=== PATIENT | male | born 1955 | race Caucasian/White ===

== ENCOUNTER → 2019-08-18 13:27 | Outpatient (CLI) | payer OTHER, MEDICARE, SELFPAY ==
--- NOTE | 2019-08-18 13:33 | CT_ITS ---
STUDY: CT SCAN LOWER EXTREMITY RIGHT REASON FOR EXAM: Male, 64 years old. UNILATERAL PRIMARY OSTEOARTHRITIS RIGHT KNEE, PREV PARTIAL MENISCUS REMOVAL, HX-CORONARY STENTS, DB, HTN -- SMOOTH PROTOCOL RADIATION DOSAGE (If Supplied By Facility): CTDIvol = ( 30.70 ) mGy, DLP = ( 1783.25 ) mGycm. Individualized dose optimization techniques were used for this CT.? TECHNIQUE: Multiple axial tomographic images of the right lower extremity were obtained. Coronal and sagittal reconstructions were obtained as well. COMPARISON: None. FINDINGS: Mild degree of osteoarthritis involving the right hip joint with acetabular spurs both laterally and medially. Moderate degree of osteoarthritis involving the medial compartment of the knee joint. Mild degree of osteoarthritis with joint space narrowing in the feature of spurring along the lateral femoral condyle and lateral tibial plateau. Posterior spurring along the posterior aspect of the distal femur. Mild degree of degenerative changes involving the patellofemoral joint. Small joint effusion. CT/Extremity Lower without Contra IMPRESSION: Multiple findings as described. Electronically Signed: Scar Holden, at 16:23 EDT , Service support ,
== END ==
PROVIDERS: Referring Provider Physician Assistant; Visit Provider Physician Assistant
DX: M17.11 Unilateral primary osteoarthritis, right knee (principal)
CPT/HCPCS: 73700

== ENCOUNTER → 2019-11-25 12:07 | Outpatient (CLI) | payer OTHER, MEDICARE, SELFPAY ==
[2019-11-25 14:36] LABS: Hemoglobin A1c 6.5 % (3.8-5.6)
== END ==
PROVIDERS: Referring Provider Physician Assistant; Visit Provider Physician Assistant
DX: E11.69 Type 2 diabetes mellitus with other specified complication (principal)
CPT/HCPCS: 36415; 83036

== ENCOUNTER 2019-12-29 10:55 | Observation (INO) | payer OTHER, MEDICARE, SELFPAY ==
[2019-12-22 11:03] LABS: Hematocrit 43.7 % (40-54); Hemoglobin 14.6 g/dL (13.0-16.5); Mean Corp Hgb Conc 33.4 g/dL (32-36); Mean Corpuscular Hgb 29.7 pg (27.0-32.0); Platelet Count 206 K/mm3 (150-450); RBC Distribution Width CV 13.9 % (11.6-14.6); RBC Distribution Width SD 44.1 fl (35.1-43.9); Red Blood Count 4.91 M/mm3 (4.6-6.2); White Blood Count 9.5 K/mm3 (4.4-11.0)
[2019-12-22 11:32] LABS: Anion Gap 6 (5-15); BUN 17 mg/dL (7-18); BUN/Creat Ratio 20.7 RATIO (10-20); Calcium,Total 8.6 mg/dL (8.5-10.1); Chloride 107 mmol/L (98-107); Creatinine, Serum 0.82 mg/dL (0.70-1.30); EST Glomerular Filtration Rate 100 mL/min (>60); Est Glom Filt Rate - Afr Amer 121 mL/min (>60); Glucose 178 mg/dL (74-106); Magnesium 1.8 mg/dL (1.6-2.6); Potassium 4.1 mmol/L (3.5-5.1); Sodium Level 140 mmol/L (136-145)
[2019-12-23 12:14] LABS: Absolute Lymphocyte Count 2.12 X10^3/uL (0.83-4.51); Absolute Neutrophil Count 6.7 X10^3/uL (2.0-7.7); Basophil# 0.09 X10^3/uL; Basophil% 0.9 % (0-1); Eosinophil# 0.18 X10^3/uL; Eosinophils% 1.8 % (0-5); Lymphocyte # 2.12 X10^3/ul (4.0); Lymphocyte % 21.6 % (19-41); Monocyte% 7.1 % (0-10); NRBC Flagged by Analyzer 0 % (0-5); Neutrophil # 6.68 X10^3/uL (2.7-7.7); Neutrophil % 68.3 % (47-70)
[2019-12-29] VITALS (14 sets, daily range): BP systolic 93–124; BP diastolic 55–88; PULSE 62–78; RESP 16–18; TEMP 36.4–36.8; O2SAT 92–99; BMI 27.8
[2019-12-29] MEDS: Lactated Ringers 1,000 ML 125 ML IV ×4 (07:00→18:33)
[2019-12-29] MEDS: Acetaminophen 500 MG Tablet 1000 MG PO ×3 (07:00→21:24)
[2019-12-29] MEDS: Gabapentin 600 MG Tablet PO (07:00)
[2019-12-29 10:16] LABS: Bedside Glucose 218 mg/dL (70-110)
[2019-12-29] MEDS: Cefazolin 2 GM in 0.9% Normal Saline 100 ML IV (11:07)
--- NOTE | 2019-12-29 11:30 | KNEE_PTH ---
PATIENT: LAUREN THOMAS LOC: MS3 U#:[id number] AGE/SX: 64/M ROOM: CA313 RE12/29/[address]: Dr. Indio Strong DO : 1955 BED: 1 DIS: 12/30/2019 SPEC #: [id number] RECD: 12/29/19 14:01 STATUS: ALEN REFunmilayo #: [id number] ROXIE: 12/29/19 11:[address]: Indio Strong DEPT: SURGICAL PATHOLOGY RECD BY: Davian Mancuso ENTERED: 12/30/19 07:59 SP TYPE: TOTAL KNEE OTHR DR: MD Wilberto Quijano PA-C [facility] Tissues: Knee, NOS Procedures: Decalcification bone/plaque Surgery Specimen Level IV HEADER OPERATION: ERAS, total knee replacement robotic arm assist PRE-OP DIAGNOSIS: Right knee osteoarthritis TISSUE SUBMITTED: Right knee MICROSCOPIC DIAGNOSIS Bone and soft tissue, right knee, total knee replacement: Pieces of bone with degenerative osteoarthritic changes. Fibroadipose tissue, fibroconnective tissue and reactive synovial tissue. JAM:tai 01/02/20 MICROSCOPIC DESCRIPTION Slides are reviewed. GROSS DESCRIPTION Received is one container designated bone and soft tissue right knee. The specimen consists of multiple fragments of baird-yellow bone measuring in aggregate 11 x 10 x 4 cm. Also in the specimen container are multiple fragments of yellow-white soft tissue measuring in aggregate 8 x 7 x 3 cm. A number of bony fragments contain articular surfaces consistent with tibial plateau and femoral condyle and displaying prominent osteophyte formation, eburnation, and bone erosion. Chief Design Engineer sections are submitted in two cassettes as follows: 1 - soft tissue, 2 - bone after decalcification. / JAM:tai 12/30/19 TC:5 CPT: 99990, 52945
--- NOTE | 2019-12-29 12:52 | PCM.OPRPT ---
Report of Operation Date of Procedure: 12/29/19 Pre-Operative Diagnosis: OA Right knee Post-Operative Diagnosis: same Surgery/Procedure Performed:: Right TKR community engagement representative: Wilberto Vann Type of Anesthesia:: Spinal Anesthesiologist: Blayne Mcneal Specimen's removed: bony cuts - Admit VTE Documentation VTE Present on Admission: No VTE Mechan Device Prophylaxis: SCD's, Thigh High MACO Hose VTE Pharm Prophylaxis ordered?: Yes
--- NOTE | 2019-12-29 13:40 | RAD_ITS ---
STUDY: X-RAY - RIGHT KNEE REASON FOR EXAM: Male, 64 years old. POST OP TECHNIQUE: 2 view(s) of the knee. COMPARISON: None. FINDINGS: Normal visualized distal femur. Normal visualized proximal tibia and fibula. Normal proximal tibiofibular articulation. The patient is status post right knee replacement. There is good alignment. Postoperative soft tissue changes. RAD/Knee 1 or 2 Views IMPRESSION: Status post total knee replacement. There is good alignment. Postoperative soft tissue changes. Electronically Signed: Scar Holden, at 14:49 EDT , Service support ,
[2019-12-29 13:56] LABS: Bedside Glucose 185 mg/dL (70-110)
[2019-12-29 13:58] LABS: Hemoglobin 12.8 g/dL (13.0-16.5); Mean Corpuscular Hgb 28.7 pg (27.0-32.0); Mean Corpuscular Volume 89.7 fL (80-94); Mean Platelet Vol. 10.7 fl (6.2-12.0); Platelet Count 199 K/mm3 (150-450); RBC Distribution Width CV 13.5 % (11.6-14.6); RBC Distribution Width SD 43.9 fl (35.1-43.9); Red Blood Count 4.46 M/mm3 (4.6-6.2); White Blood Count 8.8 K/mm3 (4.4-11.0)
[2019-12-29 14:11] LABS: Anion Gap 6 (5-15); BUN 15 mg/dL (7-18); BUN/Creat Ratio 19.7 RATIO (10-20); Calcium,Total 7.9 mg/dL (8.5-10.1); Chloride 106 mmol/L (98-107); Creatinine, Serum 0.76 mg/dL (0.70-1.30); EST Glomerular Filtration Rate 109 mL/min (>60); Est Glom Filt Rate - Afr Amer 132 mL/min (>60); Estimated Creatinine Clearance 109.51 ml/min; Glucose 195 mg/dL (74-106); Potassium 4.1 mmol/L (3.5-5.1); Sodium Level 141 mmol/L (136-145)
[2019-12-29] MEDS: oxyCODONE 5 MG Tablet PO (17:52)
[2019-12-29] MEDS: Cefazolin 1 GM/50 ML BAG IV (18:33)
[2019-12-29] MEDS: Atorvastatin Calcium 80 MG Tablet PO (21:24)
[2019-12-29] MEDS: Senna/Docusate Sodium 1 Tablet 2 TABLET PO (21:24)
[2019-12-29] MEDS: Finasteride 5 MG Tablet PO (21:25)
[2019-12-29] MEDS: Metoprolol Tartrate 25 MG Tablet 12.5 MG PO (21:25)
[2019-12-30 00:02] VITALS: BP 129/77; PULSE 63; RESP 16; TEMP 36.4; O2SAT 97
[2019-12-30] MEDS: oxyCODONE 5 MG Tablet PO ×2 (00:11→08:30)
--- NOTE | 2019-12-30 00:30 | NURSING ---
Pt unable to void at this time and feeling pressure on bladder. Bladder scanned for >999. Pt straight cathed per order at this time for 1300cc of clear, yellow urine; pt tolerated well and reports relief of pressure.
[2019-12-30] MEDS: Cefazolin 1 GM/50 ML BAG IV (02:25)
[2019-12-30 03:59] VITALS: BP 102/55; PULSE 67; RESP 16; TEMP 36.7; O2SAT 95
[2019-12-30] MEDS: 0.9% Saline Lock 10 ML Syringe IV (05:22)
[2019-12-30] MEDS: Acetaminophen 500 MG Tablet 1000 MG PO ×2 (05:23→13:48)
[2019-12-30 06:10] LABS: Bedside Glucose 189 mg/dL (70-110)
[2019-12-30 06:13] LABS: Hematocrit 34.8 % (40-54); Hemoglobin 11.3 g/dL (13.0-16.5); Mean Corp Hgb Conc 32.5 g/dL (32-36); Mean Corpuscular Hgb 29.4 pg (27.0-32.0); Mean Corpuscular Volume 90.6 fL (80-94); Mean Platelet Vol. 11.2 fl (6.2-12.0); Platelet Count 185 K/mm3 (150-450); RBC Distribution Width CV 13.7 % (11.6-14.6); RBC Distribution Width SD 44.9 fl (35.1-43.9); Red Blood Count 3.84 M/mm3 (4.6-6.2); White Blood Count 11.2 K/mm3 (4.4-11.0)
[2019-12-30 06:42] LABS: Anion Gap 6 (5-15); BUN 15 mg/dL (7-18); BUN/Creat Ratio 18.3 RATIO (10-20); Calcium,Total 7.7 mg/dL (8.5-10.1); Chloride 103 mmol/L (98-107); Creatinine, Serum 0.82 mg/dL (0.70-1.30); EST Glomerular Filtration Rate 100 mL/min (>60); Est Glom Filt Rate - Afr Amer 121 mL/min (>60); Glucose 194 mg/dL (74-106); Potassium 4.2 mmol/L (3.5-5.1); Sodium Level 137 mmol/L (136-145)
--- NOTE | 2019-12-30 07:53 | PN.ORTHO_ITS ---
Subjective: Patient sitting at bedside, states pain is been very well managed. Patient denies chest pain, shortness breath, calf pain, nausea vomiting. Patient does state he had difficult time of voiding and nursing did straight cath him. Denies any previous history of urinary retention. Patient reports he has had a small amount of urine void since the catheter. Objective: Dressings clean dry intact. Negative signs or symptoms of DVT. Patient's labs and vitals were reviewed and noted in the medical record. Patient is afebrile. Patient in no respiratory distress, speaking full sentences. - Physical Exam Vitals/I&O's: Vital Signs Temp Pulse Resp BP Pulse Ox 98.0 F 67 16 102/55 L 95 12/30/19 03:59 12/30/19 03:59 12/30/19 03:59 12/30/19 03:59 12/30/19 03:59 Oxygen Flow Rate (L/min) 2 Oxygen Delivery Method Nasal Cannula Weight: 95.5 kg Body Mass Index (BMI) 27.8 Finger Stick Blood Glucose 185 Intake and Output for Last 24 Hours 12/28/19 12/29/19 12/30/19 23:59 23:59 23:59 Intake Total 3239.17 / 3539.17 1744.00 / 1744.00 Output Total 2375 / 2375 Balance 3239.17 / 3539.17 -631.00 / -631.00 General: Alert, Oriented x3, Cooperative HEENT: PERRLA Oral: Moist Mucosa Neurological: Cranial nerves II-XII grossly intact Psych/Mental Status: Normal Affect, Alert and oriented to time, place, person, mood and affect Laboratory Results 12/29/19 09:46: POC Glucose 218 H 12/29/19 13:48: POC Glucose 185 H 12/29/19 13:50: WBC 8.8, RBC 4.46 L, Hgb 12.8 L, Hct 40.0, MCV 89.7, MCH 28.7, MCHC 32.0, RDW Std Deviation 43.9, RDW Coeff of Jori 13.5, Plt Count 199, MPV 10.7 12/29/19 13:50: Sodium 141, Potassium 4.1, Chloride 106, Carbon Dioxide 29.0, Anion Gap 6, BUN 15, Creatinine 0.76, Estim Creat Clear Calc 109.51, Est GFR (MDRD) Af Amer 132, Est GFR (MDRD) Non-Af 109, BUN/Creatinine Ratio 19.7, Glucose 195 H, Calcium 7.9 L 12/30/19 05:54: WBC 11.2 H, RBC 3.84 L, Hgb 11.3 L, Hct 34.8 L, MCV 90.6, MCH 29.4, MCHC 32.5, RDW Std Deviation 44.9 H, RDW Coeff of Jori 13.7, Plt Count 185, MPV 11.2 12/30/19 05:54: Sodium 137, Potassium 4.2, Chloride 103, Carbon Dioxide 28.0, Anion Gap 6, BUN 15, Creatinine 0.82, Estim Creat Clear Calc 101.50, Est GFR (MDRD) Af Amer 121, Est GFR (MDRD) Non-Af 100, BUN/Creatinine Ratio 18.3, Glucose 194 H, Calcium 7.7 L 12/30/19 06:07: POC Glucose 189 H Current Medications Acetaminophen (Tylenol) 1,000 mg PO Q8 [facility] Last Admin: 12/30/19 05:23 Dose: 1,000 mg Documented by: [facility] Atorvastatin Calcium (Lipitor) 80 mg PO QHS [facility] Last Admin: 12/29/19 21:24 Dose: 80 mg Documented by: Clopidogrel Bisulfate (Plavix) 75 mg PO DAILY [facility] Finasteride (Proscar) 5 mg PO QHS [facility] Last Admin: 12/29/19 21:25 Dose: 5 mg Documented by: Glipizide (Glucotrol) 15 mg PO BIDAC [facility] Last Admin: 12/29/19 16:23 Dose: Not Given Documented by: Sodium Chloride () 250 mls @ 15 mls/hr IV .[id number] PRN PRN Reason: Saline Flush Sodium Chloride () 250 mls @ 15 mls/hr IV .[id number] PRN PRN Reason: Additional IVPB Infusion Insulin Human Lispro (Humalog Kwikpen (Bkc)) 1 - 6 unit SC Q4H PRN PRN; Protocol PRN Reason: BG>/= 180, SEE PROTOCOL Linagliptin (Tradjenta) 5 mg PO DAILY [facility] Lisinopril (Zestril) 5 mg PO DAILY [facility] Metformin HCl (Glucophage) [facility] Last Admin: 12/29/19 16:23 Dose: Not Given Documented by: Metoprolol Tartrate (Lopressor (Beta Yariel)) 12.5 mg PO BID [facility] Last Admin: 12/29/19 21:25 Dose: 12.5 mg Documented by: Multivitamins/Minerals (Multivitamin With Minerals (Bkc)) 1 tablet PO DAILY@08 00 [facility] Ondansetron HCl (Zofran) 4 mg IV Q8H PRN PRN PRN Reason: NAUSEA Oxycodone HCl (Oxyir) 5 - 10 mg PO Q4H PRN PRN PRN Reason: Pain Score 4-10/10 Last Admin: 12/30/19 00:11 Dose: 10 mg Documented by: Promethazine HCl (Phenergan) 12.5 mg IM Q6H PRN PRN; Protocol PRN Reason: NAUSEA/VOMITING Senna/Docusate Sodium (Senokot-S, Lucrecia-Colace) 2 tablet PO BID [facility] Last Admin: 12/29/19 21:24 Dose: 2 tablet Documented by: Sodium Chloride () 10 - 40 ml IV UD PRN PRN Reason: SALINE FLUSH Last Admin: 12/30/19 05:22 Dose: 10 ml Documented by: Medical Necessity - Tobacco Use Smoking Status: Never smoker Assessment/Plan Postop right total knee arthroplasty Plan 1. Continue all pain medications as prescribed 2. Continue physical therapy, weight-bear as tolerated with walker 3. Resume all preoperative anticoagulation medications Plavix and aspirin. Medications will also provide anticoagulation for postop DVT prophylaxis 4. Encourage incentive spirometry 5. Patient will be discharged home today if he voids if patient continues have difficult time voiding we will consult urology 6. Follow-up as scheduled
[2019-12-30 08:00] VITALS: BP 112/64; PULSE 71; RESP 16; TEMP 37.2; O2SAT 97
--- NOTE | 2019-12-30 08:03 | PCM.DC.TKR ---
Discharge Diet: No Restrictions Discharge Activity: May Not Drive, May Shower, Use Walker May shower in (days): 3 Ice area for (Minutes): 20 - each hour while awake. Weight Bearing Status: Weight bearing as tolerated Elevate: Operative Extremity Additional Activity Instructions:: Wear elastic stockings for 2 weeks after your surgery. Call your doctor if your incision/area has: Continuous Slow Oozing, Sudden Increased Bleeding, Increased Pain/ Swelling, Increased Redness, Foul Smelling Discharge Call your doctor if you observe: Fever of 101 or Higher, Coldness, Increased Pain - in extremity, Numbness or Tingling, Change in Color, Calf discomfort, Uncontrolled pain Change Dressing in (Days):: 0 - and daily as needed. Remove Dressing in (days):: 8 Cleanse incision/area with: Soap & Water Allergies/Adverse Reactions: Allergies celecoxib [From Celebrex] Allergy (Verified 12/29/19 09:59) Rash etodolac Allergy (Verified 12/29/19 09:59) Rash from lodine photochemical reaction terbonafine Allergy (Uncoded 12/29/19 09:59) Rash Medications to take at Discharge Alogliptin Benzoate [Alogliptin] 25 mg PO DAILY 12/19/19 Atorvastatin Calcium [Lipitor] 80 mg PO QHS 12/19/19 Clopidogrel Bisulfate [Plavix] 75 mg PO DAILY 12/19/19 Finasteride [Proscar] 5 mg PO QHS 12/19/19 Krill/[place]-3/Dha/Epa/Lipids [Krill Oil 350 mg Softgel] 1 ea PO DAILY 12/19/19 Lisinopril 5 mg PO DAILY 12/19/19 Metformin HCl 1,000 mg PO BID 12/19/19 Metoprolol Tartrate [Lopressor (beta luly)] 12.5 mg PO BID 12/19/19 Multivit-Min/Folic/Vit K/Lycop [Men's 50 Plus Multivitamin Tab] 1 ea PO DAILY 12/19/19 Saw [place] Fruit [Saw [place]] 450 mg PO DAILY 12/19/19 glipiZIDE [Glucotrol] 15 mg PO BIDAC 12/19/19 Acetaminophen [Tylenol] 1,000 mg PO Q8 #90 tab 12/30/19 Aspirin [Adult Low Dose Aspirin EC] 81 mg PO DAILY #60 12/30/19 Oxycodone [Oxyir] 5 - 10 mg PO Q4H PRN PRN 7 Days #84 tablet 12/30/19 The following prescriptions were given: Aspirin [Adult Low Dose Aspirin EC] 81 mg PO DAILY #60 Oxycodone [Oxyir] 5 - 10 mg PO Q4H PRN PRN 7 Days #84 tablet PRN Reason: Pain Score 4-1010 [facility] Acetaminophen [Tylenol] 1,000 mg PO Q8 #90 tab Transmission Status: [facility] Primary Care Physician: [facility],[place] [Primary Care Provider] - Test Results: Test results from this visit will be discussed in further detail at your follow-up appointment, if applicable. Please Follow Up With: Wilberto Vann PA-C When: as scheduled/see pink sheet
[2019-12-30] MEDS: glipiZIDE 10 MG Tablet 15 MG PO (08:17)
[2019-12-30] MEDS: Aspirin E.C. 81 MG Tablet PO (08:18)
[2019-12-30] MEDS: Clopidogrel Bisulfate 75 MG Tablet PO (08:19)
[2019-12-30] MEDS: metFORMIN HCl 1,000 MG Tablet 1000 MG PO (08:19)
[2019-12-30] MEDS: Multivitamins,Ther W-Minerals Tablet 1 TABLET PO (08:19)
[2019-12-30] MEDS: Senna/Docusate Sodium 1 Tablet 2 TABLET PO (08:19)
[2019-12-30] MEDS: Lisinopril 5 MG Tablet PO (08:20)
[2019-12-30] MEDS: LINAGLIPTIN 5 MG TABLET PO (08:20)
[2019-12-30 08:29] VITALS: PULSE 71
[2019-12-30] MEDS: Metoprolol Tartrate 25 MG Tablet 12.5 MG PO (08:29)
--- NOTE | 2019-12-30 10:15 | CASEMGMT ---
RN ANURAG Face to Face with patient for initial transition planning/care coordination assessment. RN CM introduced self and role at [facility]. Patient sitting in chair, alert and oriented. Patient willing to participate in assessment and is able to answer all questions appropriately. Care providers, pharmacy, and demographics verified. Patient wishes to discharge home and is setup [facility]. Patient states he has no further needs or concerns at this time. CM to follow for discharge planning needs that may arise. PCP: Jagdeep at [facility] Specialists: erwin Strong Preferred Pharmacy: [facility] Insurance: [facility] [place] [employer] Prescription Benefit: yes Living Will/HPOA: yes, Aruna Mahmood LNOK: Living Arrangements: Patient lives with in a ranch style home with 5 steps to enter the home. Patient is independent at home. Transportation: DME/HHC: Patient states he has shower chair, raised toilet seat, cane, grab bars, walker at home. Patient is setup with [facility] for outpatient therapy. Disposition Plan: Patient to discharge home with outpatient therapy, family support, and follow-up plans in place. Alondra MOODY, RN, CM
--- NOTE | 2019-12-30 12:15 | PHA.DC.MC ---
Pharmacy Service has performed discharge medication reconciliation and counseling for this patient. 1. ASPIRIN 81MG PO BIDCM 2. OXYCODONE 5-10MG PO Q4H PRN PAIN 4-10/10 X 7 DAYS 3. ACETAMINOPHEN 1000MG PO Q8H The patient's discharge medication list was reviewed for discrepancies and discrepancies were resolved. Home Medications Alogliptin Benzoate [Alogliptin] 25 mg PO DAILY 12/19/19 Atorvastatin Calcium [Lipitor] 80 mg PO QHS 12/19/19 Clopidogrel Bisulfate [Plavix] 75 mg PO DAILY 12/19/19 Finasteride [Proscar] 5 mg PO QHS 12/19/19 Krill/[place]-3/Dha/Epa/Lipids [Krill Oil 350 mg Softgel] 1 ea PO DAILY 12/19/19 Lisinopril 5 mg PO DAILY 12/19/19 Metformin HCl 1,000 mg PO BID 12/19/19 Metoprolol Tartrate [Lopressor (beta luly)] 12.5 mg PO BID 12/19/19 Multivit-Min/Folic/Vit K/Lycop [Men's 50 Plus Multivitamin Tab] 1 ea PO DAILY 12/19/19 Saw [place] Fruit [Saw [place]] 450 mg PO DAILY 12/19/19 glipiZIDE [Glucotrol] 15 mg PO BIDAC 12/19/19 Acetaminophen [Tylenol] 1,000 mg PO Q8 #90 tab 12/30/19 Aspirin [Adult Low Dose Aspirin EC] 81 mg PO DAILY #60 12/30/19 Oxycodone [Oxyir] 5 - 10 mg PO Q4H PRN PRN 7 Days #84 tab 12/30/19 The patient was counseled on the following discharge medications and changes in medications for homegoing were reviewed. The Reason for Use, instructions for use, and potential side effects were reviewed for all new medications. The patient's questions regarding all of their medications were answered. The patient was able to verbally demonstrate an understanding of their discharge medications. Patient counseled by pharmacy services representative, Linda.
[2019-12-30 14:00] VITALS: BP 109/65; PULSE 62; RESP 16; TEMP 36.4; O2SAT 97
== END 2019-12-30 14:11 | disposition home or self-care (01) ==
LOC: MS3 23:05
PROVIDERS: Anesthesiology; Admitting Provider Orthopaedic Surgery; Referring Provider Orthopaedic Surgery; Visit Provider Orthopaedic Surgery
PROC: 0SRC0JZ Replacement of Right Knee Joint with Synthetic Substitute, Open Approach (ICD-10-PCS; CPT 27447; principal; 2019-12-29 11:00)
DX: M17.11 Unilateral primary osteoarthritis, right knee (principal); Z11.59 Encounter for screening for other viral diseases; I10 Essential (primary) hypertension; I25.10 Atherosclerotic heart disease of native coronary artery without angina pectoris; E78.00 Pure hypercholesterolemia, unspecified; E11.9 Type 2 diabetes mellitus without complications; Z79.899 Other long term (current) drug therapy; Z79.82 Long term (current) use of aspirin; Z79.02 Long term (current) use of antithrombotics/antiplatelets; Z79.4 Long term (current) use of insulin; Z95.5 Presence of coronary angioplasty implant and graft
CPT/HCPCS: 01400; 27447; 64447; S2900; 36415; 73560; 80048; 82962; 83735; 85007; 85025; 85027; 87081; 87635; 88305; 88311; 94799; 96361; 96365; 96366; 97110; 97116; 97161; 97166; 97530; 99218; 99251; C1776; J7120; A4216; G0378; G0379; G0463; J2405; U0003

== ENCOUNTER 2019-12-30 21:13 | Emergency (ER) | payer OTHER, MEDICARE, SELFPAY ==
[2019-12-29 15:48] VITALS: BMI 27.8
[2019-12-30 21:14] VITALS: BP 182/87; PULSE 78; RESP 18; TEMP 36.3; O2SAT 96; BMI 27.7
--- NOTE | 2019-12-30 22:58 | ED.VISSUMM ---
- ER Visit Summary Date of Service: 12/30/19 [facility] Complaint: Urinary retention History of Present Illness: The patient is a 64 M who has acute urinary retention. He had a right total knee arthroplasty performed here yesterday. After the surgery last night he had to have straight cath x2 because of urinary retention. He was able to urinate a little bit today so they sent him home without a catheter. Tonight he had urinary retention. He had some dribbling but no ability to empty his bladder. He has had no issues with this before. He has not had a fever. He was having some lower abdominal pain. Physical Examination: Vital signs reviewed. HEENT exam unremarkable. Heart is regular rate and rhythm without murmurs. Lungs are clear to auscultation. Abdomen is soft with suprapubic tenderness. Extremities reveal no edema. Skin exam normal. Neurologic exam normal. Test Results: None performed Emergency Department Course and Treatment: The patient had a Krueger catheter placed in triage. He had a greater than 1000 cc of urine drained. He is feeling much better now. I feel this is likely secondary to anesthesia and the spinal tap performed for surgery. I doubt this is infection. His urine is clear. Patient will be discharged with a leg bag in place. Patient will call his PCP tomorrow. I will also give him urology follow-up Treatment Plan: [] Disposition: Discharge Impression: Acute urinary retention This note was generated with Proenza Schouer dictation software. It may contain incorrect words, spelling, and punctuation that were not noted in review of the chart prior to signing ED Disposition - Plan for ED Patient: Disposition: Home or Assisted Living Instructions: ED Urinary Retention Male Referrals: [facility],[place] [Primary Care Provider] - Polo Osullivan MD [STAFF PHYSICIAN] -
[2019-12-30 23:15] VITALS: RESP 16
== END 2019-12-30 23:15 | disposition home or self-care (01) ==
LOC: ED 23:24
PROVIDERS: Emergency Provider Emergency Medicine
DX: R33.9 Retention of urine, unspecified (principal); I25.10 Atherosclerotic heart disease of native coronary artery without angina pectoris; Z96.651 Presence of right artificial knee joint
CPT/HCPCS: 99282

== ENCOUNTER → 2020-01-05 14:25 | Outpatient (CLI) | payer OTHER, MEDICARE, SELFPAY ==
[2019-12-30 21:14] VITALS: BMI 27.7
--- NOTE | 2020-01-05 14:28 | VDLE_ITS ---
Reason For Study: Pain RLE RIGHT GSV is normal. CFV is compressible, spontaneous, phasic, competent and demonstrates normal augmentation. FV is compressible, spontaneous, phasic, competent and demonstrates normal augmentation. POP V is compressible, spontaneous, phasic, competent and demonstrates normal augmentation. T/P Trunk is compressible. PTV is compressible. RT PerV is compressible. Rt SoleusV is dilated and non compressible consistent with acute DVT. Procedure Exam performed in department. Patient sent to ED for treatment. A preliminary report was called and/or faxed to Mary at [facility]. Interpretation Summary Acute deep vein thrombosis is noted in the right soleus vein. The remainder of the right lower extremity deep venous system is patent and compressible. Valvular competence appears intact within the proximal deep venous system on the right . The right great saphenous vein appears patent and compressible segmentally. Ordering Physician: Wilberto Vann Referring Physician: [facility] Performed By: Cais Johns, YOLETTE, RVT
== END ==
PROVIDERS: Referring Provider Physician Assistant; Visit Provider Physician Assistant
DX: M79.661 Pain in right lower leg (principal)
CPT/HCPCS: 93971

== ENCOUNTER 2020-01-05 15:18 | Emergency (ER) | payer OTHER, MEDICARE, SELFPAY ==
[2020-01-05 15:19] VITALS: BP 141/85; PULSE 127; RESP 16; TEMP 36.4; O2SAT 98; BMI 27.9
--- NOTE | 2020-01-05 16:17 | ED.DCSUM_ITS ---
History of Present Illness Chief Complaint: Complaint Informant: Patient Onset: Today Context: Onset with activity Timing: Continuous Current Severity: Moderate Maximum Severity: Moderate Narrative: Patient presents with right leg swelling that still a bit worse in the past few days he had an outpatient ultrasound which showed a popliteal DVT. He also had urinary retention after his total knee replacement 7 days ago. He just had a catheter inserted in the waiting room since he had retention again this morning, his catheter was removed by urology this morning. He has no chest pain or shortness of breath, no fever or chills. Past Medical History - Allergies and Home Meds Allergies/Adverse Reactions: Allergies celecoxib [From Celebrex] Allergy (Verified 12/29/19 09:59) Rash etodolac Allergy (Verified 12/29/19 09:59) Rash from lodine photochemical reaction terbonafine Allergy (Uncoded 12/29/19 09:59) Rash Primary Care Physician: [facility],[place] [Primary Care Provider] - Past Medical History: - - Hypertension, hypercholesterolemia, diabetes controlled with oral hypoglycemics Smoking Status: Former smoker Review of Systems All systems negative except as indicated General: Denies: Fever Cardiovascular: Denies: Chest pain Respiratory: Denies: Dyspnea, Cough Gastrointestinal: Denies: Abdominal pain, Nausea, Vomiting Genitourinary: Reports: - - Urinary retention Musculoskeletal: Reports: Extremity Pain, - Skin: Reports: Rash, Wounds Neurological: Denies: Headache, Weakness Psych: Denies: Depression, Anxiety Endocrine: Denies: Polyuria Hematologic: Denies: Easy bruising Physical Exam Vital Signs/Narrative: Vital Signs Temp Pulse Resp BP Pulse Ox 01/05/20 15:19 97.6 F L 127 H 16 141/85 H 98 General: Well nourished, Well developed Head: Normocephalic Eyes: Perrl ENT: Moist mucous membranes Cardiovascular: Regular rate, Regular rhythm Respiratory: No distress, CTA bilaterally Abdomen: Soft, Nontender, Nondistended Back: Nontender, Normal Inspection Extremities: - - Knee incision looks clean dry and intact with no signs of infection. There is lower extremity edema without any erythema or signs of cellulitis. Diagnostic/Tx/Re-eval - Medical Decision Making Patient is found to have a DVT, we will start anticoagulation he recently had normal creatinine. He was tachycardic initially however this was while he had urinary retention after the Krueger catheter his heart rate measured by myself is 95. He has no chest pain or shortness of breath therefore I do not believe he has any reason to have a PE study. He will be discharged in stable condition I will start anticoagulation and he can also follow-up with urology ED Disposition - Plan for ED Patient: Diagnosis: Urinary retention, DVT (deep venous thrombosis) Instructions: ED Krueger Catheter Care, Understanding Deep Vein Thrombosis, ED DVT Prescriptions: Apixaban [Eliquis] 5 mg PO BID #60 tab.ds.pk Transmission Status: Pending to [id number] Additional Instructions: Follow up with urology, also orthopedics and your regular doctor for your urinary retention, wound check and Eliquis management.
[2020-01-05 17:01] VITALS: BP 148/79; PULSE 114; RESP 16; O2SAT 97
== END 2020-01-05 17:02 | disposition home or self-care (01) ==
PROVIDERS: Emergency Provider Emergency Medicine
DX: R33.9 Retention of urine, unspecified (principal); I82.401 Acute embolism and thrombosis of unspecified deep veins of right lower extremity; E78.00 Pure hypercholesterolemia, unspecified; E11.9 Type 2 diabetes mellitus without complications; I10 Essential (primary) hypertension; Z79.84 Long term (current) use of oral hypoglycemic drugs; Z87.891 Personal history of nicotine dependence; Z79.82 Long term (current) use of aspirin; Z79.899 Other long term (current) drug therapy
CPT/HCPCS: 51702; 99285

== ENCOUNTER 2020-07-07 09:56 | Emergency (ER) | payer MEDICARE, OTHER, SELFPAY ==
[2020-07-07 09:57] VITALS: BP 163/89; PULSE 84; RESP 16; TEMP 36.1; O2SAT 95; BMI 28.3
--- NOTE | 2020-07-07 10:10 | ED.VIS.INJ ---
History of Present Illness Chief Complaint: Fall Informant: Patient, Significant Other Onset: Days - Incident occurred on Sunday Mechanism/Context: Blunt Injury, Fall Quality of Pain: Dull, Aching, Throbbing Location: Seventh through ninth left rib posterior axillary line Current Severity: Mild Maximum Severity: Severe Worsened by: Deep breathing Relieved by: Nothing Associated Symptoms: Negative for: Parasthesias, Weakness, Inability to ambulate, Loss of consciousness Narrative: Patient is a 65-year-old male who was unloading a snowblower from his truck. He slipped on the ice. He states all day twinge in his knee, which he recently had surgery on (total knee arthroplasty). He did not want to injure his knee so he fell onto his left back. He fell directly onto his back. Not head trauma. Nuys loss of conscious. Denies neck pain. Denies paresthesia, anesthesia medics. He is on Plavix. He is not on anticoagulant. He denies change in color of his urine. He denies abdominal pain. He has no other complaints. Tetanus Immunization: 5-10 years Prior similar symptoms: No Recent Illness/Hospitalization: No - Past Medical History (1) History of type 2 diabetes mellitus Status: Acute (2) History of hypertension Status: Acute (3) History of coronary artery disease Status: Acute Past Medical History - Allergies and Home Meds Allergies/Adverse Reactions: Allergies celecoxib [From Celebrex] Allergy (Verified 07/07/20 09:56) Rash etodolac Allergy (Verified 07/07/20 09:56) Rash from lodine photochemical reaction terbonafine Allergy (Uncoded 07/07/20 09:56) Rash Primary Care Physician: [facility] [Primary Care Provider] - Prior records reviewed: Yes Surgical History: - - Stent placement Lives: Spouse/ Significant Other Smoking Status: Former smoker Alcohol: None Drugs: None Review of Systems General: Denies: Chills, Fever, Malaise Eyes: Denies: Visual changes - bilaterally, Blurred Vision - bilaterally ENT: Denies: Rhinorrhea, Sore throat Cardiovascular: Denies: Chest pain, Palpitations Respiratory: Denies: Dyspnea, Cough, Dyspnea on exertion Gastrointestinal: Denies: Abdominal pain, Nausea, Vomiting Genitourinary: Denies: Hematuria, Frequency Musculoskeletal: Reports: Back pain. Denies: Myalgias, Arthralgias, Neck pain, Swelling, Extremity Pain Skin: Denies: Rash, Wounds Hematologic: Denies: Easy bruising, Easy bleeding Physical Exam Vital Signs/Narrative: Vital Signs Temp Pulse Resp BP Pulse Ox 07/07/20 09:57 97.0 F L 84 16 163/89 H 95 Inital Vital Signs reviewed: Yes General: Well nourished, Well developed Head: Normocephalic, Atraumatic, - - No clinical finding of head trauma or basilar skull fracture.. Negative for: Trauma, Tenderness Eyes: Perrl, EOMI, - - No subconjunctival hemorrhage. Negative for: Pale conjunctiva, Scleral icterus Neck: Nontender, Full ROM. Negative for: Spinal Tenderness Cardiovascular: Regular rate, Regular rhythm, No murmurs, Normal S1, Normal S2 Respiratory: No distress, CTA bilaterally, - - Splinting with deep breathing.. Negative for: Chest nontender, Rales, Rhonchi Abdomen: Soft, Nontender, Nondistended, Normal bowel sounds Rectal: Deferred Back: Spinal Tenderness. Negative for: Nontender, CVA Tenderness - Right, CVA Tenderness - Left Skin: Normal color, No rash Neurological: Alert, Oriented x3, Cranial nerves II-XII grossly intact, Normal Strength, Normal Sensation Psychological: Normal affect Diagnostic/Tx/Re-eval Chest X-Ray - ED: Read by ED Physician, - - X-rays interpreted by me at 1152. X-ray reveals a nondisplaced posterior left ninth rib fracture. There is no evidence of pneumothorax or hemothorax. A total of 5 views was obtained. 07/07/20 11:05 Ribs Uni Min 3V w/PA Chest [RAD] Stat - Medical Decision Making Concern patient may have fractured rib. Will obtain chest x-ray to look for evidence of fractured ribs, pneumothorax, hemothorax. Patient was offered pain medicine, which he declined. He states he took 2 extra strength Tylenol prior to coming to the emergency department. ED Disposition - Plan for ED Patient: Disposition: Home or Assisted Living Diagnosis: Left rib fracture Instructions: ED Rib Fracture Prescriptions: Oxycodone HCl/Acetaminophen [Percocet 5/325] 1 tablet PO Q6H PRN PRN 5 Days #20 tablet PRN Reason: Left rib pain Transmission Status: Sent to [id number] [Primary Care Provider] - 10-14 Days if not better Additional Instructions: Use incentive spirometer every hour while awake for the next 5 to 7 days. You may hurt for 1 to 4 weeks.
--- NOTE | 2020-07-07 11:05 | RAD_ITS ---
STUDY: X-RAY - UNILATERAL RIBS ( LEFT ) WITH CHEST REASON FOR EXAM: Male, 65 years old. Pt. Fell, pain at level of 7th/8th rib area laterally and posterior TECHNIQUE - RIBS: 4 view(s) of the ribs. TECHNIQUE - CHEST: Single PA view of the chest. COMPARISON: None. FINDINGS - RIBS: Nondisplaced fractures involving the posterior aspect of the left seventh eighth and ninth ribs. FINDINGS - CHEST: Minimal increased markings at the left lung base. Blunting of the left costophrenic angle. Normal size heart. Normal mediastinum and alberto. Normal visualized pulmonary arteries. Normal visualized aortic arch and descending thoracic aorta. Normal visualized thoracic spine. Normal visualized ribs, clavicles, and shoulders. There is no demonstrated abnormality of the visualized soft tissue structures of the upper abdomen. RAD/Ribs Uni Min 3V w/PA Chest IMPRESSION: RIBS: Nondisplaced fractures along the posterior lateral aspect of the left seventh eighth and ninth ribs. Small left pleural effusion with minimal left basilar atelectasis. CHEST: Small left pleural effusion with minimal left basilar atelectasis. Electronically Signed: Scar Holden MD at 12:09 EST , Service support ,
[2020-07-07 12:38] VITALS: PULSE 84; RESP 19; O2SAT 98
== END 2020-07-07 12:10 | disposition home or self-care (01) ==
PROVIDERS: Emergency Provider Emergency Medicine
DX: S22.32XA Fracture of one rib, left side, initial encounter for closed fracture (principal); I25.10 Atherosclerotic heart disease of native coronary artery without angina pectoris; W00.0XXA Fall on same level due to ice and snow, initial encounter; Z87.891 Personal history of nicotine dependence; Z79.02 Long term (current) use of antithrombotics/antiplatelets
CPT/HCPCS: 71101; 99283

== ENCOUNTER 2022-08-22 18:49 | Emergency (ER) | payer OTHER, SELFPAY ==
[2022-08-22 18:51] VITALS: BP 137/69; PULSE 69; RESP 18; TEMP 36.1; O2SAT 96; BMI 27.3
--- NOTE | 2022-08-22 19:29 | EX.ED.DYSGE1 ---
HPI History of Present Illness Chief Complaint: Ear Problem Detail of Chief Complaint: Right ear pain that patient localizes anterior to the tragus Informant: patient Onset/Context/Timing Onset: Days Context: Sudden Onset Timing: Continuous Quality: Pain Location: And anterior to the tragus Current Severity: Mild Maximum Severity: Moderate Worsened by: Palpation Relieved by: Nothing Associated Symptoms Associated Symptoms: Nothing Narrative Narrative: Patient is a 67-year-old male with history of type 2 diabetes, hypertension, hypercholesterolemia and is no longer on an antithrombotic or anticoagulant. Patient had recent dental work right lower jaw. He denies fever, chills night sweats. Denies ringing's ears, decreased hearing, drainage from his ears or pain inside the ear. There is no history of trauma. Patient denies difficulty opening or closing his mouth. Patient denies dysphonia. Patient denies swallowing liquids or solids. Patient denies facial pain or swelling. Patient denies rash. Prior similar symptoms: No Recent Illness/Hospitalization: No PFSH PFSH Medical History Coronary artery disease Diabetes Hypertension Home Medications alogliptin 25 mg tablet 25 mg PO DAILY diabetes 12/19/19 [History Last Taken Unknown] atorvastatin 80 mg tablet 80 mg PO QHS cholesterol 12/19/19 [History Last Taken Unknown] clopidogrel 75 mg tablet 75 mg PO DAILY heart 12/19/19 [History Last Taken 12/22/19] finasteride 5 mg tablet 5 mg PO QHS bph 12/19/19 [History Last Taken Unknown] glipizide 10 mg tablet 15 mg PO BIDAC diabetes 12/19/19 [History Last Taken Unknown] krill oil 350 mg-om-3 90 mg-dha 24 mg-epa 50 mg-phospholipids capsule 1 ea PO DAILY supplement 12/19/19 [History Last Taken Unknown] lisinopril 5 mg tablet 5 mg PO DAILY 12/19/19 [History Last Taken 12/29/19 08:00] metformin 1,000 mg tablet 1,000 mg PO BID diabetes 12/19/19 [History Last Taken Unknown] metoprolol tartrate 25 mg tablet 12.5 mg PO BID heart 12/19/19 [History Last Taken 12/29/19 08:00] nbgybeazyrdh-jlm-eewhh acid-vit K-lycop 400 mcg-20 mcg-370 mcg tablet 1 ea PO DAILY vitamin 12/19/19 [History Last Taken Unknown] saw palmetto 450 mg capsule 450 mg PO DAILY supplement 12/19/19 [History Last Taken Unknown] acetaminophen 500 mg tablet 1,000 mg PO Q8 #90 tabs 12/30/19 [Rx Last Taken Unknown] aspirin 81 mg tablet,delayed release 81 mg PO DAILY heart ##60 12/30/19 [Rx Last Taken Unknown] apixaban 5 mg (74 tabs) tablets in a dose pack 5 mg PO BID ##60 01/05/20 [Rx Last Taken Unknown] meloxicam 7.5 mg tablet 7.5 mg PO DAILY #14 tabs 08/22/22 [Rx Last Taken Unknown] Allergy/AdvReac Type Severity Reaction Status Date / Time celecoxib [From Celebrex] Allergy Rash Verified 08/22/22 18:50 etodolac Allergy Rash Verified 08/22/22 18:50 terbinafine AdvReac Rash Verified 08/22/22 18:50 Social History (Updated 08/22/22 @ 19:[address] Carter Aguiar MD) household members: spouse Smoking Status: Never smoker substance use type: does not use ROS ROS ED Constitutional Constitutional ED: Denies chills, fever(s), subjective, sweats or weight loss Eyes Eyes: Denies blurry vision, change in vision or diplopia ENT ENT ED: Reports ear pain right; Denies rhinorrhea or sore throat Cardiovascular Cardiovascular: Denies chest pain Gastrointestinal Gastrointestinal: Denies nausea or vomiting Psychiatric Psychiatric: Denies anxiety Hematologic/Lymphatic Hematologic/Lymphatic: Reports systems reviewed and no addt'l complaints, except as documented; Denies easy bleeding or easy bruising EXAM Physical Exam Const Vital Signs: 08/22/22 18:51 Temperature 97 F L Temperature Source Temporal Pulse Rate 69 Respiratory Rate 18 Blood Pressure 137/69 H Blood Pressure Mean 91 Pulse Ox 96 Oxygen Delivery Method Room Air Positive well nourished and well developed General Appearance ED: well developed and NAD; Negative for cyanotic, diaphoretic or pallor HEENT Reports moist mucous membranes HEENT Narrative: Head is atraumatic normocephalic. Ears are normal. There is pain over the right TMJ. There is a click with opening closing his mouth. The external auditory canal is normal. The TM is normal. Posterior pharynx without erythema or exudate. Uvula is midline. There is no obvious dental pathology. There is no trismus. There is no evidence of facial cellulitis. There is no preauricular lymphadenopathy. There is no submandibular or anterior cervical lymphadenopathy. 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 Since he is not on an anticoagulant or antithrombotic will treat with NSAIDs since his renal function is normal. He was referred to Dr. Troncoso. History & Record Review Discussion w/independent historian: Patient and Significant other Additional record(s) reviewed:: Prior outpatient record (History of DVT, coronary disease with stent.), Prior ED visit and Prior labs Discharge Plan Triage Chief Complaint: Ear Problem Other Complaint: Dental ED Provider: Carter Aguiar Dx/Rx/DC Orders Clinical Impression: TMJ disease, History of type 2 diabetes mellitus, History of hypertension, History of coronary artery disease Instructions: ED TMJ Syndrome Prescriptions: New meloxicam 7.5 mg tablet 7.5 mg PO DAILY Qty: 14 0RF No Action atorvastatin 80 MG tablet 80 mg PO QHS glipizide 10 MG tablet 15 mg PO BIDAC clopidogrel 75 MG tablet 75 mg PO DAILY Label Comments: hold 7 days preop metformin 1,000 MG tablet 1,000 mg PO BID lisinopril 5 MG tablet 5 mg PO DAILY finasteride 5 MG tablet 5 mg PO QHS metoprolol tartrate 25 MG tablet 12.5 mg PO BID saw palmetto 450 MG capsule 450 mg PO DAILY hrevbrdc-bho-plhte-vit K-lycop 1 EACH tablet 1 ea PO DAILY alogliptin 25 MG tablet 25 mg PO DAILY [id number]-[id number]-ximlwj 1 EACH capsule 1 ea PO DAILY acetaminophen 500 MG tablet 1,000 mg PO Q8 Qty: 90 0RF aspirin 81 MG tablet,delayed release (DR/EC) 81 mg PO DAILY Qty: 60 0RF apixaban 5 MG tablets,dose pack 5 mg PO BID Qty: 60 0RF Primary Care Provider: [facility] Referrals: Fadi Lobo DDS [Med Staff - Active Staff] - [facility] [Primary [facility]] - Disposition Disposition: Home, Self Care
[2022-08-22 20:00] VITALS: BP 137/69; PULSE 69; RESP 15; O2SAT 96
== END 2022-08-22 20:20 | disposition home or self-care (01) ==
PROVIDERS: Emergency Provider Emergency Medicine; Visit Provider Emergency Medicine
DX: M26.601 Right temporomandibular joint disorder, unspecified (principal); I25.10 Atherosclerotic heart disease of native coronary artery without angina pectoris; Z95.5 Presence of coronary angioplasty implant and graft
CPT/HCPCS: 99282

== ENCOUNTER 2024-02-13 09:54 | Inpatient (IN) | payer MEDICARE, OTHER, SELFPAY ==
[2024-02-13 09:57] VITALS: BP 136/72; PULSE 65; RESP 18; TEMP 35.5; O2SAT 93; BMI 27.1
--- NOTE | 2024-02-13 11:20 | CT_ITS ---
STUDY: CT ABDOMEN AND PELVIS WITHOUT CONTRAST REASON FOR EXAM: Male, 69 years old. Abdominal pain. RADIATION DOSAGE (If Supplied By Facility): CTDIvol = ( 13.16 ) mGy, DLP = ( 703.66 ) mGycm TECHNIQUE: Transaxial images were obtained from the dome of the diaphragm to the symphysis pubis without oral contrast, and without intravenous contrast. Sagittal and coronal images were reconstructed. Individualized dose optimization techniques were used for this CT. COMPARISON: None. FINDINGS: The visualized lung bases are unremarkable. Coronary artery calcification. Normal liver. Possible sludge in the gallbladder lumen. Normal spleen. There is a well-defined 1.5 cm hypodense nodule in the mesenteric fat in the left upper quadrant suggests a possible splenule. Normal pancreas. Normal bilateral adrenal glands. There is evidence of a moderate degree of right hydronephrosis. Nonobstructive calculus is seen. A right-sided ureteropelvic junction obstruction should be ruled out. Mild degree of right perinephric stranding. Right renal cysts. Normal left kidney. There is a small hiatal hernia. Normal small intestine. Normal colon. The appendix is visualized and appears normal. There is diffuse atherosclerotic calcification of the abdominal aorta and its major visceral branches, without a demonstrated aneurysm. Normal inferior vena cava. Normal retroperitoneum. Mild degree of bladder wall thickening. There is enlargement of the prostate gland. It measures 5.9 cm x 7.5 cm. There is a left-sided inguinal hernia containing adipose tissue. There are diffuse degenerative changes of the visualized lumbar spine. Possible spinal stenosis in the lower lumbar spine. There is a 6.8 mm sclerotic focus in the L4 body. This may represent a bone island. There is a 1.2 cm hypodensity most likely a cyst in the medial aspect of the right iliac bone. CT/Abdomen/Pelvis without Cont IMPRESSION: Moderate degree of right hydronephrosis most likely secondary to right ureterovesical junction obstruction. Questionable sludge in the gallbladder lumen. Prostatic enlargement. Electronically Signed: Scar Holden MD at 12:14 EDT ,
--- NOTE | 2024-02-13 11:20 | EDS_ITS ---
HPI History of Present Illness Chief Complaint: Back Informant: patient Narrative Narrative: Patient is a 69-year-old male with history of coronary disease, hypertension, type 2 diabetes mellitus presenting with atraumatic right lower back pain. Patient states started on Sunday evening (5 days ago) at a football game. When started he was diaphoretic and nauseous. Denies any radiation of pain. On Sunday he take Tylenol disc and laid around. He was feeling better but then last night the pain started again. He had another episode of nausea with it. He states the pain woke him up at 5 AM this morning. He describes it as an ache. It can become quite severe. Denies any radiation of pain. Denies any associated urinary symptoms. [facility] who recommend he come into the ER for further evaluation and to rule out kidney stone versus appendicitis versus cholecystitis. Patient has no other complaints or concerns reported at this time. No report of any fever or chills. No chest pain or difficulty breathing. No swelling of the legs. Reports pain is not reproducible with any type of movement. [facility] Medical History Heart attack Diabetes Coronary artery disease Hypertension Home Medications ?Medication ?Instructions ?Recorded ?Last Taken ?Type alogliptin 25 mg tablet 25 mg PO DAILY diabetes 12/19/19 Unknown History atorvastatin 80 mg tablet 80 mg PO QHS cholesterol 12/19/19 Unknown History clopidogrel 75 mg tablet 75 mg PO DAILY heart 12/19/19 12/22/19 History finasteride 5 mg tablet 5 mg PO QHS bph 12/19/19 Unknown History glipizide 10 mg tablet 15 mg PO BIDAC diabetes 12/19/19 Unknown History krill oil 350 mg-om-3 90 mg-dha 24 1 ea PO DAILY supplement 12/19/19 Unknown History mg-epa 50 mg-phospholipids capsule lisinopril 5 mg tablet 5 mg PO DAILY 12/19/19 12/29/19 08:00 History metformin 1,000 mg tablet 1,000 mg PO BID diabetes 12/19/19 Unknown History metoprolol tartrate 25 mg tablet 12.5 mg PO BID heart 12/19/19 12/29/19 08:00 History lcyxuxgtqicy-fjp-ahsmx acid-vit 1 ea PO DAILY vitamin 12/19/19 Unknown History K-lycop 400 mcg-20 mcg-370 mcg tablet saw palmetto 450 mg capsule 450 mg PO DAILY supplement 12/19/19 Unknown History acetaminophen 500 mg tablet 1,000 mg (2 x 500 mg) PO Q8 #90 12/30/19 Unknown Rx tabs aspirin 81 mg tablet,delayed 81 mg PO DAILY heart ##60 12/30/19 Unknown Rx release apixaban 5 mg (74 tabs) tablets in 5 mg PO BID ##60 01/05/20 Unknown Rx a dose pack meloxicam 7.5 mg tablet 7.5 mg PO DAILY #14 tabs 08/22/22 Unknown Rx azithromycin 250 mg tablet See Rx Instructions PO .COMPLEX #6 06/28/23 Unknown Rx tabs dextromethorphan-guaifenesin 10 10 ml PO Q4-6H PRN cough #237 mL 06/28/23 Unknown Rx mg-100 mg/5 mL oral syrup (Ant AGUIAR) Allergy/AdvReac Type Severity Reaction Status Date / Time celecoxib (From Celebrex) Allergy Rash Verified 02/13/24 09:56 etodolac Allergy Rash Verified 02/13/24 09:56 terbinafine AdvReac Rash Verified 02/13/24 09:56 Surgical History H/O knee surgery H/O right heart catheterization Social History household members: spouse housing: house Smoking Status: Never smoker substance use type: does not use ROS ROS ED Constitutional Constitutional ED: Denies chills or fever(s) Cardiovascular Cardiovascular: Denies chest pain or palpitations Respiratory/Chest Respiratory/Chest: Denies dyspnea Gastrointestinal Gastrointestinal: Denies abdominal pain, constipation, diarrhea, nausea or vomiting Genitourinary Genitourinary ED: Denies dysuria, hematuria or urinary frequency Musculoskeletal Musculoskeletal: Reports back pain Integumentary Denies rash Neurologic Neurologic: Denies headache(s), paresthesias or weakness EXAM Physical Exam Const Vital Signs: 02/13/24 09:57 Temperature 96 F L Temperature Source Temporal Pulse Rate 65 Respiratory Rate 18 Blood Pressure 136/72 H Blood Pressure Mean 93 Pulse Ox 93 Oxygen Delivery Method Room Air Positive well nourished and well developed General Appearance ED: well developed HEENT Reports moist mucous membranes Eyes PERRL Neck supple Resp normal respiratory effort and clear to auscultation bilaterally Cardio regular rate and regular rhythm GI normal to inspection, nondistended, normoactive bowel sounds, soft to palpation and non-tender GI Narrative: No pain at McBurney's point. Negative Hamlin sign. Palpation: Negative for tender or guarding Back/Spine normal to inspection and no thoracic nor lumbar tenderness Back/Spine Narrative: Patient points to his right flank as area of pain but is not reproducible with palpation. No overlying rash or skin changes General Back: Negative for CVA tenderness Extremity normal to inspection and no clubbing, cyanosis or edema Neuro oriented x3 Sensorium / Orientation: alert Motor Exam: strength 5/5 throughout Psych mental status grossly normal Skin no rashes or lesions noted and no wounds MDM MDM Lab Data Labs: Laboratory Results - last 24 hr 02/13/24 10:17 WBC 10.8 RBC 5.13 Hgb 14.8 Hct 45.1 MCV 87.9 MCH 28.8 MCHC 32.8 RDW Std Deviation 43.6 RDW Coeff of Jori 13.4 Plt Count 168 MPV 11.3 Immature Gran % (Auto) 0.500 Neut % (Auto) 76.8 H Lymph % (Auto) 14.3 L Buchanan % (Auto) 6.7 Eos % (Auto) 1.1 Baso % (Auto) 0.6 Absolute Neuts (auto) 8.3 H Absolute Lymphs (auto) 1.54 Nucleated RBC % 0 Sodium 138 Potassium 4.2 Chloride 104 Carbon Dioxide 28.0 Anion Gap 5 BUN 24 H Creatinine 1.42 H Estim Creat Clear Calc 54.70 Est GFR (MDRD) Af Amer 63 Est GFR (MDRD) Non-Af 52 L BUN/Creatinine Ratio 16.9 Glucose 184 H Calcium 9.2 Total Bilirubin 0.90 AST 15 ALT 32 Alkaline Phosphatase 56 Total Protein 7.7 Albumin 4.2 Globulin 3.5 Albumin/Globulin Ratio 1.2 Discharge Plan Triage Chief Complaint: Back ED Provider: Lisa Talbert Dx/Rx/DC Orders Prescriptions: No Action azithromycin 250 mg tablet See Rx Instructions PO .COMPLEX Qty: 6 0RF Rx Instructions: take 500 mg today (day 1), then 250 mg for 4 days (days 2-5) PO dextromethorphan-guaifenesin [Wal-Tussin DM] 10-100 mg/5 mL syrup 10 ml PO Q4-6H PRN (Reason: cough) Qty: 237 0RF atorvastatin 80 MG tablet 80 mg PO QHS glipizide 10 MG tablet 15 mg PO BIDAC clopidogrel 75 MG tablet 75 mg PO DAILY Patient Comments: hold 7 days preop metformin 1,000 MG tablet 1,000 mg PO BID lisinopril 5 MG tablet 5 mg PO DAILY finasteride 5 MG tablet 5 mg PO QHS metoprolol tartrate 25 MG tablet 12.5 mg PO BID saw palmetto 450 MG capsule 450 mg PO DAILY yjbvivql-xvf-zwwcj-vit K-lycop 1 EACH tablet 1 ea PO DAILY alogliptin 25 MG tablet 25 mg PO DAILY eekma-fgpgb-2-jlv-pft-xogjix 1 EACH capsule 1 ea PO DAILY acetaminophen 500 MG tablet 1,000 mg PO Q8 Qty: 90 0RF aspirin 81 MG tablet,delayed release (DR/EC) 81 mg PO DAILY Qty: 60 0RF apixaban 5 MG tablets,dose pack 5 mg PO BID Qty: 60 0RF meloxicam 7.5 mg tablet 7.5 mg PO DAILY Qty: 14 0RF [facility] [[facility] Provider] - Print Language: [place]i
--- NOTE | 2024-02-13 11:20 | ED.VIS.BACK ---
HPI History of Present Illness Chief Complaint: Back Informant: patient Narrative Narrative: Patient is a 69-year-old male with history of coronary disease, hypertension, type 2 diabetes mellitus presenting with atraumatic right lower back pain. Patient states started on Sunday evening (5 days ago) at a football game. When started he was diaphoretic and nauseous. Denies any radiation of pain. On Sunday he take Tylenol disc and laid around. He was feeling better but then last night the pain started again. He had another episode of nausea with it. He states the pain woke him up at 5 AM this morning. He describes it as an ache. It can become quite severe. Denies any radiation of pain. Denies any associated urinary symptoms. [facility] who recommend he come into the ER for further evaluation and to rule out kidney stone versus appendicitis versus cholecystitis. Patient has no other complaints or concerns reported at this time. No report of any fever or chills. No chest pain or difficulty breathing. No swelling of the legs. Reports pain is not reproducible with any type of movement. [facility] Medical History Heart attack Diabetes Coronary artery disease Hypertension Home Medications ?Medication ?Instructions ?Recorded ?Last Taken ?Type atorvastatin 80 mg tablet 80 mg PO QHS cholesterol 12/19/19 Unknown History finasteride 5 mg tablet 5 mg PO QHS bph 12/19/19 Unknown History glipizide 10 mg tablet 15 mg PO BIDAC diabetes 12/19/19 Unknown History krill oil 350 mg-om-3 90 mg-dha 24 1 ea PO DAILY supplement 12/19/19 Unknown History mg-epa 50 mg-phospholipids capsule lisinopril 5 mg tablet 5 mg PO DAILY 12/19/19 12/29/19 08:00 History metformin 1,000 mg tablet 1,000 mg PO BID diabetes 12/19/19 Unknown History metoprolol tartrate 25 mg tablet 12.5 mg PO BID heart 12/19/19 12/29/19 08:00 History [id number]-sti-bdsjh acid-vit 1 ea PO DAILY vitamin 12/19/19 Unknown History K-lycop 400 mcg-20 mcg-370 mcg tablet acetaminophen 500 mg tablet 1,000 mg (2 x 500 mg) PO Q8 #90 12/30/19 Unknown Rx tabs aspirin 81 mg tablet,delayed 81 mg PO DAILY heart ##60 12/30/19 Unknown Rx release empagliflozin 25 mg tablet 25 mg PO DAILY 02/13/24 Unknown History rosuvastatin 40 mg tablet (Crestor) 40 mg PO DAILY 02/13/24 Unknown History sitagliptin 100 mg tablet 100 mg PO DAILY 02/13/24 Unknown History tamsulosin 0.4 mg capsule (Flomax) 0.4 mg PO DAILY 02/13/24 Unknown History Allergy/AdvReac Type Severity Reaction Status Date / Time celecoxib (From Celebrex) Allergy Rash Verified 02/13/24 09:56 etodolac Allergy Rash Verified 02/13/24 09:56 terbinafine AdvReac Rash Verified 02/13/24 09:56 Surgical History H/O knee surgery H/O right heart catheterization Social History household members: spouse housing: house Smoking Status: Never smoker substance use type: does not use ROS ROS ED Constitutional Constitutional ED: Denies chills or fever(s) Cardiovascular Cardiovascular: Denies chest pain or palpitations Respiratory/Chest Respiratory/Chest: Denies dyspnea Gastrointestinal Gastrointestinal: Denies abdominal pain, constipation, diarrhea, nausea or vomiting Genitourinary Genitourinary ED: Denies dysuria, hematuria or urinary frequency Musculoskeletal Musculoskeletal: Reports back pain Integumentary Denies rash Neurologic Neurologic: Denies headache(s), paresthesias or weakness EXAM Physical Exam Const Vital Signs: 02/13/24 09:57 02/13/24 13:00 02/13/24 15:00 Temperature 96 F L 98.2 F Temperature Source Temporal Pulse Rate 65 71 59 L Respiratory Rate 18 18 16 Blood Pressure 136/72 H 130/71 H 132/75 H Blood Pressure Mean 93 90 94 Pulse Ox 93 97 Oxygen Delivery Method Room Air Positive well nourished and well developed General Appearance ED: well developed HEENT Reports moist mucous membranes Eyes PERRL Neck supple Resp normal respiratory effort and clear to auscultation bilaterally Cardio regular rate and regular rhythm GI normal to inspection, nondistended, normoactive bowel sounds, soft to palpation and non-tender GI Narrative: No pain at McBurney's point. Negative Hamlin sign. Palpation: Negative for tender or guarding Back/Spine normal to inspection and no thoracic nor lumbar tenderness Back/Spine Narrative: Patient points to his right flank as area of pain but is not reproducible with palpation. No overlying rash or skin changes General Back: Negative for CVA tenderness Extremity normal to inspection and no clubbing, cyanosis or edema Neuro oriented x3 Sensorium / Orientation: alert Motor Exam: strength 5/5 throughout Psych mental status grossly normal Skin no rashes or lesions noted and no wounds MDM MDM MDM Narrative Medical decision making narrative: Patient's evaluated for this worsening right flank pain. He is overall well-appearing. Is not reproducible direct palpation. Differential includes renal colic, hydronephrosis, urinary tract infection and pyelonephritis as well as muscle skeletal pain. The pain is lower so have lower suspicion for liver or gallbladder pathology. Workup including CBC, CMP and urinalysis as well as CT flank study. Lab work largely normal except for his creatinine which is elevated 1.42. Patient is not aware of any history of RICARDA/CKD and his Most recent creatinine in our system was 0.82. However this was in 2019. CT of the abdomen and pelvis does show mild degree of right hydronephrosis most likely secondary to right UVJ obstruction. There is also prostatic enlargement. This does coincide with patient's symptoms. Given hydronephrosis with an RICARDA do think patient would benefit from admission and more urgent urology follow-up. Case is discussed with Dr. Osullivan who will see the patient on consult and likely place a stent tomorrow for this. Case discussed immunization, Dr. Spencer. Lab Data Attestation: I reviewed the patient's lab results. Labs: Laboratory Results - last 24 hr 02/13/24 02/13/24 10:17 11:58 WBC 10.8 RBC 5.13 Hgb 14.8 Hct 45.1 MCV 87.9 MCH 28.8 MCHC 32.8 RDW Std Deviation 43.6 RDW Coeff of Jori 13.4 Plt Count 168 MPV 11.3 Immature Gran % (Auto) 0.500 Neut % (Auto) 76.8 H Lymph % (Auto) 14.3 L Ransom % (Auto) 6.7 Eos % (Auto) 1.1 Baso % (Auto) 0.6 Absolute Neuts (auto) 8.3 H Absolute Lymphs (auto) 1.54 Nucleated RBC % 0 Sodium 138 Potassium 4.2 Chloride 104 Carbon Dioxide 28.0 Anion Gap 5 BUN 24 H Creatinine 1.42 H Estim Creat Clear Calc 54.70 Est GFR (MDRD) Af Amer 63 Est GFR (MDRD) Non-Af 52 L BUN/Creatinine Ratio 16.9 Glucose 184 H Calcium 9.2 Total Bilirubin 0.90 AST 15 ALT 32 Alkaline Phosphatase 56 Total Protein 7.7 Albumin 4.2 Globulin 3.5 Albumin/Globulin Ratio 1.2 Urine Color Yellow Urine Clarity Clear Urine pH 6.0 Ur Specific [place] 1.015 Urine Protein 15 H Urine Glucose (UA) 1000 H Urine Ketones Negative Urine Occult Blood 25 H Urine Nitrite Negative Urine Bilirubin Negative Urine Urobilinogen Normal Ur Leukocyte Esterase Negative Urine RBC 0-5 SEEN Urine WBC 0 SEEN Ur Squamous Epith Cells 0-5 SEEN Urine Bacteria 0 SEEN Urine Mucus 0 SEEN Radiography Diagnostic Testing: Clinical Impression(s) from Imaging Studies Abdomen/Pelvis CT 02/13/24 11:20 IMPRESSION: Moderate degree of right hydronephrosis most likely secondary to right ureterovesical junction obstruction. Questionable sludge in the gallbladder lumen. Prostatic enlargement. Electronically Signed: Scar Holden MD at 12:14 EDT , Management Discussion w/another healthcare provider: [facility] Discharge Plan Triage Chief Complaint: Back ED Provider: Lisa Talbert Dx/Rx/DC Orders Clinical Impression: Obstruction of right ureteropelvic junction (UPJ), RICARDA (acute kidney injury) Prescriptions: No Action atorvastatin 80 MG tablet 80 mg PO QHS glipizide 10 MG tablet 15 mg PO BIDAC metformin 1,000 MG tablet 1,000 mg PO BID lisinopril 5 MG tablet 5 mg PO DAILY finasteride 5 MG tablet 5 mg PO QHS metoprolol tartrate 25 MG tablet 12.5 mg PO BID tttiizhf-sho-zisot-vit K-lycop 1 EACH tablet 1 ea PO DAILY [id number]-[id number] 1 EACH capsule 1 ea PO DAILY acetaminophen 500 MG tablet 1,000 mg PO Q8 Qty: 90 0RF aspirin 81 MG tablet,delayed release (DR/EC) 81 mg PO DAILY Qty: 60 0RF sitagliptin 100 mg tablet 100 mg PO DAILY empagliflozin 25 mg tablet 25 mg PO DAILY rosuvastatin [Crestor] 40 mg tablet 40 mg PO DAILY tamsulosin [Flomax] 0.4 mg capsule 0.4 mg PO DAILY [facility]: [facility] [Primary Care Provider] - Print Language: Mauritanian Disposition Disposition: Acute Care Hospital [facility]
[2024-02-13 11:30] LABS: Absolute Lymphocyte Count 1.54 X10^3/uL (0.83-4.51); Absolute Neutrophil Count 8.3 X10^3/uL (2.0-7.7); Basophil# 0.07 X10^3/uL; Basophil% 0.6 % (0-1); Eosinophil# 0.12 X10^3/uL; Eosinophils% 1.1 % (0-5); Hematocrit 45.1 % (40-54); Hemoglobin 14.8 g/dL (13.0-16.5); Lymphocyte # 1.54 X10^3/ul (0.83-4.51); Lymphocyte % 14.3 % (19-41); Mean Corp Hgb Conc 32.8 g/dL (32-36); Mean Corpuscular Hgb 28.8 pg (27.0-32.0); Mean Corpuscular Volume 87.9 fL (80-94); Mean Platelet Vol. 11.3 fl (6.2-12.0); Monocyte# 0.72 X10^3/uL; Monocyte% 6.7 % (0-10); NRBC Flagged by Analyzer 0 % (0-5); Neutrophil # 8.29 X10^3/uL (2.7-7.7); Neutrophil % 76.8 % (47-70); Platelet Count 168 K/mm3 (150-450); RBC Distribution Width CV 13.4 % (11.6-14.6); RBC Distribution Width SD 43.6 fl (35.1-43.9); Red Blood Count 5.13 M/mm3 (4.6-6.2); White Blood Count 10.8 K/mm3 (4.4-11.0)
--- OUTSIDE RECORDS SUMMARY | 2024-02-13 11:47 | XMS RPT_ITS | CCD ---
Author Organization [facility] Results Test Name Value Interpretation Reference Range Facility [facility] 10-28-2018 Anion gap [Moles/Vol] 8 mmol/L Normal 5-16 [facility] Comment on above: Order Comment: Campu s: M Performed By: #### L 500.21523, L500.02948 #### [facility] [place] [address] Calcium [Mass/Vol] 8.2 mg/dL Low 8.5-10.1 [facility] Comment on above: Order Comment: Campu s: M Performed By: #### L 500.80696, L500.24260 #### [facility] [address] [place] [address] Chloride [Moles/Vol] 106 mmol/L Normal 98-107 [facility] Comment on above: Order Comment: Campu s: M Performed By: #### L 500.96471, L500.39779 #### [facility] [place] [address] CO2 [Moles/Vol] 27 mmol/L Normal 21-32 [facility] Comment on above: Order Comment: Campu s: M Performed By: #### L 500.53681, L500.63410 #### [facility] [address] [place] [address] Creatinine [Mass/Vol] 0.672 mg/dL Normal 0.670-1.170 [facility] Comment on above: Order Comment: Campu s: M Result Comment: Tabatha ents receiving either N-Acetylcysteine (NAC) or Metamizole prior to venipuncture, may have falsely depressed results. Performed By: #### L 500.71935, L500.27748 #### [facility] [address] [place] [address] Glucose [Mass/Vol] 189 mg/dL High 70-100 [facility] Comment on above: Order Comment: Campu s: M Result Comment: 70-1 00- Normal Fasting; 100-125 Impaired Fasting; greater than 126 on more than one result- Diabetes. ADA guidelines. Results may be falsely elevated after the administration of Sulfapyridine. Results may be falsely depressed after the administration of Sulfasalazine. Performed By: #### L 500.04838, L500.96116 #### [facility] [address] [place] [address] Potassium [Moles/Vol] 4.5 mmol/L Normal 3.5-5.1 [facility] Comment on above: Order Comment: Campu s: M Performed By: #### L 500.98888, L500.49513 #### [facility] [address] [place] [address] Sodium [Moles/Vol] 142 mmol/L Normal 136-145 [facility] Comment on above: Order Comment: Campu s: M Performed By: #### L 500.50671, L500.04363 #### [facility] [address] [place] [address] Urea nitrogen [Mass/Vol] 14 mg/dL Normal 7-26 [facility] Comment on above: Order Comment: Campu s: M Performed By: #### L 500.84580, L500.74399 #### [facility] [address] [place], [place] [id number] Urea nitrogen/Creatinin e [Mass ratio] 20 mg/mg Normal 15-24 [facility] Comment on above: Order Comment: Campu s: M Performed By: #### L 500.43246, L500.16151 #### [facility] [address] [place] [address] CBC W/DIFFon 10-28-2018 BASO ABS 0.10 K/CU MM Normal 0-0.2 [facility] Comment on above: Order Comment: Campu s: M Performed By: #### L 200.47565 #### [facility] [address] [place] [address] Basophils/100 WBC (Bld) 0.6 % Normal 0-2 [facility] Comment on above: Order Comment: Campu s: M Performed By: #### L 200.09611 #### [facility] [address] [place] [address] EOS ABS 0.10 K/CU MM Normal 0-0.5 [facility] Comment on above: Order Comment: Campu s: M Performed By: #### L 200.44066 #### [facility] [address] [place] [address] Eosinophils/100 WBC (Bld) 1.4 % Normal 0-5 [facility] Comment on above: Order Comment: Campu s: M Performed By: #### L 200.72262 #### [facility] [address] [place] [address] Erythrocyte distribution width (RBC) [Ratio] 14.0 % Normal 11-14.5 [facility] Comment on above: Order Comment: Campu s: M Performed By: #### L 200.29676 #### [facility] [address] [place] [address] Hematocrit (Bld) [Volume fraction] 44.8 % Normal 41.0-53.0 [facility] Comment on above: Order Comment: Campu s: M Performed By: #### L 200.40811 #### [facility] [address] [place] [address] Hemoglobin (Bld) [Mass/Vol] 14.6 g/dL Normal 13.5-17.5 [facility] Comment on above: Order Comment: Campu s: M Performed By: #### L 200.19143 #### [facility] [place] [address] IMMATR GRAN ABS 0.00 K/CU MM Normal Less than 2 [facility] Comment on above: Order Comment: Campu s: M Performed By: #### L 200.23786 #### [facility] [address] [place] [address] IMMATURE GRAN % 0.3 % Normal Less than 2 [facility] Comment on above: Order Comment: Campu s: M Performed By: #### L 200.10970 #### [facility] [address] [place] [address] Lymphocytes (Bld) [#/Vol] 2.10 K/CU MM Normal 0.9-4.4 [facility] Comment on above: Order Comment: Campu s: M Performed By: #### L 200.29418 #### [facility] [address] [place] [address] Lymphocytes/100 WBC (Bld) 21.1 % Normal 20-40 [facility] Comment on above: Order Comment: Campu s: M Performed By: #### L 200.87215 #### [facility] [address] [place] [address] MCHC (RBC) [Mass/Vol] 32.6 g/dL Normal 32.0-36.0 [facility] Comment on above: Order Comment: Campu s: M Performed By: #### L 200.09119 #### [facility] [address] [place] [address] MCV (RBC) [Entitic vol] 87.5 fL Normal 80.0-99.0 [facility] Comment on above: Order Comment: Campu s: M Performed By: #### L 200.38848 #### [facility] [address] [place] [address] MONO ABS 0.70 K/CU MM Normal 0.1-1.1 [facility] Comment on above: Order Comment: Campu s: M Performed By: #### L 200.13501 #### [facility] [address] [place] [address] Monocytes/100 WBC (Bld) 7.0 % Normal 2-10 [facility] Comment on above: Order Comment: Campu s: M Performed By: #### L 200.23993 #### [facility] [address] [place] [address] NEUTROPHIL ABS 6.80 K/CU MM Normal 2.0-8.3 [facility] Comment on above: Order Comment: Campu s: M Performed By: #### L 200.69298 #### [facility] [address] [place] [address] Neutrophils/100 WBC (Bld) 69.6 % Normal 45-75 [facility] Comment on above: Order Comment: Campu s: M Performed By: #### L 200.83007 #### [facility] [address] [place] [address] Nucleated RBC/100 WBC (Bld) [Ratio] 0.0 % Normal Less than 1 [facility] Comment on above: Order Comment: Campu s: M Performed By: #### L 200.25311 #### [facility] [address] [place] [address] Platelet mean volume (Bld) [Entitic vol] 10.7 fL Normal 9.4-12.4 [facility] Comment on above: Order Comment: Campu s: M Performed By: #### L 200.78653 #### [facility] [address] [place] [address] Platelets (Bld) [#/Vol] 205 K/CU MM Normal 150-450 [facility] Comment on above: Order Comment: Campu s: M Performed By: #### L 200.04918 #### [facility] [address] [place] [address] RBC (Bld) [#/Vol] 5.12 M/CU MM Normal 4.50-6.00 [facility] Comment on above: Order Comment: Campu s: M Performed By: #### L 200.74388 #### [facility] [address] [place] [address] WBC (Bld) [#/Vol] 9.8 K/CUMM Normal 4.5-11.0 [facility] Comment on above: Order Comment: Campu s: M Performed By: #### L 200.25154 #### [facility] [address] [place] [address] CHEST PA/AP AND LATERALon CHEST PA/AP AND LATERAL CHEST PA/AP & LATERAL Ordering Physician: Pipe Antonio 10/28/2018 12:56 PM PA AND LATERAL CHEST: Clinical Statement: Left upper chest wall pain Comparison: None FINDINGS: Chest examination reveals no abnormality of the lungs, heart, mediastinum or bony thorax. There are anterolateral endplate spurs off of the thoracic spine. There is a coronary stent. IMPRESSION: No acute process. ---- Electronic Signature on File ---- Signed By: Gray Hernandez MD PhD [email or web address] Dictated: 10/28/2018 1:50 PM Signed: 10/28/2018 1:51 PM Reported By: GRAY HERNANDEZ M.D. Signed By: GRAY HERNANDEZ M.D. Normal [facility] D-DIMER POCon 10-28-2018 D-DIMER POC 248 ng/mLFEU Normal 0-450 [facility] [place] Comment on above: Result Comment: MICHAEL VICENTE The Department of Pathology and Laboratory Medicine recommends utilization of this test only for its negative predictive value. Negative predictive value is >95% for this test. Clinical correlation is essential. This test should be used only to rule out acute thrombosis. It is best used in the emergency room setting. Domi 10-28-2018 EMERGENCY PHYSICIAN REPORT This is a preliminary report only, as the practitioner review and authentication has not occurred. [facility]ESS[facility] RECORDS : FlexChartData Event Time: 10/28/2018 14:05 [facility] Status: Signed [facility] Amandeep Thomas [[id number]] Mid-Level Chart (V2b) 63 / M / 1955 Chart created at 10/28/2018 14:01 by Bart France Chart closed at 10/28/2018 14:44 Entry in Emergency Department at 10/28/2018 12:38, departure at 10/28/2018 15:00 Patient Name: Amandeep Thomas Record Number: [id number] Date: 10/28/2018 14:01 Entered Department at: 10/28/2018 12:38 Patient Seen at: 10/28/2018 13:22 Historian: Patient PCP: [place] [facility] Chief Complaint:L sided chest wall pain. L sided upper/mid back pain. Nursing triage/initial assessment reviewed and confirmed and Initial Vital Signs reviewed. Temperature: 97.36 (36.3 C, 97.4 F). Pulse: 84. Respiratory Rate: 18. Blood-pressure: 130/78. Oxygen Saturation: 95%. History of Present Illness: 63-Year-old male presents with left-sided chest wall pain for the past 2 weeks, pain he states is at the pec insertion into the sternum , radiates into his left back as well he has no ongoing dyspnea no pain into his neck arm, has a history of a STEMI with stent placement that he states does not feel similar to this. Patient has no abdominal pain nausea vomiting or [facility] PATIENT NAME: AMANDEEP THOMAS [address] [facility] [address] MEDICAL REC #: [id number] [place] [id number] EMERGENCY DEPARTMENT REPORT EMERGENCY DEPARTMENT PHYSICIAN diaphoresis reported. Pain is exacerbated by range of motion of his left shoulder and laying on it. 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 No recent travel surgery immobilization calf swelling no history of PE or DVT, no significant cough fevers or chills. Review of Systems. Cardio-Vascular: positive for Chest Pain All other systems reviewed and negative.. Past History, Medications, Allergies, Social History and Family History reviewed in nurses note. Medications: Reviewed RN Note. Allergies: Reviewed RN Note lodine(turns red ), celexa (Rash) Social History: Reviewed RN Note. Family History: Reviewed RN Note Physical Examination: General: Alert; Well-appearing, nontoxic alert talkative, pleasant HEENT: Normal ENT inspection. Eyes: Lids Normal; . Oropharynx / Throat: Normal Pharynx. Neck: No Lymphadenopathy and Supple Respiratory: No Resp Distress and Normal Breath Sounds; Clear to auscultation bilaterally Cardio-Vascular: No murmur, No rub and RRR Abdomen: Non-tender and Soft Extremity: No Calf Tenderness and No edema Neurological: No Gross Weakness Skin: No rash, No Petechiae, Warm and Dry Psychological: Mood/Affect Normal and Normal Memory/Judgment [facility], information as of 10/28/2018, 12:51 pm 142 --------+--------+------- -andlt; 189* Anion Gap = 8 4.5 BUN/CREA: 20; CALCIUM TOTAL: 8.2 Mg/Dl CBC W/DIFF, information as of 10/28/2018, 12:51 pm 87.5 / 14.6 / 9.8 andgt;------andlt; 205 [facility] PATIENT NAME: AMANDEEP THOMAS [facility] [address]dez MEDICAL REC #: [id number] [place] [address] EMERGENCY DEPARTMENT REPORT EMERGENCY DEPARTMENT PHYSICIAN / 44.8 / N:69.6 BASO ABS: 0.10 K/Cu Mm; BASOPHIL %: 0.6 %; EOS ABS: 0.10 K/Cu Mm; EOSINOPHIL %: 1.4 %; IMMATR GRAN ABS: 0.00 K/Cu Mm; IMMATURE GRAN %: 0.3 %; LYMPH %: 21.1 %; LYMPH ABS: 2.10 K/Cu Mm; MCHC: 32.6 Gm/Dl; MONO ABS: 0.70 K/Cu Mm; MONOCYTE %: 7.0 %; MPV: 10.7; NEUTROPHIL ABS: 6.80 K/Cu Mm; NRBC: 0.0 %; RBC: 5.12 M/Cu Mm; RDW: 14.0 TROPONIN I POC, information as of 10/28/2018, 1:13 pm POC Trop-I: 0.00 Cardiogram: Interpreted by me and Reviewed. Read Time: 10/28/2018 14:03 Interpretation: Normal sinus rhythm, normal axis with normal R wave progression, no ST elevation or depression T waves are upright and unremarkable, normal intervals Imaging Study Obtained: CHEST PA/AP LATERAL Imaging Study Obtained: CHEST PA/AP andamp; LATERAL, Status:Signed Report Available CHEST PA/AP andamp; LATERAL Ordering Physician: Pipe Antonio 10/28/2018 12:56 PM PA AND LATERAL CHEST: Clinical Statement: Left upper chest wall pain Comparison: None FINDINGS: Chest examination reveals no abnormality of the lungs, heart, mediastinum or bony thorax. There are anterolateral endplate spurs off of the thoracic spine. There is a coronary stent. IMPRESSION: [facility] PATIENT NAME: AMANDEEP THOMAS [facility] [address] MEDICAL REC #: [id number] [place] [address] EMERGENCY DEPARTMENT REPORT EMERGENCY DEPARTMENT PHYSICIAN No acute process. ---- Electronic Signature on File ---- Signed By: Gray Hernandez MD PhD [email or web address] Dictated: 10/28/2018 1:50 PM Signed: 10/28/2018 1:51 PM Reported By: GRAY HERNANDEZ M.D. Medical Decision Making Patient presents with 2 weeks of left-sided chest wall pain worse with range of motion of the shoulder and flexion of his back, was seen at the [place] [facility] today with EKG and lab work ultimately referred here for evaluation. He has had a history of a STEMI in the past where he was diaphoretic and severe pain he states this is not anything similar to that. EKG is normal sinus rhythm without ischemic changes troponin 0.00. Chest x-ray without signs of pneumothorax consolidation, he has no cough or shortness of breath. D-dimer also ordered at triage is 248, I do believe this effectively rules out a low risk PE patient. Patients heart score is 3, I do believe this is musculoskeletal and his risk factor profile is low enough to discharge him home with MCI follow-up, I did put an order to schedule a follow-up stress test/evaluation. Do not feel this for presents aortic dissection. We did emphasize the importance of close follow-up, return instructions described, patient is comfortable. Additional Information: Discussed Results, Diagnosis and Follow-Up with Patient. Clinical Impression: 1. Acute chest wall pain, suspect musculoskeletal in [facility] PATIENT [facility]: [facility] [address] MEDICAL REC #: [id number] [place] [address] EMERGENCY DEPARTMENT REPORT EMERGENCY DEPARTMENT PHYSICIAN nature, low risk ACS features Disposition: Discharged *Home. Condition: Good Direct patient care supervision and electronic documentation review by Zion Seo on 11/23/2018 07:22. : FlexChartData Event Time: 10/28/2018 15:30 Status: Signed [facility] Amandeep Thomas [[id number]] Attending Physician 63 / M / 1955 Chart (V2b) Chart created at 10/28/2018 14:51 by Zion Seo Chart closed at 10/28/2018 14:58 Entry in Emergency Department at 10/28/2018 12:38, departure at 10/28/2018 15:00 Patient Name: Amandeep Thomas Record Number: [id number] Date: 10/28/2018 14:51 Entered Department at: 10/28/2018 12:38 Patient Seen at: 10/28/2018 13:22 Historian: Family and Patient PCP: [place] [facility] Chief Complaint:L sided chest wall pain. L sided upper/mid back pain. Triage Note reviewed and Initial Vital Signs reviewed. Temperature: 97.36 (36.3 C, 97.4 F). Pulse: 84. Respiratory Rate: 18. Blood-pressure: 130/78. Oxygen Saturation: 95%. Past History, Medications, Allergies, Social History and [facility] PATIENT NAME: AMANDEEP THOMAS [address] MEDICAL REC #: [id number] [place] [address] EMERGENCY DEPARTMENT REPORT EMERGENCY DEPARTMENT PHYSICIAN Family History reviewed in nurses note. Medications: Reviewed RN Note. Allergies: Reviewed RN Note lodine(turns red ), celexa (Rash) Social History: Reviewed RN Note. Family History: Reviewed RN Note BMP, information as of 10/28/2018, 12:51 pm 142 --------+--------+------- -andlt; 189* Anion Gap = 8 4.5 BUN/CREA: 20; CALCIUM TOTAL: 8.2 Mg/Dl CBC W/DIFF, information as of 10/28/2018, 12:51 pm 87.5 / 14.6 / 9.8 andgt;------andlt; 205 / 44.8 / N:69.6 BASO ABS: 0.10 K/Cu Mm; BASOPHIL %: 0.6 %; EOS ABS: 0.10 K/Cu Mm; EOSINOPHIL %: 1.4 %; IMMATR GRAN ABS: 0.00 K/Cu Mm; IMMATURE GRAN %: 0.3 %; LYMPH %: 21.1 %; LYMPH ABS: 2.10 K/Cu Mm; MCHC: 32.6 Gm/Dl; MONO ABS: 0.70 K/Cu Mm; MONOCYTE %: 7.0 %; MPV: 10.7; NEUTROPHIL ABS: 6.80 K/Cu Mm; NRBC: 0.0 %; RBC: 5.12 M/Cu Mm; RDW: 14.0 TROPONIN I POC, information as of 10/28/2018, 1:13 pm POC Trop-I: 0.00 D-DIMER POC, information as of 10/28/2018, 2:10 pm D-DIMER POC: 248 Ng/Mlfeu Imaging Study Obtained: CHEST PA/AP LATERAL Imaging Study Obtained: CHEST PA/AP andamp; LATERAL, Status:Signed Report Available CHEST PA/AP andamp; LATERAL [facility] PATIENT NAME: AMANDEEP THOMAS [facility] [address] MEDICAL REC #: [id number] [place] [address] EMERGENCY DEPARTMENT REPORT EMERGENCY DEPARTMENT PHYSICIAN Ordering Physician: Pipe Antonio 10/28/2018 12:56 PM PA AND LATERAL CHEST: Clinical Statement: Left upper chest wall pain Comparison: None FINDINGS: Chest examination reveals no abnormality of the lungs, heart, mediastinum or bony thorax. There are anterolateral endplate spurs off of the thoracic spine. There is a coronary stent. IMPRESSION: No acute process. ---- Electronic Signature on File ---- Signed By: Gray Hernandez MD PhD [email or web address] Dictated: 10/28/2018 1:50 PM Signed: 10/28/2018 1:51 PM Reported By: GRAY HERNANDEZ M.D. Medical Decision Making 63-Year-old male presents with chief complaint of chest and back pain. Patient states over the past couple weeks he has had a pain in his left parasternal region as well as left medial scapular region. Patient states if he sitting still he has [place] no pain, if he moves his left shoulder/arm in certain ways it brings this pain on. Pain is sharp. He does not have any radiation straight through into his [facility] PATIENT NAME: AMANDEEP THOMAS [facility] [address] MEDICAL REC #: [id number] [place] [address] EMERGENCY DEPARTMENT REPORT EMERGENCY DEPARTMENT PHYSICIAN back. He states these are 2 separate/isolated areas of pain. He did not injure himself in any way that he can recall. He does have a history of CAD/[place] with cardiac stenting although he states this feels nothing like his symptoms he had at that time. He states at that time he had chest pressure and significant diaphoresis. Patient does not have any ripping or tearing sensation on exam, he does not have any diaphoresis, no pressure or tightness, no radiation of his pain. He has not had any recent travel or surgery, no personal or family history of DVT/PE. On exam his chest pain is not reproducible although his medial scapular pain is reproducible. EKG and troponin unremarkable, chest x-ray unremarkable. D-dimer was negative. No other significant acute laboratory abnormalities. At this time his pain appears musculoskeletal in nature as it is only brought on with movement and completely resolves when he is still. He said symptoms for 2 weeks with unremarkable EKG and troponin. He is not short of breath, he is not hypoxic or tachycardic, he has a normal d-dimer and does not have any risk factors for DVT/PE, do not suspect pulmonary embolism. No findings concerning for aortic dissection on chest x-ray, no ripping or tearing sensation, no significant blood pressure elevation, his pulses are intact and symmetric throughout, no murmur on exam, do not suspect aortic dissection. Expedited outpatient cardiology follow-up has been ordered, patient is Pedro Luis on aspirin and Plavix and he will continue taking these. He agrees to return if his symptoms worsen in any way, or if he develops any other new or concerning symptoms. MSE completed. I was the primary ED attending.. I confirm that I have evaluated the patient, reviewed the mid-level providers documentation, and discussed the evaluation, plan of care and disposition of the patient with the mid-level provider.. : Discharge Report [facility] PATIENT NAME: AMANDEEP THOMAS [facility] [address] MEDICAL REC #: [id number] [place] [address] EMERGENCY DEPARTMENT REPORT EMERGENCY DEPARTMENT PHYSICIAN Event Time: 10/28/2018 14:36 ===DISCHARGE REPORT=== : FlexChartData Event Time: 10/28/2018 14:05 [facility] : FlexChartData Event Time: 10/28/2018 15:30 : Discharge Report Event Time: 10/28/2018 14:36 Status: Draft Reasons to Return to the ER: You must return to the ER for any new, worsening or changing symptoms, or if you feel more ill or sick in any way. This is the most important thing to remember. Follow-up: The care you received in the ER was given on an emergency basis only, and it is often not possible to completely treat or diagnose a problem in a single ER visit. You must see your follow-up doctor for a recheck within a week unless you receive instructions with a different timeframe for follow-up. Please follow all your discharge instructions. Medications: Unless the ER doctor tells you differently, you should take all your regular medications and any new medications prescribed today. Because it is not possible for the ER doctor to review all of your medication side effects or interactions, you must review possible side effects and interactions with your pharmacist when you get your prescriptions filled. EKG and Radiology Results: A narcotics investigator or radiologist will review any EKG or [facility] PATIENT NAME: AMANDEEP THOMAS [facility] [address] MEDICAL REC #: [id number] [place] [id number] EMERGENCY DEPARTMENT REPORT EMERGENCY DEPARTMENT PHYSICIAN radiology results provided by the ER doctor. We will contact you if the results in the final EKG or radiology reports require a change in treatment. Culture Results: Cultures may have been ordered during your ER visit. We will contact you if the culture results require a change in treatment. Referrals: Most referrals to specialists come from the on-call list You should make your regular doctor aware of any referrals before you schedule the appointment so that they are aware and can make suggestions DIAGNOSIS: Acute chest wall pain, suspect musculoskeletal in nature, low risk ACS features INSTRUCTIONS: Please do not hesitate to return to the ER if your pain were to evolve, worsen or if you develop shortness of breath pain is your neck or arms. At this time we feel your pain is more related to muscle pain rather than heart or lung issues. UNLESS THE ER DOCTOR GIVES YOU OTHER INSTRUCTIONS, YOU MUST SEE YOUR FOLLOW-UP DOCTOR WITHIN 2 TO 3 DAYS FOR RECHECK. YOU MUST RETURN TO THE ER RIGHT AWAY FOR ANY OF THE FOLLOWING: andamp;#[id number]; Pain increases or lasts longer than 5 minutes. Call . If EMS is not available, have someone else drive you. Dont drive yourself unless you have absolutely no other option. andamp;#8226; Pain becomes more heavy or pressure-like andamp;#8226; Pain begins to travel to your arms, neck or jaw [facility] PATIENT NAME: AMANDEEP THOMAS [address] [facility] [address] Fern[address]dez MEDICAL REC #: [id number] [place] [id number] EMERGENCY DEPARTMENT REPORT EMERGENCY DEPARTMENT PHYSICIAN andamp;#8226; New or increasing shortness of breath or cough andamp;#8226; New or increasing weakness or dizziness andamp;#8226; New or increasing fever or chills andamp;#8226; New or increasing nausea, vomiting or sweating Risk Factors for Coronary Artery Disease (CAD) A risk factor is something that increases your chance of getting a disease or condition such as heart disease. The more risk factors you have, the more chance you have of having a heart attack. The best way to prevent a heart attack is to reduce heart disease risk factors. Uncontrollable Risk Factors include: Male Gender Men are more likely to develop coronary artery disease until women reach menopause, when the risk becomes more equal. Heredity and Race Family history of coronary artery disease shows an inherited tendency to develop the disease. Blacks/ Americans have a higher risk than Whites/Caucasians, as do Hispanics, South African-Indians, -Americans or manzanita Hawaiians. Age Coronary artery disease develops slowly but can strike at any age. People over age 65 are at greater risk than those at younger ages. Controllable Risk Factors include: High Blood Pressure High blood pressure makes the heart work harder than [facility] PATIENT NAME: AMANDEEP THOMAS [address] [facility] [address] Fern[address]dez MEDICAL REC #: [id number] [place] [address] EMERGENCY DEPARTMENT REPORT EMERGENCY DEPARTMENT PHYSICIAN normal. It puts extra stress on arteries that lead to blockages called atherosclerosis. Lifestyle changes and medication can positively affect high blood pressure. If you have high blood pressure and are on medication, it is essential that you take your medication to avoid the risks of heart attack, as well as stroke and kidney damage. High Blood Cholesterol Cholesterol can narrow and clog arteries. Lowering the amount of cholesterol circulating in the blood can lower the risk of a heart attack. If you have high blood cholesterol, eating a healthy diet, maintaining a healthy weight, getting regular exercise and taking any prescribed cholesterol lowering medication will help lower your cholesterol and your risk for coronary artery disease. Smoking Smoking is the single most preventable cause of . Smokers increase their risk of heart disease from the nicotine and carbon monoxide that damages the blood vessels. Smokers have more than twice the risk of a heart attack than nonsmokers. Tobacco addiction is both psychological and physical. For most people, the best way to quit is a combination of medicine, a plan to change personal habits, and having emotional support. Physical Activity Physical activity helps control high blood pressure, high blood cholesterol, obesity, stress and can build a stronger heart and blood vessels. Regular, vzvquknx-xy-cxluznob exercise is important to reduce the risk of heart disease. Consult your physician first before starting an exercise program. Obesity People with excess body fat are at higher risk for health problems. Weight loss can help reduce high blood pressure, blood cholesterol, and can also help control diabetes in some people. [facility] PATIENT NAME: AMANDEEP THOMAS Dr[address] Fernández MEDICAL REC #: [id number] [place] [address] EMERGENCY DEPARTMENT REPORT EMERGENCY DEPARTMENT PHYSICIAN Diabetes Uncontrolled high blood sugar (glucose) levels can lead to many medical problems including heart and blood vessel disease, kidney disease and stroke because it damages blood vessels. If you have diabetes, tight blood sugar control is crucial to avoiding these long-term complications. Stress Too much stress over a long time, and an unhealthy response to it, can cause health problems. Find healthy ways to handle stress. Available Smoking Help: [facility] Smoking Cessation Program ([phone]) Telephone Quitlines with trained personnel to assist in smoking cessation ( ) 24 hour Crisis Smoking Cessation Support line ( ) [employer] Heart and [employer]roke Association ( ) [employer] Cancer Society ( ) [employer] Lung Association ( ) Diet and Weight Loss: Weight loss is about losing body fat. Your goal in losing weight is to reduce your body fat and maintain or increase your lean body mass. Lowering your body fat helps in maintaining a healthy heart and lowering [facility] PATIENT NAME: AMANDEEP THOMAS Debora Fernández MEDICAL REC #: [id number] [place] [address] EMERGENCY DEPARTMENT REPORT EMERGENCY DEPARTMENT PHYSICIAN the workload on the heart. To accomplish this, one needs to lower your daily calorie intake and increase your physical activity. A healthy heart diet is a low cholesterol, low fat, no added salt diet. Your metabolism can be increased by eating right and exercising. To burn calories at a higher rate: 1) Always eat breakfast 2) Eat a balanced low fat lunch 3) Eat a light dinner 4) Exercise 3-5 days a week Exercise: Your heart muscle needs exercise to get stronger. Regular exercise also is a preventative measure for many health problems. The best type of exercise for your heart, lungs and blood vessels are aerobic exercises. Aerobic exercises are continuous exercises that use large muscle groups that increase your breathing and heart rate. Some examples are walking, bicycling, swimming and jogging. Before you start an exercise program, first check with your doctor. To help with your exercise success: 1) Make the time 2) Make exercise convenient 3) Team up with a friend or join a group [facility] have trained personnel that can assist you with diet and exercise. Please call: [facility] Outpatient Department ([phone]) [facility] [facility] [place] [facility] PATIENT NAME: AMANDEEP THOMAS [facility] [address] Fern[address]dez MEDICAL REC #: [id number] [place] [address] EMERGENCY DEPARTMENT REPORT EMERGENCY DEPARTMENT PHYSICIAN ([phone]) [facility] ([phone]) Medications Medications help support the work of your heart and reduce your risk profile. Many times, taking medications is new to your lifestyle. To be successful and compliant with your medication regime, you must set up a medication schedule that works for you. Know the purpose and side effects of each medication you are taking. Carry a written list of all your medications, both prescribed and over the counter drugs. Place a written list on your refrigerator door for paramedics to see if an emergency arises. Keep all physicians updated on any medication changes. Dont just stop a medication on your own; notify your physician first. Set up a daily medication schedule that works for you. Use assistance devices such as, pill boxes, watch alarms, written time calendars, etc if needed. Plan ahead so you dont come up short. Re-order early so you dont miss any doses Physician follow up is very important to assess how well your medication is working for you. If you have any questions on your medications, contact your physician or pharmacist. [facility] (Medicine/Mental Health/Podiatry/Ophthalmo logy) , Address: [address] [place] [address], , fax: Please call the above number to schedule a follow-up appointment. Derek Patino MD (Cardiology), , fax: Please call the above number to schedule a follow-up [facility] PATIENT NAME: AMANDEEP THOMAS [facility] [address] Fernández MEDICAL REC #: [id number] [place] [address] EMERGENCY DEPARTMENT REPORT EMERGENCY DEPARTMENT PHYSICIAN appointment. 2-3 days MEDICATIONS At this time we have no recommendations that you stop taking any medications, or start taking any new ones. COMMENTS: Patient Satisfaction: Within the first few days after your visit, you will receive an email and/or phone call regarding your visit. We value your feedback, and would appreciate it if you would take the time to complete this short survey. If you receive a call, it will be between 6p and 8p. My signature below indicates that I have received and understand the oral instructions regarding my medical problem. I also acknowledge receipt of this written instruction sheet including a list of major tests and procedures ordered during my visit. I will arrange for follow-up care as indicated by these instructions and referrals. This signed original will be kept in my medical record. Your signature below indicates consent for Case Management to contact [facility] providers in an effort to meet your ongoing healthcare needs. This will allow forcontinuity of care once you leave the Emergency Department. This exchange of informationwill include, but not be limited to, disclosure of your patient information and possible release of records. [employer] Patient: AMANDEEP THOMAS Sex: M : 1955 Age: 63 yr Account No: [id number] [facility] PATIENT NAME: AMANDEEP THOMAS [address] [facility] [address] Fern[address]dez MEDICAL REC #: [id number] [place] [address] EMERGENCY DEPARTMENT REPORT EMERGENCY DEPARTMENT PHYSICIAN Registration Date: 12:10/28/2018 Address: [address] [place] [address] Address: [place] [address] REGISTRATION ED Number: [id number] Marital Status: M Financial Class: FEDP TRIAGE Priority: 3 - Urgent Complaint: Chest Wall Pain Complaint: Back Injury Delete Time: 12:10/28/2018 Delete Note: not correct Stated Complaint: L sided chest wall pain. L sided upper/mid back pain. Arrival Date: 10/28/2018 12:38 Triage Date: 10/28/2018 12:44 Mode of Arrival: *Privately Owned Vehicle WC: N Language: Yoruba Transport: Ambulatory/Walk In CANCELLED COMPLAINTS Complaint: Back Injury Delete Time: 12:55 10/28/2018 Delete Note: not correct BED ST B In: 10/28/2018 12:51:13 10/28/2018 12:51:[address] B (Removed From) Out: 10/28/2018 13:15:45 10/28/2018 13:15:45 TLA E38 In: 10/28/2018 13:15:45 10/28/2018 [facility] PATIENT NAME: AMANDEEP THOMAS [address] [facility] [address] Fern[address]dez MEDICAL REC #: [id number] [place] [address] EMERGENCY DEPARTMENT REPORT EMERGENCY DEPARTMENT PHYSICIAN 13:15:45 TLA E38 (Removed From) Out: 10/28/2018 15:00:41 10/28/2018 15:00:41 EALA PROVIDERS GONZALO Antonio Provider Contact: 10/28/2018 12:54:30 NM End: GONZALO France Provider Contact: 10/28/2018 13:21:50 CJHA End: DO Zion Seo Provider Contact: 10/28/2018 13:21:52 EDS End: SANJU BEAVERS Provider Contact: 10/28/2018 13:30:43 EALA End: TRIAGE HISTORY ALLERGIES Allergic To: lodine - turns red 10/28/2018 12:50 VDPA Allergic To: celexa - Rash 10/28/2018 12:50 VDPA ILLNESS Illness: Angina/CAD 10/28/2018 12:50 VDPA Illness: Hypertension 10/28/2018 12:50 VDPA Illness: NIDDM 10/28/2018 12:50 VDPA Illness: High Cholestrol 10/28/2018 12:50 VDPA PAST SURGERY HIST Surgery: wrist R 10/28/2018 12:50 VDPA Surgery: Shoulder R 10/28/2018 12:50 VDPA [facility] PATIENT NAME: AMANDEEP THOMAS [address] [facility] [address] Fernández MEDICAL REC #: [id number] [place] [address] EMERGENCY DEPARTMENT REPORT EMERGENCY DEPARTMENT PHYSICIAN Surgery: Angioplasty with stent placement. 10/28/2018 12:50 VDPA Surgery: Tonsillectomy 10/28/2018 12:50 VDPA Surgery: Knee Bilaterally 10/28/2018 12:50 VDPA PAST SOCIAL HIST Social History: Communicates without difficulty 10/28/2018 12:50 VDPA Social History: Alcohol - None 10/28/2018 12:50 VDPA Social History: Smoker-None 10/28/2018 12:50 VDPA Social History: Recreational Drugs - None 10/28/2018 12:50 VDPA Social History: Denies Domestic Violence 10/28/2018 12:50 VDPA Social History: Denies thoughts of self harm. 10/28/2018 12:50 VDPA IMMUNIZATIONS Immunization: Flu Vaccine-yes 10/28/2018 12:50 VDPA Immunization: *Immunizations current 10/28/2018 12:50 VDPA NURSING ASSESSMENT ASSESSMENT NOTES 10/28/2018 13:43 pt states he had no injury and started to notice chest pain with movement, pt states the pain is on his upper lt chest wall and radiates to his back/shoulder region, pt denies sob and has clear lung sounds, no peripheral edema noted pt denies pain at this time stating im not moving 10/28/2018 13:45 EALA [facility] PATIENT NAME: AMANDEEP THOMAS [address] [facility] [address] Fernández MEDICAL REC #: [id number] [place] [address] EMERGENCY DEPARTMENT REPORT EMERGENCY DEPARTMENT PHYSICIAN TREATMENT 10/28/2018 13:27 POC testing results and critical values - POC Troponin 0.00 on ED 3 instrument 10/28/2018 14:01 CAMB 10/28/2018 13:41 Primary DOC Guide - A. 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 Fall Risk Assessment (Age andlt;65) 10/28/2018 13:43 EALA History of Falling in last 3 months? No (0) Confusion or Disorientation? No (0) Intoxicated or Sedated? No (0) Impaired Gait? No (0) Mobility Assist Device Used? No (0) Altered Elimination? No (0) Fall Risk Score 1-2 Points = Low Risk. 3-4 Points = Moderate Risk. 5 or more points = High Risk. 0 Fall Score Greater andgt;= 3? No 10/28/2018 13:41 Primary DOC Guide - D. Psychosocial Assessment 10/28/2018 13:43 EALA Over the Last 2 weeks, how often have you had little interest or pleasure in doing things (0) Not at All Is Psychosocial Assessment Score 3 or more? If score is 3 or more please consult ED Navigator! No Total Psychosocial Assessment Score 0 Over the last 2 weeks, how often have you been feeling down, depressed or hopeless (0) Not at All 10/28/2018 13:42 Primary DOC Guide - E. Family Violence Assessment 10/28/2018 13:43 EALA Within the past year, has anyone ever pushed, shoved, [facility] PATIENT NAME: AMANDEEP THOMAS [address] [facility] [address] Fernández MEDICAL REC #: [id number] [place] [address] EMERGENCY DEPARTMENT REPORT EMERGENCY DEPARTMENT PHYSICIAN slapped, choked, hit, punched or kicked you: No Within the past year, has anyone ever pressured or forced you to have sexual activities when you did not want to: No Do you feel safe and well cared for: Yes Is there a partner from a previous or current relationship that is making you feel unsafe now: No Family Violence Clinical Observation All Negative Except 10/28/2018 13:42 Hourly Rounding - Rounding 10/28/2018 13:43 EALA Elimination/Toileting N Pain 0 Position Comfortable Y Safe Environment Y Assessment Note pt has call light at bedside, introduced self to pt as primary nurse Fall Risk Change N 10/28/2018 15:00 Admit/Discharge - *Discharge instructions/tests andamp; procedures/med list reviewed and provided; prescriptions given to patient 10/28/2018 15:00 EALA 10/28/2018 15:00 Admit/Discharge - Ambulated with steady gait home 10/28/2018 15:00 EALA 10/28/2018 15:00 Admit/Discharge - Discharge 10/28/2018 15:00 EALA MEDICATIONS IV I AND O VITALS VS-ROUTINE Time: 10/28/2018 12:44 B/P: 130/78 - Right Upper Arm - Sitting - Machine Pulse: 84 - Monitor Resp: 18 [facility] PATIENT NAME: AMANDEEP THOMAS [facility] [address] Fernández MEDICAL REC #: [id number] [place] [address] EMERGENCY DEPARTMENT REPORT EMERGENCY DEPARTMENT PHYSICIAN Sa02: 95 Room Air Temp: 97.36 F - Oral 10/28/2018 12:50 VDPA VS-Pain Time: 10/28/2018 12:44 Pain Level: 2 10/28/2018 12:50 VDPA VS-GCS Time: 10/28/2018 12:44 Visual: 4 Verbal: 5 Motor: 6 GCS Total: 15 10/28/2018 12:50 VDPA VS-HT/WT Time: 10/28/2018 12:44 Ht: 182.8 cm Stated Weight: 99.8 kg Stated 10/28/2018 12:50 VDPA VS-Visual Time: 10/28/2018 12:44 10/28/2018 12:50 VDPA VS-FHT Time: 10/28/2018 12:44 10/28/2018 12:50 VDPA VS-Notes Time: 10/28/2018 12:44 map 94 10/28/2018 12:50 VDPA VS-ROUTINE Time: 10/28/2018 14:39 B/P: 120/75 - Left Upper Arm - Sitting - Machine Pulse: 61 - Attendance Officer Resp: 18 Sa02: 94 Room Air 10/28/2018 14:40 EALA VS-Pain Time: 10/28/2018 14:39 Pain Level: 0 10/28/2018 14:40 EALA VS-GCS Time: 10/28/2018 14:39 Visual: 4 Verbal: 5 Motor: 6 GCS Total: 15 10/28/2018 14:40 EALA VS-HT/WT Time: 10/28/2018 14:39 10/28/2018 14:40 EALA VS-Visual Time: 10/28/2018 14:39 10/28/2018 14:40 EALA VS-FHT Time: 10/28/2018 14:39 10/28/2018 14:40 EALA VS-Notes Time: 10/28/2018 14:39 map 92 10/28/2018 14:40 EALA ORDERS Schedule [facility] 10/28/2018 14:51 N/A Ordered: 10/28/2018 14:41 By Bart France Completed Time: 10/28/2018 14:51 By Bart France Discharge patient 10/28/2018 14:58 N/A Ordered: 10/28/2018 14:35 By . Other Reviewed: 10/28/2018 14:58 By . Other GLAZE MIXER ORDER: KEKE 10/28/2018 14:27 None Ordered: 10/28/2018 14:27 Completed Time: 10/28/2018 14:27 Results Time: 10/28/2018 14:27 [facility] PATIENT NAME: AMANDEEP THOMAS [facility] [address] Fern[address]dez MEDICAL REC #: [id number] [place] [address] EMERGENCY DEPARTMENT REPORT EMERGENCY DEPARTMENT PHYSICIAN GLAZE MIXER ORDER: GFRP 10/28/2018 13:41 None Ordered: 10/28/2018 13:41 Completed Time: 10/28/2018 13:41 Results Time: 10/28/2018 13:41 GLAZE MIXER ORDER: POCTROP 10/28/2018 13:26 None Ordered: 10/28/2018 13:26 Completed Time: 10/28/2018 13:26 Results Time: 10/28/2018 13:26 CXR PA and lateral 10/28/2018 13:59 N/A Ordered: 10/28/2018 12:55 By Pipe Antonio Completed Time: 10/28/2018 13:59 By Pipe Antonio Indication: Chest Wall Pain, left upper vchest Noted Time: 10/28/2018 13:39 Question: How is patient transported? (A = Ambulatory, B = Bed, C = Carry, CR = Crib, P = Portable, S = Stretcher, W = Wheelchair, X = Wide Wheelchair, XT = Trauma X RM17 (ED Only)) Answer: STRETCHER POC dimer 10/28/2018 13:11 N/A Ordered: 10/28/2018 12:55 By Pipe Antonio Noted Time: 10/28/2018 13:11 SPY BMP 10/28/2018 13:41 N/A Ordered: 10/28/2018 12:50 By Protocol Completed Time: 10/28/2018 13:41 By Protocol Noted Time: 10/28/2018 13:11 SPY Results Time: 10/28/2018 13:41 CBC with diff 10/28/2018 13:20 N/A Ordered: 10/28/2018 12:50 By Protocol Completed Time: 10/28/2018 13:20 By Protocol Noted Time: 10/28/2018 13:11 SPY Results Time: 10/28/2018 13:19 EKG and most recent EKG 10/28/2018 12:58 N/A Ordered: 10/28/2018 12:50 By Protocol [facility] PATIENT NAME: AMANDEEP THOMAS [address] [facility] [address] Fern[address]dez MEDICAL REC #: [id number] [place] [address] EMERGENCY DEPARTMENT REPORT EMERGENCY DEPARTMENT PHYSICIAN Completed Time: 10/28/2018 12:57 By Protocol Noted Time: 10/28/2018 12:56 SPY POC troponin 10/28/2018 14:00 N/A Ordered: 10/28/2018 12:50 By Protocol Completed Time: 10/28/2018 13:27 By Protocol Noted Time: 10/28/2018 13:11 SPY DISCHARGE Diagnosis: Acute chest wall pain, suspect musculoskeletal in nature, low risk ACS features 11/18/2018 15:48 CANCELLED DIAGNOSES Diagnosis Name: Acute chest wall pain, suspect musculoskeletal in nature, low risk ACS features Diagnosis Name: Acute chest wall pain, suspect musculoskeletal in nature, low risk ACS features Diagnosis Name: Acute chest wall pain, suspect musculoskeletal in nature, low risk ACS features Disposition: Time: 10/28/2018 14:35 Discharge Time: 10/28/2018 15:00 Type: *Discharge Condition: Stable for admission/discharge/trans ghazala after emergency evaluation/treatment Category: Chest pain track IV (lower risk for ACS) Referral: 11/18/2018 15:48 Admit Physician: . Other PRESCRIPTIONS Zanaflex 2 mg capsule 10/28/2018 14:50 CJHA SI tid for 3 days Dispense: 9 / Refills: Zanaflex 2 mg capsule 11/19/2018 01:06 SANTINO SI tid for 3 days Dispense: Refills: CHARGES [facility] PATIENT NAME: [facility] Fern[facility]dez MEDICAL REC #: [id number] [place] [address] EMERGENCY DEPARTMENT REPORT EMERGENCY DEPARTMENT PHYSICIAN SIGNATURE Zion Seo DO [facility] ETIENNE OLIVIA Rody LiuGeisinger Community Medical CenterDang Antonio PA-C [facility] SANJU CALDWELL [facility] PATIENT NAME: AMANDEEP THOMAS [facility] Debora Fernández MEDICAL REC #: [id number] [place] [address] EMERGENCY DEPARTMENT REPORT EMERGENCY DEPARTMENT PHYSICIAN Normal [facility] [place] Schafer 10-28-2018 IF AMER Greater than 60 Normal [facility] Comment on above: Order Comment: Coleen s: M Performed By: #### L 500.57524, L500.04500 #### [facility] [address] [place] [address] IF non-AFR AMER Greater than 60 Normal [facility] Comment on above: Order Comment: Coleen lopez: [place] Performed By: #### L 500.56457, L500.51554 #### [facility] [address] [facility] [place] [address] TROPONIN I POCon 10-28-2018 Troponin I.cardiac [Mass/Vol] 0.00 ng/mL Normal 0.0-0.06 [facility] Comment on above: Result Comment: 0.0 - 0.06 NG/ML - NON-DIAGNOSTIC (REFERENCE RANGE) 0.07 - 0.59 NG/ML - INDETERMINATE Greater than or equal to 0.6 NG/ML - INDICATIVE OF MYOCARDIAL DAMAGE Procedures Date Procedure Procedure Detail Performing Clinician Start: 10-28-2018 Electrocardiogram Summary Purpose Family History No Family History Records Found Advance Directives No Advanced Directives Records Found Additional Source Comments (unrecognized sect ion and content) No Status Records Found INFORMATION SOURCE (unrecogn ized section and content) DATE CREATED AUTHOR 11/23/2018 [facility] FOR RECORDS PERTAINING TO PATIENTS WHO ARE OR HAVE BEEN ENROLLED IN A CHEMICAL DEPENDENCY/SUBSTANCEABUSE PROGRAM, SOME INFORMATION MAY BE OMITTED. This clinical summary was aggregated from multiple sources. Caution should be exercised in using it in the provision of clinical care. This summary normalizes information from multiple sources, and as a consequence, information in this document may materially change the coding, format and clinical context of patient data. In addition, data may be omitted in some cases. CLINICAL DECISIONS SHOULD BE BASED ON THE PRIMARY CLINICAL RECORDS. [facility]. provides no warranty or guarantee of the accuracy or completeness of information in this document.
[2024-02-13 11:48] LABS: ALB/GLOB Ratio 1.2 RATIO (0.9-2.4); AST(SGOT) 15 U/L (15-37); Alanine Aminotransfer ALT/SGPT 32 U/L (16-61); Albumin, Serum 4.2 g/dL (3.2-5.0); Alkaline Phosphatase 56 U/L (45-117); Anion Gap 5 (5-15); BUN 24 mg/dL (7-18); BUN/Creat Ratio 16.9 RATIO (10-20); Calcium,Total 9.2 mg/dL (8.5-10.1); Chloride 104 mmol/L (98-107); Creatinine, Serum 1.42 mg/dL (0.70-1.30); EST Glomerular Filtration Rate 52 mL/min (>60); Est Glom Filt Rate - Afr Amer 63 mL/min (>60); Globulin 3.5 g/dL (2.2-4.2); Glucose 184 mg/dL (74-106); Potassium 4.2 mmol/L (3.5-5.1); Protein, Total 7.7 g/dL (6.4-8.2); Sodium Level 138 mmol/L (136-145)
[2024-02-13 12:17] LABS: Bacteria 0 SEEN /hpf (None Seen); Mucous, Urine 0 SEEN /hpf (<or=2+); White Blood Cells 0 SEEN /hpf (0-5)
[2024-02-13 12:23] LABS: Color, Urine Yellow (Yellow); Glucose, Dipstick 1000 mg/dl (Normal); Ketone-Dipstick Negative (Negative); Leukocyte Esterase-Dipstick Negative /ul (Negative); Nitrite-Dipstick Negative (Negative); Occult Blood-Urine 25 /ul (Negative); Protein-Dipstick 15 mg/dl (Negative); Specific Gravity, Urine 1.015 (1.002-1.030); Urine Bilirubin Dipstick Negative (Negative); Urine Clarity Clear (Clear); Urine Urobilinogen Normal (Normal)
[2024-02-13 12:35] LABS: Red Blood Cells-Urine 0-5 SEEN /hpf (0-5); Squamous Epithelial Cells - UA 0-5 SEEN /hpf (0-5)
[2024-02-13 13:00] VITALS: BP 130/71; PULSE 71; RESP 18
[2024-02-13] MEDS: 0.9% Normal Saline (1000mL) 1,000 ML 125 ML IV ×2 (13:53→17:48)
--- NOTE | 2024-02-13 14:33 | CON.PCM.UR_ITS ---
Assessment & Plan Assessment/Plan (1) Obstruction of right ureteropelvic junction (UPJ): PLAN: Plan Patient be admitted will make him n.p.o. at midnight plan for cystoscopy right stent placement tomorrow. HPI Consult Data Date of Consult: 02/13/24 HPI Narrative Reason for Consultation: Right hydronephrosis acute renal insufficiency HPI Narrative: LAUREN THOMAS, is a 69 M who presents with severe pain in the right side CT scan was done is very suspicious looking for a UPJ obstruction no stone no mass no blockage that is obvious on CAT scan but he does have a very severe hydronephrotic kidney and transition point at the right UPJ he is to be admitted for pain control plan to taken the surgery tomorrow for right stent placement [facility] Medical History Heart attack Diabetes Coronary artery disease Hypertension Home Medications ?Medication ?Instructions ?Recorded ?Last Taken ?Type alogliptin 25 mg tablet 25 mg PO DAILY diabetes 12/19/19 Unknown History atorvastatin 80 mg tablet 80 mg PO QHS cholesterol 12/19/19 Unknown History clopidogrel 75 mg tablet 75 mg PO DAILY heart 12/19/19 12/22/19 History finasteride 5 mg tablet 5 mg PO QHS bph 12/19/19 Unknown History glipizide 10 mg tablet 15 mg PO BIDAC diabetes 12/19/19 Unknown History krill oil 350 mg-om-3 90 mg-dha 24 1 ea PO DAILY supplement 12/19/19 Unknown History mg-epa 50 mg-phospholipids capsule lisinopril 5 mg tablet 5 mg PO DAILY 12/19/19 12/29/19 08:00 History metformin 1,000 mg tablet 1,000 mg PO BID diabetes 12/19/19 Unknown History metoprolol tartrate 25 mg tablet 12.5 mg PO BID heart 12/19/19 12/29/19 08:00 History xyxsjmmjuyae-aaw-jdjua acid-vit 1 ea PO DAILY vitamin 12/19/19 Unknown History K-lycop 400 mcg-20 mcg-370 mcg tablet saw palmetto 450 mg capsule 450 mg PO DAILY supplement 12/19/19 Unknown History acetaminophen 500 mg tablet 1,000 mg (2 x 500 mg) PO Q8 #90 12/30/19 Unknown Rx tabs aspirin 81 mg tablet,delayed 81 mg PO DAILY heart ##60 12/30/19 Unknown Rx release apixaban 5 mg (74 tabs) tablets in 5 mg PO BID ##60 01/05/20 Unknown Rx a dose pack meloxicam 7.5 mg tablet 7.5 mg PO DAILY #14 tabs 08/22/22 Unknown Rx azithromycin 250 mg tablet See Rx Instructions PO .COMPLEX #6 06/28/23 Unknown Rx tabs dextromethorphan-guaifenesin 10 10 ml PO Q4-6H PRN cough #237 mL 06/28/23 Unknown Rx mg-100 mg/5 mL oral syrup (Ant AGUIAR) Allergy/AdvReac Type Severity Reaction Status Date / Time celecoxib (From Celebrex) Allergy Rash Verified 02/13/24 09:56 etodolac Allergy Rash Verified 02/13/24 09:56 terbinafine AdvReac Rash Verified 02/13/24 09:56 Surgical History H/O knee surgery H/O right heart catheterization Social History household members: spouse housing: house Smoking Status: Never smoker substance use type: does not use ROS Constitutional Constitutional: Denies chills, fever(s) or malaise Eyes Eyes: Denies blurry vision or change in vision ENT HEENT: Reports none Cardiovascular Cardiovascular: Denies chest pain or palpitations Respiratory/Chest Respiratory/Chest: Denies cough or shortness of breath with exertion Gastrointestinal Gastrointestinal: Denies abdominal pain, constipation or diarrhea Musculoskeletal Musculoskeletal: Denies back pain, joint stiffness or joint swelling Integumentary Integumentary: Denies dry skin, jaundice, lesions or rash Neurologic Neurologic: Denies confusion, syncope or weakness Psychiatric Psychiatric: Reports none; Denies anxiety or depression Endocrine Endocrinology: Denies excessive sweating, fatigue or flushing Hematologic/Lymphatic Hematologic/Lymphatic: Denies anemia, easy bleeding or easy bruising Physical Exam Const alert and oriented x3 General Appearance: cooperative HEENT normocephalic and head/scalp atraumatic Eyes PERRL and EOMs intact bilaterally Neck supple, no JVD and no carotid bruits Resp normal respiratory effort, normal air movement and clear to auscultation bilaterally Cardio regular rate and no murmurs GI normal to inspection, nondistended, normoactive bowel sounds and soft to palpation Extremity normal capillary refill General Extremity: no tenderness to palpation of joints or extremities; Negative for edema Skin no rashes or lesions noted and no wounds General Skin Exam: no breakdown Neuro CN's II-XII intact bilaterally Psych affect normal Appearance: appropriate Medical Records Data Attestation: I reviewed the patient's medical records Lab / Micro Data 02/13/24 10:17 02/13/24 10:17 Labs: Laboratory Results - last 24 hr 02/13/24 10:17: WBC 10.8, RBC 5.13, Hgb 14.8, Hct 45.1, MCV 87.9, MCH 28.8, MCHC 32.8, RDW Std Deviation 43.6, RDW Coeff of Jori 13.4, Plt Count 168, MPV 11.3, Immature Gran % (Auto) 0.500, Neut % (Auto) 76.8 H, Lymph % (Auto) 14.3 L, [place] % (Auto) 6.7, Eos % (Auto) 1.1, Baso % (Auto) 0.6, Absolute Neuts (auto) 8.3 H, Absolute Lymphs (auto) 1.54, Nucleated RBC % 0, Sodium 138, Potassium 4.2, Chloride 104, Carbon Dioxide 28.0, Anion Gap 5, BUN 24 H, Creatinine 1.42 H, Estim Creat Clear Calc 54.70, Est GFR (MDRD) Af Amer 63, Est GFR (MDRD) Non-Af 52 L, BUN/Creatinine Ratio 16.9, Glucose 184 H, Calcium 9.2, Total Bilirubin 0.90, AST 15, ALT 32, Alkaline Phosphatase 56, Total Protein 7.7, Albumin 4.2, Globulin 3.5, Albumin/Globulin Ratio 1.2 02/13/24 11:58: Urine Color Yellow, Urine Clarity Clear, Urine pH 6.0, Ur Specific [place] 1.015, Urine Protein 15 H, Urine Glucose (UA) 1000 H, Urine Ketones Negative, Urine Occult Blood 25 H, Urine Nitrite Negative, Urine Bilirubin Negative, Urine Urobilinogen Normal, Ur Leukocyte Esterase Negative, Urine RBC 0-5 SEEN, Urine WBC 0 SEEN, Ur Squamous Epith Cells 0-5 SEEN, Urine Bacteria 0 SEEN, Urine Mucus 0 SEEN Imaging Radiology Impression Abdomen/Pelvis CT 02/13/24 11:20 IMPRESSION: Moderate degree of right hydronephrosis most likely secondary to right ureterovesical junction obstruction. Questionable sludge in the gallbladder lumen. Prostatic enlargement. Electronically Signed: Scar Holden MD at 12:14 EDT ,
[2024-02-13 15:00] VITALS: BP 132/75; PULSE 59; RESP 16; TEMP 36.8; O2SAT 97
--- NOTE | 2024-02-13 15:17 | HP.PCM.HOS_ITS ---
HPI - General General Date of Admission: 02/13/24 Date of Service: 02/13/24 Chief Complaint: Right flank pain HPI Narrative LAUREN THOMAS, is a 69 M with a history of diabetes, hypertension, coronary artery disease, BPH presented to [facility] ED 02/13/2024 with right flank pain. Initially started on Sunday and lasted into Sunday, improved for a couple of days but the night prior to coming in returned, this a.m. patient with some diaphoresis and nausea with the pain so [facility] come [facility] for further evaluation. Patient had CT scan which showed moderate degree of right hydronephrosis most likely secondary to right UVJ obstruction. There is also question of the patient has RICARDA given creatinine 1.42 with last value of 0.82 however that was in 2019 and no in between values available in our system. Urology contacted in the ED who evaluated and will take patient for cystoscopy and right stent placement 02/13. Hospitalist contacted for admission. Patient evaluated in ED and reports his pain is mild at this time, has not had any fevers or burning on urination, not feeling nauseous at this time but was feeling nauseous earlier but now feels he could eat. Aside from flank pain and nausea patient otherwise negative [facility] Medical History Heart attack Diabetes Coronary artery disease Hypertension Home Medications ?Medication ?Instructions ?Recorded ?Last Taken ?Type atorvastatin 80 mg tablet 80 mg PO QHS cholesterol 12/19/19 Unknown History finasteride 5 mg tablet 5 mg PO QHS bph 12/19/19 Unknown History glipizide 10 mg tablet 15 mg PO BIDAC diabetes 12/19/19 Unknown History krill oil 350 mg-om-3 90 mg-dha 24 1 ea PO DAILY supplement 12/19/19 Unknown History mg-epa 50 mg-phospholipids capsule lisinopril 5 mg tablet 5 mg PO DAILY 12/19/19 12/29/19 08:00 History metformin 1,000 mg tablet 1,000 mg PO BID diabetes 12/19/19 Unknown History metoprolol tartrate 25 mg tablet 12.5 mg PO BID heart 12/19/19 12/29/19 08:00 History elfxfrlaaoiu-oxc-orzxb acid-vit 1 ea PO DAILY vitamin 07/31/20 Unknown History K-lycop 400 mcg-20 mcg-370 mcg tablet acetaminophen 500 mg tablet 1,000 mg (2 x 500 mg) PO Q8 #90 12/30/19 Unknown Rx tabs aspirin 81 mg tablet,delayed 81 mg PO DAILY heart ##60 12/30/19 Unknown Rx release empagliflozin 25 mg tablet 25 mg PO DAILY 02/13/24 Unknown History rosuvastatin 40 mg tablet (Crestor) 40 mg PO DAILY 02/13/24 Unknown History sitagliptin 100 mg tablet 100 mg PO DAILY 02/13/24 Unknown History tamsulosin 0.4 mg capsule (Flomax) 0.4 mg PO DAILY 02/13/24 Unknown History Allergy/AdvReac Type Severity Reaction Status Date / Time celecoxib (From Celebrex) Allergy Rash Verified 02/13/24 09:56 etodolac Allergy Rash Verified 02/13/24 09:56 terbinafine AdvReac Rash Verified 02/13/24 09:56 Surgical History H/O knee surgery H/O right heart catheterization Social History household members: spouse housing: house Smoking Status: Never smoker substance use type: does not use ROS ROS Narrative General: Denies fever/chills HENT: Denies headache, denies stuffy nose, denies sore throat EYES: Denies changes in vision Resp: Denies cough, denies shortness of breath Cardiac: Denies chest pain GI: Right flank pain, denies changes in bowel, was having some nausea earlier : Denies changes in urination Extremity: Denies swelling MSK: Denies weakness Neuro: Denies any numbness/tingling Heme: Denies any bleeding or bruising Skin: Denies rashes Psychiatric: No complaints voiced Vital Signs Vital Signs Vital Signs: 02/13/24 09:57 02/13/24 13:00 Temperature 96 F L Temperature Source Temporal Pulse Rate 65 71 Respiratory Rate 18 18 Blood Pressure 136/72 H 130/71 H Blood Pressure Mean 93 90 Pulse Ox 93 Oxygen Delivery Method Room Air Weight Weight: 93.349 kg Body Mass Index (BMI) 27.1 Physical Exam Narrative General: Alert, oriented, no apparent distress HEENT: Atraumatic, normocephalic Eyes: Anicteric, normal conjunctiva, extraocular movements grossly intact Neck: Supple Respiratory: Clear to auscultation bilaterally, normal respiratory effort Cardiovascular: Regular rate and rhythm GI: Soft, nontender, nondistended Extremities: No edema Musculoskeletal: Moving all extremities Neuro: No overt focal neurological deficits Skin: No rashes appreciated Psych: Cooperative Results Lab / Micro Data 02/13/24 10:17 02/13/24 10:17 Labs: Laboratory Results - last 24 hr 02/13/24 10:17: WBC 10.8, RBC 5.13, Hgb 14.8, Hct 45.1, MCV 87.9, MCH 28.8, MCHC 32.8, RDW Std Deviation 43.6, RDW Coeff of Jori 13.4, Plt Count 168, MPV 11.3, Immature Gran % (Auto) 0.500, Neut % (Auto) 76.8 H, Lymph % (Auto) 14.3 L, [place] % (Auto) 6.7, Eos % (Auto) 1.1, Baso % (Auto) 0.6, Absolute Neuts (auto) 8.3 H, Absolute Lymphs (auto) 1.54, Nucleated RBC % 0, Sodium 138, Potassium 4.2, Chloride 104, Carbon Dioxide 28.0, Anion Gap 5, BUN 24 H, Creatinine 1.42 H, Estim Creat Clear Calc 54.70, Est GFR (MDRD) Af Amer 63, Est GFR (MDRD) Non-Af 52 L, BUN/Creatinine Ratio 16.9, Glucose 184 H, Calcium 9.2, Total Bilirubin 0.90, AST 15, ALT 32, Alkaline Phosphatase 56, Total Protein 7.7, Albumin 4.2, Globulin 3.5, Albumin/Globulin Ratio 1.2 02/13/24 11:58: Urine Color Yellow, Urine Clarity Clear, Urine pH 6.0, Ur Specific [place] 1.015, Urine Protein 15 H, Urine Glucose (UA) 1000 H, Urine Ketones Negative, Urine Occult Blood 25 H, Urine Nitrite Negative, Urine Bilirubin Negative, Urine Urobilinogen Normal, Ur Leukocyte Esterase Negative, Urine RBC 0-5 SEEN, Urine WBC 0 SEEN, Ur Squamous Epith Cells 0-5 SEEN, Urine Bacteria 0 SEEN, Urine Mucus 0 SEEN Imaging Radiology Impression Abdomen/Pelvis CT 02/13/24 11:20 IMPRESSION: Moderate degree of right hydronephrosis most likely secondary to right ureterovesical junction obstruction. Questionable sludge in the gallbladder lumen. Prostatic enlargement. Electronically Signed: Scar Holden MD at 12:14 EDT , Assessment & Plan Assessment/Plan (1) Obstruction of right ureteropelvic junction (UPJ): PLAN: Plan # Right UVJ obstruction -CTA with moderate degree of right hydronephrosis most likely secondary to right UVJ obstruction though no stone seen -Urology evaluated and given r right hydronephrosis with suspected acute renal insufficiency patient to go to OR tomorrow for cystoscopy with stent placement -IV fluids -Pain control -N.p.o. at midnight # Elevated creatinine, unclear RICARDA versus CKD -Creatinine 1.42 with BUN of 24 -Most recent values 0.82 however that was in 2019, suspect that this is RICARDA however -IV fluids, repeat in a.m. -Patient for cystoscopy tomorrow #Type 2 diabetes mellitus -Glucose checks and sliding scale insulin -Hold oral hypoglycemics especially as patient will be n.p.o. at midnight -A1c in the a.m. 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
--- NOTE | 2024-02-13 16:08 | NURSING ---
[facility]ART TO [facility]
--- NOTE | 2024-02-13 16:20 | CASEMGMT ---
Care Management Face to Face with patient for initial transition planning/care coordination assessment while patient in ED.? This production underwriter introduced self and role at [facility]. Patient was sitting in bed, alert and oriented. Patient engaged in assessment and was able to answer all questions appropriately.? Care providers, pharmacy, and demographics verified. Admitting Diagnosis: ??Back pain Other diagnosis history: Heart attack, diabetes, coronary artery disease, hypertension, knee surgery and right heart catheterization. PCP: ??Dr. Gannon at [facility] Specialists: ?Dr. Leatha Rockwell, Cardiology at [facility] Preferred Pharmacy: ??[facility] and routine medications thru [facility] Insurance: ??[facility] benefit, Medicare, AARP Prescription Benefit:? [facility], has additional prescription coverage as well. Living Will/HPOA: Patient unable to answer at this time, states may know if documents are complete and indicates she is his decision maker. ?Declines wanting further information. LNOK: Living Arrangements: ??Patient lives in a house with , there are steps to enter home and steps going to an upper level. Patient is independent at home. Transportation: Both he and drive.? DME/HHC: ?Does not use any DME for self at this time, does have DME in the home for brother.? Has available a shower chair, raised toilet seat, can, grab bars, and walker. Patient goals: Patient wishes to discharge home, no anticipated discharge needs. Disposition Plan: ?Anticipate home, care management team to follow for any needs that may arise. Fallon Riddle, ASSISTANT PROFESSOR OF PSYCHOLOGY, ART DEALER
[2024-02-13 17:06] VITALS: BMI 27.1
[2024-02-13 17:18] VITALS: BP 131/72; PULSE 72; RESP 18; TEMP 36.6; O2SAT 98
[2024-02-13 17:29] LABS: Bedside Glucose 178 mg/dL (74-106)
[2024-02-13 20:38] VITALS: BP 143/80; PULSE 80; RESP 18; TEMP 36.6; O2SAT 96
[2024-02-13] MEDS: Acetaminophen 325 MG Tablet 650 MG PO (20:48)
[2024-02-13 20:49] VITALS: BP 143/80; PULSE 80
[2024-02-13] MEDS: Metoprolol Tartrate 25 MG Tablet 12.5 MG PO (20:49)
[2024-02-13] MEDS: Atorvastatin Calcium 80 MG Tablet PO (20:50)
[2024-02-13 22:44] LABS: Bedside Glucose 200 mg/dL (74-106)
[2024-02-14] VITALS (13 sets, daily range): BP systolic 99–146; BP diastolic 45–81; PULSE 65–89; RESP 14–18; TEMP 36.3–36.9; O2SAT 92–96; BMI 27.6
[2024-02-14] MEDS: 0.9% Normal Saline (1000mL) 1,000 ML 125 ML IV (02:05)
[2024-02-14 05:59] LABS: Bedside Glucose 97 mg/dL (74-106)
--- NOTE | 2024-02-14 06:00 | EKG12_ITS ---
Test Reason : PRE-OP Blood Pressure : / mmHG Vent. Rate : 068 BPM Atrial Rate : 068 BPM P-R Int : 176 ms QRS Dur : 088 ms QT Int : 402 ms P-R-T Axes : 046 024 029 degrees QTc Int : 427 ms Normal sinus rhythm Normal ECG When compared with ECG of 28-NOV-2005 16:01, No significant change was found Confirmed by Indio Corona [id number]), associate editor KRISTEN NUNN ([id number]) on 02/14/2024 7:54:36 AM Referred By: Confirmed By:Indio Corona
[2024-02-14 06:38] LABS: Absolute Lymphocyte Count 1.89 X10^3/uL (0.83-4.51); Basophil# 0.06 X10^3/uL; Basophil% 0.7 % (0-1); Eosinophils% 2.2 % (0-5); Hematocrit 41.3 % (40-54); Hemoglobin 13.3 g/dL (13.0-16.5); Lymphocyte # 1.89 X10^3/ul (0.83-4.51); Mean Corp Hgb Conc 32.2 g/dL (32-36); Mean Corpuscular Hgb 28.7 pg (27.0-32.0); Mean Corpuscular Volume 89.2 fL (80-94); Mean Platelet Vol. 10.8 fl (6.2-12.0); Monocyte# 0.82 X10^3/uL; Monocyte% 9.1 % (0-10); NRBC Flagged by Analyzer 0 % (0-5); Neutrophil # 5.98 X10^3/uL (2.7-7.7); Neutrophil % 66.7 % (47-70); Platelet Count 150 K/mm3 (150-450); RBC Distribution Width CV 13.7 % (11.6-14.6); RBC Distribution Width SD 45.1 fl (35.1-43.9); Red Blood Count 4.63 M/mm3 (4.6-6.2)
[2024-02-14 07:11] LABS: Anion Gap 6 (5-15); BUN 30 mg/dL (7-18); BUN/Creat Ratio 21.9 RATIO (10-20); Calcium,Total 8.9 mg/dL (8.5-10.1); Chloride 112 mmol/L (98-107); Creatinine, Serum 1.37 mg/dL (0.70-1.30); EST Glomerular Filtration Rate 55 mL/min (>60); Est Glom Filt Rate - Afr Amer 66 mL/min (>60); Glucose 107 mg/dL (74-106); Potassium 4.4 mmol/L (3.5-5.1); Sodium Level 141 mmol/L (136-145)
--- NOTE | 2024-02-14 07:53 | PN.HOSP_ITS ---
Reason for Visit Reason for Visit: Diagnoses Crossing vessel and stricture of ureter without hydronephrosis (02/13/24) Subjective Subjective Feeling well post cystoscopy had some small clots but has been urinating well without difficulty. No further abdominal pain. Objective Data Objective Data Vital Signs: Vital Signs Temp Pulse Resp BP Pulse Ox O2 Del Method 36.7 C 66 18 123/74 H 96 Room Air 02/14/24 05:35 02/14/24 05:35 02/14/24 05:35 02/14/24 05:35 02/14/24 05:35 02/14/24 05:35 Oxygen Delivery Method Room Air Weight: 93.349 kg Body Mass Index (BMI) 27.1 Intake & Output: Intake and Output for Last 24 Hours 02/12/24 02/13/24 02/14/24 23:59 23:59 23:59 Intake Total 1000 / 1000 1000 / 1000 Balance 1000 / 1000 1000 / 1000 Lab / Micro Data 02/14/24 06:03 02/14/24 06:03 Labs: Laboratory Results - last 24 hr 02/13/24 10:17: WBC 10.8, RBC 5.13, Hgb 14.8, Hct 45.1, MCV 87.9, MCH 28.8, MCHC 32.8, RDW Std Deviation 43.6, RDW Coeff of Jori 13.4, Plt Count 168, MPV 11.3, Immature Gran % (Auto) 0.500, Neut % (Auto) 76.8 H, Lymph % (Auto) 14.3 L, [place] % (Auto) 6.7, Eos % (Auto) 1.1, Baso % (Auto) 0.6, Absolute Neuts (auto) 8.3 H, Absolute Lymphs (auto) 1.54, Nucleated RBC % 0, Sodium 138, Potassium 4.2, Chloride 104, Carbon Dioxide 28.0, Anion Gap 5, BUN 24 H, Creatinine 1.42 H, Estim Creat Clear Calc 54.70, Est GFR (MDRD) Af Amer 63, Est GFR (MDRD) Non-Af 52 L, BUN/Creatinine Ratio 16.9, Glucose 184 H, Calcium 9.2, Total Bilirubin 0.90, AST 15, ALT 32, Alkaline Phosphatase 56, Total Protein 7.7, Albumin 4.2, Globulin 3.5, Albumin/Globulin Ratio 1.2 02/13/24 11:58: Urine Color Yellow, Urine Clarity Clear, Urine pH 6.0, Ur Specific [place] 1.015, Urine Protein 15 H, Urine Glucose (UA) 1000 H, Urine Ketones Negative, Urine Occult Blood 25 H, Urine Nitrite Negative, Urine Bilirubin Negative, Urine Urobilinogen Normal, Ur Leukocyte Esterase Negative, Urine RBC 0-5 SEEN, Urine WBC 0 SEEN, Ur Squamous Epith Cells 0-5 SEEN, Urine Bacteria 0 SEEN, Urine Mucus 0 SEEN 02/13/24 17:12: POC Glucose 178 H 02/13/24 20:49: POC Glucose 200 H 02/14/24 05:40: POC Glucose 97 02/14/24 06:03: WBC 9.0, RBC 4.63, Hgb 13.3, Hct 41.3, MCV 89.2, MCH 28.7, MCHC 32.2, RDW Std Deviation 45.1 H, RDW Coeff of Jori 13.7, Plt Count 150, MPV 10.8, Immature Gran % (Auto) 0.300, Neut % (Auto) 66.7, Lymph % (Auto) 21.0, [place] % (Auto) 9.1, Eos % (Auto) 2.2, Baso % (Auto) 0.7, Absolute Neuts (auto) 6.0, Absolute Lymphs (auto) 1.89, Nucleated RBC % 0, Sodium 141, Potassium 4.4, C hloride 112 H, Carbon Dioxide 23.0, Anion Gap 6, BUN 30 H, Creatinine 1.37 H, Estim Creat Clear Calc 56.70, Est GFR (MDRD) Af Amer 66, Est GFR (MDRD) Non-Af 55 L, BUN/Creatinine Ratio 21.9 H, Glucose 107 H, Calcium 8.9 Radiography Diagnostic Testing: Radiology Impression Abdomen/Pelvis CT 02/13/24 11:20 IMPRESSION: Moderate degree of right hydronephrosis most likely secondary to right ureterovesical junction obstruction. Questionable sludge in the gallbladder lumen. Prostatic enlargement. Electronically Signed: Scar Holden MD at 12:14 EDT , Physical Exam Const alert and no apparent distress HEENT head/scalp atraumatic and moist oral mucous membranes Assessment & Plan Assessment/Plan (1) Obstruction of right ureteropelvic junction (UPJ): PLAN: Plan Right UVJ obstruction * CT abdomen pelvis showed mild degree of right hydronephrosis secondary to right UVJ obstruction. Also noted prostatic enlargement. * Patient underwent cystoscopy today and had right ureteral stent placement. Elevated creatinine, unclear RICARDA versus CKD * Slightly better today. Likely postobstructive. Chronic conditions: * Type 2 diabetes mellitus-Glucose checks and sliding scale insulin-Hold oral hypoglycemics especially as patient will be n.p.o. at midnight-A1c in the a.m. * Hypertension-Continue metoprolol, hold lisinopril given unclear if patient has RICARDA * History of coronary artery disease-History of RCA stent in 2011-Continue aspirin and statin * Chronic BPH with obstruction continue tamsulosin Will discharge home.
[2024-02-14 07:55] LABS: Hemoglobin A1c 6.5 % (3.8-5.6)
[2024-02-14] MEDS: Metoprolol Tartrate 25 MG Tablet 12.5 MG PO (09:14)
[2024-02-14] MEDS: Lactated Ringers 1,000 ML 15 ML IV (11:39)
[2024-02-14 11:45] LABS: Bedside Glucose 132 mg/dL (74-106)
--- NOTE | 2024-02-14 11:54 | PCM.PRE.AN2 ---
ASA Classification* ASA Classification ASA Classification: 2 Assessment & Plan Anesthesia* Anesthesia Assessment Anesthesia Assessment: Discussed sedation and/or anesthesia options, risks, benefits, and alternatives with patient/parents/legal guardian/POA. Questions invited. The patient/parents/legal guardian/POA seems to understand and agrees to proceed with anesthesia plan. Reviewed the physical assessment, medical history, allergy history and patient home medications list prior to surgery/procedure/anesthetic and documented any changes. Performed airway and anesthesia risk assessments. Anesthesia Type Anesthesia Type: MAC History Source History Obtained from:: Patient and Chart Anesthesia Focused Assessment* Temperature: 98.5 F Pulse Rate: 65 Blood Pressure: 122/66 Respiratory Rate: 16 Pulse Ox: 93 Oxygen Delivery Method: Room Air Airway Assessment Mouth opens: >3 cm Mallampati Score: III Teeth Condition: Missing (Missing couple of molars in the back both sides of lower jaw.) Neck Range of motion (ROM): Full ROM Pertinent Findings EKG Pertinent Findings:: February 14, 2024. Normal sinus rhythm. Focused Labs Anesthesia Preop lab: CBC WBC 9.0 K/mm3 (4.4-11.0) 02/14/24 06:03 RBC 4.63 M/mm3 (4.6-6.2) 02/14/24 06:03 Hgb 13.3 g/dL (13.0-16.5) 02/14/24 06:03 Hct 41.3 % (40-54) 02/14/24 06:03 Plt Count 150 K/mm3 (150-450) 02/14/24 06:03 CHEMISTRY Potassium 4.4 mmol/L (3.5-5.1) 02/14/24 06:03 Sodium 141 mmol/L (136-145) 02/14/24 06:03 Magnesium 1.8 mg/dL (1.6-2.6) 12/22/19 09:25 BUN 30 mg/dL (7-18) H 02/14/24 06:03 Creatinine 1.37 mg/dL (0.70-1.30) H 02/14/24 06:03 Glucose 107 mg/dL (74-106) H 02/14/24 06:03 POC Glucose 132 mg/dL (74-106) H 02/14/24 11:26 COAG Pre-Assessment Diagnosis/Proposed Procedure Planned Operative Procedure(s): Cystoscopy and right stent placement. 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 When Was Last Pacemaker Check QUESTION #4 FULL TEXT: You/Your Family Experience fever (hyperthermia) with Anesthesia Last Oral Intake Last Oral intake: Last Oral Intake NPO since 00:00 02/14/24 10:32 Meds taken in AM with sips of Yes 02/14/24 10:32 water? Meds patient instructed to Lopressor 12.5 mg 02/14/24 10:32 take am of surgery Any additional information?: Yes Meds taken in AM with sips of water?: Yes PONV PONV - financial services technician: PONV - financial services technician Female HX of Motion Sickness HX of N/V After Surgery Non-Smoker Duration of Surgery greater than 60 minutes Number of Risk Factors PONV Score Height & Weight Height & Weight: Anesthesia: Height & Weight Height 6 ft 1 in 02/14/24 10:32 Weight: 95.195 kg 02/14/24 10:32 Body Mass Index (BMI) 27.6 02/14/24 10:32 Respiratory Assessment Respiratory Assessment - financial services technician: Respiratory Tract Infection Hx - financial services technician Hx Respiratory Tract Infection No 02/13/24 20:26 STOP Sleep Apnea STOP Sleep Apnea - financial services technician: STOP Sleep Apnea - financial services technician Hx Hypertension Yes: states controlled with 02/13/24 17:06 med Hx Sleep Apnea No 02/13/24 17:06 CPAP BIPAP Do you snore loudly (louder No 02/13/24 17:06 than talking or can be heard Do you often feel tired/ No 02/13/24 17:06 fatigued/ sleepy during daytime? Has anyone observed you stop No 02/13/24 17:06 breathing during sleep? STOP Results Negative 02/13/24 17:06 QUESTION #5 FULL TEXT : Do you snore loudly (louder than talking or can be heard through closed doors)? 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 Specify any problems Hx of Preganancy in last 3 N/A 02/13/24 17:06 Months Nurse Filling Out Transfusion KMESSENGE 02/13/24 17:06 & Questions: Date: 02/13/24 02/13/24 17:06 Time: 17:13 02/13/24 17:06 Patient unable to answer at this time (ie. confused, unrespo /Reproduction History /Reproductive History - financial services technician: /Reproductive Hx- financial services technician Hx Now No 02/13/24 20:26 Gestational Age (in weeks): EDC: Hx Hx Para Hx Section SAB No 02/13/24 20:26 Active Medications Active Medications: Current Medications Generic Name Dose Route Start Last Admin Trade Name Freq PRN Reason Stop Dose Admin Acetaminophen 650 mg 02/13/24 17:05 02/13/24 20:48 Acetaminophen 325 Mg Tablet PO 650 mg Q6H PRN PRN Administration Pain 1-10 Or Fever >100.7 Albuterol Sulfate 2.5 mg 02/13/24 17:05 Albuterol 2.5 Mg/3 Ml Vial.Neb. INHALATION Q2H PRN PRN SOB &/OR WHEEZING Aspirin 81 mg 02/14/24 08:00 02/14/24 09:16 Aspirin E.C. 81 Mg Tablet PO Not Given DAILYCM BHUPENDRA Atorvastatin Calcium 80 mg 02/13/24 22:00 02/13/24 20:50 Atorvastatin Calcium 80 Mg Tablet PO 80 mg QHS BHUPENDRA Administration Glucagon 1 mg 02/13/24 17:05 Glucagon 1 Mg/Ml Syringe IM X1 PRN HYPOGLYCEMIA Protocol Sodium Chloride 1,000 mls @ 125 mls/hr 02/13/24 13:45 02/14/24 10:10 IV Infused .Q8H BHUPENDRA Infusion Dextrose 250 mls @ 0 mls/hr 02/13/24 17:05 Dextrose 10%-Water IV .Q0M PRN HYPOGLYCEMIA Protocol As Directed Sodium Chloride 250 mls @ 15 mls/hr 02/13/24 17:09 IV .[id number] PRN Additional IVPB Infusion Sodium Chloride 250 mls @ 15 mls/hr 02/13/24 17:09 IV .[id number] PRN Saline Flush Lactated Ringer's 1,000 mls @ 15 mls/hr 02/14/24 11:30 02/14/24 11:39 IV 15 mls/hr .Q48H BHUPENDRA Administration Cefazolin Sodium 2 gm/ Sodium 110 mls @ 150 mls/hr 02/14/24 11:51 Chloride IV 02/14/24 12:34 X1 ONE Insulin Human Lispro 0 unit 02/13/24 17:05 02/14/24 05:40 Insulin Lispro 100 Unit/Ml Insuln.Pen SC Not Given ACHS BHUPENDRA Protocol Melatonin 3 mg 02/13/24 17:05 Melatonin 3 Mg Tablet PO QHS PRN PRN INSOMNIA Metoprolol Tartrate 12.5 mg 02/13/24 22:00 02/14/24 09:14 Metoprolol Tartrate 25 Mg Tablet PO 12.5 mg BID BHUPENDRA Administration Protocol Ondansetron HCl 4 mg 02/13/24 17:05 Ondansetron 4 Mg/2 Ml Vial IV Q8H PRN PRN NAUSEA/VOMITING Oxycodone HCl 5 mg 02/13/24 17:05 Oxycodone 5 Mg Tablet PO Q4H PRN PRN Pain Score 4-10 Senna/Docusate Sodium 2 tablet 02/13/24 17:05 Senna/Docusate Sodium 1 Tablet PO BID PRN PRN Constipation Sodium Chloride 10 - 40 ml 02/13/24 17:09 0.9% Saline Lock 10 Ml Syringe IV UD PRN SALINE FLUSH Tamsulosin HCl 0.4 mg 02/14/24 10:00 02/14/24 09:17 Tamsulosin Hcl 0.4 Mg Capsule PO Not Given DAILY [facility] Medical History Heart attack Diabetes Coronary artery disease Hypertension Home Medications ?Medication ?Instructions ?Recorded ?Last Taken ?Type atorvastatin 80 mg tablet 80 mg PO QHS cholesterol 12/19/19 Unknown History finasteride 5 mg tablet 5 mg PO QHS bph 12/19/19 Unknown History glipizide 10 mg tablet 15 mg PO BIDAC diabetes 12/19/19 Unknown History krill oil 350 mg-om-3 90 mg-dha 24 1 ea PO DAILY supplement 12/19/19 Unknown History mg-epa 50 mg-phospholipids capsule lisinopril 5 mg tablet 5 mg PO DAILY 12/19/19 12/29/19 08:00 History metformin 1,000 mg tablet 1,000 mg PO BID diabetes 12/19/19 Unknown History metoprolol tartrate 25 mg tablet 12.5 mg PO BID heart 12/19/19 02/14/24 History ssryejjmdfqu-mby-fxiwl acid-vit 1 ea PO DAILY vitamin 12/19/19 Unknown History K-lycop 400 mcg-20 mcg-370 mcg tablet acetaminophen 500 mg tablet 1,000 mg (2 x 500 mg) PO Q8 #90 12/30/19 Unknown Rx tabs aspirin 81 mg tablet,delayed 81 mg PO DAILY heart ##60 12/30/19 Unknown Rx release empagliflozin 25 mg tablet 25 mg PO DAILY 02/13/24 Unknown History rosuvastatin 40 mg tablet (Crestor) 40 mg PO DAILY 02/13/24 Unknown History sitagliptin 100 mg tablet 100 mg PO DAILY 02/13/24 Unknown History tamsulosin 0.4 mg capsule (Flomax) 0.4 mg PO DAILY 02/13/24 Unknown History Allergy/AdvReac Type Severity Reaction Status Date / Time celecoxib (From Celebrex) Allergy Rash Verified 02/14/24 11:27 etodolac Allergy Rash Verified 02/14/24 11:27 terbinafine AdvReac Rash Verified 02/14/24 11:27 Surgical History H/O knee surgery H/O right heart catheterization Social History household members: spouse housing: house Smoking Status: Never smoker substance use type: does not use Review of Systems (Anesthesia) ROS Narrative System reviewed and no additional complaints, except as documented.
[2024-02-14] MEDS: Cefazolin 2 GM in 0.9% Normal Saline (100mL Bag) 100 ML IV (12:08)
--- NOTE | 2024-02-14 12:31 | PCM.OPRPT ---
Report of Operation Date of Procedure: 02/14/24 Pre-Operative Diagnosis: right UPJ obstuction Post-Operative Diagnosis: same Surgery/Procedure Performed:: cysto right retrograde and stent Description of Surgical Findings:: Finding: v large median lobe, v large prostate w bleeding, stent place on retrograde has area rashi for right UPJ obstruction Patient was taken back to the operating room after induction of general anesthesia, the patient was placed in dorsolithotomy position. The urethra and genitals were prepped and draped in usual sterile fashion. Using a 21 [place] rigid cystourethroscope the entire length of the urethra was normal then went into the bladder. Identified the trigone the left and right ureteral orifice. I then cannulated the right orifice and advanced a wire up into the kidney. I then backloaded a 5 [place] open ended catheter over the wire and injected contrast to delineate the anatomy. After the retrograde was performed I then used fluoroscopic images and guidance to advanced a wire up into the kidney and over the 0.038 glidewire I advanced a 6 [place] by 26 cm double pigtail stent. I then pulled the 0.038 Glidewire off and the stent coiled in the kidney bladder good position. The bladder was then drained. We confirmed the position of the stent by fluoroscopy. Patient anesthetic was reversed and was taken back to the PACU in good condition. Surgeon: Polo Osullivan Drains: stent
--- NOTE | 2024-02-14 12:43 | PCM.POST.ANE ---
Anesthesia: Postop Eval I Current Vital Signs Temperature: 97.9 F Pulse Rate: 80 Blood Pressure: 108/58 Respiratory Rate: 16 Pulse Ox: 94 Oxygen Delivery Method: Room Air Assessment Airway patent: Yes Spontaneous unlabored respirations: Yes Mental status: Awake and Calm nausea: No Vomiting: No Anesthesia Complication: No Fluid Hydration Crystalloid volume administer (ml): 200 Total IV fluid infused: 200 Progress Note Anesthesia document: Postop Eval 1 completed: Yes
--- NOTE | 2024-02-14 14:34 | POSTOPAN2_ITS ---
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 ROLLER INSPECTOR.[email or web address] Spontaneous unlabored Yes 02/14/24 12:44 ENGRAVED ROLLER INSPECTOR.GDOTT respirations Mental status Awake,Calm 02/14/24 12:44 ENGRAVED ROLLER INSPECTOR.GDOTT nausea No 02/14/24 12:44 ENGRAVED ROLLER INSPECTOR.GDOTT Vomiting No 02/14/24 12:44 ENGRAVED ROLLER INSPECTOR.GDOTT Anesthesia Postop Eval I: Fluid Summary Crystalloid volume administer 200 02/14/24 12:44 ENGRAVED ROLLER INSPECTOR.GDOTT (ml) Colloids volume administered ( ml) Blood Product volume administered (ml) Total IV fluid infused 200 02/14/24 12:44 ENGRAVED ROLLER INSPECTOR.GDOTT Anesthesia Postop Eval I: Summary Notes Anesthesia Complication No 02/14/24 12:44 ENGRAVED ROLLER INSPECTOR.GDOTT Anesthesia Complication Comment: Post-operative progress note Anesthesia: Postop Eval II Evaluation Mental status: Awake and Calm Pain Level: 1 nausea: No Vomiting: No Complications Anesthesia Complication: No
--- NOTE | 2024-02-14 14:34 | PCM.POSTANE2 ---
Anesthesia Postop Eval I Sum Postop Eval Completion status Anesthesia document: Postop Eval 1 completed: Yes Anesthesia Postop Eval I Summary Anesthesia Postop Eval I Summary: Anesthesia Postop Eval I: Assessment Summary Airway patent Yes 02/14/24 12:44 ORACLE ERP ARCHITECT.[email or web address] Spontaneous unlabored Yes 02/14/24 12:44 ORACLE ERP ARCHITECT.GDOTT respirations Mental status Awake,Calm 02/14/24 12:44 ORACLE ERP ARCHITECT.GDOTT nausea No 02/14/24 12:44 ORACLE ERP ARCHITECT.GDOTT Vomiting No 02/14/24 12:44 ORACLE ERP ARCHITECT.GDOTT Anesthesia Postop Eval I: Fluid Summary Crystalloid volume administer 200 02/14/24 12:44 ORACLE ERP ARCHITECT.GDOTT (ml) Colloids volume administered ( ml) Blood Product volume administered (ml) Total IV fluid infused 200 02/14/24 12:44 ORACLE ERP ARCHITECT.GDOTT Anesthesia Postop Eval I: Summary Notes Anesthesia Complication No 02/14/24 12:44 ORACLE ERP ARCHITECT.GDOTT Anesthesia Complication Comment: Post-operative progress note Anesthesia: Postop Eval II Evaluation Mental status: Awake and Calm Pain Level: 1 nausea: No Vomiting: No Complications Anesthesia Complication: No
--- NOTE | 2024-02-14 15:34 | PCM.DC.SUM ---
Providers Date of Admission: 02/13/24 Primary Care Physician: [facility] Consultations 02/13/24 17:05 Consult: Urology Routine Consulting Provider: Polo Osullivan Reason for Consult: R UVJ obstruction EMERGENT Consult: No MD Notified: Yes Date Notified: 02/13/24 Time Notified: 15:26 Method of Notification: ED Physician Initiated Reason For Visit: UVJ OBSTRUCTION Diagnosis Discharge Diagnosis (1) Obstruction of right ureteropelvic junction (UPJ): Status: Acute Code(s): N13.5 - Crossing vessel and stricture of ureter without hydronephrosis Plan Right UVJ obstruction CT abdomen pelvis showed mild degree of right hydronephrosis secondary to right UVJ obstruction. Also noted prostatic enlargement. Patient underwent cystoscopy today and had right ureteral stent placement. Elevated creatinine, unclear RICARDA versus CKD Slightly better today. Likely postobstructive. Chronic conditions: Type 2 diabetes mellitus-Glucose checks and sliding scale insulin-Hold oral hypoglycemics especially as patient will be n.p.o. at midnight-A1c in the a.m. Hypertension-Continue metoprolol, hold lisinopril given unclear if patient has RICARDA History of coronary artery disease-History of RCA stent in 2011-Continue aspirin and statin Chronic BPH with obstruction continue tamsulosin Will discharge home. Medications at Discharge Home Medications atorvastatin 80 mg tablet 80 mg PO QHS cholesterol 12/19/19 finasteride 5 mg tablet 5 mg PO QHS bph 12/19/19 glipizide 10 mg tablet 15 mg PO BIDAC diabetes 12/19/19 krill oil 350 mg-om-3 90 mg-dha 24 mg-epa 50 mg-phospholipids capsule 1 ea PO DAILY supplement 12/19/19 lisinopril 5 mg tablet 5 mg PO DAILY 12/19/19 metformin 1,000 mg tablet 1,000 mg PO BID diabetes 12/19/19 metoprolol tartrate 25 mg tablet 12.5 mg PO BID heart 12/19/19 ehgjuojrgerg-wkw-rlwfa acid-vit K-lycop 400 mcg-20 mcg-370 mcg tablet 1 ea PO DAILY vitamin 12/19/19 acetaminophen 500 mg tablet 1,000 mg (2 x 500 mg) PO Q8 #90 tabs 12/30/19 aspirin 81 mg tablet,delayed release 81 mg PO DAILY heart ##60 12/30/19 empagliflozin 25 mg tablet 25 mg PO DAILY 02/13/24 rosuvastatin 40 mg tablet (Crestor) 40 mg PO DAILY 02/13/24 sitagliptin 100 mg tablet 100 mg PO DAILY 02/13/24 tamsulosin 0.4 mg capsule (Flomax) 0.4 mg PO DAILY 02/13/24 Hospital Course Operations - (Cystoscopy and right ureteral stent placement) Summary of Care Provided Hospital Course: Patient presents with abdominal pain. Patient was found to have a right UPJ obstruction. Patient underwent cystoscopy that showed no stones but did have a stent placed. Subsequently patient is feeling better. Patient will follow-up with urology as outpatient and eventually have that stent removed. Patient feeling well enough and will be discharged home. Patient states he is passing some small clots but has been urinating well. Patient advised if he does have large clots that may cause urinary obstruction and may completely block his urine float and if some like that were to happen he would need to come back into the emergency room. Weight / BMI Weight Weight: 95.195 kg Body Mass Index (BMI) 27.6 ABG / Lab / Microbiology Data 02/14/24 06:03 02/14/24 06:03 Laboratory: Laboratory Results - last 24 hr 02/13/24 17:12: POC Glucose 178 H 02/13/24 20:49: POC Glucose 200 H 02/14/24 05:40: POC Glucose 97 02/14/24 06:03: WBC 9.0, RBC 4.63, Hgb 13.3, Hct 41.3, MCV 89.2, MCH 28.7, MCHC 32.2, RDW Std Deviation 45.1 H, RDW Coeff of Jori 13.7, Plt Count 150, MPV 10.8, Immature Gran % (Auto) 0.300, Neut % (Auto) 66.7, Lymph % (Auto) 21.0, [place] % (Auto) 9.1, Eos % (Auto) 2.2, Baso % (Auto) 0.7, Absolute Neuts (auto) 6.0, Absolute Lymphs (auto) 1.89, Nucleated RBC % 0, Sodium 141, Potassium 4.4, Chloride 112 H, Carbon Dioxide 23.0, Anion Gap 6, BUN 30 H, Creatinine 1.37 H, Estim Creat Clear Calc 56.70, Est GFR (MDRD) Af Amer 66, Est GFR (MDRD) Non-Af 55 L, BUN/Creatinine Ratio 21.9 H, Glucose 107 H, Hemoglobin A1c 6.5 H, Calcium 8.9 02/14/24 11:26: POC Glucose 132 H D/C Instructions Discharge Diet: 2000 Calorie Control Diet Meaningful Use Info Meaningful Use Meaningful Use Diagnoses (Choose all that apply): None applicable Ischemic Stroke Statin Dosing Therapy Reference: STATIN DOSE THERAPY REFERENCE: * Patients > 75 years receive moderate or high dose statin therapy. * Patients 75 years or YOUNGER should receive HIGH intensity statin dose unless contraindicated. You will be required to document reason for non-treatment if statin daily dose does not meet guidelines. HIGH DOSE STATIN THERAPY DAILY Atorvastatin > than or = to 40 mg Rosuvastatin > than or = to 20 mg Amlodipine + Atorvastatin > than or = to 2.5/40 mg Ezetimibe + Simvastatin 10/80 mg Simvastatin 80mg Discharge Plan Admission Admit Date/Time: 02/13/24 15:20 Primary Reason for Your Visit: Right ureteral obstruction Attending Provider: Blayne Wang Primary Care Provider: [facility],[place] Consulting Providers: Polo Osullivan; Belkys Spencer Instructions Additional Instructions / Restrictions: You had a stent placed into your right ureter. Please follow-up with urology have that removed in the coming weeks. If you do experience increased bleeding, increased clotting in your urine, notify physician or return to the emergency room. Discharge Orders/Prescriptions Prescriptions: Continued atorvastatin 80 MG tablet 80 mg PO QHS glipizide 10 MG tablet 15 mg PO BIDAC metformin 1,000 MG tablet 1,000 mg PO BID lisinopril 5 MG tablet 5 mg PO DAILY finasteride 5 MG tablet 5 mg PO QHS metoprolol tartrate 25 MG tablet 12.5 mg PO BID kpmerall-klo-imiqo-vit K-lycop 1 EACH tablet 1 ea PO DAILY djrxj-qaoyy-6-zjc-ooe-yzxmio 1 EACH capsule 1 ea PO DAILY acetaminophen 500 MG tablet 1,000 mg PO Q8 Qty: 90 0RF aspirin 81 MG tablet,delayed release (DR/EC) 81 mg PO DAILY Qty: 60 0RF sitagliptin 100 mg tablet 100 mg PO DAILY empagliflozin 25 mg tablet 25 mg PO DAILY rosuvastatin [Crestor] 40 mg tablet 40 mg PO DAILY tamsulosin [Flomax] 0.4 mg capsule 0.4 mg PO DAILY Referrals / Follow Up: Abran,Yao, MD [Med Staff - Active Staff] - [facility]eks [facility] [Primary [facility] - Disposition Disposition (needs filled in before D/C Order can be placed): Home, Self Care Charges/Coding Visit Charges Inpatient E&M: 84158 Disch Hosp
== END 2024-02-14 17:02 | disposition home or self-care (01) | DRG 661 ==
LOC: ED 16:42 → MS3 16:58
PROVIDERS: Urology; Admitting Provider Internal Medicine; Emergency Provider Emergency Medicine
PROC: 0T768DZ Dilation of Right Ureter with Intraluminal Device, Via Natural or Artificial Opening Endoscopic (ICD-10-PCS; principal; 2024-02-14 11:50)
DX: N13.0 Hydronephrosis with ureteropelvic junction obstruction (principal); N17.9 Acute kidney failure, unspecified; E11.9 Type 2 diabetes mellitus without complications; I10 Essential (primary) hypertension; I25.10 Atherosclerotic heart disease of native coronary artery without angina pectoris; Z79.82 Long term (current) use of aspirin; Z79.84 Long term (current) use of oral hypoglycemic drugs; Z86.718 Personal history of other venous thrombosis and embolism; Z79.01 Long term (current) use of anticoagulants; N40.1 Benign prostatic hyperplasia with lower urinary tract symptoms; Z88.8 Allergy status to other drugs, medicaments and biological substances; Z95.5 Presence of coronary angioplasty implant and graft
CPT/HCPCS: 36415; 74176; 76000; 80048; 80053; 81001; 82962; 83036; 85025; 93005; 99283; J7030; J7120; A4216; C1769; C2617; J2405

== ENCOUNTER 2024-03-08 09:28 | Inpatient (IN) | payer MEDICARE, OTHER, SELFPAY ==
[2024-03-08] VITALS (42 sets, daily range): BP systolic 53–132; BP diastolic 31–93; PULSE 90–124; RESP 16–31; TEMP 36.3–38.8; O2SAT 85–100; BMI 27.0; BMI 27.5
--- NOTE | 2024-03-08 09:54 | EKG12_ITS ---
Test Reason : Blood Pressure : / mmHG Vent. Rate : 111 BPM Atrial Rate : 111 BPM P-R Int : 166 ms QRS Dur : 084 ms QT Int : 350 ms P-R-T Axes : 052 005 -21 degrees QTc Int : 476 ms Sinus tachycardia Nonspecific T wave abnormality Abnormal ECG Confirmed by Indio Corona ([id number]), general expeditor KRISTEN NUNN ([id number]) on 03/10/2024 11:25:00 AM Referred By: Confirmed By:Indio Corona
[2024-03-08] MEDS: 0.9% Normal Saline (1000mL) 1,000 ML 999 ML IV ×3 (09:56→11:08)
--- NOTE | 2024-03-08 10:03 | CT_ITS ---
HISTORY: recent renal stent removal. TECHNIQUE: Helically acquired images were obtained of the abdomen and pelvis without oral or IV contrast. A radiation dose optimization technique was used for this scan. 506 images. COMPARISON: 02/13/2024 FINDINGS: LOWER CHEST: Minimal atelectasis in the lung bases. Coronary artery disease. BOWEL: Bowel including appendix nondilated. Mild diffuse colonic wall thickening. PERITONEUM: No significant free fluid. LIVER: Unremarkable. GALLBLADDER/BILIARY TREE: Mildly contracted gallbladder. SPLEEN/PANCREAS/ADRENAL GLANDS: Nonenlarged. KIDNEYS AND URETERS: Increased right perinephric and periureteral stranding. Moderate right hydronephrosis with a distended extrarenal pelvis but no hydroureter again seen. Small right renal cyst again seen; follow-up not indicated. No nephrolithiasis or obstructing ureteral calculus on either side. VESSELS: No abdominal aortic aneurysm. Atherosclerosis present. PELVIC ORGANS: Mild perivesical and periprostatic stranding. Enlarged prostate gland again noted. ABDOMINAL WALL: Small fat-containing inguinal hernias. BONES: Old left lower rib fractures. Degenerative change. CT/Abdomen/Pelvis without Cont IMPRESSION: Unchanged moderate right hydronephrosis with a distended extrarenal pelvis, suggesting UPJ obstruction. Mildly increased right perinephric and periureteral stranding, possible urinary tract infection. No nephrolithiasis or ureterolithiasis. Chronic prostatomegaly with mild surrounding inflammation, suggesting cystitis and prostatitis. Diffuse colonic wall thickening, likely mild pancolitis. Electronically Signed: Lauryn Levine MD at 12:46 EDT ,
--- NOTE | 2024-03-08 10:23 | EX.ED.DYSGE1 ---
HPI History of Present Illness Chief Complaint: Complaint Narrative Narrative: Chief complaint and HPI: General With recent ureter stent removal. Patient is a 69-year-old male with history of DM, CAD, HTN, HLD presents for evaluation of general malaise. Patient states he had a right ureteral stent removed by Dr. Osullivan on Sunday. He states since Sunday he has felt unwell. He endorses increased fatigue and weakness. States he has been laying in bed all week. He endorses decreased appetite and p.o. intake. Endorses decreased urination. Endorses diarrhea. States he has not been on recent antibiotics. He denies any fever, chills, URI symptoms, cough, chest pain, abdominal pain, nausea, vomit testicular or penile pain. Review of systems: See HPI Medications: As listed on the chart Allergies: As listed on the chart PFSH: Per chart Vital signs: As listed on the chart. Reviewed. Physical exam: Gen: Fatigued, O x3, unwell appearing Head: Normocephalic, atraumatic Eyes: No sclera icterus, conjunctiva clear, PERRL ENT: Dry mucous membranes Neck: Trachea midline, No JVD CV: Tachycardic, no murmurs, no peripheral edema Resp: Lungs CTA BL, no w/r/c GI: Abd soft, non-distended, non-tender, no r/r/g : Circumcised penis. No penile tenderness or discharge. No penile or testicular swelling.No testicular tenderness, masses, or skin changes. No rashes. Musc: Moves all extremities, no deformity Skin: Warm, dry Neuro: Fatigue, oriented, grossly intact, sensation intact Psych: Cooperative, appropriate mood and affect [facility] Medical History Heart attack Diabetes Coronary artery disease Hypertension Home Medications ?Medication ?Instructions ?Recorded ?Last Taken ?Type atorvastatin 80 mg tablet 80 mg PO QHS cholesterol 12/19/19 Unknown History finasteride 5 mg tablet 5 mg PO QHS bph 12/19/19 Unknown History glipizide 10 mg tablet 15 mg PO BIDAC diabetes 12/19/19 Unknown History krill oil 350 mg-om-3 90 mg-dha 24 1 ea PO DAILY supplement 12/19/19 Unknown History mg-epa 50 mg-phospholipids capsule lisinopril 5 mg tablet 5 mg PO DAILY 12/19/19 12/29/19 08:00 History metformin 1,000 mg tablet 1,000 mg PO BID diabetes 12/19/19 Unknown History metoprolol tartrate 25 mg tablet 12.5 mg PO BID heart 12/19/19 02/14/24 History aeenqzeycvcq-vdw-fvuhm acid-vit 1 ea PO DAILY vitamin 12/19/19 Unknown History K-lycop 400 mcg-20 mcg-370 mcg tablet acetaminophen 500 mg tablet 1,000 mg (2 x 500 mg) PO Q8 #90 12/30/19 Unknown Rx tabs aspirin 81 mg tablet,delayed 81 mg PO DAILY heart ##60 12/30/19 Unknown Rx release empagliflozin 25 mg tablet 25 mg PO DAILY 02/13/24 Unknown History rosuvastatin 40 mg tablet (Crestor) 40 mg PO DAILY 02/13/24 Unknown History sitagliptin 100 mg tablet 100 mg PO DAILY 02/13/24 Unknown History tamsulosin 0.4 mg capsule (Flomax) 0.4 mg PO DAILY 02/13/24 Unknown History Allergy/AdvReac Type Severity Reaction Status Date / Time celecoxib (From Celebrex) Allergy Rash Verified 03/08/24 09:28 etodolac Allergy Rash Verified 03/08/24 09:28 terbinafine AdvReac Rash Verified 03/08/24 09:28 Surgical History H/O knee surgery H/O right heart catheterization Social History household members: spouse housing: house Smoking Status: Never smoker substance use type: does not use EXAM Physical Exam Const Vital Signs: 03/08/24 09:29 03/08/24 09:34 03/08/24 09:36 Temperature 98 F 98 F Temperature Source Oral Oral Pulse Rate 122 H 124 H 119 H Respiratory Rate 18 18 31 H Blood Pressure 65/40 L 109/93 H 109/93 H Blood Pressure Mean 48 98 98 Pulse Ox 99 95 93 Oxygen Delivery Method Room Air Room Air Oxygen Flow Rate (L/min) 03/08/24 09:46 03/08/24 09:53 03/08/24 10:10 Temperature Temperature Source Pulse Rate Respiratory Rate Blood Pressure 70/46 L Blood Pressure Mean 54 Pulse Ox 85 88 Oxygen Delivery Method Room Air Nasal Cannula Oxygen Flow Rate (L/min) 4 03/08/24 10:36 03/08/24 11:00 03/08/24 12:00 Temperature 98.0 F Temperature Source Temporal Pulse Rate 109 H 108 H Respiratory Rate 25 H 30 H Blood Pressure 74/59 L 70/51 L 53/31 L Blood Pressure Mean 64 57 38 Pulse Ox 99 90 Oxygen Delivery Method Nasal Cannula Nasal Cannula Oxygen Flow Rate (L/min) 5 5 03/08/24 12:00 03/08/24 12:07 03/08/24 12:08 Temperature Temperature Source Pulse Rate 105 H 104 H Respiratory Rate 25 H Blood Pressure 77/52 L 70/37 L Blood Pressure Mean 60 48 Pulse Ox 95 97 Oxygen Delivery Method Room Air Nasal Cannula Oxygen Flow Rate (L/min) 5 03/08/24 12:15 03/08/24 12:16 03/08/24 12:34 Temperature 98.3 F Temperature Source Oral Pulse Rate 105 H 105 H Respiratory Rate 24 H 27 H Blood Pressure 88/56 L 88/56 L 95/57 L Blood Pressure Mean 66 66 69 Pulse Ox 95 96 Oxygen Delivery Method Room Air Room Air Oxygen Flow Rate (L/min) 03/08/24 13:00 03/08/24 13:59 03/08/24 14:00 Temperature Temperature Source Pulse Rate 106 H 106 H Respiratory Rate 25 H Blood Pressure 91/59 L 76/65 L 99/57 L Blood Pressure Mean 69 68 71 Pulse Ox 96 Oxygen Delivery Method Room Air Oxygen Flow Rate (L/min) 03/08/24 14:58 Temperature Temperature Source Pulse Rate Respiratory Rate Blood Pressure 100/73 Blood Pressure Mean 82 Pulse Ox Oxygen Delivery Method Oxygen Flow Rate (L/min) MDM MDM MDM Narrative Medical decision making narrative: 69-year-old male with a recent right ureteral stent removal presents for evaluation of general malaise. On chart review he had a right ureteral stent placed on 02/[address] Osullivan due to right UPJ obstruction. Patient states this was removed on Sunday, was unable to find a note. On arrival patient is unwell appearing with dry mucous membranes. He is hypotensive, tachycardic, and tachypneic. Originally oxygenation was normal on room air, patient then dropped saturations and requiring oxygen. Differential diagnosis includes but is not limited to UTI, intra-abdominal infection, RICARDA, electrolyte abnormality, viral illness, pneumonia. Patient met sepsis criteria. Sepsis alert was initiated. Zosyn was given prophylactically for suspected source. 30 cc/kg NS bolus ordered. Patient was bladder scanned to assess for urinary retention. Patient not retaining urine. CBC with a leukocytosis of 33.4. Patient has anemia of 12.8. Thrombocytopenia with a platelet count of 104. INR unremarkable. Lactic acid 6.9. Patient receiving fluids. BMP shows hyponatremia at 129 with RICARDA. Creatinine is 3.86. Baseline is about 1.3. Patient has transaminitis with an AST of 152, ALT of 127 this is likely secondary to his septic shock. Alk phos is elevated at 142. Troponin elevated at 1842. Suspect type II demand due to his septic shock however cardiology was consulted and patient was discussed with Dr. Corona. He agrees that this is likely secondary to his patient's septic shock. He does not recommend anticoagulation with heparin. Despite 30 cc/kg bolus patient remains hypotensive. Patient unable to transport to the CT scanner. Patient will require pressure support. Central line placement was discussed with the patient as well as his . Patient consented. Right CVC was placed. Repeat chest x-ray shows good placement of the CVC line without pneumothorax. Levophed and vasopressin started. Krueger placed. UA positive for UTI. CT abdomen pelvis shows unchanged moderate right hydronephrosis with a distended extrarenal pelvis, suggesting UVJ obstruction. Mildly increased right perinephritic and periureteral stranding possible UTI. Chronic prostamegaly with mild surrounding inflammation suggesting cystitis and prostatitis. Diffuse colonic wall thickening, likely mild pancolitis. Patient septic shock is from his UTI with UVJ obstruction. Urology was consulted and I spoke with Dr. Osullivan. He will call the team and for emergent stent placement. Patient will require admission to the ICU. I spoke with hospitalist service who accepted admission. Patient and updated of all the results and the plan. They confirmed understanding. EKG: Interpreted by me/EM physician: EKG shows sinus tachycardia without any ST elevation. Heart rate 111 Diagnostic: Interpreted by me/EM physician: Chest x-ray without pneumonia, effusion, cardiomegaly, pneumothorax Central Venous Catheter Placement Indication: Hypotension Location: Right IJ Consent: Risks, benefits, and alternatives discussed with patient and consent obtained Procedure: Patient was placed in Trendelenburg with head rotated to the opposite side. A timeout was performed verifying correct patient, procedure, site, and positioning. The patient's neck was prepped with chlorhexidine scrub and draped in a sterile fashion. The internal jugular vein was identified using a sterilely prepped ultrasound. 1 ml of 1% lidocaine was used to anesthetize the insertion site. Using real-time ultrasound guidance, the internal jugular vein was accessed, and a triple-lumen catheter was placed using the Seldinger technique. The catheter threaded smoothly over the guide wire and advanced easily into the vein. A brisk blood return was obtained from each lumen and each lumen was then easily flushed with sterile saline. The catheter was sutured in place at the suture wing and a sterile, antibiotic dressing was placed. The patient tolerated the procedure well without complications. Estimated Blood Loss: Minimal 35 minutes of critical care time utilized in managing the patient. This is due to high probability of and deterioration of the patient based on the patient's condition and excludes any separately billable procedures. Impression: 1. Septic shock requiring vasopressors, septic shock from UTI and UVJ obstruction 2. NSTEMI, type II demand ischemia from septic shock 3. Acute anemia 4. Acute thrombocytopenia 5. Transaminitis, concern for mild shock liver 6. RICARDA 7. Lactic acidosis 8. Acute hypoxic respiratory failure requiring nasal cannula, multifactorial Lab Data Labs: Laboratory Results - last 24 hr 03/08/24 03/08/24 03/08/24 09:35 13:09 13:16 WBC 33.4 H* RBC 4.46 L Hgb 12.8 L Hct 39.1 L MCV 87.7 MCH 28.7 MCHC 32.7 RDW Std Deviation 48.0 H RDW Coeff of Jori 14.7 H Plt Count 104 L MPV 11.6 Immature Gran % (Auto) 2.500 H Neut % (Auto) 90.1 H Lymph % (Auto) 1.7 L Tillman % (Auto) 4.6 Eos % (Auto) 0.7 Baso % (Auto) 0.4 Absolute Neuts (auto) 30.1 H Absolute Lymphs (auto) 0.58 L Nucleated RBC % 0 Differential Comment SCANNED Diff Path Review September foll PT 16.0 H INR 1.3 APTT 35.3 Sodium 129 L Potassium 3.8 Chloride 95 L Carbon Dioxide 17.0 L Anion Gap 17 H BUN 49 H Creatinine 3.86 H Estim Creat Clear Calc 20.12 Est GFR (MDRD) Af Amer 20 L Est GFR (MDRD) Non-Af 17 L BUN/Creatinine Ratio 12.7 Glucose 229 H Lactic Acid 6.9 H* Calcium 8.2 L Total Bilirubin 2.70 H AST 152 H ALT 127 H Alkaline Phosphatase 142 H Troponin I High Sens 1842 H* 1351 H* Total Protein 6.6 Albumin 2.9 L Globulin 3.7 Albumin/Globulin Ratio 0.8 L Urine Color Yellow Urine Clarity Sl. Cloudy Urine pH 5.0 Ur Specific [place] 1.015 Urine Protein 100 H Urine Glucose (UA) 1000 H Urine Ketones Negative Urine Occult Blood 250 H Urine Nitrite Negative Urine Bilirubin 1 H Urine Urobilinogen 1 H Ur Leukocyte Esterase 100 H Urine RBC 5-10 SEEN Urine WBC 10-25 SEEN Ur Squamous Epith Cells 0 SEEN Ur Renal Epithelial Cell 0-5 SEEN Amorphous Sediment 1+ Urine Bacteria 3+ Urine Mucus 0 SEEN 03/08/24 14:22 WBC RBC Hgb Hct MCV MCH MCHC RDW Std Deviation RDW Coeff of Jori Plt Count MPV Immature Gran % (Auto) Neut % (Auto) Lymph % (Auto) Tillman % (Auto) Eos % (Auto) Baso % (Auto) Absolute Neuts (auto) Absolute Lymphs (auto) Nucleated RBC % Differential Comment Diff Path Review PT INR APTT Sodium Potassium Chloride Carbon Dioxide Anion Gap BUN Creatinine Estim Creat Clear Calc Est GFR (MDRD) Af Amer Est GFR (MDRD) Non-Af BUN/Creatinine Ratio Glucose Lactic Acid 2.8 H* Calcium Total Bilirubin AST ALT Alkaline Phosphatase Troponin I High Sens Total Protein Albumin Globulin Albumin/Globulin Ratio Urine Color Urine Clarity Urine pH Ur Specific [place] Urine Protein Urine Glucose (UA) Urine Ketones Urine Occult Blood Urine Nitrite Urine Bilirubin Urine Urobilinogen Ur Leukocyte Esterase Urine RBC Urine WBC Ur Squamous Epith Cells Ur Renal Epithelial Cell Amorphous Sediment Urine Bacteria Urine Mucus Radiography Diagnostic Testing: Clinical Impression(s) from Imaging Studies Abdomen/Pelvis CT 03/08/24 10:03 IMPRESSION: Unchanged moderate right hydronephrosis with a distended extrarenal pelvis, suggesting UPJ obstruction. Mildly increased right perinephric and periureteral stranding, possible urinary tract infection. No nephrolithiasis or ureterolithiasis. Chronic prostatomegaly with mild surrounding inflammation, suggesting cystitis and prostatitis. Diffuse colonic wall thickening, likely mild pancolitis. Electronically Signed: Lauryn Levine MD at 12:46 EDT , Chest X-Ray 03/08/24 10:32 IMPRESSION: No acute cardiopulmonary process identified. Electronically Signed: Lauryn Levine MD at 11:02 EDT , Chest X-Ray 03/08/24 11:38 IMPRESSION: Satisfactory appearance of central venous catheter. Electronically Signed: Lauryn Levine MD at 12:06 EDT , Discharge Plan Disposition Disposition: Acute Care Hospital [facility] Discharge Date/Time: 03/08/24 15:18
[2024-03-08 10:30] LABS: Absolute Lymphocyte Count 0.58 X10^3/uL (0.83-4.51); Absolute Neutrophil Count 30.1 X10^3/uL (2.0-7.7); Basophil# 0.13 X10^3/uL; Basophil% 0.4 % (0-1); Eosinophil# 0.23 X10^3/uL; Eosinophils% 0.7 % (0-5); Hematocrit 39.1 % (40-54); Hemoglobin 12.8 g/dL (13.0-16.5); Lymphocyte # 0.58 X10^3/ul (0.83-4.51); Lymphocyte % 1.7 % (19-41); Mean Corp Hgb Conc 32.7 g/dL (32-36); Mean Corpuscular Hgb 28.7 pg (27.0-32.0); Mean Corpuscular Volume 87.7 fL (80-94); Mean Platelet Vol. 11.6 fl (6.2-12.0); Monocyte# 1.53 X10^3/uL; Monocyte% 4.6 % (0-10); NRBC Flagged by Analyzer 0 % (0-5); Neutrophil # 30.11 X10^3/uL (2.7-7.7); Neutrophil % 90.1 % (47-70); POSITIVE COUNT YES; POSITIVE DIFFERENTIAL YES; POSITIVE MORPHOLOGY YES; Platelet Count 104 K/mm3 (150-450); RBC Distribution Width CV 14.7 % (11.6-14.6); Red Blood Count 4.46 M/mm3 (4.6-6.2)
[2024-03-08] MEDS: Piperacil/Tazobactam 3.375 GM in 0.9% Normal Saline (50mL MB+) 50 ML IV ×2 (10:30→21:22)
[2024-03-08 10:32] LABS: White Blood Count 33.4 K/mm3 (4.4-11.0)
--- NOTE | 2024-03-08 10:32 | RAD_ITS ---
HISTORY: Shortness of breath. TECHNIQUE: XR Chest 1 View. COMPARISON: 07/07/2020. FINDINGS: CARDIOMEDIASTINAL BORDERS: Cardiac silhouette within normal limits in size. Mediastinal contour unremarkable. LUNGS: Radiographically clear. PLEURA: No pleural effusion or pneumothorax seen. OSSEOUS STRUCTURES: Degenerative change. RAD/Chest 1 View (Portable) IMPRESSION: No acute cardiopulmonary process identified. Electronically Signed: Lauryn Levine MD at 11:02 EDT ,
[2024-03-08 10:33] LABS: Differential Indicated SCAN CRITERIA MET
[2024-03-08 10:51] LABS: ALB/GLOB Ratio 0.8 RATIO (0.9-2.4); AST(SGOT) 152 U/L (15-37); Alanine Aminotransfer ALT/SGPT 127 U/L (16-61); Albumin, Serum 2.9 g/dL (3.2-5.0); Alkaline Phosphatase 142 U/L (45-117); Anion Gap 17 (5-15); BUN 49 mg/dL (7-18); BUN/Creat Ratio 12.7 RATIO (10-20); Calcium,Total 8.2 mg/dL (8.5-10.1); Chloride 95 mmol/L (98-107); Creatinine, Serum 3.86 mg/dL (0.70-1.30); EST Glomerular Filtration Rate 17 mL/min (>60); Est Glom Filt Rate - Afr Amer 20 mL/min (>60); Estimated Creatinine Clearance 20.12 ml/min; Globulin 3.7 g/dL (2.2-4.2); Glucose 229 mg/dL (74-106); Lactic Acid 6.9 mmol/L (0.4-1.9); Potassium 3.8 mmol/L (3.5-5.1); Protein, Total 6.6 g/dL (6.4-8.2); Sodium Level 129 mmol/L (136-145); Troponin-I HS 1842 pg/mL (3.0-78.0)
[2024-03-08 10:54] LABS: International Normalized Ratio 1.3; Partial Thromboplast Time 35.3 Seconds (24.1-36.2)
[2024-03-08 11:14] LABS: Differential Comment SCANNED
--- NOTE | 2024-03-08 11:31 | ED.RN ---
Xray called for central line placement confirmation
[2024-03-08] MEDS: Norepinephrine 8 MG in 0.9% Normal Saline (250mL Bag) 242 ML 9.4 MG CONT INF (11:37)
--- NOTE | 2024-03-08 11:38 | RAD_ITS ---
HISTORY: Central line placement. TECHNIQUE: XR Chest 1 View. COMPARISON: 10:28. FINDINGS: LINES/TUBES: Right internal jugular central venous catheter tip at the level of the mid superior vena cava. CARDIOMEDIASTINAL BORDERS: Stable. LUNGS: Radiographically clear. PLEURA: No pleural effusion or pneumothorax. OTHER: Chest wall fractures noted. RAD/Chest 1 View (Portable) IMPRESSION: Satisfactory appearance of central venous catheter. Electronically Signed: Lauryn Levine MD at 12:06 EDT ,
[2024-03-08 13:21] LABS: Mucous, Urine 0 SEEN /hpf (<or=2+); Squamous Epithelial Cells - UA 0 SEEN /hpf (0-5)
[2024-03-08 13:25] LABS: Color, Urine Yellow (Yellow); Glucose, Dipstick 1000 mg/dl (Normal); Ketone-Dipstick Negative (Negative); Leukocyte Esterase-Dipstick 100 /ul (Negative); Nitrite-Dipstick Negative (Negative); Occult Blood-Urine 250 /ul (Negative); Protein-Dipstick 100 mg/dl (Negative); Specific Gravity, Urine 1.015 (1.002-1.030); Urine Clarity Sl. Cloudy (Clear); Urine Urobilinogen 1 mg/dl (Normal)
--- NOTE | 2024-03-08 13:29 | ED.RN ---
Normal Saline started at 100 mL per hour per Dr. Thompson's VO.
[2024-03-08 13:37] LABS: Urine Bilirubin Dipstick 1 mg/dL (Negative)
--- NOTE | 2024-03-08 13:38 | PCM.HP.STD ---
HPI - General General Date of Admission: 03/08/24 Date of Service: 03/08/24 HPI Narrative LAUREN THOMAS, is a 69 M who presents [facility] Medical History Heart attack Diabetes Coronary artery disease Hypertension Home Medications ?Medication ?Instructions ?Recorded ?Last Taken ?Type atorvastatin 80 mg tablet 80 mg PO QHS cholesterol 12/19/19 Unknown History finasteride 5 mg tablet 5 mg PO QHS bph 12/19/19 Unknown History glipizide 10 mg tablet 15 mg PO BIDAC diabetes 12/19/19 Unknown History krill oil 350 mg-om-3 90 mg-dha 24 1 ea PO DAILY supplement 12/19/19 Unknown History mg-epa 50 mg-phospholipids capsule lisinopril 5 mg tablet 5 mg PO DAILY 12/19/19 12/29/19 08:00 History metformin 1,000 mg tablet 1,000 mg PO BID diabetes 12/19/19 Unknown History metoprolol tartrate 25 mg tablet 12.5 mg PO BID heart 12/19/19 02/14/24 History vohqknubtrgv-gjm-ebjlm acid-vit 1 ea PO DAILY vitamin 12/19/19 Unknown History K-lycop 400 mcg-20 mcg-370 mcg tablet acetaminophen 500 mg tablet 1,000 mg (2 x 500 mg) PO Q8 #90 12/30/19 Unknown Rx tabs aspirin 81 mg tablet,delayed 81 mg PO DAILY heart ##60 12/30/19 Unknown Rx release empagliflozin 25 mg tablet 25 mg PO DAILY 02/13/24 Unknown History rosuvastatin 40 mg tablet (Crestor) 40 mg PO DAILY 02/13/24 Unknown History sitagliptin 100 mg tablet 100 mg PO DAILY 02/13/24 Unknown History tamsulosin 0.4 mg capsule (Flomax) 0.4 mg PO DAILY 02/13/24 Unknown History Allergy/AdvReac Type Severity Reaction Status Date / Time celecoxib (From Celebrex) Allergy Rash Verified 03/08/24 09:28 etodolac Allergy Rash Verified 03/08/24 09:28 terbinafine AdvReac Rash Verified 03/08/24 09:28 Surgical History H/O knee surgery H/O right heart catheterization Social History household members: spouse housing: house Smoking Status: Never smoker substance use type: does not use Vital Signs Vital Signs Vital Signs: 03/08/24 09:29 03/08/24 09:34 03/08/24 09:36 Temperature 98 F 98 F Temperature Source Oral Oral Pulse Rate 122 H 124 H 119 H Respiratory Rate 18 18 31 H Blood Pressure 65/40 L 109/93 H 109/93 H Blood Pressure Mean 48 98 98 Pulse Ox 99 95 93 Oxygen Delivery Method Room Air Room Air Oxygen Flow Rate (L/min) 03/08/24 09:46 03/08/24 09:53 03/08/24 10:10 Temperature Temperature Source Pulse Rate Respiratory Rate Blood Pressure 70/46 L Blood Pressure Mean 54 Pulse Ox 85 88 Oxygen Delivery Method Room Air Nasal Cannula Oxygen Flow Rate (L/min) 4 03/08/24 10:36 03/08/24 11:00 03/08/24 12:00 Temperature 98.0 F Temperature Source Temporal Pulse Rate 109 H 108 H Respiratory Rate 25 H 30 H Blood Pressure 74/59 L 70/51 L 53/31 L Blood Pressure Mean 64 57 38 Pulse Ox 99 90 Oxygen Delivery Method Nasal Cannula Nasal Cannula Oxygen Flow Rate (L/min) 5 5 03/08/24 12:00 03/08/24 12:07 03/08/24 12:08 Temperature Temperature Source Pulse Rate 105 H 104 H Respiratory Rate 25 H Blood Pressure 77/52 L 70/37 L Blood Pressure Mean 60 48 Pulse Ox 95 97 Oxygen Delivery Method Room Air Nasal Cannula Oxygen Flow Rate (L/min) 5 03/08/24 12:15 03/08/24 12:16 03/08/24 12:34 Temperature 98.3 F Temperature Source Oral Pulse Rate 105 H 105 H Respiratory Rate 24 H 27 H Blood Pressure 88/56 L 88/56 L 95/57 L Blood Pressure Mean 66 66 69 Pulse Ox 95 96 Oxygen Delivery Method Room Air Room Air Oxygen Flow Rate (L/min) 03/08/24 13:00 Temperature Temperature Source Pulse Rate 106 H Respiratory Rate 25 H Blood Pressure 91/59 L Blood Pressure Mean 69 Pulse Ox 96 Oxygen Delivery Method Room Air Oxygen Flow Rate (L/min) Weight Weight: 205 lb Body Mass Index (BMI) 27.0 Results Lab / Micro Data 03/08/24 09:35 10/19/24 09:35 Labs: Laboratory Results - last 24 hr 03/08/24 09:35: WBC 33.4 H*, RBC 4.46 L, Hgb 12.8 L, Hct 39.1 L, MCV 87.7, MCH 28.7, MCHC 32.7, RDW Std Deviation 48.0 H, RDW Coeff of Jori 14.7 H, Plt Count 104 L, MPV 11.6, Immature Gran % (Auto) 2.500 H, Neut % (Auto) 90.1 H, Lymph % (Auto) 1.7 L, [place] % (Auto) 4.6, Eos % (Auto) 0.7, Baso % (Auto) 0.4, Absolute Neuts (auto) 30.1 H, Absolute Lymphs (auto) 0.58 L, Nucleated RBC % 0, Differential Comment SCANNED, Diff Path Review September, PT 16.0 H, INR 1.3, APTT 35.3, Sodium 129 L, Potassium 3.8, Chloride 95 L, Carbon Dioxide 17.0 L, Anion Gap 17 H, BUN 49 H, Creatinine 3.86 H, Estim Creat Clear Calc 20.12, Est GFR (MDRD) Af Amer 20 L, Est GFR (MDRD) Non-Af 17 L, BUN/Creatinine Ratio 12.7, Glucose 229 H, Lactic Acid 6.9 H*, Calcium 8.2 L, Total Bilirubin 2.70 H, AST 152 H, ALT 127 H, Alkaline Phosphatase 142 H, Troponin I High Sens 1842 H*, Total Protein 6.6, Albumin 2.9 L, Globulin 3.7, Albumin/Globulin Ratio 0.8 L 03/08/24 13:09: Urine Color Yellow, Urine Clarity Sl. Cloudy, Urine pH 5.0, Ur Specific [place] 1.015, Urine Protein 100 H, Urine Glucose (UA) 1000 H, Urine Ketones Negative, Urine Occult Blood 250 H, Urine Nitrite Negative, Urine Bilirubin 1 H, Urine Urobilinogen 1 H, Ur Leukocyte Esterase 100 H Micro: Microbiology 03/08/24 10:06 Mucosa - Nose SARS-CoV-2, Influenza & RSV (PCR) - Final Imaging Radiology Impression Abdomen/Pelvis CT 03/08/24 10:03 IMPRESSION: Unchanged moderate right hydronephrosis with a distended extrarenal pelvis, suggesting UPJ obstruction. Mildly increased right perinephric and periureteral stranding, possible urinary tract infection. No nephrolithiasis or ureterolithiasis. Chronic prostatomegaly with mild surrounding inflammation, suggesting cystitis and prostatitis. Diffuse colonic wall thickening, likely mild pancolitis. Electronically Signed: aLuryn Levine MD at 12:46 EDT , Chest X-Ray 03/08/24 10:32 IMPRESSION: No acute cardiopulmonary process identified. Electronically Signed: Lauryn Levine MD at 11:02 EDT , Chest X-Ray 03/08/24 11:38 IMPRESSION: Satisfactory appearance of central venous catheter. Electronically Signed: Lauryn Levine MD at 12:06 EDT ,
[2024-03-08 13:39] LABS: Bacteria 3+ /hpf (None Seen)
[2024-03-08 13:40] LABS: Red Blood Cells-Urine 5-10 SEEN /hpf (0-5); White Blood Cells 10-25 SEEN /hpf (0-5)
[2024-03-08 13:41] LABS: Amorphous Sediment 1+
[2024-03-08 13:42] LABS: Renal Epithelial Cells 0-5 SEEN /hpf (0-5)
[2024-03-08 14:09] LABS: Troponin-I HS (w/2H Reflex) 1351 pg/mL (3.0-78.0)
[2024-03-08 14:16] LABS: Reflex Lactate? Y
[2024-03-08] MEDS: Vasopressin 20 UNITS in 0.9% Normal Saline (50mL Bag) 24 ML 3 UNITS CONT INF (14:40)
[2024-03-08 15:01] LABS: Lactic Acid 2.8 mmol/L (0.4-1.9)
--- NOTE | 2024-03-08 15:05 | PRE.ANES_ITS ---
ASA Classification* ASA Classification ASA Classification: 4 (see written pre anesthesia record for full assessment) and E Assessment & Plan Anesthesia* Anesthesia Assessment Anesthesia Assessment: Discussed sedation and/or anesthesia options, risks, benefits, and alternatives with patient/parents/legal guardian/POA. Questions invited. The patient/parents/legal guardian/POA seems to understand and agrees to proceed with anesthesia plan. Reviewed the physical assessment, medical history, allergy history and patient home medications list prior to surgery/procedure/anesthetic and documented any changes. Performed airway and anesthesia risk assessments. Anesthesia Type Anesthesia Type: MAC (see written pre anesthesia record for full assessment) Anesthesia Focused Assessment* Temperature: 98.3 F Pulse Rate: 106 Blood Pressure: 100/73 Respiratory Rate: 25 Pulse Ox: 96 Airway Assessment Mouth opens: >3 cm Mallampati Score: III Focused Labs Anesthesia Preop lab: CBC WBC 33.4 K/mm3 (4.4-11.0) H* 03/08/24 09:35 RBC 4.46 M/mm3 (4.6-6.2) L 03/08/24 09:35 Hgb 12.8 g/dL (13.0-16.5) L 03/08/24 09:35 Hct 39.1 % (40-54) L 03/08/24 09:35 Plt Count 104 K/mm3 (150-450) L 03/08/24 09:35 CHEMISTRY Potassium 3.8 mmol/L (3.5-5.1) 03/08/24 09:35 Sodium 129 mmol/L (136-145) L 03/08/24 09:35 Magnesium 1.8 mg/dL (1.6-2.6) 12/22/19 09:25 BUN 49 mg/dL (7-18) H 03/08/24 09:35 Creatinine 3.86 mg/dL (0.70-1.30) H 03/08/24 09:35 Glucose 229 mg/dL (74-106) H 03/08/24 09:35 POC Glucose 132 mg/dL (74-106) H 02/14/24 11:26 COAG PT 16.0 SECONDS (11.7-14.9) H 03/08/24 09:35 Pre-Assessment Diagnosis/Proposed Procedure Planned Operative Procedure(s): cysto stent Anesthesia History Anesthesia 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 When Was Last Pacemaker Check QUESTION #4 FULL TEXT: You/Your Family Experience fever (hyperthermia) with Anesthesia Last Oral Intake Last Oral intake: Last Oral Intake NPO since Meds taken in AM with sips of water? Meds patient instructed to take am of surgery PONV PONV - consumer marketing specialist: PONV - consumer marketing specialist Female HX of Motion Sickness HX of N/V After Surgery Non-Smoker Duration of Surgery greater than 60 minutes Number of Risk Factors PONV Score Height & Weight Height & Weight: Anesthesia: Height & Weight Height 6 ft 1 in 03/08/24 09:29 Weight: 92.986 kg 03/08/24 09:29 Body Mass Index (BMI) 27.0 03/08/24 09:29 Respiratory Assessment Respiratory Assessment - consumer marketing specialist: Respiratory Tract Infection Hx - consumer marketing specialist Hx Respiratory Tract Infection No 02/13/24 20:26 STOP Sleep Apnea STOP Sleep Apnea - consumer marketing specialist: STOP Sleep Apnea - consumer marketing specialist Hx Hypertension Yes: states controlled with 02/13/24 17:06 med Hx Sleep Apnea No 02/14/24 12:50 CPAP BIPAP Do you snore loudly (louder than talking or can be heard Do you often feel tired/ fatigued/ sleepy during daytime? Has anyone observed you stop breathing during sleep? STOP Results QUESTION #5 FULL TEXT : Do you snore loudly (louder than talking or can be heard through closed doors)? 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 Specify any problems Hx of Preganancy in last 3 Months Nurse Filling Out Transfusion & Questions: Date: Time: Patient unable to answer at this time (ie. confused, unrespo /Reproduction History /Reproductive History - consumer marketing specialist: /Reproductive Hx- consumer marketing specialist Hx Now Gestational Age (in weeks): EDC: Hx Hx Para Hx Section SAB No 02/13/24 20:26 Active Medications Active Medications: Current Medications Generic Name Dose Route Start Last Admin Trade Name Freq PRN Reason Stop Dose Admin Norepinephrine Bitartrate 8 mg 250 mls @ 9.375 mls/hr 03/08/24 11:15 03/08/24 14:58 / Sodium Chloride CONT INF 22 mcg/min .[id number] BHUPENDRA 41.3 mls/hr Titration Protocol 5 MCG/MIN Vasopressin 20 units/ Sodium 25 mls @ 3 mls/hr 03/08/24 13:15 03/08/24 14:40 Chloride CONT INF 0.04 units/min .[id number] BHUPENDRA 3 mls/hr Administration 0.04 UNITS/MIN PFS Medical History Heart attack Diabetes Coronary artery disease Hypertension Home Medications ?Medication ?Instructions ?Recorded ?Last Taken ?Type atorvastatin 80 mg tablet 80 mg PO QHS cholesterol 12/19/19 Unknown History finasteride 5 mg tablet 5 mg PO QHS bph 12/19/19 Unknown History glipizide 10 mg tablet 15 mg PO BIDAC diabetes 12/19/19 Unknown History krill oil 350 mg-om-3 90 mg-dha 24 1 ea PO DAILY supplement 12/19/19 Unknown History mg-epa 50 mg-phospholipids capsule lisinopril 5 mg tablet 5 mg PO DAILY 12/19/19 12/29/19 08:00 History metformin 1,000 mg tablet 1,000 mg PO BID diabetes 12/19/19 Unknown History metoprolol tartrate 25 mg tablet 12.5 mg PO BID heart 12/19/19 02/14/24 History [id number] acid-vit 1 ea PO DAILY vitamin 12/19/19 Unknown History K-lycop 400 mcg-20 mcg-370 mcg tablet acetaminophen 500 mg tablet 1,000 mg (2 x 500 mg) PO Q8 #90 12/30/19 Unknown Rx tabs aspirin 81 mg tablet,delayed 81 mg PO DAILY heart ##60 12/30/19 Unknown Rx release empagliflozin 25 mg tablet 25 mg PO DAILY 02/13/24 Unknown History rosuvastatin 40 mg tablet (Crestor) 40 mg PO DAILY 02/13/24 Unknown History sitagliptin 100 mg tablet 100 mg PO DAILY 02/13/24 Unknown History tamsulosin 0.4 mg capsule (Flomax) 0.4 mg PO DAILY 02/13/24 Unknown History Allergy/AdvReac Type Severity Reaction Status Date / Time celecoxib (From Celebrex) Allergy Rash Verified 03/08/24 09:28 etodolac Allergy Rash Verified 03/08/24 09:28 terbinafine AdvReac Rash Verified 03/08/24 09:28 Surgical History H/O knee surgery H/O right heart catheterization Social History household members: spouse housing: house Smoking Status: Never smoker substance use type: does not use Review of Systems (Anesthesia) ROS Narrative System reviewed and no additional complaints, except as documented.
--- NOTE | 2024-03-08 15:18 | ED.RN ---
report called to Melany in ICU
--- NOTE | 2024-03-08 15:44 | CON.PCM.UR_ITS ---
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 we had decompressed it with a stent at that point in the office we talked about the options of either doing a surgical repair or seeing anything over that the stent there is a few patients that after we straighten out the ureter with a stent and we remove it they will not need a repair he wanted to see if he can avoid another surgery so we pulled out the stent in the office I did tell the patient that if he starts having any pain in the right side that we need to immediately put a stent back in he went home apparently showed up today in the emergency room with sepsis high white blood count fevers and chills and had been having right flank pain for several days now so he was taken immediately to surgery for cystoscopy right stent placement he was resuscitated in the emergency room and he will go to the ICU after the stent placement. [facility] Medical History Heart attack Diabetes Coronary artery disease Hypertension Home Medications ?Medication ?Instructions ?Recorded ?Last Taken ?Type atorvastatin 80 mg tablet 80 mg PO QHS cholesterol 12/19/19 Unknown History finasteride 5 mg tablet 5 mg PO QHS bph 12/19/19 Unknown History glipizide 10 mg tablet 15 mg PO BIDAC diabetes 12/19/19 Unknown History krill oil 350 mg-om-3 90 mg-dha 24 1 ea PO DAILY supplement 12/19/19 Unknown History mg-epa 50 mg-phospholipids capsule lisinopril 5 mg tablet 5 mg PO DAILY 12/19/19 12/29/19 08:00 History metformin 1,000 mg tablet 1,000 mg PO BID diabetes 12/19/19 Unknown History metoprolol tartrate 25 mg tablet 12.5 mg PO BID heart 12/19/19 02/14/24 History vpevyzrqobnf-lav-yrreq acid-vit 1 ea PO DAILY vitamin 12/19/19 Unknown History K-lycop 400 mcg-20 mcg-370 mcg tablet acetaminophen 500 mg tablet 1,000 mg (2 x 500 mg) PO Q8 #90 12/30/19 Unknown Rx tabs aspirin 81 mg tablet,delayed 81 mg PO DAILY heart ##60 12/30/19 Unknown Rx release empagliflozin 25 mg tablet 25 mg PO DAILY 02/13/24 Unknown History rosuvastatin 40 mg tablet (Crestor) 40 mg PO DAILY 02/13/24 Unknown History sitagliptin 100 mg tablet 100 mg PO DAILY 02/13/24 Unknown History tamsulosin 0.4 mg capsule (Flomax) 0.4 mg PO DAILY 02/13/24 Unknown History Allergy/AdvReac Type Severity Reaction Status Date / Time celecoxib (From Celebrex) Allergy Rash Verified 03/08/24 09:28 etodolac Allergy Rash Verified 03/08/24 09:28 terbinafine AdvReac Rash Verified 03/08/24 09:28 Surgical History H/O knee surgery H/O right heart catheterization Social History household members: spouse housing: house Smoking Status: Never smoker substance use type: does not use Lab / Micro Data 03/08/24 09:35 03/08/24 09:35 Labs: Laboratory Results - last 24 hr 03/08/24 09:35: WBC 33.4 H*, RBC 4.46 L, Hgb 12.8 L, Hct 39.1 L, MCV 87.7, MCH 28.7, MCHC 32.7, RDW Std Deviation 48.0 H, RDW Coeff of Jori 14.7 H, Plt Count 104 L, MPV 11.6, Immature Gran % (Auto) 2.500 H, Neut % (Auto) 90.1 H, Lymph % (Auto) 1.7 L, [place] % (Auto) 4.6, Eos % (Auto) 0.7, Baso % (Auto) 0.4, Absolute Neuts (auto) 30.1 H, Absolute Lymphs (auto) 0.58 L, Nucleated RBC % 0, Differential Comment SCANNED, Diff Path Review September, PT 16.0 H, INR 1.3, APTT 35.3, Sodium 129 L, Potassium 3.8, Chloride 95 L, Carbon Dioxide 17.0 L, A [place]ion [place] 17 H, BUN 49 H, Creatinine 3.86 H, Estim Creat Clear Calc 20.12, Est GFR (MDRD) Af Amer 20 L, Est GFR (MDRD) Non-Af 17 L, BUN/Creatinine Ratio 12.7, Glucose 229 H, Lactic Acid 6.9 H*, Calcium 8.2 L, Total Bilirubin 2.70 H, AST 152 H, ALT 127 H, Alkaline Phosphatase 142 H, Troponin I High Sens 1842 H*, Total Protein 6.6, Albumin 2.9 L, Globulin 3.7, Albumin/Globulin Ratio 0.8 L 03/08/24 13:09: Urine Color Yellow, Urine Clarity Sl. Cloudy, Urine pH 5.0, Ur Specific [place] 1.015, Urine Protein 100 H, Urine Glucose (UA) 1000 H, Urine Ketones Negative, Urine Occult Blood 250 H, Urine Nitrite Negative, Urine Bilirubin 1 H, Urine Urobilinogen 1 H, Ur Leukocyte Esterase 100 H, Urine RBC 5- 10 SEEN, Urine WBC 10-25 SEEN, Ur Squamous Epith Cells 0 SEEN, Ur Renal Epithelial Cell 0-5 SEEN, Amorphous Sediment 1+, Urine Bacteria 3+, Urine Mucus 0 SEEN 03/08/24 13:16: Troponin I High Sens 1351 H* 03/08/24 14:22: Lactic Acid 2.8 H* Micro: Microbiology 03/08/24 12:35 Stool Clostridioides difficile (PCR) - Final 03/08/24 10:06 Mucosa - Nose SARS-CoV-2, Influenza & RSV (PCR) - Final Imaging Radiology Impression Abdomen/Pelvis CT 03/08/24 10:03 IMPRESSION: Unchanged moderate right hydronephrosis with a distended extrarenal pelvis, suggesting UPJ obstruction. Mildly increased right perinephric and periureteral stranding, possible urinary tract infection. No nephrolithiasis or ureterolithiasis. Chronic prostatomegaly with mild surrounding inflammation, suggesting cystitis and prostatitis. Diffuse colonic wall thickening, likely mild pancolitis. Electronically Signed: Lauryn Levine MD at 12:46 EDT , Chest X-Ray 03/08/24 10:32 IMPRESSION: No acute cardiopulmonary process identified. Electronically Signed: Lauryn Levine MD at 11:02 EDT , Chest X-Ray 03/08/24 11:38 IMPRESSION: Satisfactory appearance of central venous catheter. Electronically Signed: Lauryn Levine MD at 12:06 EDT ,
--- NOTE | 2024-03-08 15:44 | PCM.POST.ANE ---
Anesthesia: Postop Eval I Current Vital Signs Temperature: 102 F Pulse Rate: 99 Blood Pressure: 132/70 Respiratory Rate: 16 Pulse Ox: 100 Assessment Airway patent: Yes Spontaneous unlabored respirations: Yes nausea: No Vomiting: No Anesthesia Complication: No Fluid Hydration Crystalloid volume administer (ml): 1,000 Total IV fluid infused: 1,000 Progress Note Anesthesia document: Postop Eval 1 completed: Yes
--- NOTE | 2024-03-08 15:45 | POSTOPAN2_ITS ---
Anesthesia Postop Eval I Sum Postop Eval Completion status Anesthesia document: Postop Eval 1 completed: Yes Anesthesia Postop Eval I Summary Anesthesia Postop Eval I Summary: Anesthesia Postop Eval I: Assessment Summary Airway patent Yes 03/08/24 15:44 [email or web address] [email or web address] Spontaneous unlabored Yes 03/08/24 15:44 [email or web address] [email or web address] respirations Mental status nausea No 03/08/24 15:44 [email or web address] [email or web address] Vomiting No 03/08/24 15:44 [email or web address] Anesthesia Postop Eval I: Fluid Summary Crystalloid volume administer 1,000 03/08/24 15:44 [email or web address] (ml) Colloids volume administered ( ml) Blood Product volume administered (ml) Total IV fluid infused 1,000 03/08/24 15:44 [email or web address] [email or web address] Anesthesia Postop Eval I: Summary Notes Anesthesia Complication No 03/08/24 15:44 [email or web address] Anesthesia Complication Comment: Post-operative progress note Anesthesia: Postop Eval II Evaluation Mental status: Awake Pain Level: 0 nausea: No Vomiting: No
--- NOTE | 2024-03-08 15:45 | PCM.POSTANE2 ---
Anesthesia Postop Eval I Sum Postop Eval Completion status Anesthesia document: Postop Eval 1 completed: Yes Anesthesia Postop Eval I Summary Anesthesia Postop Eval I Summary: Anesthesia Postop Eval I: Assessment Summary Airway patent Yes 03/08/24 15:44 BUSINESS [email or web address] Spontaneous unlabored Yes 03/08/24 15:44 BUSINESS [email or web address] respirations Mental status nausea No 03/08/24 15:44 BUSINESS [email or web address] Vomiting No 03/08/24 15:44 BUSINESS [email or web address] Anesthesia Postop Eval I: Fluid Summary Crystalloid volume administer 1,000 03/08/24 15:44 BUSINESS [email or web address] (ml) Colloids volume administered ( ml) Blood Product volume administered (ml) Total IV fluid infused 1,000 03/08/24 15:44 BUSINESS [email or web address] Anesthesia Postop Eval I: Summary Notes Anesthesia Complication No 03/08/24 15:44 BUSINESS [email or web address] Anesthesia Complication Comment: Post-operative progress note Anesthesia: Postop Eval II Evaluation Mental status: Awake Pain Level: 0 nausea: No Vomiting: No
--- NOTE | 2024-03-08 15:45 | PCM.OPRPT ---
Report of Operation Date of Procedure: 03/08/24 Pre-Operative Diagnosis: Right hydronephrosis and sepsis Post-Operative Diagnosis: The same Surgery/Procedure Performed:: Cystoscopy and right stent placement Description of Surgical Findings:: Patient patient was taken back to the operating room after induction of anesthesia by Dr. Mcneal he was placed in dorsolithotomy position. Lidocaine jelly was placed into the urethra and then into the bladder with a 21 [place] rigid cystourethroscope he had a very large prostate large median lobe. A little bit bloody and somewhat very difficult to see the ureteral orifice there was a lot of bullous edema used a Pollick catheter and the Glidewire had to kind of poke around to the bullous edema and eventually then the Glidewire fortunately went up the ureter and what went all the way up to the kidney and coiled in the large hydronephrotic kidney then over the wire I placed a 7 [place] by 26 cm stent and the stent was in good position and then I put a Krueger catheter in the bladder patient's anesthetic was reversed he was taken back to the PACU in good condition he will go to the ICU for further care and resuscitation. Surgeon: Polo Osullivan Type of Anesthesia: General Drains: stent right side Estimated Blood Loss (mL): 0 Procedure Start Time: 15:20 Procedure Stop Time: 15:47 Complications none Admit VTE Documentation VTE Present on Admission: No VTE Mechan Device Prophylaxis: SCD's VTE Pharm Prophylaxis ordered?: No
[2024-03-08 15:47] LABS: Reflex Troponin-HS? (from REC) Y
--- NOTE | 2024-03-08 16:44 | HP.PCM.HOS_ITS ---
HPI - General General Date of Admission: 03/08/24 Date of Service: 03/08/24 Chief Complaint: weakness, lethargy HPI Narrative LAUREN THOMAS, is a 69 M with a past medical history as outlined was admitted through the ED on 03/08/2024 with complaint of generalized malaise and weakness. Patient had had a right ureteral stent inserted about 2 weeks ago and had it taken out just this Sunday, 5 days prior to this admission. He said he had felt unwell since stent was removed. For the past 2 days prior to admission he had not been able to pass any urine and felt very weak and lethargic. He admitted not being able to eat or drink well and also had some diarrhea. He denied any fever or chills, chest pain, abdominal pain or any other symptoms. Review of symptoms otherwise negative. He did not notify his urologist despite being told that if he felt well after the stent removal he should notify his urologist. Vitals in the ED at time of admission were blood pressure of 70/37, pulse rate of 104, respiratory rate of 24 he was saturating at 95% on room air. Temperature was 98.3 Fahrenheit. CBC showed hemoglobin of 12.8 with WBC of 33.4 and platelets of 104. INR was 1.3. BMp showed sodium of 129, potassium of 3.8, bicarb of 17 and anion gap of 17. Cr was 3.86. Lactic acid was 6.9 and trended down to 2.8. Urinalysis showed urine bacteria of 3+ and initial troponin was 1351. Initial troponin was 2.7 and AST was 152, ALT was 127 and ALP was 142. CT of the abdomen and pelvis showed unchanged moderate right hydronephrosis with a distended extrarenal pelvis suggesting UPJ obstruction with mildly increased right perinephric and periureteral stranding due to possible UTI with chronic prostatomegaly with mild surrounding inflammation suggesting cystitis and prostatitis, known nephrolithiasis of ureterolithiasis and diffuse colonic wall thickening likely mild pancolitis. He has been admitted to be managed for septic shock due to pyelonephritis and colitis. Of note initial troponin was also markedly elevated at 1842 and subsequently trended down to 1351. He had to be started on Levophed in the ED and had vasopressin added on. [facility] Medical History Heart attack Diabetes Coronary artery disease Hypertension Home Medications ?Medication ?Instructions ?Recorded ?Last Taken ?Type atorvastatin 80 mg tablet 80 mg PO QHS cholesterol 12/19/19 Unknown History finasteride 5 mg tablet 5 mg PO QHS bph 12/19/19 Unknown History glipizide 10 mg tablet 15 mg PO BIDAC diabetes 12/19/19 Unknown History krill oil 350 mg-om-3 90 mg-dha 24 1 ea PO DAILY supplement 12/19/19 Unknown History mg-epa 50 mg-phospholipids capsule lisinopril 5 mg tablet 5 mg PO DAILY 12/19/19 12/29/19 08:00 History metformin 1,000 mg tablet 1,000 mg PO BID diabetes 12/19/19 Unknown History metoprolol tartrate 25 mg tablet 12.5 mg PO BID heart 12/19/19 02/14/24 History oxesycgvylbx-pom-xtwaj acid-vit 1 ea PO DAILY vitamin 12/19/19 Unknown History K-lycop 400 mcg-20 mcg-370 mcg tablet acetaminophen 500 mg tablet 1,000 mg (2 x 500 mg) PO Q8 #90 12/30/19 Unknown Rx tabs aspirin 81 mg tablet,delayed 81 mg PO DAILY heart ##60 12/30/19 Unknown Rx release empagliflozin 25 mg tablet 25 mg PO DAILY 02/13/24 Unknown History rosuvastatin 40 mg tablet (Crestor) 40 mg PO DAILY 02/13/24 Unknown History sitagliptin 100 mg tablet 100 mg PO DAILY 02/13/24 Unknown History tamsulosin 0.4 mg capsule (Flomax) 0.4 mg PO DAILY 02/13/24 Unknown History Allergy/AdvReac Type Severity Reaction Status Date / Time celecoxib (From Celebrex) Allergy Rash Verified 03/08/24 09:28 etodolac Allergy Rash Verified 03/08/24 09:28 terbinafine AdvReac Rash Verified 03/08/24 09:28 Surgical History H/O knee surgery H/O right heart catheterization Social History household members: spouse housing: house Smoking Status: Never smoker substance use type: does not use ROS Constitutional Constitutional: Reports anorexia, fatigue, malaise and weakness; Denies change in weight, chills or fever(s) Eyes Eyes: Denies change in vision ENT HEENT: Denies dysphagia, headache(s) or sore throat Cardiovascular Cardiovascular: Denies chest pain, dyspnea on exertion, edema, lightheadedness, orthopnea, palpitations, paroxysmal nocturnal dyspnea or rapid heart rate Respiratory/Chest Respiratory/Chest: Denies cough, dyspnea, productive cough, shortness of breath at rest or shortness of breath with exertion Gastrointestinal Gastrointestinal: Reports diarrhea; Denies abdominal pain, constipation, dyspepsia, loose stools, melena, nausea or vomiting Genitourinary Genitourinary: Reports difficulty urinating; Denies burning urination, dysuria or hematuria Musculoskeletal Musculoskeletal: Denies arthralgias or back pain Neurologic Neurologic: Denies confusion, dizziness, focal weakness, headache(s), numbness, seizure-like activity, seizures or syncope Psychiatric Psychiatric: Denies anxiety or depression Vital Signs Vital Signs Vital Signs: 03/08/24 09:29 03/08/24 09:34 03/08/24 09:36 Temperature 98 F 98 F Temperature Source Oral Oral Pulse Rate 122 H 124 H 119 H Respiratory Rate 18 18 31 H Blood Pressure 65/40 L 109/93 H 109/93 H Blood Pressure Mean 48 98 98 Blood Pressure Source Blood Pressure Position Blood Pressure Location Pulse Ox 99 95 93 Oxygen Delivery Method Room Air Room Air Oxygen Flow Rate (L/min) 03/08/24 09:46 03/08/24 09:53 03/08/24 10:10 Temperature Temperature Source Pulse Rate Respiratory Rate Blood Pressure 70/46 L Blood Pressure Mean 54 Blood Pressure Source Blood Pressure Position Blood Pressure Location Pulse Ox 85 88 Oxygen Delivery Method Room Air Nasal Cannula Oxygen Flow Rate (L/min) 4 03/08/24 10:36 03/08/24 11:00 03/08/24 12:00 Temperature 98.0 F Temperature Source Temporal Pulse Rate 109 H 108 H Respiratory Rate 25 H 30 H Blood Pressure 74/59 L 70/51 L 53/31 L Blood Pressure Mean 64 57 38 Blood Pressure Source Blood Pressure Position Blood Pressure Location Pulse Ox 99 90 Oxygen Delivery Method Nasal Cannula Nasal Cannula Oxygen Flow Rate (L/min) 5 5 03/08/24 12:00 03/08/24 12:07 03/08/24 12:08 Temperature Temperature Source Pulse Rate 105 H 104 H Respiratory Rate 25 H Blood Pressure 77/52 L 70/37 L Blood Pressure Mean 60 48 Blood Pressure Source Blood Pressure Position Blood Pressure Location Pulse Ox 95 97 Oxygen Delivery Method Room Air Nasal Cannula Oxygen Flow Rate (L/min) 5 03/08/24 12:15 03/08/24 12:16 03/08/24 12:34 Temperature 98.3 F Temperature Source Oral Pulse Rate 105 H 105 H Respiratory Rate 24 H 27 H Blood Pressure 88/56 L 88/56 L 95/57 L Blood Pressure Mean 66 66 69 Blood Pressure Source Blood Pressure Position Blood Pressure Location Pulse Ox 95 96 Oxygen Delivery Method Room Air Room Air Oxygen Flow Rate (L/min) 03/08/24 13:00 03/08/24 13:59 03/08/24 14:00 Temperature Temperature Source Pulse Rate 106 H 106 H Respiratory Rate 25 H Blood Pressure 91/59 L 76/65 L 99/57 L Blood Pressure Mean 69 68 71 Blood Pressure Source Blood Pressure Position Blood Pressure Location Pulse Ox 96 Oxygen Delivery Method Room Air Oxygen Flow Rate (L/min) 03/08/24 14:58 03/08/24 15:00 03/08/24 15:05 Temperature 98.3 F Temperature Source Pulse Rate 95 106 H Respiratory Rate 23 H 25 H Blood Pressure 100/73 108/65 100/73 Blood Pressure Mean 82 79 Blood Pressure Source Blood Pressure Position Blood Pressure Location Pulse Ox 96 96 Oxygen Delivery Method Oxygen Flow Rate (L/min) 5 03/08/24 15:10 03/08/24 15:44 03/08/24 16:15 Temperature 98.9 F 102 F H 97.3 F L Temperature Source Temporal Pulse Rate 93 99 91 Respiratory Rate 21 H 16 18 Blood Pressure 108/65 132/70 H 119/71 Blood Pressure Mean 79 87 Blood Pressure Source Monitor Blood Pressure Position Semi-Fowlers Blood Pressure Location Left Arm Pulse Ox 96 100 94 Oxygen Delivery Method Room Air Oxygen Flow Rate (L/min) 03/08/24 16:30 Temperature Temperature Source Pulse Rate 90 Respiratory Rate 23 H Blood Pressure 107/60 Blood Pressure Mean 75 Blood Pressure Source Monitor Blood Pressure Position Semi-Fowlers Blood Pressure Location Left Arm Pulse Ox 94 Oxygen Delivery Method Room Air Oxygen Flow Rate (L/min) Weight Weight: 208 lb 12.444 oz Body Mass Index (BMI) 27.5 Physical Exam Const alert Constitutional Narrative: [id number] General Appearance: cooperative Orientation / Consciousness: lethargic HEENT normocephalic, head/scalp atraumatic and hearing grossly normal bilaterally HEENT Narrative: dry oral mucosa Eyes PERRL, EOMs intact bilaterally and conjunctivae normal Neck no lymphadenopathy, supple and no JVD Resp normal respiratory effort, no retractions, no use of accessory muscles and clear to auscultation bilaterally Cardio regular rate, regular rhythm, S1 normal heart sound, S2 normal heart sound and no murmurs GI normal to inspection, nondistended, normoactive bowel sounds, soft to palpation, non-tender and non-distended Extremity normal to inspection, full ROM and no clubbing, cyanosis or edema Neuro oriented x3, CN's II-XII intact bilaterally and moves all extremities Sensorium / Orientation: awake and alert Motor Exam: strength 5/5 throughout Psych affect normal Results Lab / Micro Data 03/08/24 09:35 03/08/24 09:35 Labs: Laboratory Results - last 24 hr 03/08/24 09:35: WBC 33.4 H*, RBC 4.46 L, Hgb 12.8 L, Hct 39.1 L, MCV 87.7, MCH 28.7, MCHC 32.7, RDW Std Deviation 48.0 H, RDW Coeff of Jori 14.7 H, Plt Count 104 L, MPV 11.6, Immature Gran % (Auto) 2.500 H, Neut % (Auto) 90.1 H, Lymph % (Auto) 1.7 L, [place] % (Auto) 4.6, Eos % (Auto) 0.7, Baso % (Auto) 0.4, Absolute Neuts (auto) 30.1 H, Absolute Lymphs (auto) 0.58 L, Nucleated RBC % 0, Differential Comment SCANNED, Diff Path Review September, PT 16.0 H, INR 1.3, APTT 35.3, Sodium 129 L, Potassium 3.8, Chloride 95 L, Carbon Dioxide 17.0 L, A nion Gap 17 H, BUN 49 H, Creatinine 3.86 H, Estim Creat Clear Calc 20.12, Est GFR (MDRD) Af Amer 20 L, Est GFR (MDRD) Non-Af 17 L, BUN/Creatinine Ratio 12.7, Glucose 229 H, Lactic Acid 6.9 H*, Calcium 8.2 L, Total Bilirubin 2.70 H, AST 152 H, ALT 127 H, Alkaline Phosphatase 142 H, Troponin I High Sens 1842 H*, Total Protein 6.6, Albumin 2.9 L, Globulin 3.7, Albumin/Globulin Ratio 0.8 L 03/08/24 13:09: Urine Color Yellow, Urine Clarity Sl. Cloudy, Urine pH 5.0, Ur Specific [place] 1.015, Urine Protein 100 H, Urine Glucose (UA) 1000 H, Urine Ketones Negative, Urine Occult Blood 250 H, Urine Nitrite Negative, Urine Bilirubin 1 H, Urine Urobilinogen 1 H, Ur Leukocyte Esterase 100 H, Urine RBC 5- 10 SEEN, Urine WBC 10-25 SEEN, Ur Squamous Epith Cells 0 SEEN, Ur Renal Epithelial Cell 0-5 SEEN, Amorphous Sediment 1+, Urine Bacteria 3+, Urine Mucus 0 SEEN 03/08/24 13:16: Troponin I High Sens 1351 H* 03/08/24 14:22: Lactic Acid 2.8 H* Micro: Microbiology 03/08/24 12:35 Stool Clostridioides difficile (PCR) - Final 03/08/24 10:06 Mucosa - Nose SARS-CoV-2, Influenza & RSV (PCR) - Final Imaging Radiology Impression Abdomen/Pelvis CT 03/08/24 10:03 IMPRESSION: Unchanged moderate right hydronephrosis with a distended extrarenal pelvis, suggesting UPJ obstruction. Mildly increased right perinephric and periureteral stranding, possible urinary tract infection. No nephrolithiasis or ureterolithiasis. Chronic prostatomegaly with mild surrounding inflammation, suggesting cystitis and prostatitis. Diffuse colonic wall thickening, likely mild pancolitis. Electronically Signed: Lauryn Levine MD at 12:46 EDT , Chest X-Ray 03/08/24 10:32 IMPRESSION: No acute cardiopulmonary process identified. Electronically Signed: Lauryn Levine MD at 11:02 EDT , Chest X-Ray 03/08/24 11:38 IMPRESSION: Satisfactory appearance of central venous catheter. Electronically Signed: Lauryn Levine MD at 12:06 EDT , Assessment & Plan Assessment/Plan (1) Pyelonephritis: (2) NSTEMI, initial episode of care: PLAN: Plan #Septic shock due to right sided pyelonephritis * He has a history of right-sided hydronephrosis and had a stent inserted about 2 weeks ago. Stent was removed days prior to this admission. Subsequently felt unwell at home. * : Passed urine for 2 days. * CT of the abdomen and pelvis done on admission showed unchanged moderate right hydronephrosis with a distended extrarenal pelvis suggesting UPJ obstruction and mildly increased right perinephric and periureteral stranding with possible urinary tract infection and chronic prostatomegaly with mild surrounding inflammation, suggestive of cystitis and prostatitis and diffuse colonic wall thickening likely mild pancolitis * Patient was markedly hypotensive in the ED with blood pressure in the 70s systolic. * Urology was consulted from the ED and patient taken emergently to the operating room and had a right ureteric stent instead * Will place on IV Zosyn. Patient had to be started on Levophed and vasopressin in the ED. Titrate to maintain MAP more than 65 * Consult critical care. Urology already on board. * P.o. Tylenol and p.o. oxycodone as well as IV morphine as needed for pain * Blood cultures and urine cultures ordered. Urinalysis did show 3+ bacteria. * #Non-STEMI * This is likely a type II non-STEMI due to demand ischemia. * Initial troponin was 1 12/23/2019 not 1351. Will continue cycling troponins. Will get 2D echo but hold off on cardiology consult for now as patient does not have any cardiac etiology and due to the significantly low blood pressure and septic shock requiring 2 pressors, this likely the etiology. * #Elevated liver enzymes * Total bilirubin is 2.7. AST and ALT as well as ALP also mildly elevated. This may be due to the hypotension to the initial stages of shock liver developing. Should improve once shock resolves. * #Lactic acidosis: Lactic acid was 6.9 on admission and came down to 2.8 with hydration and vasopressors. Should improve once shock resolves. #Hyponatremia: \ * Sodium is 129. This may be due to dehydration as chloride is also low. * Patient has had low intake and has not been eating or drinking well of late. #RICARDA * Creatinine is 3.86. * Baseline creatinine is around 1.42 from 01/24/2024. There is likely an RICARDA on CKD stage II. There is also likely prerenal due to septic shock. * Should improve as shock resolves. * #Anion gap metabolic acidosis: * Bicarb is 17 and anion gap is 17. * This is likely due to lactic acidosis as well as RICARDA on CKD stage II. * Should improve as kidney function improves. * #Colitis: * CT scan showed evidence of mild pancolitis. * Patient also admitted to some diarrhea. Patient started on IV Zosyn. * Being hydrated with IV fluids. * Stool enteric panel also ordered. * C. difficile screen done in the ED was negative. * #History of BPH: On Flomax. Will hold this for now due to septic shock. #History of CAD: On aspirin and statin. #Hypertension: Hold BP meds due to septic shock. #Type 2 diabetes mellitus: Hold any oral meds. Insulin sliding scale. Accu- Cheks ACHS. DVT prophylaxis: Lovenox, renally dosed CODE STATUS: Full code * Patient counseled extensively about different types of CODE STATUS including full code, DNR CCA and DNR CCA. Patient elects to be full code. Total [id number] time 17 minutes. * TOtal critical care time spent: 77 mins Charges/Coding Visit Charges Inpatient E&M: 98780 Init Hosp L3 Procedures Hospitalists Procedures: 17689 Critical Care 1st Hr
--- NOTE | 2024-03-08 17:01 | ECHOCS_ITS ---
Reason For Study: NSTEMI Procedure This was a 2D Doppler, Color Flow transthoracic echocardiogram. The study was technically difficult. Exam performed portable in ICU/CCU. Left Ventricle Normal LV size. Normal diastology for age. Estimated LVEF 35 to 40%. Mild generalized LV systolic dysfunction. Right Ventricle Normal RV size. Normal systolic function. Atria The left and right atria are normal. Bubble contrast study is negative for PFO/ASD. Mitral Valve There is Mild focal posterior mitral annular calcification. Mild (1+) mitral valve insufficiency. Tricuspid Valve Normal tricuspid valve. Trivial tricuspid valve insufficiency. Unable to estimate RV systolic pressure due to insufficient tricuspid regurgitant envelope. Aortic Valve Trisinus/trileaflet aortic valve. Mild focal aortic valve calcification. There is no aortic stenosis. Pulmonic Valve Normal pulmonic valve. Mild (1+) pulmonic valve insufficiency. Great Vessels Normal aortic root. Pericardium/Pleural No pericardial effusion. Medication Performed a rapid injection of agitated mix of 9 cc saline and 1cc air to assess for atrial septal defect. Diluted definity 2.5ml given slow IV push to enhance endocardial definition. MMode/2D Measurements & Calculations LVIDd: 5.4 cm IVSd: 1.0 cm Ao root diam: 3.8 cm LVIDs: 4.8 cm LVPWd: 1.0 cm RVDd: 3.6 cm FS: 9.7 % LAV(MOD-bp): 54.5 ml LVAd ap4: 37.4 cm2 SV(MOD-sp4): 42.2 ml LAV(MOD-bp) Indexed: 24.8 ml/m2 LVLd ap4: 9.1 cm LAV(MOD-sp2): 76.7 ml EDV(MOD-sp4): 128.0 ml LAV(MOD-sp4): 38.6 ml EDV(sp4-el): 130.6 ml LVAs ap4: 29.0 cm2 LVLs ap4: 8.1 cm ESV(MOD-sp4): 85.8 ml ESV(sp4-el): 88.1 ml EF(MOD-sp4): 33.0 % EF(sp4-el): 32.5 % SV(sp4-el): 42.5 ml LA A4 area: 16.0 cm2 LA dimension(2D): 4.3 cm RA A4 area: 18.9 cm2 TAPSE: 1.9 cm Time Measurements MV dec time: 0.15 sec Doppler Measurements & Calculations MV E max kody: 66.8 cm/sec Lat Peak E' Kody: 9.2 cm/sec Med Peak E' Kody: 6.7 cm/sec MV A max kody: 81.9 cm/sec E/E' lat: 7.2 E/E' med: 10.0 MV E/A: 0.82 MV dec slope: 431.3 cm/sec2 Ao V2 max: 149.4 cm/sec LV V1 max: 115.8 cm/sec Ao max P.9 mmHg LV V1 max P.4 mmHg Ao V2 mean: 105.9 cm/sec LV V1 mean P.2 mmHg Ao mean P.1 mmHg LV V1 mean: 83.5 cm/sec Ao V2 VTI: 29.8 cm LV V1 VTI: 23.5 cm AV (velocity ratio): 0.79 PA V2 max: 91.5 cm/sec ECHO/Echo Complete W/ Contrast Interpretation Summary There is Mild focal posterior mitral annular calcification. Mild (1+) mitral valve insufficiency. Estimated LVEF 35 to 40%. Mild generalized LV systolic dysfunction. Contrast injection was performed. Ordering Physician: Blanche Garcia Referring Physician: [facility] Performed By: Yari Pereyra RDCS
[2024-03-08] MEDS: 0.9% Normal Saline (1000mL) 1,000 ML 150 ML IV ×2 (17:11→23:58)
[2024-03-08] MEDS: Insulin Lispro 100 UNIT/ML INSULN.PEN SC ×2 (17:34→21:28)
[2024-03-08] MEDS: Norepinephrine 8 MG in 0.9% Normal Saline (250mL Bag) 242 ML 18.8 MG CONT INF (17:35)
[2024-03-08 17:58] LABS: Bedside Glucose 226 mg/dL (74-106)
[2024-03-08 18:30] LABS: Troponin-I HS 1090 pg/mL (3.0-78.0)
--- NOTE | 2024-03-08 18:56 | SEPSIS_ITS ---
Sepsis Attestation Sepsis Alert: Yes Sepsis Attestation: Agree w/Sepsis Date exam was performed: 03/08/24 Possible Source of Sepsis: GI tract/intra-abdominal and Genitourinary Sepsis Organ Dysfunction Criteria Present: SBP < 90 mmHg or MAP < 65 mmHg, SBP decrease of more than 40 mmHg, Creatinine > 2.0 mg/dL and Lactic Acid > 2 mmol/L Supportive Findings: Patient admitted with a complaint of general lethargy. Was hypotensive with BP in the 60s and 70s systolic. On arrival in [facility] ED, lactic acid was elevated at >6 Cr was >3 and liver enzymes were also elevated.CT abdomen showed right sided pyelonephritis with right side UPJ junction. Did not respond to IVF 30cckg bolus in the ED so started on IV levophed. IV vasopressin added on subsequently. Fluid Resuscitation Fluid resuscitation indicated?: Yes Fluid Resuscitation ordered: 30 ml/kg fluid bolus ordered Sepsis Note Date exam was performed: 03/08/24 Response to fluids: Vasopressors started
[2024-03-08] MEDS: Atorvastatin Calcium 80 MG Tablet PO (21:22)
[2024-03-08] MEDS: 0.9% Normal Saline (500mL Bag) 500 ML 15 ML IV (21:22)
[2024-03-08] MEDS: 0.9% Saline Lock 10 ML Syringe IV (21:28)
[2024-03-08 21:50] LABS: Bedside Glucose 190 mg/dL (74-106)
--- NOTE | 2024-03-08 22:06 | CON.PCM.CC_ITS ---
HPI Consult Data Date of Consult: 03/08/24 HPI Narrative Reason for Consultation: septic shock HPI Narrative: 69Y M PMH including but not limited to CAD, HTN, DM2 and recent ureteral stent placement who presented earlier today with severe, worsening malaise and weakness. Patient had had a right ureteral stent inserted about 2 weeks ago and had it taken out on Sunday with instructions to call the urologist if he started to feel unwell. Unfortunately despite 2 days of no urine output and progressive weakness/lethargy he did not notify urology and ultimately his brought him to the ED where he was found to be septic with moderate hydronephrosis, distended extrarenal pelvis suggesting UPJ obsturction and pyelnephritis. he was taken urgently to the OR where ureteral stent was again placed but despite initial fluid resuscitation and Abx he required initiation of both NEpi & vasopressin to maintain MAP > 65. He was subsequently admitted to the ICU and I was consulted for critical care management but by the time of my evaluation was already feeling markedly better with vasopressin discontinued and NEpi weaned down to 10 mcg/min. [facility] Medical History Heart attack Diabetes Coronary artery disease Hypertension Home Medications ?Medication ?Instructions ?Recorded ?Last Taken ?Type atorvastatin 80 mg tablet 80 mg PO QHS cholesterol 12/19/19 Unknown History finasteride 5 mg tablet 5 mg PO QHS bph 12/19/19 Unknown History glipizide 10 mg tablet 15 mg PO BIDAC diabetes 12/19/19 Unknown History krill oil 350 mg-om-3 90 mg-dha 24 1 ea PO DAILY supplement 12/19/19 Unknown History mg-epa 50 mg-phospholipids capsule lisinopril 5 mg tablet 5 mg PO DAILY 12/19/19 12/29/19 08:00 History metformin 1,000 mg tablet 1,000 mg PO BID diabetes 12/19/19 Unknown History metoprolol tartrate 25 mg tablet 12.5 mg PO BID heart 12/19/19 02/14/24 History itresdabpiuc-qqq-otapn acid-vit 1 ea PO DAILY vitamin 12/19/19 Unknown History K-lycop 400 mcg-20 mcg-370 mcg tablet acetaminophen 500 mg tablet 1,000 mg (2 x 500 mg) PO Q8 #90 12/30/19 Unknown Rx tabs aspirin 81 mg tablet,delayed 81 mg PO DAILY heart ##60 12/30/19 Unknown Rx release empagliflozin 25 mg tablet 25 mg PO DAILY 02/13/24 Unknown History rosuvastatin 40 mg tablet (Crestor) 40 mg PO DAILY 02/13/24 Unknown History sitagliptin 100 mg tablet 100 mg PO DAILY 02/13/24 Unknown History tamsulosin 0.4 mg capsule (Flomax) 0.4 mg PO DAILY 02/13/24 Unknown History Allergy/AdvReac Type Severity Reaction Status Date / Time celecoxib (From Celebrex) Allergy Rash Verified 03/08/24 09:28 etodolac Allergy Rash Verified 03/08/24 09:28 terbinafine AdvReac Rash Verified 03/08/24 09:28 Surgical History H/O knee surgery H/O right heart catheterization Social History household members: spouse housing: house Smoking Status: Never smoker substance use type: does not use ROS ROS Narrative Full 12 point ROS obtained and neg unless stated in HPI above. Objective Data Objective Data Vital Signs: Vital Signs Last response 3 Temperature 36.7 C 03/08/24 20:00 Temperature Source Temporal 03/08/24 20:00 Pulse Rate 103 H 03/08/24 20:00 Pulse Strength Normal (2+) 03/08/24 21:15 Respiratory Rate 17 03/08/24 20:00 Respiratory Effort Normal, Non-Labored 03/08/24 17:17 Respiratory Depth Normal 03/08/24 17:17 Respiratory Pattern Normal 03/08/24 17:17 Blood Pressure 101/60 03/08/24 20:30 Blood Pressure Mean 73 03/08/24 20:30 Blood Pressure Source Monitor 03/08/24 20:30 Blood Pressure Position Semi-Fowlers 03/08/24 20:30 Blood Pressure Location Left Arm 03/08/24 20:30 Pulse Ox 95 03/08/24 20:00 Oxygen Delivery Method Room Air 03/08/24 20:00 Oxygen Flow Rate (L/min) 5 03/08/24 15:05 I&O: I&O Last 24 Hours 3 03/07/24 03/08/24 03/08/24 23:59 11:59 23:59 Intake Total 1965.75 / 3042.86 1077.11 / 3042.86 Output Total 1245 / 1245 Balance 1965.75 / 1797.86 -167.89 / 1797.86 I&O: Total Stay 3 03/08/24 09:28 thru 03/08/24 21:37 Intake Total 3042.86 Output Total 1245 Balance 1797.86 Current Meds Ordered / Administered: Current meds ordered / Administered 3 Generic Name Dose Route Start Last Admin Trade Name Freq PRN Reason Stop Dose Admin Acetaminophen 650 mg 03/08/24 16:18 Acetaminophen 325 Mg Tablet PO Q6H PRN PRN Pain 1-10 Or Fever >100.7 Aspirin 81 mg 03/09/24 08:00 Aspirin E.C. 81 Mg Tablet PO DAILYCM BHUPENDRA Atorvastatin Calcium 80 mg 03/08/24 22:00 03/08/24 21:22 Atorvastatin Calcium 80 Mg Tablet PO 80 mg QHS BHUPENDRA Administration Chlorhexidine Gluconate 1 each 03/09/24 10:00 Chlorhexidine Gluc 2% Cloth 1 Each [place] TOPICAL DAILY BHUPENDRA Enoxaparin Sodium 30 mg 03/09/24 10:00 Enoxaparin 30 Mg/0.3 Ml Syringe SC DAILY BHUPENDRA Glucagon 1 mg 03/08/24 16:18 Glucagon 1 Mg/Ml Syringe IM X1 PRN HYPOGLYCEMIA Protocol Norepinephrine Bitartrate 8 mg 250 mls @ 9.375 mls/hr 03/08/24 11:15 03/08/24 20:30 / Sodium Chloride CONT INF 10 mcg/min .[id number] BHUPENDRA 18.8 mls/hr Titration Protocol 5 MCG/MIN Vasopressin 20 units/ Sodium 25 mls @ 3 mls/hr 03/08/24 13:15 03/08/24 21:10 Chloride CONT INF Infused .Q8H20M BHUPENDRA Infusion 0.04 UNITS/MIN Dextrose 250 mls @ 0 mls/hr 03/08/24 16:18 Dextrose 10%-Water IV .Q0M PRN HYPOGLYCEMIA Protocol As Directed Sodium Chloride 1,000 mls @ 150 mls/hr 03/08/24 16:18 03/08/24 17:11 IV 03/09/24 05:37 150 mls/hr .Q6H40M BHUPENDRA Administration Protocol Piperacillin Sod/Tazobactam 50 mls @ 12.5 mls/hr 03/08/24 22:00 03/08/24 21:22 Sod 3.375 gm/ Sodium Chloride IV 12.5 mls/hr Q8 BHUPENDRA Administration Sodium Chloride 500 mls @ 15 mls/hr 03/08/24 16:37 IV .[id number] PRN Saline Flush Sodium Chloride 500 mls @ 15 mls/hr 03/08/24 16:37 03/08/24 21:37 IV 0 mls/hr .[id number] PRN Infusion Additional IVPB Infusion Insulin Human Lispro 0 unit 03/08/24 16:18 03/08/24 21:28 Insulin Lispro 100 Unit/Ml Insuln.Pen SC 2 u ACHS [facility] Administration Protocol Morphine Sulfate 2 - 4 mg 03/08/24 16:18 Morphine 2 Mg/Ml Syringe IV Q3H PRN PRN Pain Score 6-10 Morphine Sulfate 2 - 4 mg 03/08/24 16:29 Morphine 4 Mg/Ml Syringe IV Q3H PRN PRN Pain Score 6-10 Nitroglycerin 0.4 mg 03/08/24 16:18 Nitroglycerin (Inpatient Use) 0.4 Mg Tab.Subl SL Q5M PRN CARDIAC/CHEST PAIN Ondansetron HCl 4 mg 03/08/24 16:18 Ondansetron 4 Mg/2 Ml Vial IV Q8H PRN PRN NAUSEA/VOMITING Sodium Chloride 10 - 40 ml 03/08/24 16:37 03/08/24 21:28 0.9% Saline Lock 10 Ml Syringe IV 20 ml UD PRN Administration SALINE FLUSH Tamsulosin HCl 0.4 mg 03/09/24 08:30 Tamsulosin Hcl 0.4 Mg Capsule PO DAILY@0830 [facility] Lab / Micro Data 03/08/24 09:35 03/08/24 09:35 Labs: Laboratory Results - last 24 hr 03/08/24 09:35: WBC 33.4 H*, RBC 4.46 L, Hgb 12.8 L, Hct 39.1 L, MCV 87.7, MCH 28.7, MCHC 32.7, RDW Std Deviation 48.0 H, RDW Coeff of Jori 14.7 H, Plt Count 104 L, MPV 11.6, Immature Gran % (Auto) 2.500 H, Neut % (Auto) 90.1 H, Lymph % (Auto) 1.7 L, [place] % (Auto) 4.6, Eos % (Auto) 0.7, Baso % (Auto) 0.4, Absolute Neuts (auto) 30.1 H, Absolute Lymphs (auto) 0.58 L, Nucleated RBC % 0, Differential Comment SCANNED, Diff Path Review September, PT 16.0 H, INR 1.3, APTT 35.3, Sodium 129 L, Potassium 3.8, Chloride 95 L, Carbon Dioxide 17.0 L, A nion Gap 17 H, BUN 49 H, Creatinine 3.86 H, Estim Creat Clear Calc 20.12, Est GFR (MDRD) Af Amer 20 L, Est GFR (MDRD) Non-Af 17 L, BUN/Creatinine Ratio 12.7, Glucose 229 H, Lactic Acid 6.9 H*, Calcium 8.2 L, Total Bilirubin 2.70 H, AST 152 H, ALT 127 H, Alkaline Phosphatase 142 H, Troponin I High Sens 1842 H*, Total Protein 6.6, Albumin 2.9 L, Globulin 3.7, Albumin/Globulin Ratio 0.8 L 03/08/24 13:09: Urine Color Yellow, Urine Clarity Sl. Cloudy, Urine pH 5.0, Ur Specific [place] 1.015, Urine Protein 100 H, Urine Glucose (UA) 1000 H, Urine Ketones Negative, Urine Occult Blood 250 H, Urine Nitrite Negative, Urine Bilirubin 1 H, Urine Urobilinogen 1 H, Ur Leukocyte Esterase 100 H, Urine RBC 5- 10 SEEN, Urine WBC 10-25 SEEN, Ur Squamous Epith Cells 0 SEEN, Ur Renal Epithelial Cell 0-5 SEEN, Amorphous Sediment 1+, Urine Bacteria 3+, Urine Mucus 0 SEEN 03/08/24 13:16: Troponin I High Sens 1351 H* 03/08/24 14:22: Lactic Acid 2.8 H* 03/08/24 17:31: POC Glucose 226 H 03/08/24 17:35: Troponin I High Sens 1090 H* 03/08/24 21:25: POC Glucose 190 H Micro: Microbiology 03/08/24 12:35 Stool Clostridioides difficile (PCR) - Final 03/08/24 10:06 Mucosa - Nose SARS-CoV-2, Influenza & RSV (PCR) - Final Imaging Radiology Impression Abdomen/Pelvis CT 03/08/24 10:03 IMPRESSION: Unchanged moderate right hydronephrosis with a distended extrarenal pelvis, suggesting UPJ obstruction. Mildly increased right perinephric and periureteral stranding, possible urinary tract infection. No nephrolithiasis or ureterolithiasis. Chronic prostatomegaly with mild surrounding inflammation, suggesting cystitis and prostatitis. Diffuse colonic wall thickening, likely mild pancolitis. Electronically Signed: Lauryn Levine MD at 12:46 EDT , Chest X-Ray 03/08/24 10:32 IMPRESSION: No acute cardiopulmonary process identified. Electronically Signed: Lauryn Levine MD at 11:02 EDT , Chest X-Ray 03/08/24 11:38 IMPRESSION: Satisfactory appearance of central venous catheter. Electronically Signed: Lauryn Levine MD at 12:06 EDT , Assessment and Plan . Assessment and plan: PE: General: Well developed, in no distress HEENT: anicteric Sclera, nl nose; supple neck, no masses Cardiovascular: S1/S2; No rubs, gallops; no displaced PM Respiratory: diminished; no crackles, wheezes, or rhonchi Abdominal: Non-tender; Non distended; hypoBS x 4; No Hepatosplenomegaly Extremities: Warm, well perfused; No clubbing, cyanosis; capillary refill < 2 sec Skin: intact, no rashes Neurological: no gross deficits appreciated A/P: #Septic shock: sp fluid bolus; cont weaning Nepi (pressor requirements much improved); cont emp broad spectrum IV Abx; F/U Cx; lactate much improved #Pyelonephritis 2* ureteral obstruction sp stent POD#0: cont monitoring; hematuria improving; good UOP; cont Abx #RICARDA: cont IVF; strict I/Os #Lactic acidosis: see above #NSTEMI: likely demand ischemia; can check TTE in AM #Thrombocytopenia: likely 2* to above; monitor #Toxic metabolic encephalopathy: improved PO diet LMWH, PPI Guarded prognosis Critical Care Time: 60 min The entirety of this encounter was done via Telemedicine
[2024-03-09] VITALS (41 sets, daily range): BP systolic 87–122; BP diastolic 52–66; PULSE 100–132; RESP 15–30; TEMP 36.7–37.7; O2SAT 90–98; BMI 27.7
[2024-03-09] MEDS: Ondansetron 4 MG/2 ML Vial IV (01:32)
[2024-03-09] MEDS: 0.9% Normal Saline (500mL Bag) 500 ML 999 ML IV (04:01)
[2024-03-09] MEDS: 0.9% Saline Lock 10 ML Syringe IV ×2 (05:11→22:04)
[2024-03-09] MEDS: Piperacil/Tazobactam 3.375 GM in 0.9% Normal Saline (50mL MB+) 50 ML IV ×3 (05:11→22:04)
[2024-03-09 05:22] LABS: Absolute Lymphocyte Count 0.56 X10^3/uL (0.83-4.51); Absolute Neutrophil Count 15.6 X10^3/uL (2.0-7.7); Basophil# 0.06 X10^3/uL; Basophil% 0.3 % (0-1); Hematocrit 32.6 % (40-54); Hemoglobin 11.1 g/dL (13.0-16.5); Lymphocyte # 0.56 X10^3/ul (0.83-4.51); Lymphocyte % 3.1 % (19-41); Mean Corpuscular Hgb 29.1 pg (27.0-32.0); Mean Corpuscular Volume 85.3 fL (80-94); Mean Platelet Vol. 11.7 fl (6.2-12.0); Monocyte# 1.28 X10^3/uL; Monocyte% 7.1 % (0-10); NRBC Flagged by Analyzer 0 % (0-5); Neutrophil # 15.58 X10^3/uL (2.7-7.7); Neutrophil % 86.6 % (47-70); POSITIVE COUNT YES; POSITIVE DIFFERENTIAL YES; POSITIVE MORPHOLOGY YES; Platelet Count 87 K/mm3 (150-450); RBC Distribution Width CV 14.8 % (11.6-14.6); RBC Distribution Width SD 46.3 fl (35.1-43.9); Red Blood Count 3.82 M/mm3 (4.6-6.2)
[2024-03-09 05:29] LABS: Differential Indicated SCAN CRITERIA MET
[2024-03-09 05:32] LABS: Differential Comment SCANNED
[2024-03-09 05:52] LABS: Anion Gap 9 (5-15); BUN 56 mg/dL (7-18); BUN/Creat Ratio 20.6 RATIO (10-20); Calcium,Total 7.2 mg/dL (8.5-10.1); Chloride 110 mmol/L (98-107); Creatinine, Serum 2.72 mg/dL (0.70-1.30); EST Glomerular Filtration Rate 25 mL/min (>60); Est Glom Filt Rate - Afr Amer 30 mL/min (>60); Estimated Creatinine Clearance 28.56 ml/min; Glucose 104 mg/dL (74-106); Potassium 3.3 mmol/L (3.5-5.1); Sodium Level 138 mmol/L (136-145)
[2024-03-09] MEDS: Aspirin E.C. 81 MG Tablet PO (09:27)
[2024-03-09] MEDS: Enoxaparin 30 MG/0.3 ML Syringe SC (09:27)
[2024-03-09] MEDS: Tamsulosin HCl 0.4 MG Capsule PO (09:27)
[2024-03-09] MEDS: Pantoprazole Sodium 40 MG in 0.9% Normal Saline (100mL MB+) 100 ML 330 MG IV (09:30)
[2024-03-09] MEDS: Potassium Chloride Oral Tablet 20 MEQ 40 MEQ PO (09:39)
--- NOTE | 2024-03-09 09:55 | PN_ITS ---
Subjective Subjective Patient seen and examined. He said he felt better than yesterday.He is off vasopressin and now on only levophed. BP still remains low, in the 90s systolic. He is tachycardic and tachypneic. He had a ureteric filter inserted yesterday. Review of systems is otherwise negative. Objective Data Objective Data Vital Signs: Vital Signs Temp Pulse Resp BP Pulse Ox O2 Del Method O2 Flow Rate 99.2 F H 122 H 29 H 92/58 L 92 Nasal Cannula 2 03/09/24 08:00 03/09/24 09:00 03/09/24 09:00 03/09/24 09:00 03/09/24 09:00 03/09/24 09:00 03/09/24 09:00 Oxygen Flow Rate (L/min) 2 Oxygen Delivery Method Nasal Cannula Weight: 209 lb 7.026 oz Body Mass Index (BMI) 27.7 Intake & Output: Intake and Output for Last 24 Hours 03/07/24 03/08/24 03/09/24 23:59 23:59 23:59 Intake Total 4089.86 / 4108.66 1852.74 / 1852.74 Output Total 1670 / 1670 2250 / 2250 Balance 2419.86 / 2438.66 -397.26 / -397.26 Lab / Micro Data 03/09/24 05:10 03/09/24 05:10 Labs: Laboratory Results - last 24 hr 03/08/24 09:35: WBC 33.4 H*, RBC 4.46 L, Hgb 12.8 L, Hct 39.1 L, MCV 87.7, MCH 28.7, MCHC 32.7, RDW Std Deviation 48.0 H, RDW Coeff of Jori 14.7 H, Plt Count 104 L, MPV 11.6, Immature Gran % (Auto) 2.500 H, Neut % (Auto) 90.1 H, Lymph % (Auto) 1.7 L, [place] % (Auto) 4.6, Eos % (Auto) 0.7, Baso % (Auto) 0.4, Absolute Neuts (auto) 30.1 H, Absolute Lymphs (auto) 0.58 L, Nucleated RBC % 0, Differential Comment SCANNED, Diff Path Review September, PT 16.0 H, INR 1.3, APTT 35.3, Sodium 129 L, Potassium 3.8, Chloride 95 L, Carbon Dioxide 17.0 L, A nion Gap 17 H, BUN 49 H, Creatinine 3.86 H, Estim Creat Clear Calc 20.12, Est GFR (MDRD) Af Amer 20 L, Est GFR (MDRD) Non-Af 17 L, BUN/Creatinine Ratio 12.7, Glucose 229 H, Lactic Acid 6.9 H*, Calcium 8.2 L, Total Bilirubin 2.70 H, AST 152 H, ALT 127 H, Alkaline Phosphatase 142 H, Troponin I High Sens 1842 H*, Total Protein 6.6, Albumin 2.9 L, Globulin 3.7, Albumin/Globulin Ratio 0.8 L 03/08/24 13:09: Urine Color Yellow, Urine Clarity Sl. Cloudy, Urine pH 5.0, Ur Specific [place] 1.015, Urine Protein 100 H, Urine Glucose (UA) 1000 H, Urine Ketones Negative, Urine Occult Blood 250 H, Urine Nitrite Negative, Urine Bilirubin 1 H, Urine Urobilinogen 1 H, Ur Leukocyte Esterase 100 H, Urine RBC 5- 10 SEEN, Urine WBC 10-25 SEEN, Ur Squamous Epith Cells 0 SEEN, Ur Renal Epithelial Cell 0-5 SEEN, Amorphous Sediment 1+, Urine Bacteria 3+, Urine Mucus 0 SEEN 03/08/24 13:16: Troponin I High Sens 1351 H* 03/08/24 14:22: Lactic Acid 2.8 H* 03/08/24 17:31: POC Glucose 226 H 03/08/24 17:35: Troponin I High Sens 1090 H* 03/08/24 21:25: POC Glucose 190 H 03/09/24 05:10: WBC 18.0 H, RBC 3.82 L, Hgb 11.1 L, Hct 32.6 L, MCV 85.3, MCH 29.1, MCHC 34.0, RDW Std Deviation 46.3 H, RDW Coeff of Jori 14.8 H, Plt Count 87 L, MPV 11.7, Immature Gran % (Auto) 2.900 H, Neut % (Auto) 86.6 H, Lymph % (Auto) 3.1 L, [place] % (Auto) 7.1, Eos % (Auto) 0.0, Baso % (Auto) 0.3, Absolute Neuts (auto) 15.6 H, Absolute Lymphs (auto) 0.56 L, Nucleated RBC % 0, Differential Comment SCANNED, Sodium 138, Potassium 3.3 L, Chloride 110 H, C arbon Dioxide 19.0 L, Anion Gap 9, BUN 56 H, Creatinine 2.72 H, Estim Creat Clear Calc 28.56, Est GFR (MDRD) Af Amer 30 L, Est GFR (MDRD) Non-Af 25 L, B UN/Creatinine Ratio 20.6 H, Glucose 104, Calcium 7.2 L Micro: Microbiology 03/08/24 12:35 Stool Clostridioides difficile (PCR) - Final 03/08/24 10:06 Mucosa - Nose SARS-CoV-2, Influenza & RSV (PCR) - Final Radiography Diagnostic Testing: Radiology Impression Abdomen/Pelvis CT 03/08/24 10:03 IMPRESSION: Unchanged moderate right hydronephrosis with a distended extrarenal pelvis, suggesting UPJ obstruction. Mildly increased right perinephric and periureteral stranding, possible urinary tract infection. No nephrolithiasis or ureterolithiasis. Chronic prostatomegaly with mild surrounding inflammation, suggesting cystitis and prostatitis. Diffuse colonic wall thickening, likely mild pancolitis. Electronically Signed: Lauryn Levine MD at 12:46 EDT , Chest X-Ray 03/08/24 10:32 IMPRESSION: No acute cardiopulmonary process identified. Electronically Signed: Lauryn Levine MD at 11:02 EDT , Chest X-Ray 03/08/24 11:38 IMPRESSION: Satisfactory appearance of central venous catheter. Electronically Signed: Lauryn Levine MD at 12:06 EDT , Physical Exam Const alert and oriented x3 Constitutional Narrative: weak General Appearance: cooperative HEENT normocephalic, head/scalp atraumatic and hearing grossly normal bilaterally Mouth: dry mucous membranes Eyes PERRL, EOMs intact bilaterally and conjunctivae normal Neck no lymphadenopathy, supple and no JVD Lymph Lymphatic: no lymphadenopathy noted Resp normal respiratory effort, normal air movement, no retractions, no use of accessory muscles and clear to auscultation bilaterally Effort and Inspection: tachypneic Cardio regular rhythm, S1 normal heart sound, S2 normal heart sound and no murmurs Cardio Narrative: tachypneic GI normal to inspection, nondistended, normoactive bowel sounds, soft to palpation, non-tender and non-distended Extremity normal to inspection, full ROM and no clubbing, cyanosis or edema General Extremity: no tenderness to palpation of joints or extremities Skin General Skin Exam: no breakdown Neuro oriented x3, CN's II-XII intact bilaterally and moves all extremities Sensorium / Orientation: awake and alert Motor Exam: strength 5/5 throughout Psych affect normal Appearance: appropriate Assessment & Plan Assessment/Plan (1) Pyelonephritis: (2) NSTEMI, initial episode of care: PLAN: Plan #Septic shock due to right sided pyelonephritis * He has a history of right-sided hydronephrosis and had a stent inserted about 2 weeks ago. Stent was removed days prior to this admission. Subsequently felt unwell at home. * : Passed urine for 2 days. * CT of the abdomen and pelvis done on admission showed unchanged moderate right hydronephrosis with a distended extrarenal pelvis suggesting UPJ obstruction and mildly increased right perinephric and periureteral stranding with possible urinary tract infection and chronic prostatomegaly with mild surrounding inflammation, suggestive of cystitis and prostatitis and diffuse colonic wall thickening likely mild pancolitis * Patient was markedly hypotensive in the ED with blood pressure in the 70s systolic. * he had cystoscopy with right stent placement yesterday. * on IV zosyn. urology on board * blood and urine cultures pending * now on only levophed; titrate to maintain MAP >65. * critical care and urology on board * P.o. Tylenol and p.o. oxycodone as well as IV morphine as needed for pain * wbc has trended down to 18. * #Non-STEMI * This is likely a type II non-STEMI due to demand ischemia. * initial troponin was 1842 and trended down eventually to 1090. * 2D echo ordered. Patient is tachycardic today though he denies any chest pain. Cardiology consulted though I really think this is all due to demand ischemia. * #Sinus tachycardia: * Patient usually on metoprolol but cannot be on this due to him being on Levophed. * Once Levophed is weaned off we will put him on his home metoprolol. * #Elevated liver enzymes * Total bilirubin was 2.7. AST and ALT as well as ALP also mildly elevated. * This may be due to the hypotension to the initial stages of shock liver developing. * Should improve once shock resolves. * Liver enzymes pending today * #Lactic acidosis: * Lactic acid was 6.9 on admission and came down to 2.8 with hydration and vasopressors. * Should improve once shock resolves. #Hyponatremia: * Sodium is 138. Improving * * #Hypokalemia: K is 3.3. Will replace and trend. #RICARDA on CKD II * Creatinine was 3.86 on admission and now trended down to 2.72. * Baseline creatinine is around 1.42 from 01/24/2024. * There is also likely prerenal due to septic shock. * Should improve as shock resolves. * will trend Cr * #Anion gap metabolic acidosis: * Bicarb is 19 today and anion gap is 9 * This is likely due to lactic acidosis as well as RICARDA on CKD stage II. * Should improve as kidney function improves. * #Colitis: * CT scan showed evidence of mild pancolitis. * Patient also admitted to some diarrhea, but this has not recurred since admission. * Patient started on IV Zosyn. * Being hydrated with IV fluids. * if diarrhea recurs, will get enteric panel * C. difficile screen done in the ED was negative. * #History of BPH: On Flomax. Will hold this for now due to septic shock. #History of CAD: On aspirin and statin. #Hypertension: BP meds on hold due to septic shock #Type 2 diabetes mellitus: Hold any oral meds. Insulin sliding scale. Accu- Cheks ACHS. DVT prophylaxis: Lovenox, renally dosed CODE STATUS: Full code * Charges/Coding Visit Charges Inpatient E&M: 76641 Subs Hosp L3
[2024-03-09 10:33] LABS: AST(SGOT) 68 U/L (15-37); Alanine Aminotransfer ALT/SGPT 85 U/L (16-61); Albumin, Serum 2.4 g/dL (3.2-5.0); Alkaline Phosphatase 103 U/L (45-117); Bilirubin, Direct 0.71 mg/dL (0.00-0.30); Globulin 3.3 g/dL (2.2-4.2); Protein, Total 5.7 g/dL (6.4-8.2)
[2024-03-09] MEDS: Insulin Lispro 100 UNIT/ML INSULN.PEN SC ×3 (11:27→22:02)
--- NOTE | 2024-03-09 11:36 | PN.CC_ITS ---
Objective Data Objective Data Vital Signs: Vital Signs Last response 3 Temperature 37.3 C H 03/09/24 08:00 Temperature Source Oral 03/09/24 08:00 Pulse Rate 118 H 03/09/24 11:00 Pulse Strength Normal (2+) 03/09/24 09:07 Respiratory Rate 21 H 03/09/24 11:00 Respiratory Effort Normal, Non-Labored 03/09/24 08:00 Respiratory Depth Normal 03/09/24 08:00 Respiratory Pattern Tachypnea 03/09/24 08:00 Blood Pressure 102/62 03/09/24 11:00 Blood Pressure Mean 75 03/09/24 11:00 Blood Pressure Source Monitor 03/09/24 11:00 Blood Pressure Position Semi-Fowlers 03/09/24 11:00 Blood Pressure Location Left Arm 03/09/24 11:00 Pulse Ox 94 03/09/24 11:00 Oxygen Delivery Method Room Air 03/09/24 11:00 Oxygen Flow Rate (L/min) 2 03/09/24 10:00 I&O: I&O Last 24 Hours 3 03/08/24 03/08/24 03/09/24 11:59 23:59 11:59 Intake Total 1965.75 / 4108.66 2124.11 / 4108.66 1862.14 / 1862.14 Output Total 1670 / 1670 2250 / 2250 Balance 1965.75 / 2438.66 454.11 / 2438.66 -387.86 / -387.86 I&O: Total Stay 3 03/08/24 09:28 thru 03/09/24 11:00 Intake Total 5952.00 Output Total 3920 Balance 203.00 Current Meds Ordered / Administered: Current meds ordered / Administered 3 Generic Name Dose Route Start Last Admin Trade Name Freq PRN Reason Stop Dose Admin Acetaminophen 650 mg 03/08/24 16:18 Acetaminophen 325 Mg Tablet PO Q6H PRN PRN Pain 1-10 Or Fever >100.7 Aspirin 81 mg 03/09/24 08:00 03/09/24 09:27 Aspirin E.C. 81 Mg Tablet PO 81 mg DAILYCM BHUPENDRA Administration Atorvastatin Calcium 80 mg 03/08/24 22:00 03/08/24 21:22 Atorvastatin Calcium 80 Mg Tablet PO 80 mg QHS BHUPENDRA Administration Chlorhexidine Gluconate 1 each 03/09/24 10:00 03/09/24 09:28 Chlorhexidine Gluc 2% Cloth 1 Each [place] TOPICAL Not Given DAILY BHUPENDRA Enoxaparin Sodium 30 mg 03/09/24 10:00 03/09/24 09:27 Enoxaparin 30 Mg/0.3 Ml Syringe SC 30 mg DAILY BHUPENDRA Administration Glucagon 1 mg 03/08/24 16:18 Glucagon 1 Mg/Ml Syringe IM X1 PRN HYPOGLYCEMIA Protocol Norepinephrine Bitartrate 8 mg 250 mls @ 9.375 mls/hr 03/08/24 11:15 03/09/24 11:00 / Sodium Chloride CONT INF 2.5 mcg/min .[id number] BHUPENDRA 4.7 mls/hr Titration Protocol 5 MCG/MIN Dextrose 250 mls @ 0 mls/hr 03/08/24 16:18 Dextrose 10%-Water IV .Q0M PRN HYPOGLYCEMIA Protocol As Directed Piperacillin Sod/Tazobactam 50 mls @ 12.5 mls/hr 03/08/24 22:00 03/09/24 09:13 Sod 3.375 gm/ Sodium Chloride IV Infused Q8 BHUPENDRA Infusion Sodium Chloride 500 mls @ 15 mls/hr 03/08/24 16:37 IV .[id number] PRN Saline Flush Sodium Chloride 500 mls @ 15 mls/hr 03/08/24 16:37 03/09/24 09:14 IV 15 mls/hr .[id number] PRN Infusion Additional IVPB Infusion Pantoprazole Sodium 40 mg/ 110 mls @ 330 mls/hr 03/09/24 10:00 03/09/24 09:54 Sodium Chloride IV Infused Q24 BHUPENDRA Infusion Insulin Human Lispro 0 unit 03/08/24 16:18 03/09/24 11:27 Insulin Lispro 100 Unit/Ml Insuln.Pen SC 2 u ACHS BHUPENDRA Administration Protocol Morphine Sulfate 2 - 4 mg 03/08/24 16:18 Morphine 2 Mg/Ml Syringe IV Q3H PRN PRN Pain Score 6-10 Morphine Sulfate 2 - 4 mg 03/08/24 16:29 Morphine 4 Mg/Ml Syringe IV Q3H PRN PRN Pain Score 6-10 Nitroglycerin 0.4 mg 03/08/24 16:18 Nitroglycerin (Inpatient Use) 0.4 Mg Tab.Subl SL Q5M PRN CARDIAC/CHEST PAIN Ondansetron HCl 4 mg 03/08/24 16:18 03/09/24 01:32 Ondansetron 4 Mg/2 Ml Vial IV 4 mg Q8H PRN PRN Administration NAUSEA/VOMITING Sodium Chloride 10 - 40 ml 03/08/24 16:37 03/09/24 05:11 0.9% Saline Lock 10 Ml Syringe IV 20 ml UD PRN Administration SALINE FLUSH Tamsulosin HCl 0.4 mg 03/09/24 08:30 03/09/24 09:27 Tamsulosin Hcl 0.4 Mg Capsule PO 0.4 mg DAILY@0830 BHUPENDRA Administration Lab / Micro Data 03/09/24 05:10 03/09/24 05:10 Labs: Laboratory Results - last 24 hr 03/08/24 13:09: Urine Color Yellow, Urine Clarity Sl. Cloudy, Urine pH 5.0, Ur Specific [place] 1.015, Urine Protein 100 H, Urine Glucose (UA) 1000 H, Urine Ketones Negative, Urine Occult Blood 250 H, Urine Nitrite Negative, Urine Bilirubin 1 H, Urine Urobilinogen 1 H, Ur Leukocyte Esterase 100 H, Urine RBC 5- 10 SEEN, Urine WBC 10-25 SEEN, Ur Squamous Epith Cells 0 SEEN, Ur Renal Epithelial Cell 0-5 SEEN, Amorphous Sediment 1+, Urine Bacteria 3+, Urine Mucus 0 SEEN 03/08/24 13:16: Troponin I High Sens 1351 H* 03/08/24 14:22: Lactic Acid 2.8 H* 03/08/24 17:31: POC Glucose 226 H 03/08/24 17:35: Troponin I High Sens 1090 H* 03/08/24 21:25: POC Glucose 190 H 03/09/24 05:10: WBC 18.0 H, RBC 3.82 L, Hgb 11.1 L, Hct 32.6 L, MCV 85.3, MCH 29.1, MCHC 34.0, RDW Std Deviation 46.3 H, RDW Coeff of Jori 14.8 H, Plt Count 87 L, MPV 11.7, Immature Gran % (Auto) 2.900 H, Neut % (Auto) 86.6 H, Lymph % (Auto) 3.1 L, [place] % (Auto) 7.1, Eos % (Auto) 0.0, Baso % (Auto) 0.3, Absolute Neuts (auto) 15.6 H, Absolute Lymphs (auto) 0.56 L, Nucleated RBC % 0, Differential Comment SCANNED, Sodium 138, Potassium 3.3 L, Chloride 110 H, C arbon Dioxide 19.0 L, Anion Gap 9, BUN 56 H, Creatinine 2.72 H, Estim Creat Clear Calc 28.56, Est GFR (MDRD) Af Amer 30 L, Est GFR (MDRD) Non-Af 25 L, B UN/Creatinine Ratio 20.6 H, Glucose 104, Calcium 7.2 L, Total Bilirubin 1.60 H, Direct Bilirubin 0.71 H, AST 68 H, ALT 85 H, Alkaline Phosphatase 103, Total Protein 5.7 L, Albumin 2.4 L, Globulin 3.3 Micro: Microbiology 03/08/24 12:35 Stool Clostridioides difficile (PCR) - Final 03/08/24 10:06 Mucosa - Nose SARS-CoV-2, Influenza & RSV (PCR) - Final Imaging Radiology Impression Abdomen/Pelvis CT 03/08/24 10:03 IMPRESSION: Unchanged moderate right hydronephrosis with a distended extrarenal pelvis, suggesting UPJ obstruction. Mildly increased right perinephric and periureteral stranding, possible urinary tract infection. No nephrolithiasis or ureterolithiasis. Chronic prostatomegaly with mild surrounding inflammation, suggesting cystitis and prostatitis. Diffuse colonic wall thickening, likely mild pancolitis. Electronically Signed: Lauryn Levine MD at 12:46 EDT , Chest X-Ray 03/08/24 11:38 IMPRESSION: Satisfactory appearance of central venous catheter. Electronically Signed: Lauryn Levine MD at 12:06 EDT , Assessment and Plan . Assessment and plan: Critical Care Time: The entirety of this encounter was done via Telemedicine Subjective Subjective Pt seen and examined. With sinus tach over night & cardiology consulted this AM. Otherwise pt continues to feel better. Nepi @ 2.5 PE: General: Well developed, in no distress HEENT: anicteric Sclera, nl nose; supple neck, no masses Cardiovascular: S1/S2; No rubs, gallops; no displaced PM Respiratory: diminished; no crackles, wheezes, or rhonchi Abdominal: Non-tender; Non distended; hypoBS x 4; No Hepatosplenomegaly Extremities: Warm, well perfused; No clubbing, cyanosis; capillary refill < 2 sec Skin: intact, no rashes Neurological: no gross deficits appreciated A/P: #Septic shock: sp fluid bolus; cont weaning Nepi (nearly off); cont emp broad spectrum IV Abx; F/U Cx; lactate much improved --> if sinus tach remains persistent issue and he continues to require pressor support can switch to [place] +/- vaso; will also start PO midodrine #Pyelonephritis 2* ureteral obstruction sp stent POD#1: cont monitoring; hematuria resolved; good UOP; cont Abx #RICARDA: cont IVF; strict I/Os; excellent IOP #Lactic acidosis: see above #NSTEMI: likely demand ischemia; F/U TTE #Thrombocytopenia: likely 2* to above; monitor #Toxic metabolic encephalopathy: resolved PO diet LMWH, PPI Guarded prognosis Critical Care Time: 50 min The entirety of this encounter was done via Telemedicine
[2024-03-09 11:48] LABS: Bedside Glucose 155 mg/dL (74-106)
--- NOTE | 2024-03-09 11:58 | CON.PCM.CA_ITS ---
Assessment & Plan Assessment/Plan (1) History of coronary artery disease: PLAN: Patient history of remote inferior wall microinfarction. He had stenting of the right coronary in 2011 and subsequent LV function normalized. The patient denies any recurrence of his anginal equivalent which was a profound diaphoresis. He is active in his home environment but does not routinely exercise he has noticed no drop-off in his exercise tolerance. Secondary risk factors [facility] he is on intensive statin therapy, he is on therapy for his diabetes and his blood pressure is controlled with a combination of beta-luly and JOHN inhibitor therapy. (2) Elevated troponin: PLAN: Troponins were elevated on admission and trended down. Consistent with demand ischemia he has no significant EKG changes and he was profoundly hypotensive and septic requiring 2 pressors upon admission to the emergency department. A 2D echocardiogram be performed in the next 24 hours to evaluate his LV function. (3) Pyelonephritis: PLAN: CT diagnosed pyelonephritis. The patient is on antibiotic therapy and pressors have been weaned down to low-dose Levophed. (4) RICARDA (acute kidney injury): PLAN: Patient's acute kidney injury appears to be resolving his initial creatinine of 3.86 is now down to 2.72 giving him a GFR of 25. The primary service will continue to monitor and manage the renal failure and his other sepsis issues. (5) History of hypertension: PLAN: Patient has a history of hypertension is [facility]. He has been on combination of JOHN inhibitor and beta-luly therapy. The beta- luly therapy to be reinstituted once he is off pressors. (6) History of type 2 diabetes mellitus: PLAN: The patient's diabetes is managed through the [facility]. He should continue to follow-up with a target hemoglobin A1c in the 6?7 range. PLAN: Plan 1. Continue supportive therapy with inotropes and antibiotic therapy per the primary service. 2. Obtain 2D echocardiogram in the next 24 hours to evaluate LV function. 3. I did not proceed further cardiac evaluation being indicated unless there is an unexpected finding on the echocardiogram. 4. The patient follows up with the [facility] should he need urgent assistance and cannot get and I gave him the [place] [facility] information to call for assistance as needed. 5. Dr. Ulloa will be assuming the service tomorrow morning. HPI Consult Data Date of Consult: 03/09/24 HPI Narrative Reason for Consultation: Elevated troponins HPI Narrative: LAUREN THOMAS, is a 69 M who presents with urosepsis after removal of ureteral stent. With acute renal failure creatinine 3.86 it is down to 2.72 given him a GFR of 25. He presented with a lactic acid of 6.9 his initial troponin was 1842 seconds at 1351 and third sit 1090. The patient's initial EKG shows sinus tachycardia to 110 bpm with nonspecific T wave changes and no obvious definitive ischemic event. He was on 2 pressors in the emergency department has now been weaned down to low-dose Levophed. He remains tachycardic with heart rate in the 110?120 range. Patient has remote history of coronary disease and acute inferior wall infarct in 2011 where he received a right coronary stent and his subsequent LV function normalized. Patient denies any chest pain denies any recurrence of the diaphoresis that he had at the onset of his acute inferior wall infarct back in 2011. Patient reports that he has been fairly active in his home environment he does not routinely exercise but he works around the house and has had no drop- off in his exercise tolerance. Currently denies any shortness of breath he says he feels fairly well although he looks fatigued. History of hypertension, diabetes mellitus, and hyperlipidemia. The patient is on therapy for all. He has never smoked. [facility] Medical History Heart attack Diabetes Coronary artery disease Hypertension Home Medications ?Medication ?Instructions ?Recorded ?Last Taken ?Type atorvastatin 80 mg tablet 80 mg PO QHS cholesterol 12/19/19 Unknown History finasteride 5 mg tablet 5 mg PO QHS bph 12/19/19 Unknown History glipizide 10 mg tablet 15 mg PO BIDAC diabetes 12/19/19 Unknown History krill oil 350 mg-om-3 90 mg-dha 24 1 ea PO DAILY supplement 12/19/19 Unknown History mg-epa 50 mg-phospholipids capsule lisinopril 5 mg tablet 5 mg PO DAILY 12/19/19 12/29/19 08:00 History metformin 1,000 mg tablet 1,000 mg PO BID diabetes 12/19/19 Unknown History metoprolol tartrate 25 mg tablet 12.5 mg PO BID heart 12/19/19 02/14/24 History [id number]-[id number] acid-vit 1 ea PO DAILY vitamin 12/19/19 Unknown History K-lycop 400 mcg-20 mcg-370 mcg tablet acetaminophen 500 mg tablet 1,000 mg (2 x 500 mg) PO Q8 #90 12/30/19 Unknown Rx tabs aspirin 81 mg tablet,delayed 81 mg PO DAILY heart ##60 12/30/19 Unknown Rx release empagliflozin 25 mg tablet 25 mg PO DAILY 02/13/24 Unknown History rosuvastatin 40 mg tablet (Crestor) 40 mg PO DAILY 02/13/24 Unknown History sitagliptin 100 mg tablet 100 mg PO DAILY 02/13/24 Unknown History tamsulosin 0.4 mg capsule (Flomax) 0.4 mg PO DAILY 02/13/24 Unknown History Allergy/AdvReac Type Severity Reaction Status Date / Time celecoxib (From Celebrex) Allergy Rash Verified 03/08/24 09:28 etodolac Allergy Rash Verified 03/08/24 09:28 terbinafine AdvReac Rash Verified 03/08/24 09:28 Surgical History H/O knee surgery H/O right heart catheterization Social History household members: spouse housing: house Smoking Status: Never smoker substance use type: does not use ROS Constitutional Constitutional: Denies fever(s) Eyes Eyes: Reports systems reviewed and no addt'l complaints, except as documented ENT HEENT: Reports systems reviewed and no addt'l complaints, except as documented Cardiovascular Cardiovascular: Reports as per HPI Respiratory/Chest Respiratory/Chest: Reports as per HPI Gastrointestinal Gastrointestinal: Reports systems reviewed and no addt'l complaints, except as documented Genitourinary Genitourinary: Reports as per HPI Musculoskeletal Musculoskeletal: Reports systems reviewed and no addt'l complaints, except as documented Integumentary Integumentary: Reports systems reviewed and no addt'l complaints, except as documented Neurologic Neurologic: Reports systems reviewed and no addt'l complaints, except as documented Psychiatric Psychiatric: Reports systems reviewed and no addt'l complaints, except as documented Endocrine Endocrinology: Reports as per HPI Hematologic/Lymphatic Hematologic/Lymphatic: Reports systems reviewed and no addt'l complaints, except as documented Allergic/Immunologic Allergic/Immunologic: Reports systems reviewed and no addt'l complaints, except as documented Physical Exam Const alert and oriented x3 HEENT normocephalic Eyes EOMs intact bilaterally Neck no JVD Carotids: Negative for bruit Chest inspection of chest normal Resp normal respiratory effort and clear to auscultation bilaterally Cardio Rate: tachycardic Rhythm: regular rhythm Heart Sounds: S1 normal and S2 normal; Negative for click, gallop or murmur Extremity no pedal edema Skin no rashes or lesions noted Neuro Neuro Narrative: Alert and oriented x 3 Psych Psych Narrative: Patient appears fatigued and/or slightly depressed. He denies both. Risk Stratification Risk Stratification Applicable: Yes Age >/= 65: Yes >/= 3 CAD Risk Factors (HTN, HLD, DM, family hx of CAD, or current smoker): Yes Aspirin Use in the Past 7 Days: Yes Severe Angina (>/= episodes in 24 hours): No EKG ST Changes >/= 0.5mm: No Positive Cardiac Marker: Yes CHELLE Risk Stratification Score: 4 CHELLE % Risk: 20% Risk Charges/Coding Visit Charges Inpatient E&M: 81189 Init Hosp L3 Objective Data Vital Signs: Vital Signs Temp Pulse Resp BP Pulse Ox O2 Del Method O2 Flow Rate 99.2 F H 118 H 21 H 102/62 94 Room Air 2 03/09/24 08:00 03/09/24 11:00 03/09/24 11:00 03/09/24 11:00 03/09/24 11:00 03/09/24 11:00 03/09/24 10:00 Oxygen Flow Rate (L/min) 2 Oxygen Delivery Method Room Air Weight: 209 lb 7.026 oz Body Mass Index (BMI) 27.7 Intake & Output: Intake and Output for Last 24 Hours 03/07/24 03/08/24 03/09/24 23:59 23:59 23:59 Intake Total 4089.86 / 4108.66 1862.14 / 1862.14 Output Total 1670 / 1670 2250 / 2250 Balance 2419.86 / 2438.66 -387.86 / -387.86 Lab / Micro Data Attestation: I reviewed the patient's lab results. 03/09/24 05:10 03/09/24 05:10 Labs: Laboratory Results - last 24 hr 03/08/24 13:09: Urine Color Yellow, Urine Clarity Sl. Cloudy, Urine pH 5.0, Ur Specific [place] 1.015, Urine Protein 100 H, Urine Glucose (UA) 1000 H, Urine Ketones Negative, Urine Occult Blood 250 H, Urine Nitrite Negative, Urine Bilirubin 1 H, Urine Urobilinogen 1 H, Ur Leukocyte Esterase 100 H, Urine RBC 5- 10 SEEN, Urine WBC 10-25 SEEN, Ur Squamous Epith Cells 0 SEEN, Ur Renal Epithelial Cell 0-5 SEEN, Amorphous Sediment 1+, Urine Bacteria 3+, Urine Mucus 0 SEEN 03/08/24 13:16: Troponin I High Sens 1351 H* 03/08/24 14:22: Lactic Acid 2.8 H* 03/08/24 17:31: POC Glucose 226 H 03/08/24 17:35: Troponin I High Sens 1090 H* 03/08/24 21:25: POC Glucose 190 H 03/09/24 05:10: WBC 18.0 H, RBC 3.82 L, Hgb 11.1 L, Hct 32.6 L, MCV 85.3, MCH 29.1, MCHC 34.0, RDW Std Deviation 46.3 H, RDW Coeff of Jori 14.8 H, Plt Count 87 L, MPV 11.7, Immature Gran % (Auto) 2.900 H, Neut % (Auto) 86.6 H, Lymph % (Auto) 3.1 L, [place] % (Auto) 7.1, Eos % (Auto) 0.0, Baso % (Auto) 0.3, Absolute Neuts (auto) 15.6 H, Absolute Lymphs (auto) 0.56 L, Nucleated RBC % 0, Differential Comment SCANNED, Sodium 138, Potassium 3.3 L, Chloride 110 H, C arbon Dioxide 19.0 L, Anion Gap 9, BUN 56 H, Creatinine 2.72 H, Estim Creat Clear Calc 28.56, Est GFR (MDRD) Af Amer 30 L, Est GFR (MDRD) Non-Af 25 L, B UN/Creatinine Ratio 20.6 H, Glucose 104, Calcium 7.2 L, Total Bilirubin 1.60 H, Direct Bilirubin 0.71 H, AST 68 H, ALT 85 H, Alkaline Phosphatase 103, Total Protein 5.7 L, Albumin 2.4 L, Globulin 3.3 03/09/24 11:23: POC Glucose 155 H Micro: Microbiology 03/08/24 12:35 Stool Clostridioides difficile (PCR) - Final 03/08/24 10:06 Mucosa - Nose SARS-CoV-2, Influenza & RSV (PCR) - Final Rhythm Strip Rhythm Strip: Sinus Tach Rate: 120 Cardiology Labs/Tests 03/08/24 13:09: Urine Color Yellow, Urine Clarity Sl. Cloudy, Urine pH 5.0, Ur Specific [place] 1.015, Urine Protein 100 H, Urine Glucose (UA) 1000 H, Urine Ketones Negative, Urine Occult Blood 250 H, Urine Nitrite Negative, Urine Bilirubin 1 H, Urine Urobilinogen 1 H, Ur Leukocyte Esterase 100 H, Urine RBC 5- 10 SEEN, Urine WBC 10-25 SEEN 03/08/24 14:22: Lactic Acid 2.8 H* 03/09/24 05:10: WBC 18.0 H, RBC 3.82 L, Hgb 11.1 L, Hct 32.6 L, MCV 85.3, MCH 29.1, MCHC 34.0, Plt Count 87 L, MPV 11.7, Immature Gran % (Auto) 2.900 H, Neut % (Auto) 86.6 H, Lymph % (Auto) 3.1 L, [place] % (Auto) 7.1, Eos % (Auto) 0.0, Baso % (Auto) 0.3, Absolute Neuts (auto) 15.6 H, Nucleated RBC % 0, Sodium 138, P otassium 3.3 L, Chloride 110 H, Carbon Dioxide 19.0 L, Anion Gap 9, BUN 56 H, C reatinine 2.72 H, Est GFR (MDRD) Af Amer 30 L, Est GFR (MDRD) Non-Af 25 L, B UN/Creatinine Ratio 20.6 H, Glucose 104, Calcium 7.2 L, Total Bilirubin 1.60 H, Direct Bilirubin 0.71 H Rhythm: EKG: ECHO: Stress Test: Cardiac Cath: PCI: CT Surgery: Holter monitor: EPS: PPM: CXR: Chest CT Scan: Radiography Diagnostic Testing: Radiology Impression Abdomen/Pelvis CT 03/08/24 10:03 IMPRESSION: Unchanged moderate right hydronephrosis with a distended extrarenal pelvis, suggesting UPJ obstruction. Mildly increased right perinephric and periureteral stranding, possible urinary tract infection. No nephrolithiasis or ureterolithiasis. Chronic prostatomegaly with mild surrounding inflammation, suggesting cystitis and prostatitis. Diffuse colonic wall thickening, likely mild pancolitis. Electronically Signed: Lauryn Levine MD at 12:46 EDT , Chest X-Ray 03/08/24 11:38 IMPRESSION: Satisfactory appearance of central venous catheter. Electronically Signed: Lauryn Levine MD at 12:06 EDT ,
[2024-03-09] MEDS: Midodrine HCl 5 MG Tablet 10 MG PO ×2 (13:53→18:02)
[2024-03-09 16:45] LABS: Bedside Glucose 179 mg/dL (74-106)
[2024-03-09] MEDS: MELATONIN 3 MG TABLET PO (22:02)
[2024-03-09] MEDS: Atorvastatin Calcium 80 MG Tablet PO (22:02)
[2024-03-09 22:28] LABS: Bedside Glucose 273 mg/dL (74-106)
[2024-03-10] VITALS (22 sets, daily range): BP systolic 92–113; BP diastolic 58–73; PULSE 80–103; RESP 13–27; TEMP 36.2–36.4; O2SAT 92–97; BMI 27.8
[2024-03-10] MEDS: 0.9% Saline Lock 10 ML Syringe IV (04:57)
[2024-03-10] MEDS: Piperacil/Tazobactam 3.375 GM in 0.9% Normal Saline (50mL MB+) 50 ML IV ×3 (04:57→20:54)
[2024-03-10 05:07] LABS: Absolute Lymphocyte Count 0.55 X10^3/uL (0.83-4.51); Absolute Neutrophil Count 11.8 X10^3/uL (2.0-7.7); Basophil# 0.05 X10^3/uL; Basophil% 0.4 % (0-1); Eosinophil# 0.04 X10^3/uL; Eosinophils% 0.3 % (0-5); Hematocrit 30.1 % (40-54); Hemoglobin 10.3 g/dL (13.0-16.5); Lymphocyte # 0.55 X10^3/ul (0.83-4.51); Lymphocyte % 4.1 % (19-41); Mean Corp Hgb Conc 34.2 g/dL (32-36); Mean Corpuscular Volume 84.8 fL (80-94); Mean Platelet Vol. 12.1 fl (6.2-12.0); Monocyte% 5.2 % (0-10); NRBC Flagged by Analyzer 0 % (0-5); Neutrophil # 11.84 X10^3/uL (2.7-7.7); Neutrophil % 88.5 % (47-70); POSITIVE COUNT YES; POSITIVE DIFFERENTIAL YES; POSITIVE MORPHOLOGY YES; Platelet Count 76 K/mm3 (150-450); RBC Distribution Width CV 14.8 % (11.6-14.6); RBC Distribution Width SD 46.1 fl (35.1-43.9); Red Blood Count 3.55 M/mm3 (4.6-6.2); White Blood Count 13.4 K/mm3 (4.4-11.0)
[2024-03-10 05:09] LABS: Differential Indicated SCAN CRITERIA MET
[2024-03-10 05:24] LABS: Anion Gap 8 (5-15); BUN 55 mg/dL (7-18); BUN/Creat Ratio 23.3 RATIO (10-20); Calcium,Total 7.6 mg/dL (8.5-10.1); Chloride 106 mmol/L (98-107); Creatinine, Serum 2.36 mg/dL (0.70-1.30); EST Glomerular Filtration Rate 29 mL/min (>60); Est Glom Filt Rate - Afr Amer 35 mL/min (>60); Estimated Creatinine Clearance 32.92 ml/min; Glucose 155 mg/dL (74-106); Potassium 3.7 mmol/L (3.5-5.1); Sodium Level 134 mmol/L (136-145)
[2024-03-10 05:31] LABS: Differential Comment SCANNED
--- NOTE | 2024-03-10 09:12 | PN.CARD_ITS ---
Subjective Subjective Feels better. Denies any chest pains. No shortness of breath. Objective Data Vital Signs: Vital Signs Temp Pulse Resp BP Pulse Ox O2 Del Method O2 Flow Rate 97.6 F L 96 22 H 94/58 L 97 Room Air 2 03/10/24 05:00 03/10/24 07:00 03/10/24 07:00 03/10/24 07:00 03/10/24 07:53 03/10/24 07:53 03/09/24 10:00 Oxygen Flow Rate (L/min) 2 Oxygen Delivery Method Room Air Weight: 210 lb 5.136 oz Body Mass Index (BMI) 27.8 Intake & Output: Intake and Output for Last 24 Hours 03/08/24 03/09/24 03/10/24 23:59 23:59 23:59 Intake Total 4089.86 / 4108.66 2527.84 / 2527.84 1093.75 / 1093.75 Output Total 1670 / 1670 4850 / 4850 1350 / 1350 Balance 2419.86 / 2438.66 -2322.16 / -2322.16 -256.25 / -256.25 Lab / Micro Data 03/10/24 05:00 03/10/24 05:00 Labs: Laboratory Results - last 24 hr 03/09/24 05:10: Total Bilirubin 1.60 H, Direct Bilirubin 0.71 H, AST 68 H, ALT 85 H, Alkaline Phosphatase 103, Total Protein 5.7 L, Albumin 2.4 L, Globulin 3.3 03/09/24 11:23: POC Glucose 155 H 03/09/24 16:27: POC Glucose 179 H 03/09/24 22:01: POC Glucose 273 H 03/10/24 05:00: WBC 13.4 H, RBC 3.55 L, Hgb 10.3 L, Hct 30.1 L, MCV 84.8, MCH 29.0, MCHC 34.2, RDW Std Deviation 46.1 H, RDW Coeff of Jori 14.8 H, Plt Count 76 L, MPV 12.1 H, Immature Gran % (Auto) 1.500 H, Neut % (Auto) 88.5 H, Lymph % (Auto) 4.1 L, [place] % (Auto) 5.2, Eos % (Auto) 0.3, Baso % (Auto) 0.4, Absolute Neuts (auto) 11.8 H, Absolute Lymphs (auto) 0.55 L, Nucleated RBC % 0, Differential Comment SCANNED, Sodium 134 L, Potassium 3.7, Chloride 106, Carbon Dioxide 20.0 L, Anion Gap 8, BUN 55 H, Creatinine 2.36 H, Estim Creat Clear Calc 32.92, Est GFR (MDRD) Af Amer 35 L, Est GFR (MDRD) Non-Af 29 L, BUN/Creatinine Ratio 23.3 H, Glucose 155 H, Calcium 7.6 L Rhythm Strip Rhythm Strip: Sinus Tach Rate: 120 Cardiology Labs/Tests 03/09/24 05:10: Total Bilirubin 1.60 H, Direct Bilirubin 0.71 H 03/10/24 05:00: WBC 13.4 H, RBC 3.55 L, Hgb 10.3 L, Hct 30.1 L, MCV 84.8, MCH 29.0, MCHC 34.2, Plt Count 76 L, MPV 12.1 H, Immature Gran % (Auto) 1.500 H, N eut % (Auto) 88.5 H, Lymph % (Auto) 4.1 L, [place] % (Auto) 5.2, Eos % (Auto) 0.3, Baso % (Auto) 0.4, Absolute Neuts (auto) 11.8 H, Nucleated RBC % 0, Sodium 134 L , Potassium 3.7, Chloride 106, Carbon Dioxide 20.0 L, Anion Gap 8, BUN 55 H, C reatinine 2.36 H, Est GFR (MDRD) Af Amer 35 L, Est GFR (MDRD) Non-Af 29 L, B UN/Creatinine Ratio 23.3 H, Glucose 155 H, Calcium 7.6 L Rhythm: EKG: ECHO: Stress Test: Cardiac Cath: PCI: CT Surgery: Holter monitor: EPS: PPM: CXR: Chest CT Scan: Physical Exam Narrative Comfortable. No apparent distress. Heart sounds 1 and 2 normal. Chest clear to auscultation bilaterally. Trace bilateral ankle edema. Assessment & Plan Assessment/Plan (1) NSTEMI (non-ST elevated myocardial infarction): PLAN: Most likely type II. Continue aspirin. Start on clopidogrel. (2) History of coronary artery disease: PLAN: History of inferior infarct. History of stent to the RCA. See #1 above. (3) Septic shock: PLAN: Improved. Pyelonephritis. On antibiotics. (4) Pyelonephritis: PLAN: As per urology/internal medicine. (5) RICARDA (acute kidney injury): PLAN: Continue to monitor creatinine.
[2024-03-10] MEDS: Enoxaparin 30 MG/0.3 ML Syringe SC (09:33)
[2024-03-10] MEDS: Aspirin E.C. 81 MG Tablet PO (09:33)
[2024-03-10] MEDS: Metoprolol Tartrate 25 MG Tablet 12.5 MG PO ×2 (09:33→20:54)
[2024-03-10] MEDS: Tamsulosin HCl 0.4 MG Capsule PO (09:37)
[2024-03-10] MEDS: CHLORHEXIDINE GLUC 2% CLOTH 1 EACH TOWELETTE TOPICAL (09:38)
[2024-03-10] MEDS: Insulin Lispro 100 UNIT/ML INSULN.PEN SC ×4 (09:39→20:55)
[2024-03-10] MEDS: Clopidogrel Bisulfate 75 MG Tablet PO (09:41)
[2024-03-10] MEDS: Pantoprazole Sodium 40 MG in 0.9% Normal Saline (100mL MB+) 100 ML 330 MG IV (09:44)
--- NOTE | 2024-03-10 10:21 | PCM.PN.HOSP ---
Reason for Visit Reason for Visit: General malaise Subjective Subjective Patient reports overall he is feeling much better. He denies any pain complaints. No other complaints at this time either.'s been off pressors for 24 hours now. Objective Data Objective Data Vital Signs: Vital Signs Temp Pulse Resp BP Pulse Ox O2 Del Method O2 Flow Rate 97.6 F L 92 23 H 97/65 95 Room Air 2 03/10/24 09:00 03/10/24 10:00 03/10/24 10:00 03/10/24 10:00 03/10/24 10:00 03/10/24 10:00 03/09/24 10:00 Oxygen Flow Rate (L/min) 2 Oxygen Delivery Method Room Air Weight: 95.4 kg Body Mass Index (BMI) 27.8 Intake & Output: Intake and Output for Last 24 Hours 03/08/24 03/09/24 03/10/24 23:59 23:59 23:59 Intake Total 4089.86 / 4108.66 2527.84 / 2527.84 1253.75 / 1253.75 Output Total 1670 / 1670 4850 / 4850 1350 / 1350 Balance 2419.86 / 2438.66 -2322.16 / -2322.16 -96.25 / -96.25 Lab / Micro Data 03/10/24 05:00 03/10/24 05:00 Labs: Laboratory Results - last 24 hr 03/09/24 05:10: Total Bilirubin 1.60 H, Direct Bilirubin 0.71 H, AST 68 H, ALT 85 H, Alkaline Phosphatase 103, Total Protein 5.7 L, Albumin 2.4 L, Globulin 3.3 03/09/24 11:23: POC Glucose 155 H 03/09/24 16:27: POC Glucose 179 H 03/09/24 22:01: POC Glucose 273 H 03/10/24 05:00: WBC 13.4 H, RBC 3.55 L, Hgb 10.3 L, Hct 30.1 L, MCV 84.8, MCH 29.0, MCHC 34.2, RDW Std Deviation 46.1 H, RDW Coeff of Jori 14.8 H, Plt Count 76 L, MPV 12.1 H, Immature Gran % (Auto) 1.500 H, Neut % (Auto) 88.5 H, Lymph % (Auto) 4.1 L, [place] % (Auto) 5.2, Eos % (Auto) 0.3, Baso % (Auto) 0.4, Absolute Neuts (auto) 11.8 H, Absolute Lymphs (auto) 0.55 L, Nucleated RBC % 0, Differential Comment SCANNED, Sodium 134 L, Potassium 3.7, Chloride 106, Carbon Dioxide 20.0 L, Anion Gap 8, BUN 55 H, Creatinine 2.36 H, Estim Creat Clear Calc 32.92, Est GFR (MDRD) Af Amer 35 L, Est GFR (MDRD) Non-Af 29 L, BUN/Creatinine Ratio 23.3 H, Glucose 155 H, Calcium 7.6 L Micro: Microbiology 03/08/24 12:35 Stool Clostridioides difficile (PCR) - Final 03/08/24 10:06 Mucosa - Nose SARS-CoV-2, Influenza & RSV (PCR) - Final Rhythm Strip Rhythm Strip: Sinus Tach Rate: 120 Physical Exam Const alert, oriented x3, no apparent distress and well nourished; Negative for average body habitus Constitutional Narrative: Overweight, very pleasant, older, white male, sitting up in bed watching television, appears comfortable, nontoxic HEENT head/scalp atraumatic and moist oral mucous membranes HEENT Narrative: Mallampati 3, no thrush Head and Scalp: normocephalic Resp normal respiratory effort, no retractions and no use of accessory muscles Auscultation: Negative for rales, rhonchi or wheezes Cardio regular rate, regular rhythm, S1 normal heart sound, S2 normal heart sound, no murmurs, no rub, no gallops and no clicks GI normal to inspection, nondistended, normoactive bowel sounds, soft to palpation and non-tender Extremity no clubbing, cyanosis or edema Extremity Narrative: Pedal and radial pulses are 2+ Neuro oriented x3, moves all extremities and no focal motor deficits Speech: speech normal Psych affect normal Psych Narrative: Very pleasant, interacts appropriately Assessment & Plan Assessment/Plan (1) Septic shock: (2) NSTEMI (non-ST elevated myocardial infarction): (3) Pyelonephritis: (4) RICARDA (acute kidney injury): PLAN: Plan Septic shock secondary to acute pyelonephritis with gram-negative urinary tract infection -Blood cultures are negative x 48 hours -Urine culture shows gram-negative karolyn -Identification is pending -Continue IV Zosyn -Off pressors now for 24 hours -Continue midodrine as ordered with stop date of 03/12/2024 -Clinically improving -Admitted to urology and cystoscopy with right stent placement was performed on 03/08/2024 -Patient is now hemodynamically stable will transfer out of ICU to medical floor NSTEMI with history of CAD -Type II suspected with demand ischemia secondary to the above -Patient with previous RCA stent in 2011 with subsequently normalized LV function -Echocardiogram showed an EF of 35 to 40% with generalized LV systolic dysfunction likely related to his sepsis, diastolic function was normal and bubble study was negative, mild mitral valve insufficiency was noted as well -Continue metoprolol -Continue atorvastatin as ordered -As blood pressure improves we will try to get on appropriate goal-directed therapy for HFrEF -Continue aspirin and Plavix added today by cardiology -Will need outpatient cardiology follow-up after discharge -Cardiology following-appreciate input -Plan is to restart home Jardiance once renal function stabilizes Lactic acidosis -Resolved RICARDA -Baseline serum creatinine is unknown however on 02/13/2024 and 02/14/2024 it appears his serum creatinine was between 1.3 and 1.45 -This may be his baseline currently -Peak was 3.86 but trending down with a current serum creatinine at 2.36 -Avoid nephrotoxins as able Toxic/metabolic encephalopathy -Resolved Thrombocytopenia -Still low but stabilizing and counts remain greater than 75,000 so we will start subcu DVT prophylaxis -Continue to monitor with CBC as sepsis improves counts should slowly return and normalize Leukocytosis -33.4 on presentation and now down to 13.4 -Continue antibiotics as ordered -Secondary to the above -Repeat CBC in a.m. DM-2 -Home oral agents on hold -Will start Jardiance once renal function stabilizes -Continue SSI -Fasting a.m. blood sugar 155 -Accu-Cheks as ordered -Cardiac/carb control Essential hypertension/hyperlipidemia -Continue home statin -Antihypertensives on hold due to shock on presentation due to sepsis -Will be able to slowly reintroduce antihypertensives as blood pressure stabilizes -Metoprolol as ordered with hold parameters due to NSTEMI BPH with obstruction -Continue home Flomax DVT prophylaxis -Start heparin 3 times daily -Continue subcu heparin as long as platelet count is greater than 75,000 -No need for GI prophylaxis as patient is not intubated and on p.o. diet CODE STATUS Full code Charges/Coding Visit Charges Inpatient E&M: 62469 Subs Hosp L2
[2024-03-10 11:03] LABS: Pathologist Review Reviewed
[2024-03-10] MEDS: Midodrine HCl 5 MG Tablet 10 MG PO ×2 (11:49→16:55)
[2024-03-10 11:55] LABS: Bedside Glucose 201 mg/dL (74-106)
--- NOTE | 2024-03-10 13:39 | PCM.PN.TICU ---
Objective Data Objective Data Vital Signs: Vital Signs Last response Temperature 36.4 C L 03/10/24 12:00 Temperature Source Temporal 03/10/24 12:00 Pulse Rate 81 03/10/24 13:00 Pulse Strength Normal (2+) 03/10/24 10:00 Respiratory Rate 20 H 03/10/24 13:00 Respiratory Effort Normal, Non-Labored 03/10/24 12:00 Respiratory Depth Normal 03/10/24 12:00 Respiratory Pattern Normal 03/10/24 12:00 Blood Pressure 104/68 03/10/24 13:00 Blood Pressure Mean 80 03/10/24 13:00 Blood Pressure Source Monitor 03/10/24 13:00 Blood Pressure Position Semi-Fowlers 03/10/24 13:00 Blood Pressure Location Left Arm 03/10/24 13:00 Pulse Ox 95 03/10/24 13:00 Oxygen Delivery Method Room Air 03/10/24 13:00 Oxygen Flow Rate (L/min) 2 03/09/24 10:00 I&O: I&O Last 24 Hours 03/09/24 03/10/24 03/10/24 23:59 11:59 23:59 Intake Total 665.7 / 2527.84 1253.75 / 1253.75 Output Total 2600 / 4850 2350 / 2350 Balance -1934.3 / -2322.16 -1096.25 / -1096.25 I&O: Total Stay 03/08/24 09:28 thru 03/10/24 11:42 Intake Total 7871.45 Output Total 8870 Balance -998.55 Current Meds Ordered / Administered: Current meds ordered / Administered Generic Name Dose Route Start Last Admin Trade Name Freq PRN Reason Stop Dose Admin Acetaminophen 650 mg 03/08/24 16:18 Acetaminophen 325 Mg Tablet PO Q6H PRN PRN Pain 1-10 Or Fever >100.7 Aspirin 81 mg 03/09/24 08:00 03/10/24 09:33 Aspirin E.C. 81 Mg Tablet PO 81 mg DAILYCM BHUPENDRA Administration Atorvastatin Calcium 80 mg 03/08/24 22:00 03/09/24 22:02 Atorvastatin Calcium 80 Mg Tablet PO 80 mg QHS BHUPENDRA Administration Chlorhexidine Gluconate 1 each 03/09/24 10:00 03/10/24 09:38 Chlorhexidine Gluc 2% Cloth 1 Each [place] TOPICAL 1 each DAILY BHUPENDRA Administration Clopidogrel Bisulfate 75 mg 03/10/24 10:00 03/10/24 09:41 Clopidogrel Bisulfate 75 Mg Tablet PO 75 mg DAILY BHUPENDRA Administration Glucagon 1 mg 03/08/24 16:18 Glucagon 1 Mg/Ml Syringe IM X1 PRN HYPOGLYCEMIA Protocol Heparin Sodium (Porcine) 5,000 unit 03/11/24 06:00 Heparin Injection (Vial) 5,000 Unit/Ml Vial SC Q8 BHUPENDRA Dextrose 250 mls @ 0 mls/hr 03/08/24 16:18 Dextrose 10%-Water IV .Q0M PRN HYPOGLYCEMIA Protocol As Directed Piperacillin Sod/Tazobactam 50 mls @ 12.5 mls/hr 03/08/24 22:00 03/10/24 09:38 Sod 3.375 gm/ Sodium Chloride IV Infused Q8 BHUPENDRA Infusion Sodium Chloride 500 mls @ 15 mls/hr 03/08/24 16:37 IV .[id number] PRN Saline Flush Sodium Chloride 500 mls @ 15 mls/hr 03/08/24 16:37 03/10/24 05:00 IV 0 mls/hr .[id number] PRN Infusion Additional IVPB Infusion Insulin Human Lispro 0 unit 03/08/24 16:18 03/10/24 11:49 Insulin Lispro 100 Unit/Ml Insuln.Pen SC 4 u ACHS BHUPENDRA Administration Protocol Melatonin 3 mg 03/09/24 18:11 03/09/24 22:02 Melatonin 3 Mg Tablet PO 3 mg QHS PRN Administration SLEEP Metoprolol Tartrate 12.5 mg 03/10/24 10:00 03/10/24 09:33 Metoprolol Tartrate 25 Mg Tablet PO 12.5 mg BID BHUPENDRA Administration Protocol Midodrine 10 mg 03/09/24 12:16 03/10/24 11:49 Midodrine Hcl 5 Mg Tablet PO 03/12/24 12:17 10 mg TIDCM BHUPENDRA Administration Nitroglycerin 0.4 mg 03/08/24 16:18 Nitroglycerin (Inpatient Use) 0.4 Mg Tab.Subl SL Q5M PRN CARDIAC/CHEST PAIN Ondansetron HCl 4 mg 03/08/24 16:18 03/09/24 01:32 Ondansetron 4 Mg/2 Ml Vial IV 4 mg Q8H PRN PRN Administration NAUSEA/VOMITING Sodium Chloride 10 - 40 ml 03/08/24 16:37 03/10/24 04:57 0.9% Saline Lock 10 Ml Syringe IV 20 ml UD PRN Administration SALINE FLUSH Tamsulosin HCl 0.4 mg 03/09/24 08:30 03/10/24 09:37 Tamsulosin Hcl 0.4 Mg Capsule PO 0.4 mg DAILY@0830 BHUPENDRA Administration Lab / Micro Data 03/10/24 05:00 03/10/24 05:00 Labs: Laboratory Results - last 24 hr 03/08/24 09:35: Diff Path Review Reviewed 03/09/24 16:27: POC Glucose 179 H 03/09/24 22:01: POC Glucose 273 H 03/10/24 05:00: WBC 13.4 H, RBC 3.55 L, Hgb 10.3 L, Hct 30.1 L, MCV 84.8, MCH 29.0, MCHC 34.2, RDW Std Deviation 46.1 H, RDW Coeff of Jori 14.8 H, Plt Count 76 L, MPV 12.1 H, Immature Gran % (Auto) 1.500 H, Neut % (Auto) 88.5 H, Lymph % (Auto) 4.1 L, [place] % (Auto) 5.2, Eos % (Auto) 0.3, Baso % (Auto) 0.4, Absolute Neuts (auto) 11.8 H, Absolute Lymphs (auto) 0.55 L, Nucleated RBC % 0, Differential Comment SCANNED, Sodium 134 L, Potassium 3.7, Chloride 106, Carbon Dioxide 20.0 L, Anion Gap 8, BUN 55 H, Creatinine 2.36 H, Estim Creat Clear Calc 32.92, Est GFR (MDRD) Af Amer 35 L, Est GFR (MDRD) Non-Af 29 L, BUN/Creatinine Ratio 23.3 H, Glucose 155 H, Calcium 7.6 L 03/10/24 11:34: POC Glucose 201 H Micro: Microbiology 03/08/24 13:09 Urine, Clean Catch Urine Culture - Final Gram negative karolyn Rhythm Strip Rhythm Strip: Sinus Tach Rate: 120 Imaging Radiology Impression Echocardiogram 03/08/24 17:01 Interpretation Summary There is Mild focal posterior mitral annular calcification. Mild (1+) mitral valve insufficiency. Estimated LVEF 35 to 40%. Mild generalized LV systolic dysfunction. Contrast injection was performed. Ordering Physician: Blanche Garcia Referring Physician: [facility] Performed By: Yari Pereyra RDCS Assessment and Plan . Assessment and plan: Subjective: Pt seen and examined. He continues to feel better. GNR in UCX. Off vasopressors for over 24 hours. OK to leave ICU - we will be available as needed. PE: General: Well developed, in no distress HEENT: anicteric Sclera, nl nose; supple neck, no masses Cardiovascular: S1/S2; No rubs, gallops; no displaced PM Respiratory: diminished; no crackles, wheezes, or rhonchi Abdominal: Non-tender; Non distended; hypoBS x 4; No Hepatosplenomegaly Extremities: Warm, well perfused; No clubbing, cyanosis; capillary refill < 2 sec Skin: intact, no rashes Neurological: no gross deficits appreciated A/P: #Septic shock: sp fluid bolus; NE is off. cont IV Abx; F/U Cx; lactate much improved #Pyelonephritis 2* ureteral obstruction sp stent: cont monitoring; hematuria resolved; good UOP; cont Abx #RICARDA: strict I/Os; excellent IOP #Lactic acidosis: see above #NSTEMI: likely demand ischemia; F/U TTE #Thrombocytopenia: likely 2* to above; monitor #Toxic metabolic encephalopathy: resolved PO diet LMWH, PPI Guarded prognosis Critical Care Time: 50 min The entirety of this encounter was done via Telemedicine
[2024-03-10 17:11] LABS: Bedside Glucose 226 mg/dL (74-106)
[2024-03-10] MEDS: Atorvastatin Calcium 80 MG Tablet PO (20:55)
[2024-03-10] MEDS: MELATONIN 3 MG TABLET PO (21:01)
[2024-03-10 21:15] LABS: Bedside Glucose 187 mg/dL (74-106)
[2024-03-11 02:00] VITALS: BP 104/69; PULSE 73; RESP 21; TEMP 36.3; O2SAT 94
[2024-03-11 03:24] LABS: Absolute Lymphocyte Count 0.73 X10^3/uL (0.83-4.51); Absolute Neutrophil Count 8.5 X10^3/uL (2.0-7.7); Basophil# 0.05 X10^3/uL; Basophil% 0.5 % (0-1); Eosinophil# 0.11 X10^3/uL; Eosinophils% 1.1 % (0-5); Hematocrit 29.7 % (40-54); Hemoglobin 10.2 g/dL (13.0-16.5); Lymphocyte # 0.73 X10^3/ul (0.83-4.51); Lymphocyte % 7.1 % (19-41); Mean Corp Hgb Conc 34.3 g/dL (32-36); Mean Corpuscular Hgb 29.1 pg (27.0-32.0); Mean Corpuscular Volume 84.9 fL (80-94); Mean Platelet Vol. 12.1 fl (6.2-12.0); Monocyte% 7.8 % (0-10); NRBC Flagged by Analyzer 0 % (0-5); Neutrophil # 8.48 X10^3/uL (2.7-7.7); Neutrophil % 82.6 % (47-70); POSITIVE COUNT YES; POSITIVE MORPHOLOGY YES; Platelet Count 76 K/mm3 (150-450); RBC Distribution Width CV 14.9 % (11.6-14.6); RBC Distribution Width SD 46.3 fl (35.1-43.9); White Blood Count 10.3 K/mm3 (4.4-11.0)
[2024-03-11 03:27] LABS: Differential Indicated SCAN CRITERIA MET
[2024-03-11 03:35] LABS: Anion Gap 8 (5-15); BUN 48 mg/dL (7-18); BUN/Creat Ratio 25.3 RATIO (10-20); Calcium,Total 7.7 mg/dL (8.5-10.1); Chloride 108 mmol/L (98-107); EST Glomerular Filtration Rate 37 mL/min (>60); Est Glom Filt Rate - Afr Amer 45 mL/min (>60); Estimated Creatinine Clearance 40.88 ml/min; Glucose 140 mg/dL (74-106); Potassium 3.8 mmol/L (3.5-5.1); Sodium Level 136 mmol/L (136-145)
[2024-03-11 03:54] VITALS: BMI 27.8
[2024-03-11 04:12] LABS: Atypical Lymphocyte 1+ %; Differential Comment SCANNED; Platelet Estimate MOD DEC (ADEQ); Platelet Morphology LARGE; Toxic Granulation 2+
[2024-03-11] MEDS: Piperacil/Tazobactam 3.375 GM in 0.9% Normal Saline (50mL MB+) 50 ML IV ×3 (05:25→21:07)
[2024-03-11] MEDS: 0.9% Saline Lock 10 ML Syringe IV ×2 (05:26→21:07)
[2024-03-11] MEDS: Heparin Injection (Vial) 5,000 UNIT/ML VIAL 5000 UNIT SC ×3 (05:26→21:09)
[2024-03-11 08:00] VITALS: BP 109/79; PULSE 83; RESP 14; TEMP 36.7; O2SAT 95
[2024-03-11] MEDS: Aspirin E.C. 81 MG Tablet PO (08:09)
[2024-03-11] MEDS: Midodrine HCl 5 MG Tablet 10 MG PO ×3 (08:10→16:38)
[2024-03-11] MEDS: Tamsulosin HCl 0.4 MG Capsule PO ×2 (08:10→19:07)
[2024-03-11 08:39] LABS: Bedside Glucose 136 mg/dL (74-106)
[2024-03-11 10:12] VITALS: BP 109/68; PULSE 84
[2024-03-11] MEDS: Metoprolol Tartrate 25 MG Tablet 12.5 MG PO ×2 (10:12→21:08)
[2024-03-11] MEDS: Clopidogrel Bisulfate 75 MG Tablet PO (10:13)
[2024-03-11] MEDS: Insulin Lispro 100 UNIT/ML INSULN.PEN SC ×3 (11:30→21:08)
[2024-03-11 11:50] LABS: Bedside Glucose 219 mg/dL (74-106)
--- NOTE | 2024-03-11 11:52 | PCM.PN.CARD ---
Subjective Subjective Denies any complaints. Feels better. Objective Data Vital Signs: Vital Signs Temp Pulse Resp BP Pulse Ox O2 Del Method O2 Flow Rate 98.1 F 84 14 109/68 95 Room Air 2 03/11/24 08:00 03/11/24 10:12 03/11/24 08:00 03/11/24 10:12 03/11/24 08:00 03/11/24 09:00 03/09/24 10:00 Oxygen Flow Rate (L/min) 2 Oxygen Delivery Method Room Air Weight: 209 lb 14.081 oz Body Mass Index (BMI) 27.8 Intake & Output: Intake and Output for Last 24 Hours 03/09/24 03/10/24 03/11/24 23:59 23:59 23:59 Intake Total 2527.84 / 2527.84 1303.75 / 1803.75 1600 / 1600 Output Total 4850 / 4850 3500 / 4500 2900 / 2900 Balance -2322.16 / -2322.16 -2196.25 / -2696.25 -1300 / -1300 Lab / Micro Data 03/11/24 03:15 03/11/24 03:15 Labs: Laboratory Results - last 24 hr 03/10/24 11:34: POC Glucose 201 H 03/10/24 16:45: POC Glucose 226 H 03/10/24 20:53: POC Glucose 187 H 03/11/24 03:15: WBC 10.3, RBC 3.50 L, Hgb 10.2 L, Hct 29.7 L, MCV 84.9, MCH 29.1, MCHC 34.3, RDW Std Deviation 46.3 H, RDW Coeff of Jori 14.9 H, Plt Count 76 L, MPV 12.1 H, Immature Gran % (Auto) 0.900, Neut % (Auto) 82.6 H, Lymph % (Auto) 7.1 L, [place] % (Auto) 7.8, Eos % (Auto) 1.1, Baso % (Auto) 0.5, Absolute Neuts (auto) 8.5 H, Absolute Lymphs (auto) 0.73 L, Nucleated RBC % 0, Differential Comment SCANNED, Atypical Lymphocytes 1+, Toxic Granulation 2+, Platelet Estimate MOD DEC, Plt Morphology Comment LARGE, Sodium 136, Potassium 3.8, Chloride 108 H, Carbon Dioxide 21.0, Anion Gap 8, BUN 48 H, Creatinine 1.90 H, Estim Creat Clear Calc 40.88, Est GFR (MDRD) Af Amer 45 L, Est GFR (MDRD) Non-Af 37 L, BUN/Creatinine Ratio 25.3 H, Glucose 140 H, Calcium 7.7 L 03/11/24 08:00: POC Glucose 136 H 03/11/24 11:28: POC Glucose 219 H Micro: Microbiology 03/08/24 10:05 Blood Culture (Wb) - Right Forearm Blood Culture - Preliminary No growth in 48 hours. 03/08/24 13:09 Urine, Clean Catch Urine Culture - Final Gram negative karolyn Rhythm Strip Rhythm Strip: Sinus Tach Rate: 120 Cardiology Labs/Tests 03/11/24 03:15: WBC 10.3, RBC 3.50 L, Hgb 10.2 L, Hct 29.7 L, MCV 84.9, MCH 29.1, MCHC 34.3, Plt Count 76 L, MPV 12.1 H, Immature Gran % (Auto) 0.900, Neut % (Auto) 82.6 H, Lymph % (Auto) 7.1 L, [place] % (Auto) 7.8, Eos % (Auto) 1.1, Baso % (Auto) 0.5, Absolute Neuts (auto) 8.5 H, Nucleated RBC % 0, Sodium 136, Potassium 3.8, Chloride 108 H, Carbon Dioxide 21.0, Anion Gap 8, BUN 48 H, Creatinine 1.90 H, Est GFR (MDRD) Af Amer 45 L, Est GFR (MDRD) Non-Af 37 L, BUN/Creatinine Ratio 25.3 H, Glucose 140 H, Calcium 7.7 L Rhythm: EKG: ECHO: Stress Test: Cardiac Cath: PCI: CT Surgery: Holter monitor: EPS: PPM: CXR: Chest CT Scan: Physical Exam Narrative Comfortable. No apparent distress. Heart sounds 1 and 2 normal. Chest clear to auscultation bilaterally. Trace bilateral ankle edema. Assessment & Plan Assessment/Plan (1) NSTEMI (non-ST elevated myocardial infarction): PLAN: Most likely type II. Continue aspirin and Plavix. (2) Cardiomyopathy: PLAN: LVEF 35 to 40% noted on echocardiogram. Continue low-dose metoprolol. Resume empagliflozin. No ACEI/ARB for now in view of acute kidney injury. (3) History of coronary artery disease: PLAN: History of inferior infarct. History of stent to the RCA. See #1 above. For further workup as outpatient. (4) Septic shock: PLAN: Resolved. (5) Pyelonephritis: PLAN: As per urology/internal medicine. (6) RICARDA (acute kidney injury): PLAN: Continue to monitor creatinine. PLAN: Plan Patient counseled to have cardiology follow-up as outpatient. He will need ischemic workup including a stress test as outpatient. No further cardiac input at this moment in time. Will sign off. Please call if needed.
[2024-03-11 16:00] VITALS: BP 110/65; PULSE 67; RESP 16; TEMP 36.7; O2SAT 98
[2024-03-11 17:00] LABS: Bedside Glucose 188 mg/dL (74-106)
--- NOTE | 2024-03-11 18:05 | PCM.PN.HOSP ---
Reason for Visit Reason for Visit: General malaise Subjective Subjective Patient states he is feeling very well. Anxious to go home. I did discuss with him that he will likely be able to go tomorrow. He is excited about that possibility. Will need outpatient follow-up with urology and cardiology after discharge and he is aware. Objective Data Objective Data Vital Signs: Vital Signs Temp Pulse Resp BP Pulse Ox O2 Del Method O2 Flow Rate 98.0 F 67 16 110/65 98 Room Air 2 03/11/24 16:00 03/11/24 16:00 03/11/24 16:00 03/11/24 16:00 03/11/24 16:00 03/11/24 16:00 03/09/24 10:00 Oxygen Flow Rate (L/min) 2 Oxygen Delivery Method Room Air Weight: 95.2 kg Body Mass Index (BMI) 27.8 Intake & Output: Intake and Output for Last 24 Hours 03/09/24 03/10/24 03/11/24 23:59 23:59 23:59 Intake Total 2527.84 / 2527.84 1303.75 / 1803.75 2100 / 2100 Output Total 4850 / 4850 3500 / 4500 3650 / 3650 Balance -2322.16 / -2322.16 -2196.25 / -2696.25 -1550 / -1550 Lab / Micro Data 03/11/24 03:15 03/11/24 03:15 Labs: Laboratory Results - last 24 hr 03/10/24 20:53: POC Glucose 187 H 03/11/24 03:15: WBC 10.3, RBC 3.50 L, Hgb 10.2 L, Hct 29.7 L, MCV 84.9, MCH 29.1, MCHC 34.3, RDW Std Deviation 46.3 H, RDW Coeff of Jori 14.9 H, Plt Count 76 L, MPV 12.1 H, Immature Gran % (Auto) 0.900, Neut % (Auto) 82.6 H, Lymph % (Auto) 7.1 L, [place] % (Auto) 7.8, Eos % (Auto) 1.1, Baso % (Auto) 0.5, Absolute Neuts (auto) 8.5 H, Absolute Lymphs (auto) 0.73 L, Nucleated RBC % 0, Differential Comment SCANNED, Atypical Lymphocytes 1+, Toxic Granulation 2+, Platelet Estimate MOD DEC, Plt Morphology Comment LARGE, Sodium 136, Potassium 3.8, Chloride 108 H, Carbon Dioxide 21.0, Anion Gap 8, BUN 48 H, Creatinine 1.90 H, Estim Creat Clear Calc 40.88, Est GFR (MDRD) Af Amer 45 L, Est GFR (MDRD) Non-Af 37 L, BUN/Creatinine Ratio 25.3 H, Glucose 140 H, Calcium 7.7 L 03/11/24 08:00: POC Glucose 136 H 03/11/24 11:28: POC Glucose 219 H 03/11/24 16:37: POC Glucose 188 H Micro: Microbiology 03/08/24 10:05 Blood Culture (Wb) - Right Forearm Blood Culture - Preliminary No growth in 48 hours. 03/08/24 13:09 Urine, Clean Catch Urine Culture - Final Gram negative karolyn 03/08/24 12:35 Stool Clostridioides difficile (PCR) - Final 03/08/24 10:06 Mucosa - Nose SARS-CoV-2, Influenza & RSV (PCR) - Final Rhythm Strip Rhythm Strip: Sinus Tach Rate: 120 Physical Exam Const alert, oriented x3, no apparent distress and well nourished; Negative for average body habitus Constitutional Narrative: Overweight, very pleasant, older, white male, sitting up in bed, at bedside, parent patient appears comfortable, nontoxic, friend at bedside General Appearance: cooperative HEENT normocephalic, head/scalp atraumatic, hearing grossly normal bilaterally and moist oral mucous membranes HEENT Narrative: Mallampati 3, no thrush Resp normal respiratory effort, normal air movement, no retractions, no use of accessory muscles and clear to auscultation bilaterally Auscultation: Negative for rales, rhonchi or wheezes Cardio regular rate, regular rhythm, S1 normal heart sound, S2 normal heart sound, no murmurs, no rub, no gallops and no clicks GI normal to inspection, nondistended, normoactive bowel sounds, soft to palpation and non-tender Extremity no clubbing, cyanosis or edema Extremity Narrative: Pedal and radial pulses are 2+ Neuro oriented x3, moves all extremities and no focal motor deficits Speech: speech normal Motor Exam: strength 5/5 throughout Psych affect normal Psych Narrative: Very pleasant, interacts appropriately Assessment & Plan Assessment/Plan (1) Septic shock: (2) NSTEMI (non-ST elevated myocardial infarction): (3) Pyelonephritis: (4) RICARDA (acute kidney injury): PLAN: Plan Septic shock secondary to acute pyelonephritis with gram-negative urinary tract infection -Blood cultures are negative x 48 hours -Urine culture shows gram-negative karolyn -Calorie counts are less than 1000 however with his presentation I will treat him as a complicated UTI at discharge -Continue IV Zosyn--> will likely discharge with oral Augmentin to complete antibiotics -Okay to discontinue midodrine -Clinically improving -Admitted to urology and cystoscopy with right stent placement was performed on 03/08/2024 -Anticipate discharge tomorrow NSTEMI with history of CAD/cardiomyopathy -Type II suspected with demand ischemia secondary to the above -Patient with previous RCA stent in 2011 with subsequently normalized LV function -Echocardiogram showed an EF of 35 to 40% with generalized LV systolic dysfunction likely related to his sepsis, diastolic function was normal and bubble study was negative, mild mitral valve insufficiency was noted as well -Will need outpatient ischemic workup after discharge -Continue aspirin 81 mg daily -Continue atorvastatin 80 mg nightly -Continue Plavix 75 mg daily -Continue Jardiance 10 mg daily -If blood pressure and renal function continues to improve may be able to add low-dose lisinopril as well prior to discharge -Will make referral to cardiology at discharge for outpatient follow-up RICARDA -Baseline serum creatinine is unknown however on 02/13/2024 and 02/14/2024 it appears his serum creatinine was between 1.3 and 1.45 -This may be his baseline currently -Peak was 3.86 but trending down with a current serum creatinine at 1.9 and continues to improve slowly -Avoid nephrotoxins as able Toxic/metabolic encephalopathy -Resolved Thrombocytopenia -Seems to now be stabilizing -Anticipate related to sepsis plus/minus Zosyn Leukocytosis - resolved DM-2 -Home oral agents on hold -Continue SSI -Fasting a.m. 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
--- NOTE | 2024-03-11 18:44 | NURSING ---
pt admitting to nurse that feels like is only peeing smaller amts and 5sec after i go feels like i could go some more but cant bladder scanned for 535. dr. olivas text
[2024-03-11 21:05] VITALS: BP 127/62; PULSE 69; RESP 16; TEMP 36.2; O2SAT 97
[2024-03-11 21:08] VITALS: BP 127/62; PULSE 69
[2024-03-11] MEDS: Atorvastatin Calcium 80 MG Tablet PO (21:08)
[2024-03-11 21:48] LABS: Bedside Glucose 187 mg/dL (74-106)
[2024-03-12 03:13] VITALS: BP 110/55; PULSE 70; RESP 16; TEMP 36.4; O2SAT 97
[2024-03-12 05:35] VITALS: BMI 27.5
--- NOTE | 2024-03-12 05:50 | NURSING ---
pt had to be straight cathed on 03/11, during the night patient voided 1800 but stated he still felt like he wasnt emptying, this nurse bladder scanned patient for 469, continuing voiding trials
[2024-03-12] MEDS: Heparin Injection (Vial) 5,000 UNIT/ML VIAL 5000 UNIT SC (06:24)
[2024-03-12] MEDS: Piperacil/Tazobactam 3.375 GM in 0.9% Normal Saline (50mL MB+) 50 ML IV (06:24)
[2024-03-12 06:25] LABS: Absolute Lymphocyte Count 1.55 X10^3/uL (0.83-4.51); Absolute Neutrophil Count 9.9 X10^3/uL (2.0-7.7); Basophil# 0.07 X10^3/uL; Basophil% 0.6 % (0-1); Eosinophil# 0.17 X10^3/uL; Eosinophils% 1.4 % (0-5); Hematocrit 34.4 % (40-54); Hemoglobin 11.4 g/dL (13.0-16.5); Lymphocyte # 1.55 X10^3/ul (0.83-4.51); Lymphocyte % 12.4 % (19-41); Mean Corp Hgb Conc 33.1 g/dL (32-36); Mean Corpuscular Hgb 28.4 pg (27.0-32.0); Mean Corpuscular Volume 85.8 fL (80-94); Mean Platelet Vol. 12.9 fl (6.2-12.0); Monocyte# 0.63 X10^3/uL; Monocyte% 5.1 % (0-10); NRBC Flagged by Analyzer 0 % (0-5); Neutrophil # 9.86 X10^3/uL (2.7-7.7); Neutrophil % 79.1 % (47-70); POSITIVE MORPHOLOGY YES; Platelet Count 110 K/mm3 (150-450); RBC Distribution Width CV 14.7 % (11.6-14.6); RBC Distribution Width SD 46.6 fl (35.1-43.9); Red Blood Count 4.01 M/mm3 (4.6-6.2); White Blood Count 12.5 K/mm3 (4.4-11.0)
[2024-03-12] MEDS: Insulin Lispro 100 UNIT/ML INSULN.PEN SC ×2 (06:26→11:36)
[2024-03-12 06:42] LABS: Anion Gap 7 (5-15); BUN 43 mg/dL (7-18); BUN/Creat Ratio 26.9 RATIO (10-20); Chloride 108 mmol/L (98-107); EST Glomerular Filtration Rate 46 mL/min (>60); Est Glom Filt Rate - Afr Amer 55 mL/min (>60); Estimated Creatinine Clearance 48.55 ml/min; Glucose 168 mg/dL (74-106); Potassium 3.9 mmol/L (3.5-5.1); Sodium Level 137 mmol/L (136-145)
[2024-03-12 06:46] LABS: Bedside Glucose 156 mg/dL (74-106)
[2024-03-12 07:06] LABS: Differential Indicated SCAN CRITERIA MET
--- NOTE | 2024-03-12 07:40 | PCM.CONS.B ---
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 Will get him set up for surgery as an outpatient for a repair of the UPJ stricture.
[2024-03-12 08:28] LABS: Differential Comment SCANNED; Reactive Lymphocyte 1+
[2024-03-12 09:00] VITALS: BP 120/50; PULSE 78; RESP 16; TEMP 36.4; O2SAT 98
[2024-03-12 09:09] VITALS: BP 120/50; PULSE 78
[2024-03-12] MEDS: Metoprolol Tartrate 25 MG Tablet 12.5 MG PO (09:09)
[2024-03-12] MEDS: Empagliflozin 10 MG Tablet PO (09:09)
[2024-03-12] MEDS: Clopidogrel Bisulfate 75 MG Tablet PO (09:09)
[2024-03-12] MEDS: Tamsulosin HCl 0.4 MG Capsule 0.8 MG PO (09:09)
[2024-03-12] MEDS: Finasteride 5 MG Tablet PO (09:09)
[2024-03-12] MEDS: Aspirin E.C. 81 MG Tablet PO (09:11)
--- NOTE | 2024-03-12 10:05 | CASEMGMT ---
JOY OSBORN Readmission Note Previous Admission: 02/13/24-02/14/24 Diagnosis:UVJ obstruction DC Disposition: Home Current Admission: Admitted 03/08/24 Current Diagnosis: ureteral stent Pt presented on index admission with UVJ obstruction. Pt had cysto with R stent placement, no stones. Pt dc'd [facility]. Pt had stent removed on 03/03 and had felt unwell since. Pt was septic with UTI. Pt had emergent stent placement and will plan on OR as an outpt for repair of stricture. Pt subsequently had NSTEMI due to demand ischemia. JOY OSBORN into pt room. Pt is very anxious to dc this date. Pt states his strength is fine and he does not want any therapy. Pt states as soon as he dc's he will call and make f/u appt with and also cardiology. [facility] but did follow with Dr. Osullivan. He reports he did take his medications as ordered since last hospital stay. Pt states he has DM supplies. Pt denies any homegoing needs at this time. DC Plan: Home
--- NOTE | 2024-03-12 11:40 | DS.PCM_ITS ---
Providers Date of Admission: 03/08/24 Date of Discharge: 03/12/24 Primary Care Physician: [place] [facility] Consultations 03/08/24 16:18 Consult: Urology Routine Consulting Provider: Polo Osullivan Reason for Consult: hydronephrosis EMERGENT Consult: No Notified: Yes Date Notified: 03/08/24 Time Notified: 15:03 Method of Notification: ED Physician Initiated 03/08/24 18:21 Consult: Escort Car Driver / Pulmonary Medicine Routine Consulting Provider: Intensivists/Pulmonary Med Reason for Consult: septic shock EMERGENT Consult: No MD Notified: Yes Date Notified: 03/08/24 Time Notified: 18:22 Method of Notification: Text 03/09/24 09:54 Consult: Cardiology Routine Consulting Provider: [place] Corona Reason for Consult: type 2 nonstemi EMERGENT Consult: No Notified: Yes Date Notified: 03/09/24 Time Notified: 09:55 Method of Notification: Verbal Reason For Visit: URETHRAL STENT Diagnosis Discharge Diagnosis (1) Septic shock: Status: Acute Code(s): A41.9 - Sepsis, unspecified organism; R65.21 - Severe sepsis with septic shock (2) NSTEMI (non-ST elevated myocardial infarction): Status: Acute Code(s): I21.4 - Non-ST elevation (NSTEMI) myocardial infarction (3) Pyelonephritis: Status: Acute Code(s): N12 - Tubulo-interstitial nephritis, not specified as acute or chronic (4) RICARDA (acute kidney injury): Status: Acute Code(s): N17.9 - Acute kidney failure, unspecified Medications at Discharge Home Medications atorvastatin 80 mg tablet 80 mg PO QHS cholesterol 12/19/19 glipizide 10 mg tablet 15 mg PO BIDAC diabetes 12/19/19 krill oil 350 mg-om-3 90 mg-dha 24 mg-epa 50 mg-phospholipids capsule 1 ea PO DAILY supplement 12/19/19 lisinopril 5 mg tablet 5 mg PO DAILY 12/19/19 metformin 1,000 mg tablet 1,000 mg PO BID diabetes 12/19/19 metoprolol tartrate 25 mg tablet 12.5 mg PO BID heart 12/19/19 lxemfylrlnsu-pie-mpkvr acid-vit K-lycop 400 mcg-20 mcg-370 mcg tablet 1 ea PO DAILY vitamin 12/19/19 acetaminophen 500 mg tablet 1,000 mg (2 x 500 mg) PO Q8 #90 tabs 12/30/19 aspirin 81 mg tablet,delayed release 81 mg PO DAILY heart ##60 12/30/19 empagliflozin 25 mg tablet 25 mg PO DAILY 02/13/24 rosuvastatin 40 mg tablet (Crestor) 40 mg PO DAILY 02/13/24 sitagliptin 100 mg tablet 100 mg PO DAILY 02/13/24 amoxicillin 875 mg-potassium clavulanate 125 mg tablet 1 tab PO BID #13 tabs 03/12/24 clopidogrel 75 mg tablet 75 mg PO DAILY #30 tabs 03/12/24 finasteride 5 mg tablet 5 mg PO QHS bph #30 tabs 03/12/24 tamsulosin 0.4 mg capsule 0.8 mg (2 x 0.4 mg) PO DAILY@0830 #60 caps 03/12/24 Hospital Course Operations - (Cystoscopy and right stent placement) Procedures 2-D Echocardiogram, EKG and - (CT abdomen and pelvis/chest x-ray) Summary of Care Provided Minutes Spent on Discharge: 42 Hospital Course: Mr. Peters is a 69-year-old white male who presented to the emergency department at [facility] on 03/08/2024 with weakness and lethargy. The patient had a right ureteral stent placed 2 weeks prior to presentation and it was taken out on the Sunday prior to admission. Patient indicated he had felt unwell since the stent was removed and for the past 2 days prior to the admission he had not been able to pass any urine and felt very weak and lethargic. His p.o. intake was poor and he reported also some occasional diarrhea. He denied any specific fever or chills. Vital signs at the time of admission showed a blood pressure of 70/37, heart rate 104, respiratory was 24 and oxygen saturations were 95% on room air. He was afebrile with temperature 98.3. CBC showed a leukocytosis with a white count of 33.4 and thrombocytopenia with a platelet count of 104,000. INR was 1.3. BMP was markedly abnormal with a sodium of 129, bicarb of 17, anion gap of 17, serum creatinine 3.86 and his lactic acid was initially 6.9 and responded with downtrending with IV fluids and initiation of pressors. Urinalysis showed 3+ bacteria. He had mild transaminase elevation with an AST of 152 and an ALT of 127. CT of the abdomen pelvis showed moderate right hydronephrosis with distended extrarenal pelvis suggesting IP J obstruction with mild perinephritic and periureteral stranding and chronic prostatomegaly with mild surrounding inflammation suggestive of cystitis and prostatitis. He also had diffuse colonic wall thickening suggestive of mild pancolitis. He was given IV fluids with 30 cc/mL/kg body weight which his blood pressure was refractory and pressors were started in the emergency department with Levophed and vasopressin was added as well due to persistent hypotension. Cultures were sent and broad-spectrum antibiotics with vancomycin and Zosyn were started. Given his presentation, urology was notified and he was taken emergently to the OR for cystoscopy and right ureteral stent placement. 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 Overall plan from urology is repair of his UPJ stricture and recommended continuing Flomax and adding finasteride at the time of discharge with outpatient follow-up for ongoing surgical planning. His initial troponin was found to be 1842 and subsequent troponin had down trended. Given this an echocardiogram was performed given his troponin elevation which showed an EF of 35 to 40% with mild generalized LV systolic dysfunction and mild mitral valve insufficiency with mild focal posterior mitral annular calcification. Pulmonary critical care medicine and cardiology were consulted at the time of admission. With regards to his cardiac issues, he was placed on appropriate goal-directed therapy prior to discharge and asked to follow-up with cardiology for likely noninvasive testing. We are hoping that his EF suppression is related to his sepsis and this was demand ischemia due to his hypotension however further workup has been recommended by cardiology. He will be on aspirin and Plavix at the time of discharge and prescriptions were written. Infectious workup was overall unremarkable other than his urine culture did show gram-negative rods but CFU per mL was less than thousand. Given his presentation, suspected prostatitis and recent instrumentation he was treated aggressively and antibiotics were continued at the time of discharge to cover as equivocally as possible to the Zosyn he was on during his hospitalization and he will complete his course of antibiotics with Augmentin. He has 13 more doses at the time of discharge. C. difficile was obtained and found to be negative. Blood cultures were negative at 48 hours. Pressures were slowly able to be weaned and the patient stabilized. Clinically he felt much improved and once he was stable for 48 hours we were able to discharge him home on 03/12/2024. Prescriptions were written for new medications per discharge med reconciliation and a prescription for Augmentin to complete antibiotic treatment was written as well. These were all sent to his local pharmacy. He has been asked to call cardiology and set up an appointment to be seen in the next week or 2 as he may need cardiac clearance for any more surgical intervention for his prostate and/or UPJ stricture. He is also going to follow-up with Dr. Osullivan as previously discussed. Discharge diagnoses: Septic shock Acute pyelonephritis Prostatitis Colitis NSTEMI type II secondary to demand ischemia HFrEF RICARDA-resolving Toxic/metabolic encephalopathy Thrombocytopenia Leukocytosis DM-2 Essential hypertension Hyperlipidemia BPH with obstruction Physical Exam Const alert, oriented x3, no apparent distress, no limitations, healthy appearing and well nourished; Negative for average body habitus Constitutional Narrative: Overweight, very pleasant, older, white male, sitting up in bed, at bedside, parent patient appears comfortable, nontoxic, friend at bedside General Appearance: cooperative, comfortable, well kempt and well developed Exam Limitations: no limitations Nutritional Appearance: overweight HEENT normocephalic, head/scalp atraumatic, hearing grossly normal bilaterally and moist oral mucous membranes HEENT Narrative: Mallampati 3, no thrush Eyes PERRL, EOMs intact bilaterally and conjunctivae normal Eyes Narrative: No scleral icterus Neck no lymphadenopathy and supple Neck Narrative: Trachea midline, no thyroid enlargement noted Resp normal respiratory effort, normal air movement, no retractions, no use of accessory muscles and clear to auscultation bilaterally Auscultation: Negative for rales, rhonchi or wheezes Cardio regular rate, regular rhythm, S1 normal heart sound, S2 normal heart sound, no murmurs, no rub, no gallops and no clicks GI normal to inspection, nondistended, normoactive bowel sounds, soft to palpation and non-tender Extremity no clubbing, cyanosis or edema Extremity Narrative: Pedal and radial pulses are 2+ Skin skin turgor normal and no jaundice Neuro oriented x3, moves all extremities and no focal motor deficits Speech: speech normal Psych affect normal Psych Narrative: Very pleasant, interacts appropriately Appearance: appropriate Weight / BMI Weight Weight: 94.1 kg Body Mass Index (BMI) 27.5 ABG / Lab / Microbiology Data 03/12/24 05:33 03/12/24 05:33 Laboratory: Laboratory Results - last 24 hr 03/11/24 11:28: POC Glucose 219 H 03/11/24 16:37: POC Glucose 188 H 03/11/24 21:02: POC Glucose 187 H 03/12/24 05:33: WBC 12.5 H, RBC 4.01 L, Hgb 11.4 L, Hct 34.4 L, MCV 85.8, MCH 28.4, MCHC 33.1, RDW Std Deviation 46.6 H, RDW Coeff of Jori 14.7 H, Plt Count 110 L, MPV 12.9 H, Immature Gran % (Auto) 1.400 H, Neut % (Auto) 79.1 H, Lymph % (Auto) 12.4 L, [place] % (Auto) 5.1, Eos % (Auto) 1.4, Baso % (Auto) 0.6, Absolute Neuts (auto) 9.9 H, Absolute Lymphs (auto) 1.55, Nucleated RBC % 0, Differential Comment SCANNED, Reactive Lymphocytes 1+, Sodium 137, Potassium 3.9, Chloride 108 H, Carbon Dioxide 22.0, Anion Gap 7, BUN 43 H, Creatinine 1.60 H, Estim Creat Clear Calc 48.55, Est GFR (MDRD) Af Amer 55 L, Est GFR (MDRD) Non-Af 46 L, BUN/Creatinine Ratio 26.9 H, Glucose 168 H, Calcium 8.0 L 03/12/24 06:26: POC Glucose 156 H Microbiology: Microbiology 03/08/24 10:05 Blood Culture (Wb) - Right Forearm Blood Culture - Preliminary No growth in 48 hours. 03/08/24 13:09 Urine, Clean Catch Urine Culture - Final Gram negative karolyn 03/08/24 12:35 Stool Clostridioides difficile (PCR) - Final 03/08/24 10:06 Mucosa - Nose SARS-CoV-2, Influenza & RSV (PCR) - Final D/C Instructions Discharge Diet: Low fat / Low cholesterol and 2000 Calorie Control Diet Discharge Activity: Return to Normal Activity Meaningful Use Info Meaningful Use Meaningful Use Diagnoses (Choose all that apply): None applicable Ischemic Stroke Statin Dosing Therapy Reference: STATIN DOSE THERAPY REFERENCE: * Patients > 75 years receive moderate or high dose statin therapy. * Patients 75 years or YOUNGER should receive HIGH intensity statin dose unless contraindicated. You will be required to document reason for non-treatment if statin daily dose does not meet guidelines. HIGH DOSE STATIN THERAPY DAILY Atorvastatin > than or = to 40 mg Rosuvastatin > than or = to 20 mg Amlodipine + Atorvastatin > than or = to 2.5/40 mg Ezetimibe + Simvastatin 10/80 mg Simvastatin 80mg Discharge Plan Admission Admit Date/Time: 03/08/24 15:00 Primary Reason for Your Visit: General malaise Attending Provider: Mikaela Vora Primary Care Provider: [facility],[place] Consulting Providers: Mikaela Vora; [place] Corona; Ivan Panda; Emmanuel Torres; Lon Nails; Juan Francisco Painting; Rojelio Simpson; Tej Rosenberg; Maggie Irene; Elias Rose; Adonis Alford; Lubna Yeung; Annette French; Cyril Diaz; Lamonte Steen; Kelechi Bailey; Melchor Galindo; Nilson Waite; Abraham Bennett; Polo Osullivan Instructions Additional Instructions / Restrictions: 1. Please call us and set up outpatient appointment to be seen as soon as possible I suspect you will need cardiac clearance before surgery for your urological issues 2. Please complete entire course of antibiotics prescribed at the time of discharge 3. Continue all cardiac meds as ordered Discharge Orders/Prescriptions Prescriptions: New clopidogrel 75 mg Tablet 75 mg PO DAILY Qty: 30 1RF tamsulosin 0.4 mg Capsule 0.8 mg PO DAILY@0830 Qty: 60 0RF amoxicillin-pot clavulanate 875-125 mg tablet 1 tab PO BID Qty: 13 0RF Rx Instructions: take 1st dose pm 03/12/24 Continued atorvastatin 80 MG tablet 80 mg PO QHS glipizide 10 MG tablet 15 mg PO BIDAC metoprolol tartrate 25 MG tablet 12.5 mg PO BID aoyucsgn-aht-tagor-vit K-lycop 1 EACH tablet 1 ea PO DAILY [id number]-ixmdu-8-qlv-vib-oricjz 1 EACH capsule 1 ea PO DAILY acetaminophen 500 MG tablet 1,000 mg PO Q8 Qty: 90 0RF aspirin 81 MG tablet,delayed release (DR/EC) 81 mg PO DAILY Qty: 60 0RF sitagliptin 100 mg tablet 100 mg PO DAILY empagliflozin 25 mg tablet 25 mg PO DAILY rosuvastatin [Crestor] 40 mg tablet 40 mg PO DAILY finasteride 5 MG tablet 5 mg PO QHS Qty: 30 0RF Rx Instructions: Restart per urology Held metformin 1,000 MG tablet 1,000 mg PO BID Hold Instructions: Resume on 03/17/24. lisinopril 5 MG tablet 5 mg PO DAILY Hold Instructions: Resume on 03/19/24. Discontinued tamsulosin [Flomax] 0.4 mg capsule 0.4 mg PO DAILY Referrals / Follow Up: Jessica Ulloa MD [Med Staff - Active Staff] - In 1 Week (call later today or tomorrow to set up an appointment) Polo Osullivan MD [Med Staff - Active Staff] - See Referral Note (Per Dr. Osullivan's instructions) [facility] [Primary Care Provider[facility] - Disposition Disposition (needs filled in before D/C Order can be placed): Home, Self Care Charges/Coding Visit Charges Inpatient E&M: 98351 Disch Hosp >30min
[2024-03-12 11:46] LABS: Bedside Glucose 186 mg/dL (74-106)
== END 2024-03-12 12:52 | disposition home or self-care (01) | DRG 853 ==
LOC: ED 14:33 → SDC 14:35 → AC 14:37 → SDC 16:07 → ICU 16:07
PROVIDERS: Urology; Admitting Provider Student in an Organized Health Care Education/Training Program; Emergency Provider Surgery; Visit Provider Internal Medicine
PROC: 0T768DZ Dilation of Right Ureter with Intraluminal Device, Via Natural or Artificial Opening Endoscopic (ICD-10-PCS; principal; 2024-03-08 15:00)
DX: A41.50 Gram-negative sepsis, unspecified (principal); R65.21 Severe sepsis with septic shock; G92.8 Other toxic encephalopathy; I21.A1 Myocardial infarction type 2; E87.1 Hypo-osmolality and hyponatremia; N10 Acute pyelonephritis; I13.0 Hypertensive heart and chronic kidney disease with heart failure and stage 1 through stage 4 chronic kidney disease, or unspecified chronic kidney disease; I50.22 Chronic systolic (congestive) heart failure; N17.9 Acute kidney failure, unspecified; I42.9 Cardiomyopathy, unspecified; N13.8 Other obstructive and reflux uropathy; E11.22 Type 2 diabetes mellitus with diabetic chronic kidney disease; E87.6 Hypokalemia; N18.2 Chronic kidney disease, stage 2 (mild); I25.10 Atherosclerotic heart disease of native coronary artery without angina pectoris; E78.5 Hyperlipidemia, unspecified; Z79.4 Long term (current) use of insulin; I25.2 Old myocardial infarction; K52.9 Noninfective gastroenteritis and colitis, unspecified; N41.9 Inflammatory disease of prostate, unspecified; N40.1 Benign prostatic hyperplasia with lower urinary tract symptoms; R39.14 Feeling of incomplete bladder emptying; Z95.5 Presence of coronary angioplasty implant and graft; Z79.01 Long term (current) use of anticoagulants; Z79.82 Long term (current) use of aspirin; Z79.84 Long term (current) use of oral hypoglycemic drugs; Z79.899 Other long term (current) drug therapy
CPT/HCPCS: 36415; 51702; 71045; 74176; 76000; 80048; 80053; 80076; 81001; 82962; 83605; 84484; 85025; 85610; 85730; 87040; 87086; 87088; 87493; 87631; 93005; 93306; 97116; 97162; 97166; 99285; J7030; J7040; J7050; Q9957; A4216; C1751; C1769; C1874; C8929; J2405; J3490

== ENCOUNTER → 2024-03-26 | Outpatient (CLI) | payer MEDICARE, OTHER, SELFPAY ==
[2024-03-26 10:44] LABS: Anion Gap 7 (5-15); BUN 34 mg/dL (7-18); BUN/Creat Ratio 32.1 RATIO (10-20); Calcium,Total 9.2 mg/dL (8.5-10.1); Chloride 100 mmol/L (98-107); Creatinine, Serum 1.06 mg/dL (0.70-1.30); EST Glomerular Filtration Rate 73 mL/min (>60); Est Glom Filt Rate - Afr Amer 89 mL/min (>60); Glucose 131 mg/dL (74-106); Potassium 4.2 mmol/L (3.5-5.1); Sodium Level 133 mmol/L (136-145)
== END | disposition home or self-care (01) ==
LOC: LAB 09:54
PROVIDERS: Referring Provider Nurse Practitioner Gerontology; Visit Provider Nurse Practitioner Gerontology
DX: I42.9 Cardiomyopathy, unspecified (principal)
CPT/HCPCS: 36415; 80048

== ENCOUNTER → 2024-03-27 | Outpatient (CLI) | payer MEDICARE, OTHER, SELFPAY | END | disposition home or self-care (01) | LOC: CVS 06:00 | PROVIDERS: Referring Provider Nurse Practitioner Gerontology; Visit Provider Nurse Practitioner Gerontology | DX: I21.4 Non-ST elevation (NSTEMI) myocardial infarction (principal); Z86.79 Personal history of other diseases of the circulatory system | CPT/HCPCS: 78452; 93017; A9500; A4216 ==

== ENCOUNTER → 2024-04-08 | Outpatient (CLI) | payer MEDICARE, OTHER, SELFPAY | END | disposition home or self-care (01) | LOC: LABSPEC 15:39 | PROVIDERS: Referring Provider Urology; Visit Provider Urology | DX: R30.0 Dysuria (principal) | CPT/HCPCS: 87077; 87086; 87088; 87186 ==

== ENCOUNTER 2024-04-16 05:53 | Day surgery (SDC) | payer MEDICARE, OTHER, SELFPAY ==
[2024-04-08 09:31] LABS: Anion Gap 9 (5-15); BUN 30 mg/dL (7-18); BUN/Creat Ratio 26.5 RATIO (10-20); Calcium,Total 8.6 mg/dL (8.5-10.1); Chloride 97 mmol/L (98-107); Creatinine, Serum 1.13 mg/dL (0.70-1.30); EST Glomerular Filtration Rate 68 mL/min (>60); Est Glom Filt Rate - Afr Amer 83 mL/min (>60); Glucose 52 mg/dL (74-106); Potassium 3.6 mmol/L (3.5-5.1); Sodium Level 132 mmol/L (136-145)
[2024-04-16] VITALS (9 sets, daily range): BP systolic 112–154; BP diastolic 72–79; PULSE 80–109; RESP 16–18; TEMP 36.2–36.4; O2SAT 91–98; BMI 24.4
--- NOTE | 2024-04-16 06:44 | PRE.ANES_ITS ---
ASA Classification* ASA Classification ASA Classification: 3 Assessment & Plan Anesthesia* Anesthesia Assessment Anesthesia Assessment: Discussed sedation and/or anesthesia options, risks, benefits, and alternatives with patient/parents/legal guardian/POA. Questions invited. The patient/parents/legal guardian/POA seems to understand and agrees to proceed with anesthesia plan. Reviewed the physical assessment, medical history, allergy history and patient home medications list prior to surgery/procedure/anesthetic and documented any changes. Performed airway and anesthesia risk assessments. Anesthesia Type Anesthesia Type: General Anesthesia Focused Assessment* Temperature: 97.2 F Pulse Rate: 80 Blood Pressure: 112/72 Respiratory Rate: 16 Pulse Ox: 98 Airway Assessment Mouth opens: >3 cm Mallampati Score: II Focused Labs Anesthesia Preop lab: CBC WBC 12.5 K/mm3 (4.4-11.0) H 03/12/24 05:33 RBC 4.01 M/mm3 (4.6-6.2) L 03/12/24 05:33 Hgb 11.4 g/dL (13.0-16.5) L 03/12/24 05:33 Hct 34.4 % (40-54) L 03/12/24 05:33 Plt Count 110 K/mm3 (150-450) L 03/12/24 05:33 CHEMISTRY Potassium 3.6 mmol/L (3.5-5.1) 04/08/24 08:47 Sodium 132 mmol/L (136-145) L 04/08/24 08:47 Magnesium 1.8 mg/dL (1.6-2.6) 12/22/19 09:25 BUN 30 mg/dL (7-18) H 04/08/24 08:47 Creatinine 1.13 mg/dL (0.70-1.30) 04/08/24 08:47 Glucose 52 mg/dL (74-106) L 04/08/24 08:47 POC Glucose 186 mg/dL (74-106) H 03/12/24 11:18 COAG PT 16.0 SECONDS (11.7-14.9) H 03/08/24 09:35 Pre-Assessment Diagnosis/Proposed Procedure Planned Operative Procedure(s): LAP ROBOTIC RIGHT PYELOPLASTY Anesthesia History Anesthesia History - manager community relations: Anesthesia History - manager community relations Hx Hospitalization Yes: 02/2024 [facility] 04/03/24 09:49 Any Problems With Anesthesia No 04/03/24 09:49 Cholinesterase deficiency No 04/03/24 09:49 You/Your Family Experience No 04/03/24 09:49 fever (hyperthermia) with Relationship Recent Exposure to Contagious No 04/16/24 06:29 Disease Does patient have nerve No 04/03/24 09:49 stimulator Patient instructed to have device shut off --Does patient have Pacemaker No 04/16/24 06:29 or ICD? When Was Last Pacemaker Check QUESTION #4 FULL TEXT: You/Your Family Experience fever (hyperthermia) with Anesthesia Last Oral Intake Last Oral intake: Last Oral Intake NPO since 22:00 04/16/24 06:29 Meds taken in AM with sips of Yes 04/16/24 06:29 water? Meds patient instructed to metoprolol 04/16/24 06:29 take am of surgery PONV PONV - manager community relations: PONV - manager community relations Female No 04/03/24 09:49 HX of Motion Sickness No 04/03/24 09:49 HX of N/V After Surgery No 04/03/24 09:49 Non-Smoker Yes 04/03/24 09:49 Duration of Surgery greater Yes 04/03/24 09:49 than 60 minutes Number of Risk Factors 2 04/03/24 09:49 PONV Score Moderate Risk 04/03/24 09:49 Height & Weight Height & Weight: Anesthesia: Height & Weight Height 6 ft 1 in 04/16/24 06:29 Weight: 84 kg 04/16/24 06:29 Body Mass Index (BMI) 24.4 04/16/24 06:29 Respiratory Assessment Respiratory Assessment - manager community relations: Respiratory Tract Infection Hx - manager community relations Hx Respiratory Tract Infection No 04/03/24 09:49 STOP Sleep Apnea STOP Sleep Apnea - manager community relations: STOP Sleep Apnea - manager community relations Hx Hypertension Yes: CONTROLLED 04/03/24 09:49 Hx Sleep Apnea No 04/03/24 09:49 CPAP BIPAP Do you snore loudly (louder Yes 04/03/24 09:49 than talking or can be heard Do you often feel tired/ No 04/03/24 09:49 fatigued/ sleepy during daytime? Has anyone observed you stop No 04/03/24 09:49 breathing during sleep? STOP Results Positive 04/03/24 09:49 QUESTION #5 FULL TEXT : Do you snore loudly (louder than talking or can be heard through closed doors)? 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 Specify any problems Hx of Preganancy in last 3 N/A 04/03/24 09:49 Months Nurse Filling Out Transfusion DSCHRIBER 04/03/24 09:49 & Questions: Date: 04/03/24 04/03/24 09:49 Time: 09:51 04/03/24 09:49 Patient unable to answer at this time (ie. confused, unrespo /Reproduction History /Reproductive History - manager community relations: /Reproductive Hx- manager community relations Hx Now No 04/03/24 09:49 Gestational Age (in weeks): EDC: Hx Hx Para Hx Section SAB No 04/03/24 09:49 Active Medications Active Medications: Current Medications Generic Name Dose Route Start Last Admin Trade Name Freq PRN Reason Stop Dose Admin Cefazolin Sodium 2 gm/ N/A 20 mls @ 400 mls/hr 04/16/24 07:30 IV 04/16/24 07:32 PREOP ONE Lactated Ringer's 1,000 mls @ 15 mls/hr 04/16/24 06:45 IV 04/21/24 20:04 .Q48H [facility] Protocol PFSH Medical History Septic shock Wears glasses Cancer History of renal disease Prostate disease DVT (deep venous thrombosis) High cholesterol Injury of back Syncope Dietary restriction History of echocardiogram History of stress test Non-smoker Atherosclerotic heart disease of [place] coronary artery without angina pectoris History of ST elevation myocardial infarction (STEMI) (~04/2012) Cardiomyopathy NSTEMI (non-ST elevated myocardial infarction) Pyelonephritis Heart attack Diabetes Coronary artery disease Hypertension History of coronary artery disease History of hypertension History of type 2 diabetes mellitus Home Medications ?Medication ?Instructions ?Recorded ?Last Taken ?Type metformin 1,000 mg tablet 1,000 mg PO BID diabetes 12/19/19 04/15/24 History metoprolol tartrate 25 mg tablet 12.5 mg PO BID heart 12/19/19 04/16/24 History aspirin 81 mg tablet,delayed 81 mg PO DAILY heart ##60 12/30/19 04/05/24 Rx release empagliflozin 25 mg tablet 25 mg PO DAILY 02/13/24 04/14/24 History sitagliptin 100 mg tablet 100 mg PO DAILY 02/13/24 04/15/24 History clopidogrel 75 mg tablet 75 mg PO DAILY #30 tabs 03/12/24 04/05/24 Rx finasteride 5 mg tablet 5 mg PO QHS bph #30 tabs 03/12/24 04/14/24 Rx tamsulosin 0.4 mg capsule 0.8 mg (2 x 0.4 mg) PO DAILY@0830 03/12/24 04/15/24 Rx #60 caps phenazopyridine 100 mg tablet 100 mg PO Q8H 04/03/24 Unknown History (Pyridium) rosuvastatin 5 mg tablet (Crestor) 5 mg PO QHS 04/03/24 04/15/24 History Allergy/AdvReac Type Severity Reaction Status Date / Time celecoxib (From Celebrex) Allergy Rash Verified 04/16/24 06:23 etodolac Allergy Rash Verified 04/16/24 06:23 terbinafine AdvReac Rash Verified 04/16/24 06:23 Surgical History Hx of colonoscopy Hx of tonsillectomy Hx of cystoscopy Hx of total knee arthroplasty Stented coronary artery (~04/2012) H/O right heart catheterization Social History household members: spouse housing: house Smoking Status: Never smoker substance use type: does not use Review of Systems (Anesthesia) ROS Narrative System reviewed and no additional complaints, except as documented.
--- NOTE | 2024-04-16 06:44 | PRE.ANES_ITS ---
ASA Classification* ASA Classification ASA Classification: 3 Assessment & Plan Anesthesia* Anesthesia Assessment Anesthesia Assessment: Discussed sedation and/or anesthesia options, risks, benefits, and alternatives with patient/parents/legal guardian/POA. Questions invited. The patient/parents/legal guardian/POA seems to understand and agrees to proceed with anesthesia plan. Reviewed the physical assessment, medical history, allergy history and patient home medications list prior to surgery/procedure/anesthetic and documented any changes. Performed airway and anesthesia risk assessments. Anesthesia Type Anesthesia Type: General Anesthesia Focused Assessment* Temperature: 97.2 F Pulse Rate: 80 Blood Pressure: 112/72 Respiratory Rate: 16 Pulse Ox: 98 Airway Assessment Mouth opens: >3 cm Mallampati Score: II Focused Labs Anesthesia Preop lab: CBC WBC 12.5 K/mm3 (4.4-11.0) H 03/12/24 05:33 RBC 4.01 M/mm3 (4.6-6.2) L 03/12/24 05:33 Hgb 11.4 g/dL (13.0-16.5) L 03/12/24 05:33 Hct 34.4 % (40-54) L 03/12/24 05:33 Plt Count 110 K/mm3 (150-450) L 03/12/24 05:33 CHEMISTRY Potassium 3.6 mmol/L (3.5-5.1) 04/08/24 08:47 Sodium 132 mmol/L (136-145) L 04/08/24 08:47 Magnesium 1.8 mg/dL (1.6-2.6) 12/22/19 09:25 BUN 30 mg/dL (7-18) H 04/08/24 08:47 Creatinine 1.13 mg/dL (0.70-1.30) 04/08/24 08:47 Glucose 52 mg/dL (74-106) L 04/08/24 08:47 POC Glucose 186 mg/dL (74-106) H 03/12/24 11:18 COAG PT 16.0 SECONDS (11.7-14.9) H 03/08/24 09:35 Pre-Assessment Diagnosis/Proposed Procedure Planned Operative Procedure(s): LAP ROBOTIC RIGHT PYELOPLASTY Anesthesia History Anesthesia History - him assistant: Anesthesia History - him assistant Hx Hospitalization Yes: 02/2024 [facility] 04/03/24 09:49 Any Problems With Anesthesia No 04/03/24 09:49 Cholinesterase deficiency No 04/03/24 09:49 You/Your Family Experience No 04/03/24 09:49 fever (hyperthermia) with Relationship Recent Exposure to Contagious No 04/16/24 06:29 Disease Does patient have nerve No 04/03/24 09:49 stimulator Patient instructed to have device shut off --Does patient have Pacemaker No 04/16/24 06:29 or ICD? When Was Last Pacemaker Check QUESTION #4 FULL TEXT: You/Your Family Experience fever (hyperthermia) with Anesthesia Last Oral Intake Last Oral intake: Last Oral Intake NPO since 22:00 04/16/24 06:29 Meds taken in AM with sips of Yes 04/16/24 06:29 water? Meds patient instructed to metoprolol 04/16/24 06:29 take am of surgery PONV PONV - him assistant: PONV - him assistant Female No 04/03/24 09:49 HX of Motion Sickness No 04/03/24 09:49 HX of N/V After Surgery No 04/03/24 09:49 Non-Smoker Yes 04/03/24 09:49 Duration of Surgery greater Yes 04/03/24 09:49 than 60 minutes Number of Risk Factors 2 04/03/24 09:49 PONV Score Moderate Risk 04/03/24 09:49 Height & Weight Height & Weight: Anesthesia: Height & Weight Height 6 ft 1 in 04/16/24 06:29 Weight: 84 kg 04/16/24 06:29 Body Mass Index (BMI) 24.4 04/16/24 06:29 Respiratory Assessment Respiratory Assessment - him assistant: Respiratory Tract Infection Hx - him assistant Hx Respiratory Tract Infection No 04/03/24 09:49 STOP Sleep Apnea STOP Sleep Apnea - him assistant: STOP Sleep Apnea - him assistant Hx Hypertension Yes: CONTROLLED 04/03/24 09:49 Hx Sleep Apnea No 04/03/24 09:49 CPAP BIPAP Do you snore loudly (louder Yes 04/03/24 09:49 than talking or can be heard Do you often feel tired/ No 04/03/24 09:49 fatigued/ sleepy during daytime? Has anyone observed you stop No 04/03/24 09:49 breathing during sleep? STOP Results Positive 04/03/24 09:49 QUESTION #5 FULL TEXT : Do you snore loudly (louder than talking or can be heard through closed doors)? 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 Specify any problems Hx of Preganancy in last 3 N/A 04/03/24 09:49 Months Nurse Filling Out Transfusion DSCHRIBER 04/03/24 09:49 & Questions: Date: 04/03/24 04/03/24 09:49 Time: 09:51 04/03/24 09:49 Patient unable to answer at this time (ie. confused, unrespo /Reproduction History /Reproductive History - him assistant: /Reproductive Hx- him assistant Hx Now No 04/03/24 09:49 Gestational Age (in weeks): EDC: Hx Hx Para Hx Section SAB No 04/03/24 09:49 Active Medications Active Medications: Current Medications Generic Name Dose Route Start Last Admin Trade Name Freq PRN Reason Stop Dose Admin Cefazolin Sodium 2 gm/ N/A 20 mls @ 400 mls/hr 04/16/24 07:30 IV 04/16/24 07:32 PREOP ONE Lactated Ringer's 1,000 mls @ 15 mls/hr 04/16/24 06:45 IV 04/21/24 20:04 .Q48H [facility] Protocol PFSH Medical History Septic shock Wears glasses Cancer History of renal disease Prostate disease DVT (deep venous thrombosis) High cholesterol Injury of back Syncope Dietary restriction History of echocardiogram History of stress test Non-smoker Atherosclerotic heart disease of [place] coronary artery without angina pectoris History of ST elevation myocardial infarction (STEMI) (~04/2012) Cardiomyopathy NSTEMI (non-ST elevated myocardial infarction) Pyelonephritis Heart attack Diabetes Coronary artery disease Hypertension History of coronary artery disease History of hypertension History of type 2 diabetes mellitus Home Medications ?Medication ?Instructions ?Recorded ?Last Taken ?Type metformin 1,000 mg tablet 1,000 mg PO BID diabetes 12/19/19 04/15/24 History metoprolol tartrate 25 mg tablet 12.5 mg PO BID heart 12/19/19 04/16/24 History aspirin 81 mg tablet,delayed 81 mg PO DAILY heart ##60 12/30/19 04/05/24 Rx release empagliflozin 25 mg tablet 25 mg PO DAILY 02/13/24 04/14/24 History sitagliptin 100 mg tablet 100 mg PO DAILY 02/13/24 04/15/24 History clopidogrel 75 mg tablet 75 mg PO DAILY #30 tabs 03/12/24 04/05/24 Rx finasteride 5 mg tablet 5 mg PO QHS bph #30 tabs 03/12/24 04/14/24 Rx tamsulosin 0.4 mg capsule 0.8 mg (2 x 0.4 mg) PO DAILY@0830 03/12/24 04/15/24 Rx #60 caps phenazopyridine 100 mg tablet 100 mg PO Q8H 04/03/24 Unknown History (Pyridium) rosuvastatin 5 mg tablet (Crestor) 5 mg PO QHS 04/03/24 04/15/24 History Allergy/AdvReac Type Severity Reaction Status Date / Time celecoxib (From Celebrex) Allergy Rash Verified 04/16/24 06:23 etodolac Allergy Rash Verified 04/16/24 06:23 terbinafine AdvReac Rash Verified 04/16/24 06:23 Surgical History Hx of colonoscopy Hx of tonsillectomy Hx of cystoscopy Hx of total knee arthroplasty Stented coronary artery (~04/2012) H/O right heart catheterization Social History household members: spouse housing: house Smoking Status: Never smoker substance use type: does not use Review of Systems (Anesthesia) ROS Narrative System reviewed and no additional complaints, except as documented.
[2024-04-16] MEDS: Lactated Ringers 1,000 ML 15 ML IV (06:45)
[2024-04-16] MEDS: Cefazolin 2 GM in Syringe IV (07:24)
--- NOTE | 2024-04-16 07:25 | HP.PCM_ITS ---
HPI - General General Date of Service: 04/16/24 HPI Narrative LAUREN THOMAS, is a 69 M who presents for a right UPJ repair for ureteropelvic junction obstruction [facility] Medical History Septic shock Wears glasses Cancer History of renal disease Prostate disease DVT (deep venous thrombosis) High cholesterol Injury of back Syncope Dietary restriction History of echocardiogram History of stress test Non-smoker Atherosclerotic heart disease of [place] coronary artery without angina pectoris History of ST elevation myocardial infarction (STEMI) (~04/2012) Cardiomyopathy NSTEMI (non-ST elevated myocardial infarction) Pyelonephritis Heart attack Diabetes Coronary artery disease Hypertension History of coronary artery disease History of hypertension History of type 2 diabetes mellitus Home Medications ?Medication ?Instructions ?Recorded ?Last Taken ?Type metformin 1,000 mg tablet 1,000 mg PO BID diabetes 12/19/19 04/15/24 History metoprolol tartrate 25 mg tablet 12.5 mg PO BID heart 12/19/19 04/16/24 History aspirin 81 mg tablet,delayed 81 mg PO DAILY heart ##60 12/30/19 04/05/24 Rx release empagliflozin 25 mg tablet 25 mg PO DAILY 02/13/24 04/14/24 History sitagliptin 100 mg tablet 100 mg PO DAILY 02/13/24 04/15/24 History clopidogrel 75 mg tablet 75 mg PO DAILY #30 tabs 03/12/24 04/05/24 Rx finasteride 5 mg tablet 5 mg PO QHS bph #30 tabs 03/12/24 04/14/24 Rx tamsulosin 0.4 mg capsule 0.8 mg (2 x 0.4 mg) PO DAILY@0830 03/12/24 04/15/24 Rx #60 caps phenazopyridine 100 mg tablet 100 mg PO Q8H 04/03/24 Unknown History (Pyridium) rosuvastatin 5 mg tablet (Crestor) 5 mg PO QHS 04/03/24 04/15/24 History ciprofloxacin HCl 500 mg tablet 500 mg PO BID #14 tabs 04/16/24 Unknown Rx (Cipro) docusate sodium 100 mg capsule 100 mg PO BID #20 caps 04/16/24 Unknown Rx (Colace) oxycodone 5 mg tablet 5 mg PO Q6H PRN pain 3 days #14 04/16/24 Unknown Rx tabs Allergy/AdvReac Type Severity Reaction Status Date / Time celecoxib (From Celebrex) Allergy Rash Verified 04/16/24 06:23 etodolac Allergy Rash Verified 04/16/24 06:23 terbinafine AdvReac Rash Verified 04/16/24 06:23 Surgical History Hx of colonoscopy Hx of tonsillectomy Hx of cystoscopy Hx of total knee arthroplasty Stented coronary artery (~04/2012) H/O right heart catheterization Social History household members: spouse housing: house Smoking Status: Never smoker substance use type: does not use Vital Signs Vital Signs Vital Signs: 04/16/24 06:29 04/16/24 06:29 04/16/24 06:44 Temperature 97.2 F L 97.2 F L Temperature Source Temporal Pulse Rate 80 80 Respiratory Rate 16 16 Respiratory Pattern Normal Blood Pressure 112/72 112/72 Blood Pressure Mean 85 Blood Pressure Source Monitor Blood Pressure Position Semi-Fowlers Blood Pressure Location Right Arm Pulse Ox 98 98 Oxygen Delivery Method Room Air Weight Weight: 84 kg Body Mass Index (BMI) 24.4 Results Lab / Micro Data 04/08/24 08:47
--- NOTE | 2024-04-16 07:25 | PCM.DC ---
Discharge Instructions Diet Discharge Diet: No restrictions, Light diet - advance as tolerated and Soft diet DC O2, CPAP, BIPAP needs Additional Home O2 Discharge instructions: No Dressing / Incision Discharge Activity: May Not Drive and May Shower May shower in (days): 1 Weight Bearing Status: Weight bearing as tolerated Dressing / Incision Call your doctor if you observe: Fever of 101 or Higher and Uncontrolled pain Suture Line Care: Avoid Pulling/Pushing and Avoid Pinching/Bending Cleanse incision/area with: Soap & Water Follow Up Care Please Follow Up With: Polo Osullivan MD When: 2 weeks, call for appointment. Test Results: Test results from this visit will be discussed in further detail at your follow-up appointment, if applicable. Discharge Plan Admission Primary Reason for Your Visit: Right pyeloplasty repair Attending Provider: Polo Osullivan Primary Care Provider: [facility] Consulting Providers: Abraham Young Instructions Print Language: Norwegian Discharge Orders/Prescriptions Prescriptions: New ciprofloxacin HCl [Cipro] 500 mg tablet 500 mg PO BID Qty: 14 0RF docusate sodium [Colace] 100 mg capsule 100 mg PO BID Qty: 20 0RF oxycodone 5 mg tablet 5 mg PO Q6H PRN (Reason: pain) 3 Days Qty: 14 0RF Continued metformin 1,000 MG tablet 1,000 mg PO BID metoprolol tartrate 25 MG tablet 12.5 mg PO BID sitagliptin 100 mg tablet 100 mg PO DAILY empagliflozin 25 mg tablet 25 mg PO DAILY tamsulosin 0.4 mg Capsule 0.8 mg PO DAILY@0830 Qty: 60 0RF finasteride 5 MG tablet 5 mg PO QHS Qty: 30 0RF Rx Instructions: Restart per urology rosuvastatin [Crestor] 5 mg tablet 5 mg PO QHS phenazopyridine [Pyridium] 100 mg tablet 100 mg PO Q8H Held aspirin 81 MG tablet,delayed release (DR/EC) 81 mg PO DAILY Qty: 60 0RF Hold Instructions: Resume on 04/30/24. clopidogrel 75 mg Tablet 75 mg PO DAILY Qty: 30 1RF Hold Instructions: Resume on 04/30/24. Referrals / Follow Up: Polo Osullivan MD [Med Staff - Active Staff] - [facility] [Primary Care Provider] - Disposition Disposition (needs filled in before D/C Order can be placed): Home, Self Care
[2024-04-16] MEDS: Bupivacaine Mpf 0.5% 30 ML VIAL (07:51)
[2024-04-16 08:54] LABS: Bedside Glucose 224 mg/dL (74-106)
--- NOTE | 2024-04-16 09:40 | PCM.OPRPT ---
Operative Report (Standard) Operative Information Surgery/Procedure Performed: Laparoscopic robotic assisted right pyeloplasty Surgeon: Polo Osullivan Date of Procedure: 04/16/24 Procedure Start Time: 07:30 Procedure Stop Time: 09:41 Pre-Operative Diagnosis: Right UPJ obstruction Post-Operative Diagnosis: The same Select all DRAINS/GRAFTS/IMPLANTS that apply: Drains Drain details: 7 [place] by 26 cm stent Type of Anesthesia: General Estimated Blood Loss: Minimal Specimen collected: No Description of surgery: Indication this is a 69-year-old male presented to the hospital with right severe pain and was found to have a right hydronephrosis he underwent cystoscopy right retrograde pyelogram to confirm like a narrow spray at the UPJ and a stent placement at that point the ureter was straightened out patient was given the option of elective removal of the stent to see if can go without it or consider repair he elected removal of the stent however immediately after removal of the stent patient became super painful hydronephrotic again and had an infection so stent was put back in and now we plan to proceed with a right UPJ repair over the existing stent. He has a 7 [place] by [address] Patient was taken back to the operating room after smooth induction of anesthesia he was placed supine on the table he was then placed in the lateral position. The abdomen shaved prepped and draped in usual sterile fashion. A placed my camera port right arm robotic port left arm robotic port 5 mm suction port for the dental assistant instructor and a 5 mm port to retract the liver. Once we got inside the abdomen first thing we did is reflect the colon off the lateral sidewall there was extensive adhesions of the colon onto the lateral sidewall this was over the reflected off the lateral sidewall and off the kidney and then once I got the colon reflected then the duodenum was kocherized off the kidney. And then I opened up the drought's fascia identified the ureter and then followed the ureter up to the kidney and then when I got up to the kidney and found that there was a vessel coming over the top of the ureter it was a branching blood vessel and look like it and our artery was not able to take this artery pressure. Behind the UPJ area there was a large cyst I then decorticated the cyst and opened up and drained out the cyst completely and remove the roof of the cyst. Then looking at the ureter at the UPJ area there was obvious there was no obvious area of obstruction but as I looked down the ureter there was an area of a kink look like an area that had been compressed against a blood vessel probably when the renal pelvis was distended. This looks like an atretic area in the ureter I then opened up in the UPJ area cut open the UPJ circumferentially had a nice open spatulation of the pelvis and then I spatulated open the ureter initially the ureter is fairly wide open and then I got through that stenotic atretic area and spatulated that open and then looking at the ureter ureter was wide open. Then I performed anastomosis of the spatulated ureter to the renal pelvis using 3-0 Monocryl this was done in interrupted fashion starting at the posterior aspect of the ureter being careful to make sure to line up the ureter perfectly 30 to the renal pelvis and then placing interrupted stitches first behind the ureter and then I worked anterior to the ureter to I completed the anastomosis with interrupted stitches all the way around using 3-0 Monocryl. There was no signs of leak looked perfect anastomosis between the spatulated ureter renal pelvis the same stent was left in place the stent looks to looked healthy with no encrustation so after the anastomosis completed then we placed Floseal in the area of the UPJ area to control any minor oozing from small blood vessels we irrigated there was no signs of bleeding we took down the liver retractor that held up the liver and then all the ports were removed the abdomen was desufflated the patient's anesthetic was versed and he will go home today from the PACU. Surgical Findings: Narrowing of the ureter at the UPJ area causing obstruction and debris still in the renal pelvis, no crossing vessel, he did have a large cystic structure behind the UPJ. Ureter spatulated and reanastomosed the UPJ. Waiter/Waitress Cabin Class dialysis social worker: Yes Police Patrol Officer: Irwin Godinez Tasks completed by dental laboratory assistant: Opening, Closing, Opening & closing, Harvesting grafts, Dissecting tissue, Removing tissue, Implanting device, Altering tissue, Insert Trochanter, Hemostasis: Clamp, Hemostasis: Tie, Hemostasis: Electrocautery, Trocar, Retracting and Other Complications Complications: No Admit VTE Documentation VTE Present on Admission: No VTE Mechan Device Prophylaxis: SCD's VTE Pharm Prophylaxis ordered?: No
--- NOTE | 2024-04-16 10:09 | PCM.POST.ANE ---
Anesthesia: Postop Eval I Current Vital Signs Temperature: 97.5 F Pulse Rate: 109 Blood Pressure: 147/78 Respiratory Rate: 16 Pulse Ox: 93 Oxygen Delivery Method: Nasal Cannula Oxygen Flow Rate (L/min): 2 Assessment Airway patent: Yes Spontaneous unlabored respirations: Yes Mental status: Awake and Calm nausea: No Vomiting: No Anesthesia Complication: No Fluid Hydration Crystalloid volume administer (ml): 1,100 Total IV fluid infused: 1,100 Progress Note Anesthesia document: Postop Eval 1 completed: Yes
[2024-04-16] MEDS: Ketorolac 30 MG/ML Syringe IV (10:50)
[2024-04-16] MEDS: Acetaminophen 325 MG Tablet 650 MG PO (11:04)
[2024-04-16] MEDS: oxyCODONE 5 MG Tablet PO (11:04)
--- NOTE | 2024-04-16 11:26 | POSTOPAN2_ITS ---
Anesthesia Postop Eval I Sum Postop Eval Completion status Anesthesia document: Postop Eval 1 completed: Yes Anesthesia Postop Eval I Summary Anesthesia Postop Eval I Summary: Anesthesia Postop Eval I: Assessment Summary Airway patent Yes 04/16/24 10:11 STOCK [email or web address] Spontaneous unlabored Yes 04/16/24 10:11 STOCK [email or web address].[email or web address] respirations Mental status Awake,Calm 04/16/24 10:11 STOCK [email or web address].[email or web address] nausea No 04/16/24 10:11 STOCK [email or web address].GDOTT Vomiting No 04/16/24 10:11 STOCK [email or web address].GDOTT Anesthesia Postop Eval I: Fluid Summary Crystalloid volume administer 1,100 04/16/24 10:11 STOCK [email or web address].GDOTT (ml) Colloids volume administered ( ml) Blood Product volume administered (ml) Total IV fluid infused 1,100 04/16/24 10:11 STOCK [email or web address].GDOTT Anesthesia Postop Eval I: Summary Notes Anesthesia Complication No 04/16/24 10:11 STOCK [email or web address].GDOTT Anesthesia Complication Comment: Post-operative progress note Anesthesia: Postop Eval II Evaluation Mental status: Awake Pain Level: 0 nausea: No Vomiting: No
--- NOTE | 2024-04-16 11:26 | POSTOPAN2_ITS ---
Anesthesia Postop Eval I Sum Postop Eval Completion status Anesthesia document: Postop Eval 1 completed: Yes Anesthesia Postop Eval I Summary Anesthesia Postop Eval I Summary: Anesthesia Postop Eval I: Assessment Summary Airway patent Yes 04/16/24 10:11 SHEET [email or web address] Spontaneous unlabored Yes 04/16/24 10:11 SHEET CUTTER.[email or web address] respirations Mental status Awake,Calm 04/16/24 10:11 SHEET CUTTER.GDOTT nausea No 04/16/24 10:11 SHEET CUTTER.GDOTT Vomiting No 04/16/24 10:11 SHEET CUTTER.GDOTT Anesthesia Postop Eval I: Fluid Summary Crystalloid volume administer 1,100 04/16/24 10:11 SHEET CUTTER.GDOTT (ml) Colloids volume administered ( ml) Blood Product volume administered (ml) Total IV fluid infused 1,100 04/16/24 10:11 SHEET CUTTER.GDOTT Anesthesia Postop Eval I: Summary Notes Anesthesia Complication No 04/16/24 10:11 SHEET CUTTER.GDOTT Anesthesia Complication Comment: Post-operative progress note Anesthesia: Postop Eval II Evaluation Mental status: Awake Pain Level: 0 nausea: No Vomiting: No
--- NOTE | 2024-04-16 11:26 | PCM.POSTANE2 ---
Anesthesia Postop Eval I Sum Postop Eval Completion status Anesthesia document: Postop Eval 1 completed: Yes Anesthesia Postop Eval I Summary Anesthesia Postop Eval I Summary: Anesthesia Postop Eval I: Assessment Summary Airway patent Yes 04/16/24 10:11 STOKER INSTALLATION MECHANIC.[email or web address] Spontaneous unlabored Yes 04/16/24 10:11 STOKER INSTALLATION MECHANIC.GDOTT respirations Mental status Awake,Calm 04/16/24 10:11 STOKER INSTALLATION MECHANIC.GDOTT nausea No 04/16/24 10:11 STOKER INSTALLATION MECHANIC.GDOTT Vomiting No 04/16/24 10:11 STOKER INSTALLATION MECHANIC.GDOTT Anesthesia Postop Eval I: Fluid Summary Crystalloid volume administer 1,100 04/16/24 10:11 STOKER INSTALLATION MECHANIC.GDOTT (ml) Colloids volume administered ( ml) Blood Product volume administered (ml) Total IV fluid infused 1,100 04/16/24 10:11 STOKER INSTALLATION MECHANIC.GDOTT Anesthesia Postop Eval I: Summary Notes Anesthesia Complication No 04/16/24 10:11 STOKER INSTALLATION MECHANIC.GDOTT Anesthesia Complication Comment: Post-operative progress note Anesthesia: Postop Eval II Evaluation Mental status: Awake Pain Level: 0 nausea: No Vomiting: No
--- NOTE | 2024-04-16 11:26 | PCM.POSTANE2 ---
Anesthesia Postop Eval I Sum Postop Eval Completion status Anesthesia document: Postop Eval 1 completed: Yes Anesthesia Postop Eval I Summary Anesthesia Postop Eval I Summary: Anesthesia Postop Eval I: Assessment Summary Airway patent Yes 04/16/24 10:11 RESERVE OPERATOR.[email or web address] Spontaneous unlabored Yes 04/16/24 10:11 RESERVE OPERATOR.GDOTT respirations Mental status Awake,Calm 04/16/24 10:11 RESERVE OPERATOR.GDOTT nausea No 04/16/24 10:11 RESERVE OPERATOR.GDOTT Vomiting No 04/16/24 10:11 RESERVE OPERATOR.GDOTT Anesthesia Postop Eval I: Fluid Summary Crystalloid volume administer 1,100 04/16/24 10:11 RESERVE OPERATOR.GDOTT (ml) Colloids volume administered ( ml) Blood Product volume administered (ml) Total IV fluid infused 1,100 04/16/24 10:11 RESERVE OPERATOR.GDOTT Anesthesia Postop Eval I: Summary Notes Anesthesia Complication No 04/16/24 10:11 RESERVE OPERATOR.GDOTT Anesthesia Complication Comment: Post-operative progress note Anesthesia: Postop Eval II Evaluation Mental status: Awake Pain Level: 0 nausea: No Vomiting: No
== END 2024-04-16 13:21 | disposition home or self-care (01) ==
LOC: SDC 05:54 → AC 05:54
PROVIDERS: Anesthesiology; Referring Provider Urology; Visit Provider Urology
PROC: 8E0W4CZ Robotic Assisted Procedure of Trunk Region, Percutaneous Endoscopic Approach (ICD-10-PCS; CPT 50544; principal; 2024-04-16 07:00)
DX: N13.5 Crossing vessel and stricture of ureter without hydronephrosis (principal); E11.9 Type 2 diabetes mellitus without complications; N28.1 Cyst of kidney, acquired; I10 Essential (primary) hypertension; I25.2 Old myocardial infarction; I25.10 Atherosclerotic heart disease of native coronary artery without angina pectoris; E78.00 Pure hypercholesterolemia, unspecified; N42.9 Disorder of prostate, unspecified; Z95.5 Presence of coronary angioplasty implant and graft; Z79.84 Long term (current) use of oral hypoglycemic drugs; Z79.82 Long term (current) use of aspirin; Z79.02 Long term (current) use of antithrombotics/antiplatelets; Z86.718 Personal history of other venous thrombosis and embolism; Z79.899 Other long term (current) drug therapy
CPT/HCPCS: 50544; 00862; J7120; 36415; 80048; 82962; 83036; J2405

== ENCOUNTER 2024-04-17 19:31 | Inpatient (IN) | payer MEDICARE, OTHER, SELFPAY ==
[2024-04-17 19:32] VITALS: BP 104/75; PULSE 135; RESP 18; TEMP 36.6; O2SAT 87
[2024-04-17 19:35] VITALS: BP 110/67; PULSE 122; PULSE 132; RESP 16; RESP 25; TEMP 36.6; O2SAT 93
[2024-04-17 19:54] VITALS: BMI 25.9
--- NOTE | 2024-04-17 20:12 | CT_ITS ---
EXAM: CT ABDOMEN AND PELVIS WITHOUT INTRAVENOUS CONTRAST CLINICAL INDICATION: recent surgery, abdominal pain TECHNIQUE: Helically acquired images were obtained of the abdomen and pelvis without intravenous contrast. CTDIvol = ( 8.64 ) mGy, DLP = ( 763.76 ) mGycm This CT exam was performed using one or more of the following dose reduction techniques: automated exposure control, adjustment of the mA and/or kV according to patient size, and/or use of iterative reconstruction technique. COMPARISON: No relevant prior studies available. FINDINGS: LOWER THORAX: Partial atelectasis at the lower lobes and inferior lingula. No cardiomegaly. No significant pericardial effusion. ABDOMEN: LIVER: Unremarkable. Homogeneous. GALLBLADDER AND BILE DUCTS: Unremarkable. No calcified gallstones. No gallbladder distention or wall edema. No intra- or extrahepatic biliary ductal dilation. PANCREAS: Unremarkable. No focal cystic mass. SPLEEN: Unremarkable. Normal size without focal cystic or solid mass. ADRENALS: Unremarkable. No nodules. KIDNEYS AND URETERS: Right double-J ureteral stent in place with moderate right hydronephrosis with adjacent stranding about the renal pelvis. The right ureter is not significantly distended. Normal renal size and position. STOMACH AND BOWEL: Unremarkable. No colitis or diverticulitis or bowel obstruction. PELVIS: APPENDIX: No evidence of acute appendicitis. BLADDER: Unremarkable. REPRODUCTIVE: Enlarged prostate is nonspecific. Correlate with PSA levels.. ABDOMEN and PELVIS: INTRAPERITONEAL SPACE: Extensive free intraperitoneal air. Moderate amount of free fluid in the pelvis. BONES/JOINTS: Unremarkable. No suspicious lytic or blastic abnormality. SOFT TISSUES: Postsurgical abdominal wall soft tissue gas. No discrete abdominal or pelvic wall hernia. VASCULATURE: Unremarkable. Abdominal aorta is non-dilated. LYMPH NODES: Unremarkable. No enlarged lymph nodes. CT/Abdomen/Pelvis without Cont IMPRESSION: 1. Extensive free intraperitoneal air likely from recent abdominal surgery. Correlate with due to surgery. 2. Right double-J ureteral stent in place with moderate right hydronephrosis with adjacent stranding about the renal pelvis. Correlate with urinalysis for possible infectious pyelitis. The right ureter is not significantly distended. 3. Moderate amount of free fluid in the pelvis. Electronically Signed: Yair Cohen MD at 22:08 EST Reading Location ID and State: [facility] / [place] Tel , Service support ,
--- NOTE | 2024-04-17 20:24 | EX.ED.DYSGE1 ---
HPI History of Present Illness Chief Complaint: Complaint Narrative Narrative: Chief complaint and HPI: Abdominal pain and urinary retention with recent surgery. 69-year-old male with history of DM, CAD, HTN, HLD presents for evaluation of abdominal pain and urinary retention after a laparoscopic robotic assisted right pyeloplasty by Dr. Osullivan. Patient has a complicated surgical history. Surgical history obtained by medical records as well as my previous care with the patient. Patient has a history of right hydronephrosis and found to have a narrow spray at the UPJ and underwent stent placement. Stent was eventually removed however after removal patient developed repeat hydronephrosis with infection and emergent stent was placed. Since stent placement patient had a laparoscopic robotic assisted right pyeloplasty yesterday. Patient states he has been having increasing abdominal pain since the surgery as well as decreased urination. He denies any fever, chills, shortness of breath, chest pain nausea, vomiting. Patient states he has had little solid p.o. intake. No bowel movement. States he is mildly lightheaded. Review of systems: See HPI Medications: As listed on the chart Allergies: As listed on the chart PFSH: Per chart Vital signs: As listed on the chart. Reviewed. Physical exam: Gen: A&O x3 Head: Normocephalic, atraumatic Eyes: No sclera icterus, conjunctiva clear ENT: Dry mucous membranes Neck: Trachea midline, No JVD CV: Tachycardic, regular rate, no murmurs, no peripheral edema Resp: Lungs CTA BL, no w/r/c GI: Abd soft, mildly distended, tender to palpation diffusely, + voluntary guarding, no rebound or rigidity, surgical incisions healing well with Steri-Strips Musc: Full ROM, no deformity Skin: Warm, dry Neuro: Alert, oriented, grossly intact, sensation intact Psych: Cooperative, appropriate mood and affect [facility] Medical History Septic shock Wears glasses Cancer History of renal disease Prostate disease DVT (deep venous thrombosis) High cholesterol Injury of back Syncope Dietary restriction History of echocardiogram History of stress test Non-smoker Atherosclerotic heart disease of [place] coronary artery without angina pectoris History of ST elevation myocardial infarction (STEMI) (~04/2012) Cardiomyopathy NSTEMI (non-ST elevated myocardial infarction) Pyelonephritis Heart attack Diabetes Coronary artery disease Hypertension History of coronary artery disease History of hypertension History of type 2 diabetes mellitus Home Medications ?Medication ?Instructions ?Recorded ?Last Taken ?Type metformin 1,000 mg tablet 1,000 mg PO BID diabetes 12/19/19 04/15/24 History metoprolol tartrate 25 mg tablet 12.5 mg PO BID heart 12/19/19 04/16/24 History aspirin 81 mg tablet,delayed 81 mg PO DAILY heart ##60 12/30/19 04/05/24 Rx release empagliflozin 25 mg tablet 25 mg PO DAILY 02/13/24 04/14/24 History sitagliptin 100 mg tablet 100 mg PO DAILY 02/13/24 04/15/24 History clopidogrel 75 mg tablet 75 mg PO DAILY #30 tabs 03/12/24 04/05/24 Rx finasteride 5 mg tablet 5 mg PO QHS bph #30 tabs 03/12/24 04/14/24 Rx tamsulosin 0.4 mg capsule 0.8 mg (2 x 0.4 mg) PO DAILY@0830 03/12/24 04/15/24 Rx #60 caps phenazopyridine 100 mg tablet 100 mg PO Q8H 04/03/24 Unknown History (Pyridium) rosuvastatin 5 mg tablet (Crestor) 5 mg PO QHS 04/03/24 04/15/24 History ciprofloxacin HCl 500 mg tablet 500 mg PO BID #14 tabs 04/16/24 Unknown Rx (Cipro) docusate sodium 100 mg capsule 100 mg PO BID #20 caps 04/16/24 Unknown Rx (Colace) oxycodone 5 mg tablet 5 mg PO Q6H PRN pain 3 days #14 04/16/24 Unknown Rx tabs Allergy/AdvReac Type Severity Reaction Status Date / Time celecoxib (From Celebrex) Allergy Rash Verified 04/17/24 19:33 etodolac Allergy Rash Verified 04/17/24 19:33 terbinafine AdvReac Rash Verified 04/17/24 19:33 Surgical History Hx of colonoscopy Hx of tonsillectomy Hx of cystoscopy Hx of total knee arthroplasty Stented coronary artery (~04/2012) H/O right heart catheterization Social History household members: spouse housing: house Smoking Status: Never smoker substance use type: does not use EXAM Physical Exam Const Vital Signs: 04/17/24 19:32 04/17/24 19:35 04/17/24 19:35 Temperature 97.8 F 97.8 F Temperature Source Oral Oral Pulse Rate 135 H 132 H 122 H Respiratory Rate 18 16 25 H Respiratory Effort Respiratory Pattern Blood Pressure 104/75 110/67 Blood Pressure Mean 84 81 Pulse Ox 87 93 93 Oxygen Delivery Method Room Air Nasal Cannula Room Air Oxygen Flow Rate (L/min) 2 04/17/24 19:55 04/17/24 21:35 04/17/24 22:00 Temperature 98 F 98.4 F Temperature Source Oral Oral Pulse Rate 122 H 115 H Respiratory Rate 18 24 H Respiratory Effort Normal Non-Labored Respiratory Pattern Normal Blood Pressure 146/68 H 112/65 Blood Pressure Mean 94 80 Pulse Ox 98 98 Oxygen Delivery Method Room Air Oxygen Flow Rate (L/min) MDM MDM MDM Narrative Medical decision making narrative: 69-year-old male with history of DM, CAD, HTN, HLD presents for evaluation of abdominal pain and urinary retention after a laparoscopic robotic assisted right pyeloplasty by Dr. Osullivan. Patient has a complicated surgical history. See physical exam findings. On presentation, patient is tachycardic. Afebrile and not hypotensive. Differential diagnosis includes but is not limited to urinary retention, RICARDA, electrolyte abnormality, pyelonephritis, UTI, bowel obstruction, intra-abdominal injury/infection. Last time patient had similar presentation to the ED, he had NSTEMI which is also on the differential. NS bolus ordered. Bladder scan showed urinary retention and Krueger catheter was placed. Urine yellow. Abdominal/infectious workup ordered. EKG reviewed see below. CBC with a leukocytosis of 46.2. Patient has baseline anemia. Concern is for sepsis. Given that patient just had instrumentation concern is for possible hospital-acquired UTI/pyelonephritis. Meropenem ordered. CMP shows hyponatremia at 126 and hyperkalemia 5.5. Patient has RICARDA with creatinine of 3.9. Baseline creatinine was normal on 04/08. Hyperglycemia of 319. Lactic acid of 4.4. 30 cc/kg bolus ordered. No transaminitis. Troponin unremarkable. Lipase unremarkable. UA is positive for leuk esterase but negative for nitrates. Only few WBCs 5-10 are seen. Rare bacteria. Urine culture sent. CT abdomen pelvis shows extensive free intraperitoneal air likely from recent abdominal surgery. He has a right double-J ureteral stent in place with moderate right hydronephrosis with adjacent stranding about the renal pelvis. Correlate with UA for possible infectious pyelitis. Right ureter is not significantly distended. A moderate amount of free fluid in the pelvis. Given these findings Dr. Osullivan was contacted and patient was discussed. Agrees with admission. No further recommendations. Patient will warrant admission with the hospitalist service. Patient was updated of all his results and the plan. He confirmed understanding. EKG: Interpreted by me/EM physician: EKG shows sinus tachycardia with a heart rate of 112. 30 minutes of critical care time utilized in managing the patient. This is due to high probability of and deterioration of the patient based on the patient's condition and excludes any separately billable procedures. Impression: 1. Sepsis secondary to right pyelitis status post laparoscopic robotic assisted right pyeloplasty 2. RICARDA 3. Hyponatremia 4. Hyperkalemia 5. Hyperglycemia 6. Lactic acidosis 7. Urinary retention status post Krueger placement Lab Data Labs: Laboratory Results - last 24 hr 04/17/24 04/17/24 20:20 20:47 WBC 46.2 H* RBC 3.96 L Hgb 11.1 L Hct 33.7 L MCV 85.1 MCH 28.0 MCHC 32.9 RDW Std Deviation 47.6 H RDW Coeff of Jori 15.4 H Plt Count 296 MPV 9.6 Immature Gran % (Auto) 2.000 H Neut % (Auto) 93.6 H Lymph % (Auto) 1.9 L [place] % (Auto) 2.2 Eos % (Auto) 0.0 Baso % (Auto) 0.3 Absolute Neuts (auto) 43.3 H Absolute Lymphs (auto) 0.87 Nucleated RBC % 0 Differential Comment SCANNED Diff Path Review May foll Sodium 126 L Potassium 5.5 H Chloride 93 L Carbon Dioxide 19.0 L Anion Gap 14 BUN 60 H Creatinine 3.90 H Estim Creat Clear Calc 19.92 Est GFR (MDRD) Af Amer 20 L Est GFR (MDRD) Non-Af 16 L BUN/Creatinine Ratio 15.4 Glucose 319 H Lactic Acid 4.4 H* Calcium 8.5 Total Bilirubin 0.70 AST 23 ALT 49 Alkaline Phosphatase 93 Troponin I High Sens 3 Total Protein 7.1 Albumin 2.7 L Globulin 4.4 H Albumin/Globulin Ratio 0.6 L Lipase 31 Urine Color Yellow Urine Clarity Clear Urine pH 6.0 Ur Specific [place] 1.015 Urine Protein 15 H Urine Glucose (UA) 1000 H Urine Ketones Negative Urine Occult Blood 50 H Urine Nitrite Negative Urine Bilirubin Negative Urine Urobilinogen Normal Ur Leukocyte Esterase 100 H Urine RBC 0-5 SEEN Urine WBC 5-10 SEEN Ur Squamous Epith Cells 0 SEEN Urine Bacteria RARE Urine Mucus 0 SEEN Radiography Diagnostic Testing: Clinical Impression(s) from Imaging Studies Abdomen/Pelvis CT 04/17/24 20:12 IMPRESSION: 1. Extensive free intraperitoneal air likely from recent abdominal surgery. Correlate with due to surgery. 2. Right double-J ureteral stent in place with moderate right hydronephrosis with adjacent stranding about the renal pelvis. Correlate with urinalysis for possible infectious pyelitis. The right ureter is not significantly distended. 3. Moderate amount of free fluid in the pelvis. Electronically Signed: Yair Cohen MD at 22:08 EST , Discharge Plan Triage Chief Complaint: Complaint Other Complaint: General Illness ED Provider: Sen Mcarthur Dx/Rx/DC Orders Primary Care Provider: [place], [place]
[2024-04-17 20:34] LABS: Absolute Lymphocyte Count 0.87 X10^3/uL (0.83-4.51); Absolute Neutrophil Count 43.3 X10^3/uL (2.0-7.7); Basophil# 0.15 X10^3/uL; Basophil% 0.3 % (0-1); Eosinophil# 0.01 X10^3/uL; Hematocrit 33.7 % (40-54); Hemoglobin 11.1 g/dL (13.0-16.5); Lymphocyte # 0.87 X10^3/ul (0.83-4.51); Lymphocyte % 1.9 % (19-41); Mean Corp Hgb Conc 32.9 g/dL (32-36); Mean Corpuscular Volume 85.1 fL (80-94); Mean Platelet Vol. 9.6 fl (6.2-12.0); Monocyte# 1.02 X10^3/uL; Monocyte% 2.2 % (0-10); NRBC Flagged by Analyzer 0 % (0-5); Neutrophil # 43.25 X10^3/uL (2.7-7.7); Neutrophil % 93.6 % (47-70); POSITIVE COUNT YES; POSITIVE DIFFERENTIAL YES; Platelet Count 296 K/mm3 (150-450); RBC Distribution Width CV 15.4 % (11.6-14.6); RBC Distribution Width SD 47.6 fl (35.1-43.9); Red Blood Count 3.96 M/mm3 (4.6-6.2)
[2024-04-17] MEDS: 0.9% Normal Saline (1000mL) 1,000 ML 1000 ML IV (20:40)
[2024-04-17 20:42] LABS: Differential Indicated SCAN CRITERIA MET; White Blood Count 46.2 K/mm3 (4.4-11.0)
[2024-04-17 20:49] LABS: ALB/GLOB Ratio 0.6 RATIO (0.9-2.4); AST(SGOT) 23 U/L (15-37); Alanine Aminotransfer ALT/SGPT 49 U/L (16-61); Albumin, Serum 2.7 g/dL (3.2-5.0); Alkaline Phosphatase 93 U/L (45-117); Anion Gap 14 (5-15); BUN 60 mg/dL (7-18); BUN/Creat Ratio 15.4 RATIO (10-20); Calcium,Total 8.5 mg/dL (8.5-10.1); Chloride 93 mmol/L (98-107); EST Glomerular Filtration Rate 16 mL/min (>60); Est Glom Filt Rate - Afr Amer 20 mL/min (>60); Estimated Creatinine Clearance 19.92 ml/min; Globulin 4.4 g/dL (2.2-4.2); Glucose 319 mg/dL (74-106); Lipase 31 U/L (13-75); Potassium 5.5 mmol/L (3.5-5.1); Protein, Total 7.1 g/dL (6.4-8.2); Sodium Level 126 mmol/L (136-145); Troponin-I HS 3 pg/mL (3.0-78.0)
[2024-04-17 20:52] LABS: Mucous, Urine 0 SEEN /hpf (<or=2+); Squamous Epithelial Cells - UA 0 SEEN /hpf (0-5)
[2024-04-17 20:56] LABS: Color, Urine Yellow (Yellow); Glucose, Dipstick 1000 mg/dl (Normal); Ketone-Dipstick Negative (Negative); Leukocyte Esterase-Dipstick 100 /ul (Negative); Nitrite-Dipstick Negative (Negative); Occult Blood-Urine 50 /ul (Negative); Protein-Dipstick 15 mg/dl (Negative); Specific Gravity, Urine 1.015 (1.002-1.030); Urine Bilirubin Dipstick Negative (Negative); Urine Clarity Clear (Clear); Urine Urobilinogen Normal (Normal)
[2024-04-17 21:05] LABS: Bacteria RARE /hpf (None Seen); Red Blood Cells-Urine 0-5 SEEN /hpf (0-5); White Blood Cells 5-10 SEEN /hpf (0-5)
[2024-04-17 21:08] LABS: Differential Comment SCANNED
[2024-04-17 21:31] LABS: Lactic Acid 4.4 mmol/L (0.4-1.9)
[2024-04-17 21:35] VITALS: BP 146/68; PULSE 122; RESP 18; TEMP 36.6; O2SAT 98
[2024-04-17 22:00] VITALS: BP 112/65; PULSE 115; RESP 24; TEMP 36.9; O2SAT 98
[2024-04-17] MEDS: 0.9% Normal Saline (1000mL) 1,000 ML 999 ML IV (22:06)
[2024-04-17] MEDS: Meropenem 1 GM in 0.9% Normal Saline (100mL MB+) 100 ML IV (22:06)
--- NOTE | 2024-04-17 22:42 | PCM.HP.STD ---
HPI - General General Date of Admission: 04/17/24 Date of Service: 04/17/24 Chief Complaint: Abdominal pain and urinary retention HPI Narrative LAUREN THOMAS, is a 69 M who presented with abdominal pain and urinary retention after recent urologic procedure. Patient has complicated urologic history, follows with Dr. Osullivan. Patient has history of right sided nephrosis with stent placement. Stent was eventually removed however patient develops repeat hydronephrosis with infection after removal and stent was placed again in February. 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 Patient had laparoscopic robotic assisted right pyeloplasty done here yesterday. Was discharged home after the procedure. Last night he began developing abdominal pain with decreased urination. This continue to worsen into this morning so he came in for further evaluation. In the ED patient was in sinus tachycardia to the 130s but otherwise afebrile and hemodynamically stable. Labs notable for WBC count 46, sodium 126, potassium 5.5, chloride 93, bicarb 19, creatinine 3.90 (baseline 1.1), BUN 60, glucose 319. Lactate was 4.4. UA showed 100 leukocyte esterase but negative nitrates and rare bacteria. CT abdomen pelvis showed extensive free intraperitoneal air likely from recent abdominal surgery, moderate amount of free fluid in the pelvis, and right ureteral stent in place with moderate right hydronephrosis and adjacent stranding about the renal pelvis. Case was discussed with Dr. Osullivan who noted these findings are expected post procedurally but was agreeable to having patient admitted. Hospitalist was then contacted for admission. I saw the patient at bedside in the ED, was present. Patient was laying back in bed and conversing normally. He did report moderate ongoing abdominal pain with distention and discomfort. Have a given a dose of oxycodone earlier with only mild improvement of the pain. Krueger catheter was placed in the ED with good urine output and patient is tolerating the Krueger catheter without issue. He denies any fevers or chills. Has not eaten or drank much at all today and does report feeling dry. Denies any other acute concerns. Will be admitted for further management. [facility] Medical History Septic shock Wears glasses Cancer History of renal disease Prostate disease DVT (deep venous thrombosis) High cholesterol Injury of back Syncope Dietary restriction History of echocardiogram History of stress test Non-smoker Atherosclerotic heart disease of [place] coronary artery without angina pectoris History of ST elevation myocardial infarction (STEMI) (~04/2012) Cardiomyopathy NSTEMI (non-ST elevated myocardial infarction) Pyelonephritis Heart attack Diabetes Coronary artery disease Hypertension History of coronary artery disease History of hypertension History of type 2 diabetes mellitus Home Medications ?Medication ?Instructions ?Recorded ?Last Taken ?Type metformin 1,000 mg tablet 1,000 mg PO BID diabetes 12/19/19 04/15/24 History metoprolol tartrate 25 mg tablet 12.5 mg PO BID heart 12/19/19 04/16/24 History aspirin 81 mg tablet,delayed 81 mg PO DAILY heart ##60 12/30/19 04/05/24 Rx release empagliflozin 25 mg tablet 25 mg PO DAILY 02/13/24 04/14/24 History sitagliptin 100 mg tablet 100 mg PO DAILY 02/13/24 04/15/24 History clopidogrel 75 mg tablet 75 mg PO DAILY #30 tabs 03/12/24 04/05/24 Rx finasteride 5 mg tablet 5 mg PO QHS bph #30 tabs 03/12/24 04/14/24 Rx tamsulosin 0.4 mg capsule 0.8 mg (2 x 0.4 mg) PO DAILY@0830 03/12/24 04/15/24 Rx #60 caps phenazopyridine 100 mg tablet 100 mg PO Q8H 04/03/24 Unknown History (Pyridium) rosuvastatin 5 mg tablet (Crestor) 5 mg PO QHS 04/03/24 04/15/24 History ciprofloxacin HCl 500 mg tablet 500 mg PO BID #14 tabs 04/16/24 Unknown Rx (Cipro) docusate sodium 100 mg capsule 100 mg PO BID #20 caps 04/16/24 Unknown Rx (Colace) oxycodone 5 mg tablet 5 mg PO Q6H PRN pain 3 days #14 04/16/24 Unknown Rx tabs Allergy/AdvReac Type Severity Reaction Status Date / Time celecoxib (From Celebrex) Allergy Rash Verified 04/17/24 19:33 etodolac Allergy Rash Verified 04/17/24 19:33 terbinafine AdvReac Rash Verified 04/17/24 19:33 Surgical History Hx of colonoscopy Hx of tonsillectomy Hx of cystoscopy Hx of total knee arthroplasty Stented coronary artery (~04/2012) H/O right heart catheterization Social History household members: spouse housing: house Smoking Status: Never smoker substance use type: does not use ROS Constitutional Constitutional: Denies chills, fatigue, fever(s) or weakness Eyes Eyes: Denies change in vision Cardiovascular Cardiovascular: Denies chest pain Respiratory/Chest Respiratory/Chest: Denies shortness of breath at rest Gastrointestinal Gastrointestinal: Reports abdominal pain and nausea; Denies constipation, diarrhea or vomiting Genitourinary Genitourinary: Reports difficulty urinating; Denies dysuria Musculoskeletal Musculoskeletal: Denies arthralgias or myalgias Neurologic Neurologic: Denies dizziness or headache(s) Vital Signs Vital Signs Vital Signs: 04/17/24 19:32 04/17/24 19:35 04/17/24 19:35 Temperature 97.8 F 97.8 F Temperature Source Oral Oral Pulse Rate 135 H 132 H 122 H Respiratory Rate 18 16 25 H Respiratory Effort Respiratory Pattern Blood Pressure 104/75 110/67 Blood Pressure Mean 84 81 Pulse Ox 87 93 93 Oxygen Delivery Method Room Air Nasal Cannula Room Air Oxygen Flow Rate (L/min) 2 04/17/24 19:55 04/17/24 21:35 Temperature 98 F Temperature Source Oral Pulse Rate 122 H Respiratory Rate 18 Respiratory Effort Normal Non-Labored Respiratory Pattern Normal Blood Pressure 146/68 H Blood Pressure Mean 94 Pulse Ox 98 Oxygen Delivery Method Oxygen Flow Rate (L/min) Weight Weight: 89.131 kg Body Mass Index (BMI) 25.9 Physical Exam Const alert, oriented x3, no apparent distress and average body habitus Constitutional Narrative: Elderly male, laying back in bed and conversing normally, mildly uncomfortable due to ongoing abdominal pain with distention. General Appearance: cooperative HEENT normocephalic, head/scalp atraumatic, hearing grossly normal bilaterally and nasal mucous membranes and turbinates normal HEENT Narrative: Dry mucous membranes. Eyes PERRL, EOMs intact bilaterally and conjunctivae normal Neck full ROM Chest inspection of chest normal Resp normal respiratory effort, normal air movement, no use of accessory muscles and clear to auscultation bilaterally Cardio no murmurs and peripheral pulses 2+ throughout Cardio Narrative: Tachycardic, regular rhythm. GI GI Narrative: Abdomen fairly hard and distended with mild tenderness to palpation diffusely. Multiple incision sites noted with sterile tape in place, no evidence of infection at any incision sites. Back/Spine normal ROM Extremity normal to inspection, full ROM and no pedal edema Skin no rashes or lesions noted Psych mental status grossly normal Results Lab / Micro Data 04/17/24 20:20 04/17/24 20:20 Labs: Laboratory Results - last 24 hr 04/17/24 20:20: WBC 46.2 H*, RBC 3.96 L, Hgb 11.1 L, Hct 33.7 L, MCV 85.1, MCH 28.0, MCHC 32.9, RDW Std Deviation 47.6 H, RDW Coeff of Jori 15.4 H, Plt Count 296, MPV 9.6, Immature Gran % (Auto) 2.000 H, Neut % (Auto) 93.6 H, Lymph % (Auto) 1.9 L, [place] % (Auto) 2.2, Eos % (Auto) 0.0, Baso % (Auto) 0.3, Absolute Neuts (auto) 43.3 H, Absolute Lymphs (auto) 0.87, Nucleated RBC % 0, Differential Comment SCANNED, Diff Path Review September, Sodium 126 L, Potassium 5.5 H, Chloride 93 L, Carbon Dioxide 19.0 L, Anion Gap 14, BUN 60 H, Creatinine 3.90 H, Estim Creat Clear Calc 19.92, Est GFR (MDRD) Af Amer 20 L, Est GFR (MDRD) Non-Af 16 L, BUN/Creatinine Ratio 15.4, Glucose 319 H, Lactic Acid 4.4 H*, Calcium 8.5, Total Bilirubin 0.70, AST 23, ALT 49, Alkaline Phosphatase 93, Troponin I High Sens 3, Total Protein 7.1, Albumin 2.7 L, Globulin 4.4 H, Albumin/Globulin Ratio 0.6 L, Lipase 31 04/17/24 20:47: Urine Color Yellow, Urine Clarity Clear, Urine pH 6.0, Ur Specific [place] 1.015, Urine Protein 15 H, Urine Glucose (UA) 1000 H, Urine Ketones Negative, Urine Occult Blood 50 H, Urine Nitrite Negative, Urine Bilirubin Negative, Urine Urobilinogen Normal, Ur Leukocyte Esterase 100 H, Urine RBC 0-5 SEEN, Urine WBC 5-10 SEEN, Ur Squamous Epith Cells 0 SEEN, Urine Bacteria RARE, Urine Mucus 0 SEEN Imaging Radiology Impression Abdomen/Pelvis CT 04/17/24 20:12 IMPRESSION: 1. Extensive free intraperitoneal air likely from recent abdominal surgery. Correlate with due to surgery. 2. Right double-J ureteral stent in place with moderate right hydronephrosis with adjacent stranding about the renal pelvis. Correlate with urinalysis for possible infectious pyelitis. The right ureter is not significantly distended. 3. Moderate amount of free fluid in the pelvis. Electronically Signed: Yair Cohen MD at 22:08 EST , Assessment & Plan Assessment/Plan (1) Postoperative abdominal pain: (2) RICARDA (acute kidney injury): (3) Urinary retention: PLAN: Plan Patient is a 69-year-old male who presented [facility] ED on 04/17/2024 with worsening abdominal pain with distention and urinary retention. 1. Postoperative abdominal pain with distention ? Admit under inpatient status to PCU. Urology consulted. Had laparoscopic right pyeloplasty done with Dr. Osullivan on 04/16. CT abdomen pelvis showed extensive free intraperitoneal air likely from recent abdominal surgery, moderate amount of free fluid in the pelvis, and right ureteral stent in place with moderate right hydronephrosis and adjacent stranding about the renal pelvis. Was discussed with Dr. Osullivan who noted these findings were expected postoperatively. UA notably noninfectious appearing. Patient's pain presumably due to excess free air postoperatively with distention which should improve with time and activity, however appreciate further urology recommendations. Will maintain n.p.o. status for now in case of need for procedure. Pain control with p.o. oxycodone and IV Dilaudid as needed for now. 2. Urinary retention ? Patient with inability to urinate since evening of procedure. Krueger catheter placed admission with significant urine output. Suspect patient has postobstructive RICARDA as noted below. Maintain Krueger catheter for now, appreciate urology recommendations on timing of void trial. 3. Right UPJ stricture s/p ureteral stent placement and laparoscopic right pyeloplasty ? See HPI for further details. Had laparoscopic right pyeloplasty done on 04/16. Neurology consulted as above. 4. Severe RICARDA with mild hyperkalemia ? Creatinine 3.90 on admit, baseline around 1.1. Potassium 5.5, no EKG changes noted. Suspect multifactorial with prerenal etiology from volume patient after recent procedure and postobstructive etiology from retention. Urine sodium and creatinine ordered to calculate FeNa. Krueger catheter in place, monitor urine output. Follow-up a.m. BMP. 5. Hyponatremia ? Sodium 126, chloride 93 on admit. Suspect secondary to volume depletion after procedure yesterday. Given 2 L of IV fluid resuscitation in the ED, follow-up a.m. BMP. 6. Elevated lactic acid ? Lactic acid 4.4 on admit, improved to 3.1 after IV fluid resuscitation in the ED. No need to monitor further, continue treatment as above. 7. Severe leukocytosis ? WBC count 46 on admit. Last noted WBC counts were in the 10-13 range during late February admission. Suspect increase is primarily due to acute stress state after surgical procedure yesterday. Patient afebrile, UA fairly benign. However given his recent procedure and presentation, will empirically treat with IV antibiotics for now. Follow-up blood cultures and urine culture. 8. Type 2 diabetes mellitus with hyperglycemia ? Blood glucose 319 on admit. Only on oral agents at home. A1c 7.0% on 04/08. Presume elevated blood glucose due to recent procedure and dehydration. Will start sliding scale insulin with meals while inpatient. Chronic medical conditions: ? History of CAD with stenting, hypertension, hyperlipidemia: Had STEMI with stent placement back in 2011. Continue home aspirin, Plavix, statin, Lopressor. ? BPH with obstructive symptoms: Continue home tamsulosin and finasteride. DVT prophylaxis: Heparin subcu CODE STATUS: Full code, verified Expected disposition: Home, TBD Total clinical time spent by myself addressing the patient's medical issues, reviewing all the data, and collaborating with patient's care team: 75 minutes. Charges/Coding Visit Charges Inpatient E&M: 99439 Init Hosp L3
[2024-04-17 23:06] VITALS: BP 105/65; PULSE 119; RESP 28; TEMP 36.8; O2SAT 90
[2024-04-17 23:43] LABS: Urine Sodium 21 mmol/L (Not Establ.)
[2024-04-18] VITALS (34 sets, daily range): BP systolic 98–143; BP diastolic 61–80; PULSE 93–139; RESP 14–28; TEMP 36–37.2; O2SAT 91–96; BMI 25.4
[2024-04-18 00:25] LABS: Reflex Lactate? Y
[2024-04-18] MEDS: HYDROmorphone 1 MG/ML Syringe 0.5 MG IV ×3 (00:47→17:39)
[2024-04-18 01:10] LABS: Bedside Glucose 206 mg/dL (74-106)
[2024-04-18] MEDS: Insulin Lispro 100 UNIT/ML INSULN.PEN SC ×3 (01:27→21:07)
[2024-04-18 01:33] LABS: Lactic Acid 3.1 mmol/L (0.4-1.9)
[2024-04-18] MEDS: Ondansetron 4 MG/2 ML Vial IV ×2 (04:39→17:39)
[2024-04-18 06:31] LABS: Hematocrit 31.2 % (40-54); Mean Corp Hgb Conc 32.1 g/dL (32-36); Mean Corpuscular Hgb 27.3 pg (27.0-32.0); Mean Corpuscular Volume 85.2 fL (80-94); Mean Platelet Vol. 10.1 fl (6.2-12.0); POSITIVE COUNT YES; Platelet Count 289 K/mm3 (150-450); RBC Distribution Width CV 15.4 % (11.6-14.6); RBC Distribution Width SD 48.5 fl (35.1-43.9); Red Blood Count 3.66 M/mm3 (4.6-6.2)
[2024-04-18 06:39] LABS: Scan Indicated on CBC? Y/N YES- FLAGS NOTED; White Blood Count 36.2 K/mm3 (4.4-11.0)
[2024-04-18 06:49] LABS: Anion Gap 10 (5-15); BUN 53 mg/dL (7-18); BUN/Creat Ratio 23.9 RATIO (10-20); Calcium,Total 8.8 mg/dL (8.5-10.1); Chloride 102 mmol/L (98-107); Creatinine, Serum 2.22 mg/dL (0.70-1.30); EST Glomerular Filtration Rate 31 mL/min (>60); Est Glom Filt Rate - Afr Amer 38 mL/min (>60); Estimated Creatinine Clearance 34.99 ml/min; Glucose 202 mg/dL (74-106); Potassium 4.8 mmol/L (3.5-5.1); Sodium Level 132 mmol/L (136-145)
[2024-04-18 07:02] LABS: Bedside Glucose 208 mg/dL (74-106)
--- NOTE | 2024-04-18 07:11 | PCM.CONS.U ---
HPI Consult Data Date of Consult: 04/18/24 HPI Narrative Reason for Consultation: Sepsis after right repair of UPJ obstruction HPI Narrative: LAUREN THOMAS, is a 69 M who presents back to the emergency room with abdominal pain, he has a history of a right UPJ obstruction, had a stent placed for obstruction hydronephrosis seen on CAT scan which resolved the pain. We then tried to electively remove the stent but he immediately became septic and had the stent back put back in. So then we decided to proceed with a repair of the UPJ obstruction with a right robotic pyeloplasty. Surgery went well no obvious complications during surgery he was discharged home the same day did well for about a day and then the next day started having abdominal pain. He continues to have lower abdominal pain. On CAT scan I do not see any free air but there is a lot of free fluid in the pelvic area which is unusual, the stent is in place, he has a Krueger in place, he also was in retention of urine and had a Krueger catheter put in for large volume. I think 2 potential etiologies, he could have urosepsis with volume depletion and sepsis. The other possibility is he might have a bowel intestinal or small bowel or large bowel injury. I am going to keep him n.p.o. plan to do a CT scan with oral contrast 4 hours delay to evaluate the small and large colon to make sure there is no injury. Continue IV fluids and continue antibiotics await urine cultures. Prior to surgery had a urine culture that was positive which was treated. Will see what the CAT scan shows keep n.p.o. [facility] Medical History Septic shock Wears glasses Cancer History of renal disease Prostate disease DVT (deep venous thrombosis) High cholesterol Injury of back Syncope Dietary restriction History of echocardiogram History of stress test Non-smoker Atherosclerotic heart disease of [place] coronary artery without angina pectoris History of ST elevation myocardial infarction (STEMI) (~04/2012) Cardiomyopathy NSTEMI (non-ST elevated myocardial infarction) Pyelonephritis Heart attack Diabetes Coronary artery disease Hypertension History of coronary artery disease History of hypertension History of type 2 diabetes mellitus Home Medications ?Medication ?Instructions ?Recorded ?Last Taken ?Type metformin 1,000 mg tablet 1,000 mg PO BID diabetes 12/19/19 04/15/24 History metoprolol tartrate 25 mg tablet 12.5 mg PO BID heart 12/19/19 04/16/24 History aspirin 81 mg tablet,delayed 81 mg PO DAILY heart ##60 12/30/19 04/05/24 Rx release empagliflozin 25 mg tablet 25 mg PO DAILY 02/13/24 04/14/24 History sitagliptin 100 mg tablet 100 mg PO DAILY 02/13/24 04/15/24 History clopidogrel 75 mg tablet 75 mg PO DAILY #30 tabs 03/12/24 04/05/24 Rx finasteride 5 mg tablet 5 mg PO QHS bph #30 tabs 03/12/24 04/14/24 Rx tamsulosin 0.4 mg capsule 0.8 mg (2 x 0.4 mg) PO DAILY@0830 03/12/24 04/15/24 Rx #60 caps phenazopyridine 100 mg tablet 100 mg PO Q8H 04/03/24 Unknown History (Pyridium) rosuvastatin 5 mg tablet (Crestor) 5 mg PO QHS 04/03/24 04/15/24 History ciprofloxacin HCl 500 mg tablet 500 mg PO BID #14 tabs 04/16/24 Unknown Rx (Cipro) docusate sodium 100 mg capsule 100 mg PO BID #20 caps 04/16/24 Unknown Rx (Colace) oxycodone 5 mg tablet 5 mg PO Q6H PRN pain 3 days #14 04/16/24 Unknown Rx tabs Allergy/AdvReac Type Severity Reaction Status Date / Time celecoxib (From Celebrex) Allergy Rash Verified 04/17/24 19:33 etodolac Allergy Rash Verified 04/17/24 19:33 terbinafine AdvReac Rash Verified 04/17/24 19:33 Surgical History Hx of colonoscopy Hx of tonsillectomy Hx of cystoscopy Hx of total knee arthroplasty Stented coronary artery (~04/2012) H/O right heart catheterization Social History household members: spouse housing: house Smoking Status: Never smoker substance use type: does not use Lab / Micro Data 04/18/24 05:50 04/18/24 05:50 Labs: Laboratory Results - last 24 hr 04/17/24 20:17: Ur Random Sodium 21, Urine Creatinine 53.60 04/17/24 20:20: WBC 46.2 H*, RBC 3.96 L, Hgb 11.1 L, Hct 33.7 L, MCV 85.1, MCH 28.0, MCHC 32.9, RDW Std Deviation 47.6 H, RDW Coeff of Jori 15.4 H, Plt Count 296, MPV 9.6, Immature Gran % (Auto) 2.000 H, Neut % (Auto) 93.6 H, Lymph % (Auto) 1.9 L, [place] % (Auto) 2.2, Eos % (Auto) 0.0, Baso % (Auto) 0.3, Absolute Neuts (auto) 43.3 H, Absolute Lymphs (auto) 0.87, Nucleated RBC % 0, Differential Comment SCANNED, Diff Path Review September, Sodium 126 L, Potassium 5.5 H, Chloride 93 L, Carbon Dioxide 19.0 L, Anion Gap 14, BUN 60 H, Creatinine 3.90 H, Estim Creat Clear Calc 19.92, Est GFR (MDRD) Af Amer 20 L, Est GFR (MDRD) Non-Af 16 L, BUN/Creatinine Ratio 15.4, Glucose 319 H, Lactic Acid 4.4 H*, Calcium 8.5, Total Bilirubin 0.70, AST 23, ALT 49, Alkaline Phosphatase 93, Troponin I High Sens 3, Total Protein 7.1, Albumin 2.7 L, Globulin 4.4 H, Albumin/Globulin Ratio 0.6 L, Lipase 31 04/17/24 20:47: Urine Color Yellow, Urine Clarity Clear, Urine pH 6.0, Ur Specific [place] 1.015, Urine Protein 15 H, Urine Glucose (UA) 1000 H, Urine Ketones Negative, Urine Occult Blood 50 H, Urine Nitrite Negative, Urine Bilirubin Negative, Urine Urobilinogen Normal, Ur Leukocyte Esterase 100 H, Urine RBC 0-5 SEEN, Urine WBC 5-10 SEEN, Ur Squamous Epith Cells 0 SEEN, Urine Bacteria RARE, Urine Mucus 0 SEEN 04/18/24 00:35: Lactic Acid 3.1 H* 04/18/24 00:52: POC Glucose 206 H 04/18/24 05:50: WBC 36.2 H*, RBC 3.66 L, Hgb 10.0 L, Hct 31.2 L, MCV 85.2, MCH 27.3, MCHC 32.1, RDW Std Deviation 48.5 H, RDW Coeff of Jori 15.4 H, Plt Count 289, MPV 10.1, Sodium 132 L, Potassium 4.8, Chloride 102, Carbon Dioxide 21.0, Anion Gap 10, BUN 53 H, Creatinine 2.22 H, Estim Creat Clear Calc 34.99, Est GFR (MDRD) Af Amer 38 L, Est GFR (MDRD) Non-Af 31 L, BUN/Creatinine Ratio 23.9 H, Glucose 202 H, Calcium 8.8 04/18/24 06:41: POC Glucose 208 H Imaging Radiology Impression Abdomen/Pelvis CT 04/17/24 20:12 IMPRESSION: 1. Extensive free intraperitoneal air likely from recent abdominal surgery. Correlate with due to surgery. 2. Right double-J ureteral stent in place with moderate right hydronephrosis with adjacent stranding about the renal pelvis. Correlate with urinalysis for possible infectious pyelitis. The right ureter is not significantly distended. 3. Moderate amount of free fluid in the pelvis. Electronically Signed: Yair Cohen MD at 22:08 EST ,
[2024-04-18] MEDS: 0.9% Normal Saline (1000mL) 1,000 ML 125 ML IV ×2 (07:16→11:23)
--- NOTE | 2024-04-18 07:48 | PCM.PRE.AN2 ---
ASA Classification* ASA Classification ASA Classification: 3 Assessment & Plan Anesthesia* Anesthesia Assessment Anesthesia Assessment: Discussed sedation and/or anesthesia options, risks, benefits, and alternatives with patient/parents/legal guardian/POA. Questions invited. The patient/parents/legal guardian/POA seems to understand and agrees to proceed with anesthesia plan. Reviewed the physical assessment, medical history, allergy history and patient home medications list prior to surgery/procedure/anesthetic and documented any changes. Performed airway and anesthesia risk assessments. Anesthesia Type Anesthesia Type: General Anesthesia Focused Assessment* Temperature: 98.6 F Pulse Rate: 122 Blood Pressure: 125/78 Respiratory Rate: 18 Pulse Ox: 92 Airway Assessment Mouth opens: >3 cm Mallampati Score: II Focused Labs Anesthesia Preop lab: CBC WBC 36.2 K/mm3 (4.4-11.0) H* 04/18/24 05:50 RBC 3.66 M/mm3 (4.6-6.2) L 04/18/24 05:50 Hgb 10.0 g/dL (13.0-16.5) L 04/18/24 05:50 Hct 31.2 % (40-54) L 04/18/24 05:50 Plt Count 289 K/mm3 (150-450) 04/18/24 05:50 CHEMISTRY Potassium 4.8 mmol/L (3.5-5.1) 04/18/24 05:50 Sodium 132 mmol/L (136-145) L 04/18/24 05:50 Magnesium 1.8 mg/dL (1.6-2.6) 12/22/19 09:25 BUN 53 mg/dL (7-18) H 04/18/24 05:50 Creatinine 2.22 mg/dL (0.70-1.30) H 04/18/24 05:50 Glucose 202 mg/dL (74-106) H 04/18/24 05:50 POC Glucose 208 mg/dL (74-106) H 04/18/24 06:41 COAG PT 16.0 SECONDS (11.7-14.9) H 03/08/24 09:35 Pre-Assessment Diagnosis/Proposed Procedure Planned Operative Procedure(s): Exploratory laparoscopy, possoble bowell resection Anesthesia History Anesthesia History - public information director: Anesthesia History - public information director Hx Hospitalization Yes: 02/2024 [facility] 04/03/24 09:49 Any Problems With Anesthesia No 04/18/24 04:03 Cholinesterase deficiency No 04/18/24 04:03 You/Your Family Experience No 04/18/24 04:03 fever (hyperthermia) with Relationship Recent Exposure to Contagious No 04/18/24 04:03 Disease Does patient have nerve No 04/18/24 04:03 stimulator Patient instructed to have No 04/18/24 04:03 device shut off --Does patient have Pacemaker No 04/18/24 04:03 or ICD? When Was Last Pacemaker Check QUESTION #4 FULL TEXT: You/Your Family Experience fever (hyperthermia) with Anesthesia Last Oral Intake Last Oral intake: Last Oral Intake NPO since 00:00 04/18/24 04:03 Meds taken in AM with sips of water? Meds patient instructed to take am of surgery PONV PONV - public information director: PONV - public information director Female HX of Motion Sickness HX of N/V After Surgery Non-Smoker Duration of Surgery greater than 60 minutes Number of Risk Factors PONV Score Height & Weight Height & Weight: Anesthesia: Height & Weight Height 6 ft 1 in 04/18/24 04:03 Weight: 87.5 kg 04/18/24 04:03 Body Mass Index (BMI) 25.4 04/18/24 04:03 Respiratory Assessment Respiratory Assessment - public information director: Respiratory Tract Infection Hx - public information director Hx Respiratory Tract Infection No 04/18/24 04:03 STOP Sleep Apnea STOP Sleep Apnea - public information director: STOP Sleep Apnea - public information director Hx Hypertension Yes 04/18/24 00:01 Hx Sleep Apnea No 04/18/24 00:01 CPAP BIPAP Do you snore loudly (louder No 04/18/24 00:01 than talking or can be heard Do you often feel tired/ No 04/18/24 00:01 fatigued/ sleepy during daytime? Has anyone observed you stop No 04/18/24 00:01 breathing during sleep? STOP Results Negative 04/18/24 00:01 QUESTION #5 FULL TEXT : Do you snore loudly (louder than talking or can be heard through closed doors)? Tobacco Use History Tobacco Use History - public information director: Tobacco Use History - public information director Tobacco Use Smoking Status Never smoker 04/18/24 00:01 Hx Tobacco Use No 04/18/24 00:01 Years Smoking Packs Smoked per Day Smoking Cessation Date was within the last 15 years Hx Smoking Cessation Date Hx Smoking Cessation Counseling Hematologic Medial History Hematologic Hx - public information director: Hematologic Medical Hx - sexer Hx of Blood Transfusion No 04/18/24 00:01 Hx of Transfusion in last 3 No 04/18/24 00:01 Months Date of Last Transfusion (if within last 3 months) Ever experience any problems No 04/18/24 00:01 with transfusion(s)? Specify any problems Hx of Preganancy in last 3 N/A 04/18/24 00:01 Months Nurse Filling Out Transfusion [email or web address] 04/18/24 00:01 & Questions: Date: 04/18/24 04/18/24 00:01 Time: 00:07 04/18/24 00:01 Patient unable to answer at this time (ie. confused, unrespo /Reproduction History /Reproductive History - public information director: /Reproductive Hx- public information director Hx Now No 04/18/24 04:03 Gestational Age (in weeks): EDC: Hx Hx Para Hx Section SAB No 04/18/24 04:03 Active Medications Active Medications: Current Medications Generic Name Dose Route Start Last Admin Trade Name Freq PRN Reason Stop Dose Admin Acetaminophen 650 mg 04/18/24 00:00 Acetaminophen 325 Mg Tablet PO Q6H PRN PRN Pain 1-10 Or Fever>100.7 Aspirin 81 mg 04/18/24 10:00 Aspirin E.C. 81 Mg Tablet PO DAILY [facility] Atorvastatin Calcium 10 mg 04/18/24 22:00 Atorvastatin Calcium 10 Mg Tablet PO QHS [facility] Clopidogrel Bisulfate 75 mg 04/18/24 10:00 Clopidogrel Bisulfate 75 Mg Tablet PO DAILY BHUPENDRA Docusate Sodium 100 mg 04/18/24 10:00 Docusate Sodium 100 Mg Capsule PO BID BHUPENDRA Glucagon 1 mg 04/18/24 00:00 Glucagon 1 Mg/Ml Syringe IM X1 PRN Hypoglycemia Protocol Heparin Sodium (Porcine) 5,000 unit 04/18/24 14:00 Heparin Injection (Vial) 5,000 Unit/Ml Vial SC Q8 BHUPENDRA Hydromorphone HCl 0.5 mg 04/18/24 00:29 04/18/24 04:42 Hydromorphone 1 Mg/Ml Syringe IV 0.5 mg Q3H PRN PRN Administration Pain Score 6-10 Dextrose 250 mls @ 0 mls/hr 04/18/24 00:00 Dextrose 10%-Water IV .Q0M PRN HYPOGLYCEMIA Protocol As Directed Sodium Chloride 500 mls @ 15 mls/hr 04/18/24 00:07 IV .[id number] PRN Saline Flush Sodium Chloride 500 mls @ 15 mls/hr 04/18/24 00:07 IV .[id number] PRN Additional IVPB Infusion Ceftriaxone Sodium 2 gm/ 50 mls @ 100 mls/hr 04/18/24 10:00 Sodium Chloride IV Q24 BHUPENDRA Sodium Chloride 1,000 mls @ 125 mls/hr 04/18/24 07:10 04/18/24 07:16 IV 04/19/24 15:09 125 mls/hr .Q8H [facility] Administration Protocol Piperacillin Sod/Tazobactam 50 mls @ 100 mls/hr 04/18/24 07:47 Sod 3.375 gm/ Sodium Chloride IV 04/18/24 08:16 X1 ONE Insulin Human Lispro 0 unit 04/18/24 00:40 04/18/24 04:48 Insulin Lispro 100 Unit/Ml Insuln.Pen SC Not Given ACHS [facility] Protocol Melatonin 3 mg 04/18/24 00:00 Melatonin 3 Mg Tablet PO QHS PRN PRN INSOMNIA Ondansetron HCl 4 mg 04/18/24 00:00 04/18/24 04:39 Ondansetron 4 Mg/2 Ml Vial IV 4 mg Q8H PRN PRN Administration NAUSEA/VOMITING Oxycodone HCl 5 mg 04/18/24 00:29 Oxycodone 5 Mg Tablet PO Q4H PRN PRN Pain Score 4-10 Sodium Chloride 10 - 40 ml 04/18/24 00:07 0.9% Saline Lock 10 Ml Syringe IV UD PRN SALINE FLUSH Tamsulosin HCl 0.8 mg 04/18/24 08:30 Tamsulosin Hcl 0.4 Mg Capsule PO DAILY@0830 [facility] Medical History Septic shock Wears glasses Cancer History of renal disease Prostate disease DVT (deep venous thrombosis) High cholesterol Injury of back Syncope Dietary restriction History of echocardiogram History of stress test Non-smoker Atherosclerotic heart disease of [place] coronary artery without angina pectoris History of ST elevation myocardial infarction (STEMI) (~04/2012) Cardiomyopathy NSTEMI (non-ST elevated myocardial infarction) Pyelonephritis Heart attack Diabetes Coronary artery disease Hypertension History of coronary artery disease History of hypertension History of type 2 diabetes mellitus Home Medications ?Medication ?Instructions ?Recorded ?Last Taken ?Type metformin 1,000 mg tablet 1,000 mg PO BID diabetes 12/19/19 04/15/24 History metoprolol tartrate 25 mg tablet 12.5 mg PO BID heart 12/19/19 04/16/24 History aspirin 81 mg tablet,delayed 81 mg PO DAILY heart ##60 12/30/19 04/05/24 Rx release empagliflozin 25 mg tablet 25 mg PO DAILY 02/13/24 04/14/24 History sitagliptin 100 mg tablet 100 mg PO DAILY 02/13/24 04/15/24 History clopidogrel 75 mg tablet 75 mg PO DAILY #30 tabs 03/12/24 04/05/24 Rx finasteride 5 mg tablet 5 mg PO QHS bph #30 tabs 03/12/24 04/14/24 Rx tamsulosin 0.4 mg capsule 0.8 mg (2 x 0.4 mg) PO DAILY@0830 03/12/24 04/15/24 Rx #60 caps phenazopyridine 100 mg tablet 100 mg PO Q8H 04/03/24 Unknown History (Pyridium) rosuvastatin 5 mg tablet (Crestor) 5 mg PO QHS 04/03/24 04/15/24 History ciprofloxacin HCl 500 mg tablet 500 mg PO BID #14 tabs 04/16/24 Unknown Rx (Cipro) docusate sodium 100 mg capsule 100 mg PO BID #20 caps 04/16/24 Unknown Rx (Colace) oxycodone 5 mg tablet 5 mg PO Q6H PRN pain 3 days #14 04/16/24 Unknown Rx tabs Allergy/AdvReac Type Severity Reaction Status Date / Time celecoxib (From Celebrex) Allergy Rash Verified 04/17/24 19:33 etodolac Allergy Rash Verified 04/17/24 19:33 terbinafine AdvReac Rash Verified 04/17/24 19:33 Surgical History Hx of colonoscopy Hx of tonsillectomy Hx of cystoscopy Hx of total knee arthroplasty Stented coronary artery (~04/2012) H/O right heart catheterization Social History household members: spouse housing: house Smoking Status: Never smoker substance use type: does not use Review of Systems (Anesthesia) ROS Narrative System reviewed and no additional complaints, except as documented.
[2024-04-18] MEDS: Piperacil/Tazobactam 3.375 GM in 0.9% Normal Saline (50mL MB+) 50 ML IV ×3 (08:15→21:11)
--- NOTE | 2024-04-18 09:40 | EX.PCM.CON.S ---
Assessment & Plan Assessment/Plan (1) Postoperative abdominal pain: PLAN: The patient appears to be septic and he does have a lot of abdominal pain. I reviewed the CT scan which does show more free air than I would expect 48 hours after laparoscopic surgery. There is also fluid in the pelvis and around the spleen and liver. I discussed taking him for exploratory laparoscopy possible open with possible bowel resection. I discussed the risks including but not limited to bleeding, infection, injury other organs. Patient understands the risks and is willing to proceed. Poli Abraham MD Pager: [facility] [address] [place] [address], [address] [place] [address] Office: HPI Consult Data Date of Consult: 04/18/24 HPI Narrative HPI Narrative: LAUREN THOMAS, is a 69 M who was admitted under urology. The patient had a recent pyeloplasty and mobilization of the right colon. Patient returned with abdominal pain and CT scan revealed free air and I was called. The patient complains of pain throughout his abdomen. Denies vomiting but he is nauseous. [facility] Medical History Septic shock Wears glasses Cancer History of renal disease Prostate disease DVT (deep venous thrombosis) High cholesterol Injury of back Syncope Dietary restriction History of echocardiogram History of stress test Non-smoker Atherosclerotic heart disease of [place] coronary artery without angina pectoris History of ST elevation myocardial infarction (STEMI) (~04/2012) Cardiomyopathy NSTEMI (non-ST elevated myocardial infarction) Pyelonephritis Heart attack Diabetes Coronary artery disease Hypertension History of coronary artery disease History of hypertension History of type 2 diabetes mellitus Home Medications ?Medication ?Instructions ?Recorded ?Last Taken ?Type metformin 1,000 mg tablet 1,000 mg PO BID diabetes 12/19/19 04/15/24 History metoprolol tartrate 25 mg tablet 12.5 mg PO BID heart 12/19/19 04/16/24 History aspirin 81 mg tablet,delayed 81 mg PO DAILY heart ##60 12/30/19 04/05/24 Rx release empagliflozin 25 mg tablet 25 mg PO DAILY 02/13/24 04/14/24 History sitagliptin 100 mg tablet 100 mg PO DAILY 02/13/24 04/15/24 History clopidogrel 75 mg tablet 75 mg PO DAILY #30 tabs 03/12/24 04/05/24 Rx finasteride 5 mg tablet 5 mg PO QHS bph #30 tabs 03/12/24 04/14/24 Rx tamsulosin 0.4 mg capsule 0.8 mg (2 x 0.4 mg) PO DAILY@0830 03/12/24 04/15/24 Rx #60 caps phenazopyridine 100 mg tablet 100 mg PO Q8H 04/03/24 Unknown History (Pyridium) rosuvastatin 5 mg tablet (Crestor) 5 mg PO QHS 04/03/24 04/15/24 History ciprofloxacin HCl 500 mg tablet 500 mg PO BID #14 tabs 04/16/24 Unknown Rx (Cipro) docusate sodium 100 mg capsule 100 mg PO BID #20 caps 04/16/24 Unknown Rx (Colace) oxycodone 5 mg tablet 5 mg PO Q6H PRN pain 3 days #14 04/16/24 Unknown Rx tabs Allergy/AdvReac Type Severity Reaction Status Date / Time celecoxib (From Celebrex) Allergy Rash Verified 04/17/24 19:33 etodolac Allergy Rash Verified 04/17/24 19:33 terbinafine AdvReac Rash Verified 04/17/24 19:33 Surgical History Hx of colonoscopy Hx of tonsillectomy Hx of cystoscopy Hx of total knee arthroplasty Stented coronary artery (~04/2012) H/O right heart catheterization Social History household members: spouse housing: house Smoking Status: Never smoker substance use type: does not use Physical Exam Const alert and oriented x3 HEENT normocephalic Neck full ROM Resp normal respiratory effort Cardio Rate: tachycardic GI soft to palpation Inspection: abdominal distention Palpation: tender Lab / Micro Data 04/18/24 05:50 04/18/24 05:50 Labs: Laboratory Results - last 24 hr 04/17/24 20:17: Ur Random Sodium 21, Urine Creatinine 53.60 04/17/24 20:20: WBC 46.2 H*, RBC 3.96 L, Hgb 11.1 L, Hct 33.7 L, MCV 85.1, MCH 28.0, MCHC 32.9, RDW Std Deviation 47.6 H, RDW Coeff of Jori 15.4 H, Plt Count 296, MPV 9.6, Immature Gran % (Auto) 2.000 H, Neut % (Auto) 93.6 H, Lymph % (Auto) 1.9 L, [place] % (Auto) 2.2, Eos % (Auto) 0.0, Baso % (Auto) 0.3, Absolute Neuts (auto) 43.3 H, Absolute Lymphs (auto) 0.87, Nucleated RBC % 0, Differential Comment SCANNED, Diff Path Review September foll, Sodium 126 L, Potassium 5.5 H, Chloride 93 L, Carbon Dioxide 19.0 L, Anion Gap 14, BUN 60 H, Creatinine 3.90 H, Estim Creat Clear Calc 19.92, Est GFR (MDRD) Af Amer 20 L, Est GFR (MDRD) Non-Af 16 L, BUN/Creatinine Ratio 15.4, Glucose 319 H, Lactic Acid 4.4 H*, Calcium 8.5, Total Bilirubin 0.70, AST 23, ALT 49, Alkaline Phosphatase 93, Troponin I High Sens 3, Total Protein 7.1, Albumin 2.7 L, Globulin 4.4 H, Albumin/Globulin Ratio 0.6 L, Lipase 31 04/17/24 20:47: Urine Color Yellow, Urine Clarity Clear, Urine pH 6.0, Ur Specific [place] 1.015, Urine Protein 15 H, Urine Glucose (UA) 1000 H, Urine Ketones Negative, Urine Occult Blood 50 H, Urine Nitrite Negative, Urine Bilirubin Negative, Urine Urobilinogen Normal, Ur Leukocyte Esterase 100 H, Urine RBC 0-5 SEEN, Urine WBC 5-10 SEEN, Ur Squamous Epith Cells 0 SEEN, Urine Bacteria RARE, Urine Mucus 0 SEEN 04/18/24 00:35: Lactic Acid 3.1 H* 04/18/24 00:52: POC Glucose 206 H 04/18/24 05:50: WBC 36.2 H*, RBC 3.66 L, Hgb 10.0 L, Hct 31.2 L, MCV 85.2, MCH 27.3, MCHC 32.1, RDW Std Deviation 48.5 H, RDW Coeff of Jori 15.4 H, Plt Count 289, MPV 10.1, Diff Path Review May foll, Sodium 132 L, Potassium 4.8, Chloride 102, Carbon Dioxide 21.0, Anion Gap 10, BUN 53 H, Creatinine 2.22 H, Estim Creat Clear Calc 34.99, Est GFR (MDRD) Af Amer 38 L, Est GFR (MDRD) Non-Af 31 L, BUN/Creatinine Ratio 23.9 H, Glucose 202 H, Calcium 8.8 04/18/24 06:41: POC Glucose 208 H Imaging Radiology Impression Abdomen/Pelvis CT 04/17/24 20:12 IMPRESSION: 1. Extensive free intraperitoneal air likely from recent abdominal surgery. Correlate with due to surgery. 2. Right double-J ureteral stent in place with moderate right hydronephrosis with adjacent stranding about the renal pelvis. Correlate with urinalysis for possible infectious pyelitis. The right ureter is not significantly distended. 3. Moderate amount of free fluid in the pelvis. Electronically Signed: Yair Cohen MD at 22:08 EST ,
--- NOTE | 2024-04-18 09:48 | NURSING ---
Report called to JOY Arzate in ICU at this time.
--- NOTE | 2024-04-18 09:48 | PCM.OPRPT ---
Operative Report (Standard) Operative Information Surgery/Procedure Performed: Exploratory laparoscopy converted to laparotomy Surgeon: Poli Abraham Date of Procedure: 04/18/24 Procedure Start Time: 08:28 Procedure Stop Time: 09:55 Pre-Operative Diagnosis: Suspected bowel injury Post-Operative Diagnosis: Same Select all DRAINS/GRAFTS/IMPLANTS that apply: Drains Drain details: JPs to bulb suction Type of Anesthesia: General/Regional Estimated Blood Loss: 50 Specimen collected: No Description of surgery: Patient was taken back to the operating room and general anesthesia was induced. The abdomen was prepped and draped in usual sterile fashion. A midline incision was made at the prior midline incision and using Visiport technique the abdomen was entered using a 5 mm port. The abdomen was then insufflated 15 mmHg. The abdomen was inspected. 2 additional 5 mm ports were placed through old incisions. The fluid that was around the area it appeared serosanguineous. There is no purulence or succus. The colon was inspected but I was unable to inspect the hepatic flexure or over the opposite side of the colon so the laparoscopy was converted to a small laparotomy. An incision was made from the umbilicus up to the midline incision and this was then opened down to the fascia using electrocautery. Electrocautery was then used to open the fascia and then wound protector was placed. The colon was delivered through the wound protector and inspected and there was no injury noted. The colon appeared viable with no signs of ecchymosis or necrosis. According to the urologist he only used sharp dissection with no cautery dissection. There was no necrosis noted. At this time we debated [id number] several times deciding if we should remove the right colon or leave drains and observe for a day. The patient's blood pressure seem to respond and tachycardia responded to fluids. We decided to place drains and observe the patient in the ICU overnight. No overt injury was noted and then attempt to save the right colon drains were left and the patient will be observed in the ICU. A KURTIS was placed through one of the 5 mm ports and it was ran down the right gutter and over to the epigastric space. Just inferior to this another incision was made and a 15 [place] round drain was placed through this incision and down into the pelvis. Both were secured with nylon sutures. The abdomen was washed out copiously and suctioned dry. There was no succus or purulent material noted. Next the fascia was closed in a running fashion using #1 PDS suture. The subcutaneous tissue was irrigated and then the incision was closed with subcuticular 4-0 Monocryl. Bandages were applied. Patient was taken to PACU in stable condition and will be moved to the ICU for observation. Surgical Findings: No bowel injury identified Anatomy Teacher immunohematologist: Yes Consultants Intern: Polo Osullivan Tasks completed by pastrycook's assistant: Opening, Closing and Retracting Additional liaison inspection laboratory assistant?: No Complications Complications: No Admit VTE Documentation VTE Mechan Device Prophylaxis: SCD's
--- NOTE | 2024-04-18 09:57 | PCM.POST.ANE ---
Anesthesia: Postop Eval I Current Vital Signs Temperature: 98.5 F Pulse Rate: 132 Blood Pressure: 115/64 Respiratory Rate: 18 Pulse Ox: 93 Oxygen Delivery Method: Simple Mask Oxygen Flow Rate (L/min): 10 Assessment Airway patent: Yes Spontaneous unlabored respirations: Yes Mental status: Awake and Calm nausea: No Vomiting: No Anesthesia Complication: No Fluid Hydration Crystalloid volume administer (ml): 2,000 Total IV fluid infused: 2,000 Progress Note Anesthesia document: Postop Eval 1 completed: Yes
--- NOTE | 2024-04-18 11:03 | POSTOPAN2_ITS ---
Anesthesia Postop Eval I Sum Postop Eval Completion status Anesthesia document: Postop Eval 1 completed: Yes Anesthesia Postop Eval I Summary Anesthesia Postop Eval I Summary: Anesthesia Postop Eval I: Assessment Summary Airway patent Yes 04/18/24 09:59 [email or web address] [email or web address] Spontaneous unlabored Yes 04/18/24 09:59 [email or web address] [email or web address] respirations Mental status Awake,Calm 04/18/24 09:59 [email or web address] [email or web address] nausea No 04/18/24 09:59 [email or web address] [email or web address] Vomiting No 04/18/24 09:59 [email or web address] [email or web address] Anesthesia Postop Eval I: Fluid Summary Crystalloid volume administer 2,000 04/18/24 09:59 [email or web address] (ml) Colloids volume administered ( ml) Blood Product volume administered (ml) Total IV fluid infused 2,000 04/18/24 09:59 [email or web address] [email or web address] Anesthesia Postop Eval I: Summary Notes Anesthesia Complication No 04/18/24 09:59 [email or web address] Anesthesia Complication Comment: Post-operative progress note Anesthesia: Postop Eval II Evaluation Mental status: Awake Pain Level: 2 (To ICU post OP per Leigh cartagena, He discussed with ICU/Hospitalist) nausea: No Vomiting: No
--- NOTE | 2024-04-18 11:03 | PCM.POSTANE2 ---
Anesthesia Postop Eval I Sum Postop Eval Completion status Anesthesia document: Postop Eval 1 completed: Yes Anesthesia Postop Eval I Summary Anesthesia Postop Eval I Summary: Anesthesia Postop Eval I: Assessment Summary Airway patent Yes 04/18/24 09:59 [email or web address] Spontaneous unlabored Yes 04/18/24 09:59 [email or web address] respirations Mental status Awake,Calm 04/18/24 09:59 [email or web address] nausea No 04/18/24 09:59 POLICE [email or web address] Vomiting No 04/18/24 09:59 [email or web address] Anesthesia Postop Eval I: Fluid Summary Crystalloid volume administer 2,000 04/18/24 09:59 POLICE [email or web address] (ml) Colloids volume administered ( ml) Blood Product volume administered (ml) Total IV fluid infused 2,000 04/18/24 09:59 [email or web address] Anesthesia Postop Eval I: Summary Notes Anesthesia Complication No 04/18/24 09:59 [email or web address] Anesthesia Complication Comment: Post-operative progress note Anesthesia: Postop Eval II Evaluation Mental status: Awake Pain Level: 2 (To ICU post OP per Leigh cartagena, He discussed with ICU/Hospitalist) nausea: No Vomiting: No
[2024-04-18 11:09] LABS: Bedside Glucose 213 mg/dL (74-106)
--- NOTE | 2024-04-18 11:49 | EX.PCM.CONCC ---
Assessment & Plan Assessment/Plan (1) Sepsis: (2) RICARDA (acute kidney injury): (3) Postoperative abdominal pain: PLAN: Plan RECOMMENDATIONS: 1. Gentle IV fluid hydration while NPO. 2. Continue empiric antimicrobials, while awaiting follow-up blood and urine cultures. 3. Maintain NG tube to suction. Obtain follow-up KUB to ensure appropriate placement. 4. Supplemental oxygen to maintain saturations at or above 90%. 5. Encourage incentive spirometer use while in bed. 6. Continue appropriate DVT prophylaxis. IMPRESSIONS: 1. Sepsis The patient presented to the hospital with concern for intra-abdominal sepsis versus complicated UTI, following recent urologic surgical procedure with concern for iatrogenic bowel injury, with acute sepsis related organ dysfunction as evidenced by lactic acidemia and acute kidney injury. On April 16, the patient underwent laparoscopic robot-assisted right pyeloplasty, only to return to the hospital on April 17 with abdominal pain and radiographic evidence of extensive free intraperitoneal air with concern for abdominal injury related to recent surgery. However, the patient underwent exploratory laparotomy, which did not reveal significant bowel injury. The patient has received supplemental IV fluid hydration but remains otherwise hemodynamically stable. Will need to be mindful of the patient's overall volume status, given his underlying cardiomyopathy. General surgery and urology are following. I agree with continuing empiric antibiotics, pending repeat infectious workup. The patient was noted to have a positive urine culture on April 08 for pansensitive Serratia marcescens. Continue NG tube to wall suction per general surgery recommendations. If the patient decompensates clinically, he will likely require additional surgical intervention. 2. Acute kidney injury Most likely prerenal in etiology as the patient's renal function appears to be improving with volume expansion. Continue gentle IV fluid hydration and continue to monitor urine output. No current indication for renal replacement therapy. 3. History of coronary artery disease/cardiomyopathy/diabetes mellitus/hypertension/hyperlipidemia/BPH with obstruction Complicates care, management, recovery and prognosis. Continue supportive measures as noted above. Continue to hold home antihypertensives. This note was generated with [employer] dictation software. It may contain incorrect words, spelling, and punctuation that were not noted in checking the note before signing. HPI Consult Data Date of Consult: 04/18/24 HPI Narrative Reason for Consultation: Sepsis HPI Narrative: The patient is a 69-year-old male, with a history as outlined below, who presented to the emergency department on April 17 with abdominal pain and urinary retention. The patient's medical history is significant for recent septic shock hospital admission in February 2024 secondary to acute pyelonephritis with gram-negative UTI, coronary artery disease with underlying cardiomyopathy, diabetes mellitus, hypertension, hyperlipidemia and BPH with obstruction. On April 16, the patient underwent laparoscopic robot-assisted right pyeloplasty by Dr. Moreno secondary to right UPJ obstruction. No complications were noted as a consequence of the aforementioned procedure. The patient was discharged home in stable condition. On presentation to the emergency department, the patient was noted to be afebrile and hemodynamically stable. He was, nevertheless, notably tachycardic with mild tachypnea. Initial laboratory evaluation revealed an elevated white blood cell count of 46,000. Chemistry profile was notable for a creatinine of 3.9, which was previously documented to be 1.13 on April 08. Sodium was low at 126 with a potassium of 5.5, chloride of 93 and bicarbonate of 19. Lactate was elevated at 4.4. Urine analysis was negative for nitrites but positive for leukocyte esterase and rare bacteria. It does appear that the patient had a positive urine analysis for Serratia marcescens on April 08. It does appear that the patient was prescribed ciprofloxacin on April 16. CT abdomen/pelvis was obtained and demonstrated extensive free intraperitoneal air. The patient was subsequently evaluated by general surgery and taken to the OR on April 18, where he underwent exploratory laparoscopy with conversion to laparotomy. No significant bowel injury was identified. Postoperatively, the patient was brought to the medical intensive care unit in stable condition. While the patient does remain tachycardic, he is otherwise hemodynamically stable and maintaining appropriate oxygen saturations on 4 L/min via nasal cannula. Blood and urine cultures are currently pending. The patient remains on supplemental IV fluids along with antimicrobials. Surface echocardiogram from February 2024 demonstrated mild generalized LV systolic dysfunction with an ejection fraction of 35 to 40%. The patient currently denies any pain. [facility] Medical History Septic shock Wears glasses Cancer History of renal disease Prostate disease DVT (deep venous thrombosis) High cholesterol Injury of back Syncope Dietary restriction History of echocardiogram History of stress test Non-smoker Atherosclerotic heart disease of [place] coronary artery without angina pectoris History of ST elevation myocardial infarction (STEMI) (~04/2012) Cardiomyopathy NSTEMI (non-ST elevated myocardial infarction) Pyelonephritis Heart attack Diabetes Coronary artery disease Hypertension History of coronary artery disease History of hypertension History of type 2 diabetes mellitus Home Medications ?Medication ?Instructions ?Recorded ?Last Taken ?Type metformin 1,000 mg tablet 1,000 mg PO BID diabetes 12/19/19 04/15/24 History metoprolol tartrate 25 mg tablet 12.5 mg PO BID heart 12/19/19 04/16/24 History aspirin 81 mg tablet,delayed 81 mg PO DAILY heart ##60 12/30/19 04/05/24 Rx release empagliflozin 25 mg tablet 25 mg PO DAILY 02/13/24 04/14/24 History sitagliptin 100 mg tablet 100 mg PO DAILY 02/13/24 04/15/24 History clopidogrel 75 mg tablet 75 mg PO DAILY #30 tabs 03/12/24 04/05/24 Rx finasteride 5 mg tablet 5 mg PO QHS bph #30 tabs 03/12/24 04/14/24 Rx tamsulosin 0.4 mg capsule 0.8 mg (2 x 0.4 mg) PO DAILY@0830 03/12/24 04/15/24 Rx #60 caps phenazopyridine 100 mg tablet 100 mg PO Q8H 04/03/24 Unknown History (Pyridium) rosuvastatin 5 mg tablet (Crestor) 5 mg PO QHS 04/03/24 04/15/24 History ciprofloxacin HCl 500 mg tablet 500 mg PO BID #14 tabs 04/16/24 Unknown Rx (Cipro) docusate sodium 100 mg capsule 100 mg PO BID #20 caps 04/16/24 Unknown Rx (Colace) oxycodone 5 mg tablet 5 mg PO Q6H PRN pain 3 days #14 04/16/24 Unknown Rx tabs Allergy/AdvReac Type Severity Reaction Status Date / Time celecoxib (From Celebrex) Allergy Rash Verified 04/17/24 19:33 etodolac Allergy Rash Verified 04/17/24 19:33 terbinafine AdvReac Rash Verified 04/17/24 19:33 Surgical History Hx of colonoscopy Hx of tonsillectomy Hx of cystoscopy Hx of total knee arthroplasty Stented coronary artery (~04/2012) H/O right heart catheterization Social History household members: spouse housing: house Smoking Status: Never smoker substance use type: does not use ROS ROS Narrative 10 systems were reviewed with pertinent positives as noted in the HPI above. Physical Exam Const alert, oriented x3 and no apparent distress General Appearance: cooperative and well developed HEENT normocephalic, head/scalp atraumatic and moist oral mucous membranes HEENT Narrative: Nasogastric tube in place. Eyes PERRL, EOMs intact bilaterally and conjunctivae normal Neck supple General: trachea midline Chest inspection of chest normal Resp normal respiratory effort Auscultation: Negative for rales, rhonchi or wheezes Cardio S1 normal heart sound and S2 normal heart sound Rate: tachycardic GI soft to palpation and non-tender GI Narrative: Surgical dressing in place with KURTIS drains x 2 in situ. Extremity no clubbing, cyanosis or edema Skin no rashes or lesions noted Neuro CN's II-XII intact bilaterally, moves all extremities and no focal motor deficits Psych cooperative and affect normal Medical Records Data Medical Nutrition Assessment Dietitian: Malnutrition Criteria Met Start: 04/18/24 10:38 Freq: Status: Active Protocol: Document 04/18/24 10:38 GAURAV (Rec: 04/18/24 10:38 [facility] [id number]) Nutrition Malnutrition Evidence of Malnutrition Exists Yes Malnutrition (moderate): Acute Illness/Injury Evidenced By Suboptimal Energy Intake ( Moderate),Weight Loss (Severe) Clinical Problem Altered Nutrient-Related Laboratory Values Etiology related to diabetes Signs/Symptoms as evidenced by gluc 202 Status Active Problem Acute Disease or Injury Related Malnutrition Etiology related to inadequate energy intake Signs/Symptoms as evidenced by po intake meeting <75% of est nutritional needs and pt w/ 8. 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 Problem Recommendation Dietitian Recommendations/Changes As medically able, rec KIMBERLEE to 2000 darío Cardiac diet As medically able, rec 4 oz glucerna shake tid w/ medpass for increased nutrition if consumed Will interview pt at time of follow up re: diet/wt hx, etc and make additional rec and provide diet education as indicated Lab / Micro Data 04/18/24 05:50 04/18/24 05:50 Labs: Laboratory Results - last 24 hr 04/17/24 20:17: Ur Random Sodium 21, Urine Creatinine 53.60 04/17/24 20:20: WBC 46.2 H*, RBC 3.96 L, Hgb 11.1 L, Hct 33.7 L, MCV 85.1, MCH 28.0, MCHC 32.9, RDW Std Deviation 47.6 H, RDW Coeff of Jori 15.4 H, Plt Count 296, MPV 9.6, Immature Gran % (Auto) 2.000 H, Neut % (Auto) 93.6 H, Lymph % (Auto) 1.9 L, [place] % (Auto) 2.2, Eos % (Auto) 0.0, Baso % (Auto) 0.3, Absolute Neuts (auto) 43.3 H, Absolute Lymphs (auto) 0.87, Nucleated RBC % 0, Differential Comment SCANNED, Diff Path Review September, Sodium 126 L, Potassium 5.5 H, Chloride 93 L, Carbon Dioxide 19.0 L, Anion Gap 14, BUN 60 H, Creatinine 3.90 H, Estim Creat Clear Calc 19.92, Est GFR (MDRD) Af Amer 20 L, Est GFR (MDRD) Non-Af 16 L, BUN/Creatinine Ratio 15.4, Glucose 319 H, Lactic Acid 4.4 H*, Calcium 8.5, Total Bilirubin 0.70, AST 23, ALT 49, Alkaline Phosphatase 93, Troponin I High Sens 3, Total Protein 7.1, Albumin 2.7 L, Globulin 4.4 H, Albumin/Globulin Ratio 0.6 L, Lipase 31 04/17/24 20:47: Urine Color Yellow, Urine Clarity Clear, Urine pH 6.0, Ur Specific [place] 1.015, Urine Protein 15 H, Urine Glucose (UA) 1000 H, Urine Ketones Negative, Urine Occult Blood 50 H, Urine Nitrite Negative, Urine Bilirubin Negative, Urine Urobilinogen Normal, Ur Leukocyte Esterase 100 H, Urine RBC 0-5 SEEN, Urine WBC 5-10 SEEN, Ur Squamous Epith Cells 0 SEEN, Urine Bacteria RARE, Urine Mucus 0 SEEN 04/18/24 00:35: Lactic Acid 3.1 H* 04/18/24 00:52: POC Glucose 206 H 04/18/24 05:50: WBC 36.2 H*, RBC 3.66 L, Hgb 10.0 L, Hct 31.2 L, MCV 85.2, MCH 27.3, MCHC 32.1, RDW Std Deviation 48.5 H, RDW Coeff of Jori 15.4 H, Plt Count 289, MPV 10.1, Diff Path Review September, Sodium 132 L, Potassium 4.8, Chloride 102, Carbon Dioxide 21.0, Anion Gap 10, BUN 53 H, Creatinine 2.22 H, Estim Creat Clear Calc 34.99, Est GFR (MDRD) Af Amer 38 L, Est GFR (MDRD) Non-Af 31 L, BUN/Creatinine Ratio 23.9 H, Glucose 202 H, Calcium 8.8 04/18/24 06:41: POC Glucose 208 H 04/18/24 10:43: POC Glucose 213 H Imaging Radiology Impression Abdomen/Pelvis CT 04/17/24 20:12 IMPRESSION: 1. Extensive free intraperitoneal air likely from recent abdominal surgery. Correlate with due to surgery. 2. Right double-J ureteral stent in place with moderate right hydronephrosis with adjacent stranding about the renal pelvis. Correlate with urinalysis for possible infectious pyelitis. The right ureter is not significantly distended. 3. Moderate amount of free fluid in the pelvis. Electronically Signed: Yair Cohen MD at 22:08 EST , Charges/Coding Visit Charges Inpatient E&M: 12310 Init Hosp L3
--- NOTE | 2024-04-18 11:55 | RAD_ITS ---
EXAM: XR CHEST, 1 VIEW CLINICAL INDICATION: NG placement TECHNIQUE: Frontal view of the chest. COMPARISON: 03/08/2024. FINDINGS: LUNGS AND PLEURAL SPACES: Subsegmental atelectasis in left lung base. No pneumothorax. No effusion. HEART: Unremarkable. Cardiac silhouette not enlarged. MEDIASTINUM: Central airways and mediastinal contour are unremarkable. BONES/JOINTS: Unremarkable. No acute fracture. SOFT TISSUES: Unremarkable. VASCULATURE: The proximal portion of the right double-J stent is in place. TUBES, LINES AND DEVICES: NG tube tip is in the proximal gastric cavity. The NG tube sidehole is at the EG junction. Distal repositioning will be helpful. Radiopaque drain catheter along the right lower hepatic lobe. RAD/Chest 1 View (Portable) IMPRESSION: 1. NG tube tip is in the left proximal gastric cavity. NG tube sidehole is at the EG junction. Distal repositioning will be helpful. 2. Radiopaque drain catheter on the lower surface of the right hepatic lobe and right double-J stent in place. 3. Subsegmental atelectasis in left lung base. Electronically Signed: Eleazar Robertson MD at 12:32 EST ,
[2024-04-18] MEDS: Docusate Sodium 100 MG Capsule PO (12:04)
[2024-04-18] MEDS: Tamsulosin HCl 0.4 MG Capsule 0.8 MG PO (12:04)
--- NOTE | 2024-04-18 12:41 | CASEMGMT ---
JOY OSBORN Assessment Face to Face with patient for initial transition planning/care coordination assessment. JOY OSBORN introduced self and role at [facility], pt voices understanding. Pt is A&Ox4 and is resting comfortably in bed and is calm. Pt at bedside. Pt is currently on additional oxygen and has an NG tube in place. Care providers, pharmacy, and demographics verified. Admitting dx: Sepsis, RICARDA, Post-OP ABD Pain LACE Strata: 3 PCP: [facility] Specialists: Luli (Cardio-[place]), Abran CAMARGO (U[place]) Preferred Pharmacy: [facility] Insurance: [facility] A[facility]B, [facility] Prescription Benefit: Yes LNOK: Aruna Mahmood (W) Living Arrangements: Pt lives with his and disabled brother in a split level home with 5 steps to the upper portion and 10 steps to the lower section with 1 step to enter the home. ADLs/IADLs: Pt states that he is ind and helps care for his brother at home Transportation: Self, DME: Pt has a BGM with sufficient supplies. Pt also has DME at home for his brother that he does not normally use personally including: Shower chair, RTS, Cane, and grab bars. Pt is currently on additional oxygen and may qualify for home oxygen. Pt given a list of local in-network DME providers. Pt states that he would either want to go through the OR or [facility] but wants to wait and see if he qualifies first. CM to follow. HHC/SNF: Denies history Pt?s goal: Return to PLOF and return Home Plan: TBD. Per medical team, pt will be here through the weekend. 6-click score is 18. At this time, it is too early to determine what the pt DC plan will be. Ancipitate eventual DC home, follow for oxygen, HH, and/or OP Tx needs. Pt and pt deny further questions or concerns at this time. CM and SW to continue to follow. Layo Lott RN, CM
[2024-04-18] MEDS: Heparin Injection (Vial) 5,000 UNIT/ML VIAL 5000 UNIT SC ×2 (13:12→21:11)
[2024-04-18 13:41] LABS: Bedside Glucose 216 mg/dL (74-106)
[2024-04-18 13:45] LABS: Pathologist Review Reviewed
[2024-04-18 13:46] LABS: Pathologist Review Reviewed
--- NOTE | 2024-04-18 14:51 | PN_ITS ---
Subjective Subjective Patient seen and examined. He was in the ICU. He was transferred to the ICU after he had exploratory laparotomy today. His was by his bedside. Patient looks quite weak and lethargic but denies any pain. He denies any nausea vomiting or diarrhea. He does have an NG tube in situ. He is tachycardic and tachypneic. Review of systems otherwise negative. Objective Data Objective Data Vital Signs: Vital Signs Temp Pulse Resp BP Pulse Ox O2 Del Method O2 Flow Rate 98.5 F 130 H 24 H 114/66 94 Nasal Cannula 4 04/18/24 14:00 04/18/24 14:00 04/18/24 14:00 04/18/24 14:00 04/18/24 14:00 04/18/24 14:00 04/18/24 14:00 Oxygen Flow Rate (L/min) 4 Oxygen Delivery Method Nasal Cannula Weight: 192 lb 14.472 oz Body Mass Index (BMI) 25.4 Intake & Output: Intake and Output for Last 24 Hours 04/16/24 04/17/24 04/18/24 23:59 23:59 23:59 Intake Total 2995.00 / 2995.00 Output Total 2220 / 2220 Balance 775.00 / 775.00 Medical Nutrition Assessment Dietitian: Malnutrition Criteria Met Start: 04/18/24 10:38 Freq: Status: Active Protocol: Document 04/18/24 10:38 GAURAV (Rec: 04/18/24 10:38 GAURAV [id number]) Nutrition Malnutrition Evidence of Malnutrition Exists Yes Malnutrition (moderate): Acute Illness/Injury Evidenced By Suboptimal Energy Intake ( Moderate),Weight Loss (Severe) Clinical Problem Altered Nutrient-Related Laboratory Values Etiology related to diabetes Signs/Symptoms as evidenced by gluc 202 Status Active Problem Acute Disease or Injury Related Malnutrition Etiology related to inadequate energy intake Signs/Symptoms as evidenced by po intake meeting <75% of est nutritional needs and pt w/ 8. 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 Problem Recommendation Dietitian Recommendations/Changes As medically able, rec KIMBERLEE to 2000 darío Cardiac diet As medically able, rec 4 oz glucerna shake tid w/ medpass for increased nutrition if consumed Will interview pt at time of follow up re: diet/wt hx, etc and make additional rec and provide diet education as indicated Lab / Micro Data 04/18/24 05:50 04/18/24 05:50 Labs: Laboratory Results - last 24 hr 04/17/24 20:17: Ur Random Sodium 21, Urine Creatinine 53.60 04/17/24 20:20: WBC 46.2 H*, RBC 3.96 L, Hgb 11.1 L, Hct 33.7 L, MCV 85.1, MCH 28.0, MCHC 32.9, RDW Std Deviation 47.6 H, RDW Coeff of Jori 15.4 H, Plt Count 296, MPV 9.6, Immature Gran % (Auto) 2.000 H, Neut % (Auto) 93.6 H, Lymph % (Auto) 1.9 L, [place] % (Auto) 2.2, Eos % (Auto) 0.0, Baso % (Auto) 0.3, Absolute Neuts (auto) 43.3 H, Absolute Lymphs (auto) 0.87, Nucleated RBC % 0, Differential Comment SCANNED, Diff Path Review Reviewed, Sodium 126 L, Potassium 5.5 H, Chloride 93 L, Carbon Dioxide 19.0 L, Anion Gap 14, BUN 60 H, Creatinine 3.90 H, Estim Creat Clear Calc 19.92, Est GFR (MDRD) Af Amer 20 L, Est GFR (MDRD) Non-Af 16 L, BUN/Creatinine Ratio 15.4, Glucose 319 H, Lactic Acid 4.4 H* , Calcium 8.5, Total Bilirubin 0.70, AST 23, ALT 49, Alkaline Phosphatase 93, Troponin I High Sens 3, Total Protein 7.1, Albumin 2.7 L, Globulin 4.4 H, A lbumin/Globulin Ratio 0.6 L, Lipase 31 04/17/24 20:47: Urine Color Yellow, Urine Clarity Clear, Urine pH 6.0, Ur Specific [place] 1.015, Urine Protein 15 H, Urine Glucose (UA) 1000 H, Urine Ketones Negative, Urine Occult Blood 50 H, Urine Nitrite Negative, Urine Bilirubin Negative, Urine Urobilinogen Normal, Ur Leukocyte Esterase 100 H, Urine RBC 0-5 SEEN, Urine WBC 5-10 SEEN, Ur Squamous Epith Cells 0 SEEN, Urine Bacteria RARE, Urine Mucus 0 SEEN 04/18/24 00:35: Lactic Acid 3.1 H* 04/18/24 00:52: POC Glucose 206 H 04/18/24 05:50: WBC 36.2 H*, RBC 3.66 L, Hgb 10.0 L, Hct 31.2 L, MCV 85.2, MCH 27.3, MCHC 32.1, RDW Std Deviation 48.5 H, RDW Coeff of Jori 15.4 H, Plt Count 289, MPV 10.1, Diff Path Review Reviewed, Sodium 132 L, Potassium 4.8, Chloride 102, Carbon Dioxide 21.0, Anion Gap 10, BUN 53 H, Creatinine 2.22 H, Estim Creat Clear Calc 34.99, Est GFR (MDRD) Af Amer 38 L, Est GFR (MDRD) Non-Af 31 L, B UN/Creatinine Ratio 23.9 H, Glucose 202 H, Calcium 8.8 04/18/24 06:41: POC Glucose 208 H 04/18/24 10:43: POC Glucose 213 H 04/18/24 13:18: POC Glucose 216 H Radiography Diagnostic Testing: Radiology Impression Abdomen/Pelvis CT 04/17/24 20:12 IMPRESSION: 1. Extensive free intraperitoneal air likely from recent abdominal surgery. Correlate with due to surgery. 2. Right double-J ureteral stent in place with moderate right hydronephrosis with adjacent stranding about the renal pelvis. Correlate with urinalysis for possible infectious pyelitis. The right ureter is not significantly distended. 3. Moderate amount of free fluid in the pelvis. Electronically Signed: Yair Cohen MD at 22:08 EST , Chest X-Ray 04/18/24 11:55 IMPRESSION: 1. NG tube tip is in the left proximal gastric cavity. NG tube sidehole is at the EG junction. Distal repositioning will be helpful. 2. Radiopaque drain catheter on the lower surface of the right hepatic lobe and right double-J stent in place. 3. Subsegmental atelectasis in left lung base. Electronically Signed: Eleazar Robertson MD at 12:32 EST , Physical Exam Const alert and oriented x3 Constitutional Narrative: very frail and weak. General Appearance: cooperative HEENT normocephalic, head/scalp atraumatic and moist oral mucous membranes Eyes PERRL and EOMs intact bilaterally Neck no lymphadenopathy and supple Lymph Lymphatic: no lymphadenopathy noted and no lymphedema noted Resp Resp Narrative: moderately diminished breath sounds bibasally, no wheezes or crackles. tachypneic Cardio regular rhythm, S1 normal heart sound, S2 normal heart sound and no murmurs Cardio Narrative: sinus tachycardia GI GI Narrative: intact dressing over laparoscopic site; has 2 drains in situ. Extremity normal capillary refill, no clubbing, cyanosis or edema and no calf tenderness General Extremity: no tenderness to palpation of joints or extremities Skin General Skin Exam: no breakdown and turgor normal Neuro CN's II-XII intact bilaterally, no focal motor deficits, no sensory deficits noted and deep tendon reflexes 2+ bilaterally Motor Exam: strength 5/5 throughout and general weakness Psych thought process normal and cooperative Mood & Affect: flat affect Assessment & Plan Assessment/Plan (1) Sepsis: (2) Postoperative abdominal pain: (3) RICARDA (acute kidney injury): PLAN: Plan #Sepsis * patient had a recent urological procedure on Sunday04/16/2024, namely laparoscopic assisted right pyeloplasty by urology. * he came to the hospital yesterday due to worsening abdominal pain. CT abdomen showed extensive free intraperitoneal air with concern for abdominal injury * patient tachycardic and tachypneic. WBC was also markedly elevated at 4 6000 * Had laparoscopy which was converted to exploratory laparotomy today which did not reveal any significant bowel injury. He had drains left in situ. * [facility] surgery, urology and critical care on board * on IV zosyn. * being hydrated with iVF * NG tube in situ. * #RICARDA with hyperkalemia * likely pre renal in origin. * Cr improving; is down to 2.2 from 3.9 on admission. Baseline creatinine is around 1.06. * continue gentle hydration with IVF * Hyperkalemia has resolved * #History of right UPJ stricture status post ureteral stent placement and laparoscopic right pyeloplasty * Procedure done on 04/16/2024. Urology on board. Presented on 04/17/2024 with abdominal pain and is being managed as on the sepsis. * * #Lactic acidosis: lactic acid was 4.4 on admission and improved with hydration. Will monitor. #Type 2 diabetes * A1c was 7 on 04/08/2024. On insulin sliding scale. Accu-Cheks every 6 hourly as she is NPO. Oral meds on hold * On metformin and Jardiance as well as sitagliptin at home. * #Hypertension: On metoprolol which is currently on hold. IV hydralazine as needed #CAD s/p stent: On statin, aspirin and Plavix which are on hold. # Hyperlipidemia: On statin #BPH with obstruction: On Flomax and finasteride DVT prophylaxis: heparin Charges/Coding Visit Charges Inpatient E&M: 89426 [facility] Hosp L3
[2024-04-18 16:44] LABS: Bedside Glucose 218 mg/dL (74-106)
[2024-04-18] MEDS: 0.9% Saline Lock 10 ML Syringe IV (17:39)
[2024-04-18] MEDS: Atorvastatin Calcium 10 MG Tablet PO (21:11)
[2024-04-18 21:25] LABS: Bedside Glucose 178 mg/dL (74-106)
[2024-04-19] VITALS (27 sets, daily range): BP systolic 109–143; BP diastolic 69–87; PULSE 114–142; RESP 17–28; TEMP 36–36.6; O2SAT 90–95; BMI 24.5
[2024-04-19 03:39] LABS: Absolute Lymphocyte Count 1.01 X10^3/uL (0.83-4.51); Absolute Neutrophil Count 32.1 X10^3/uL (2.0-7.7); Basophil# 0.07 X10^3/uL; Basophil% 0.2 % (0-1); Hematocrit 32.5 % (40-54); Hemoglobin 10.2 g/dL (13.0-16.5); Lymphocyte # 1.01 X10^3/ul (0.83-4.51); Lymphocyte % 2.9 % (19-41); Mean Corp Hgb Conc 31.4 g/dL (32-36); Mean Corpuscular Hgb 27.3 pg (27.0-32.0); Mean Corpuscular Volume 86.9 fL (80-94); Mean Platelet Vol. 9.8 fl (6.2-12.0); Monocyte# 1.08 X10^3/uL; Monocyte% 3.1 % (0-10); NRBC Flagged by Analyzer 0 % (0-5); Neutrophil % 92.4 % (47-70); POSITIVE COUNT YES; POSITIVE DIFFERENTIAL YES; Platelet Count 362 K/mm3 (150-450); RBC Distribution Width CV 15.8 % (11.6-14.6); RBC Distribution Width SD 50.3 fl (35.1-43.9); Red Blood Count 3.74 M/mm3 (4.6-6.2)
[2024-04-19 03:56] LABS: White Blood Count 34.8 K/mm3 (4.4-11.0)
[2024-04-19 03:57] LABS: Differential Indicated SCAN CRITERIA MET
[2024-04-19 04:01] LABS: ALB/GLOB Ratio 0.5 RATIO (0.9-2.4); AST(SGOT) 36 U/L (15-37); Alanine Aminotransfer ALT/SGPT 87 U/L (16-61); Albumin, Serum 2.4 g/dL (3.2-5.0); Alkaline Phosphatase 93 U/L (45-117); Anion Gap 16 (5-15); BUN 52 mg/dL (7-18); BUN/Creat Ratio 36.9 RATIO (10-20); Calcium,Total 8.9 mg/dL (8.5-10.1); Chloride 110 mmol/L (98-107); Creatinine, Serum 1.41 mg/dL (0.70-1.30); EST Glomerular Filtration Rate 53 mL/min (>60); Est Glom Filt Rate - Afr Amer 64 mL/min (>60); Estimated Creatinine Clearance 55.09 ml/min; Globulin 4.4 g/dL (2.2-4.2); Glucose 224 mg/dL (74-106); Protein, Total 6.8 g/dL (6.4-8.2); Sodium Level 144 mmol/L (136-145)
[2024-04-19 04:25] LABS: Differential Comment SCANNED; Toxic Granulation 3+
[2024-04-19 04:26] LABS: Platelet Estimate ADEQUATE (ADEQ)
[2024-04-19] MEDS: 0.9% Saline Lock 10 ML Syringe IV ×4 (04:33→21:07)
[2024-04-19] MEDS: Pantoprazole Sodium 40 MG in 0.9% Normal Saline (100mL MB+) 100 ML 330 MG IV (04:33)
[2024-04-19] MEDS: Piperacil/Tazobactam 3.375 GM in 0.9% Normal Saline (50mL MB+) 50 ML IV ×3 (05:15→21:07)
[2024-04-19] MEDS: Insulin Lispro 100 UNIT/ML INSULN.PEN SC ×3 (07:47→18:07)
--- NOTE | 2024-04-19 07:47 | EKG12_ITS ---
Test Reason : Blood Pressure : */* mmHG Vent. Rate : 130 BPM Atrial Rate : 130 BPM P-R Int : 144 ms QRS Dur : 84 ms QT Int : 306 ms P-R-T Axes : 31 13 79 degrees QTcB Int : 450 ms Sinus tachycardia Nonspecific ST and T wave abnormality Abnormal ECG When compared with ECG of 17-Apr-2024 20:47, MANUAL COMPARISON REQUIRED DATA IS UNCONFIRMED Confirmed by Indio Corona ([id number]), editorial manager KRISTEN NUNN ([id number]) on 04/21/2024 12:25:27 PM Referred By: Sen Mcarthur Confirmed By: Indio Corona
[2024-04-19 07:58] LABS: Bedside Glucose 240 mg/dL (74-106)
[2024-04-19] MEDS: Metoprolol Tartrate 5 MG/5 ML Vial IV ×3 (08:06→21:07)
--- NOTE | 2024-04-19 08:07 | CT_ITS ---
EXAM: CT ABDOMEN AND PELVIS WITH INTRAVENOUS CONTRAST CLINICAL INDICATION: TACHYCARDIA, FREE AIR -- PO AND IV TECHNIQUE: Helically acquired images were obtained of the abdomen and pelvis with intravenous contrast. This CT exam was performed using one or more of the following dose reduction techniques: automated exposure control, adjustment of the mA and/or kV according to patient size, and/or use of iterative reconstruction technique. CONTRAST: IV 100mL Isovue-370 COMPARISON: CT Abdomen Pelvis dated 04/17/2024, CT Abdomen Pelvis dated 03/08/2024 FINDINGS: LOWER THORAX: Normal. Lung bases are clear. No cardiomegaly. No pericardial effusion. ABDOMEN: LIVER: Normal. Homogeneous. No focal mass. GALLBLADDER AND BILE DUCTS: Normal. No calcified gallstones. No gallbladder distention or wall edema. No intra- or extrahepatic biliary ductal dilation. PANCREAS: Normal. No focal cystic or solid mass. SPLEEN: Normal. Normal size without focal cystic or solid mass. ADRENALS: Normal. No nodules. KIDNEYS AND URETERS: Right double-J ureteral stent catheter remains in place. There is residual right hydronephrosis related to the UP junction obstruction. Fluid collection noted along the right anterior perinephric space contiguous with the renal sinus suggestive of urinoma left kidney and collecting system are normal. Normal renal size and position. STOMACH AND BOWEL: Normal. No bowel distention. No focal inflammatory change. PELVIS: APPENDIX: Appendix is visualized and normal in appearance. BLADDER: Krueger catheter in place within a decompressed urinary bladder. REPRODUCTIVE: Stable prostatomegaly. ABDOMEN and PELVIS: INTRAPERITONEAL SPACE: Resolving hemoperitoneum. No free air. BONES/JOINTS: No suspicious lytic or blastic abnormality. SOFT TISSUES: Residual soft tissue gas along the anterior abdominal wall related to recent laparoscopic surgery. No discrete abdominal or pelvic wall hernia. VASCULATURE: Normal. Abdominal aorta is non-dilated. LYMPH NODES: Normal. No enlarged lymph nodes. TUBES, LINES AND DEVICES: Interval placement of subhepatic and lower abdominal drainage catheters. Enteric tube extends into the stomach. CT/Abdomen/Pelvis WITH Contrast IMPRESSION: 1. Interval placement of surgical drainage catheter is along the subhepatic space and lower abdominal cavity. 2. 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 3. Improving pneumoperitoneum and resolving ascites. Electronically Signed: Neymar Ireland MD at 13:40 EST ,
--- NOTE | 2024-04-19 08:34 | PN.SURG_ITS ---
Subjective Subjective Earlier this morning patient began to have blood from his NG. Is maroon in color. Patient has been taking a lot of ice chips. He does not complain of abdominal pain like he did when he came in and the pain is mostly incisional. Objective Data Objective Data Vital Signs: Vital Signs Temp Pulse Resp BP Pulse Ox O2 Del Method O2 Flow Rate 97.8 F 141 H 22 H 139/78 H 93 Nasal Cannula 2 04/19/24 04:00 04/19/24 08:06 04/19/24 07:00 04/19/24 08:06 04/19/24 07:00 04/19/24 07:00 04/19/24 07:00 Oxygen Flow Rate (L/min) 2 Oxygen Delivery Method Nasal Cannula Weight: 184 lb 15.485 oz Body Mass Index (BMI) 24.5 Intake & Output: Intake and Output for Last 24 Hours 04/17/24 04/18/24 04/19/24 23:59 23:59 23:59 Intake Total 3395.00 / 3395.00 160 / 160 Output Total 5920 / 5920 950 / 950 Balance -2525.00 / -2525.00 -790 / -790 Medical Nutrition Assessment Dietitian: Malnutrition Criteria Met Start: 04/18/24 10:38 Freq: Status: Active Protocol: Document 04/18/24 10:38 GAURAV (Rec: 04/18/24 10:38 GAURAV [id number]) Nutrition Malnutrition Evidence of Malnutrition Exists Yes Malnutrition (moderate): Acute Illness/Injury Evidenced By Suboptimal Energy Intake ( Moderate),Weight Loss (Severe) Clinical Problem Altered Nutrient-Related Laboratory Values Etiology related to diabetes Signs/Symptoms as evidenced by gluc 202 Status Active Problem Acute Disease or Injury Related Malnutrition Etiology related to inadequate energy intake Signs/Symptoms as evidenced by po intake meeting <75% of est nutritional needs and 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 Problem Recommendation Dietitian Recommendations/Changes As medically able, rec KIMBERLEE to 2000 darío Cardiac diet As medically able, rec 4 oz glucerna shake tid w/ medpass for increased nutrition if consumed Will interview pt at time of follow up re: diet/wt hx, etc and make additional rec and provide diet education as indicated Lab / Micro Data 04/19/24 03:33 04/19/24 03:33 Labs: Laboratory Results - last 24 hr 04/17/24 20:20: Diff Path Review Reviewed 04/18/24 05:50: Diff Path Review Reviewed 04/18/24 10:43: POC Glucose 213 H 04/18/24 13:18: POC Glucose 216 H 04/18/24 16:24: POC Glucose 218 H 04/18/24 21:06: POC Glucose 178 H 04/19/24 03:33: WBC 34.8 H*, RBC 3.74 L, Hgb 10.2 L, Hct 32.5 L, MCV 86.9, MCH 27.3, MCHC 31.4 L, RDW Std Deviation 50.3 H, RDW Coeff of Jori 15.8 H, Plt Count 362, MPV 9.8, Immature Gran % (Auto) 1.400 H, Neut % (Auto) 92.4 H, Lymph % (Auto) 2.9 L, [place] % (Auto) 3.1, Eos % (Auto) 0.0, Baso % (Auto) 0.2, Absolute Neuts (auto) 32.1 H, Absolute Lymphs (auto) 1.01, Nucleated RBC % 0, Differential Comment SCANNED, Diff Path Review May foll, Toxic Granulation 3+, Platelet Estimate ADEQUATE, Sodium 144, Potassium 5.0, Chloride 110 H, Carbon Dioxide 18.0 L, Anion Gap 16 H, BUN 52 H, Creatinine 1.41 H, Estim Creat Clear Calc 55.09, Est GFR (MDRD) Af Amer 64, Est GFR (MDRD) Non-Af 53 L, B UN/Creatinine Ratio 36.9 H, Glucose 224 H, Calcium 8.9, Total Bilirubin 0.70, AST 36, ALT 87 H, Alkaline Phosphatase 93, Total Protein 6.8, Albumin 2.4 L, G lobulin 4.4 H, Albumin/Globulin Ratio 0.5 L 04/19/24 07:39: POC Glucose 240 H Radiography Diagnostic Testing: Radiology Impression Chest X-Ray 04/18/24 11:55 IMPRESSION: 1. NG tube tip is in the left proximal gastric cavity. NG tube sidehole is at the EG junction. Distal repositioning will be helpful. 2. Radiopaque drain catheter on the lower surface of the right hepatic lobe and right double-J stent in place. 3. Subsegmental atelectasis in left lung base. Electronically Signed: Eleazar Robertson MD at 12:32 EST , Physical Exam Const oriented x3 Resp normal respiratory effort Cardio Rate: tachycardic GI soft to palpation Palpation: tender Assessment & Plan Assessment/Plan (1) Sepsis: (2) Postoperative abdominal pain: PLAN: Plan Patient was taken for exploration yesterday and a bowel injury was not identified. The patient did have a very distended stomach. NG was placed during surgery and the sidehole was at the esophagus and has not been advanced yet. I asked the nurse to advance the NG tube and he was started on a PPI. The patient has been taking a lot of ice chips as well. The drains are serous to serosanguineous. His abdomen is soft with no guarding or rebound but he is tender at the incision. Patient still has a markedly elevated white count and his creatinine is improving. I will order a CT with oral and IV contrast today to evaluate the abdomen. Patient is starting back on metoprolol orally and IV. Patient recently had an NSTEMI in February and I am checking troponins and checked an EKG which showed sinus tachycardia. I will follow-up on the CT scan and continue antibiotics. Continue NG to suction and it has been advanced and PPI will start. Continue to hold heparin and Plavix. Poli Abraham MD Pager: [facility] [address] [place] [address], [address] [place] [address] Office:
[2024-04-19] MEDS: HYDROmorphone 1 MG/ML Syringe 0.5 MG IV ×3 (08:36→22:45)
[2024-04-19 08:44] LABS: Troponin-I HS 5 pg/mL (3.0-78.0)
--- NOTE | 2024-04-19 09:05 | RAD_ITS ---
EXAM: XR ABDOMEN, 1 VIEW CLINICAL INDICATION: tube placement TECHNIQUE: Frontal supine view of the abdomen/pelvis. COMPARISON: CT the abdomen 04/17/2024 FINDINGS: GASTROINTESTINAL TRACT: Mild stool burden within the large bowel. ORGANS: No organomegaly. BONES/JOINTS: No acute abnormality. SOFT TISSUES: Soft tissues gas noted along the right flank. TUBES, LINES AND DEVICES: Interval placement of a subhepatic surgical drainage catheter. Right double-J ureteral catheter is partially visualized. Enteric tube extends into the stomach. RAD/Abdomen Single View (Portable) IMPRESSION: Satisfactory endogastric tube placement. Electronically Signed: Neymar Ireland MD at 10:39 EST ,
--- NOTE | 2024-04-19 10:21 | PN.CC_ITS ---
Objective Data Objective Data Vital Signs: Vital Signs Last response 3 Temperature 36.6 C 04/19/24 04:00 Temperature Source Oral 04/19/24 04:00 Pulse Rate 141 H 04/19/24 08:06 Pulse Strength Normal (2+) 04/18/24 10:05 Respiratory Rate 22 H 04/19/24 07:00 Respiratory Effort Non-Labored 04/19/24 08:00 Respiratory Depth Shallow 04/19/24 08:00 Respiratory Pattern Normal 04/19/24 08:00 Blood Pressure 139/78 H 04/19/24 08:06 Blood Pressure Mean 96 04/19/24 07:00 Blood Pressure Source Monitor 04/19/24 07:00 Blood Pressure Position Semi-Fowlers 04/19/24 07:00 Blood Pressure Location Right Arm 04/19/24 07:00 Baseline BP 125/78 04/18/24 10:45 Pulse Ox 93 04/19/24 07:00 Oxygen Delivery Method Room Air 04/19/24 08:00 Oxygen Flow Rate (L/min) 2 04/19/24 07:00 I&O: I&O Last 24 Hours 3 04/18/24 04/18/24 04/19/24 11:59 23:59 11:59 Intake Total 2684.58 / 3395.00 710.42 / 3395.00 240 / 240 Output Total 1930 / 5920 3990 / 5920 950 / 950 Balance 754.58 / -2525.00 -3279.58 / -2525.00 -710 / -710 I&O: Total Stay 3 04/17/24 19:31 thru 04/19/24 09:59 Intake Total 3635.00 Output Total 6870 Balance -3235.00 Current Meds Ordered / Administered: Current meds ordered / Administered 3 Generic Name Dose Route Start Last Admin Trade Name Freq PRN Reason Stop Dose Admin Acetaminophen 650 mg 04/18/24 00:00 Acetaminophen 325 Mg Tablet PO Q6H PRN PRN Pain 1-10 Or Fever>100.7 Atorvastatin Calcium 10 mg 04/18/24 22:00 04/18/24 21:11 Atorvastatin Calcium 10 Mg Tablet PO 10 mg QHS BHUPENDRA Administration Docusate Sodium 100 mg 04/18/24 10:00 04/19/24 09:55 Docusate Sodium 100 Mg Capsule PO Not Given BID BHUPENDRA Glucagon 1 mg 04/18/24 00:00 Glucagon 1 Mg/Ml Syringe IM X1 PRN Hypoglycemia Protocol Heparin Sodium (Porcine) 5,000 unit 04/18/24 14:00 04/19/24 07:46 Heparin Injection (Vial) 5,000 Unit/Ml Vial SC Not Given Q8 BHUPENDRA Hydromorphone HCl 0.5 mg 04/18/24 00:29 04/19/24 08:36 Hydromorphone 1 Mg/Ml Syringe IV 0.5 mg Q3H PRN PRN Administration Pain Score 6-10 Dextrose 250 mls @ 0 mls/hr 04/18/24 00:00 Dextrose 10%-Water IV .Q0M PRN HYPOGLYCEMIA Protocol As Directed Sodium Chloride 500 mls @ 15 mls/hr 04/18/24 00:07 IV .[id number] PRN Saline Flush Sodium Chloride 500 mls @ 15 mls/hr 04/18/24 00:07 IV .[id number] PRN Additional IVPB Infusion Piperacillin Sod/Tazobactam 50 mls @ 12.5 mls/hr 04/18/24 14:00 04/19/24 09:59 Sod 3.375 gm/ Sodium Chloride IV Infused Q8 BHUPENDRA Infusion Pantoprazole Sodium 40 mg/ 110 mls @ 330 mls/hr 04/19/24 04:30 04/19/24 05:17 Sodium Chloride IV Infused Q24 BHUPENDRA Infusion Insulin Human Lispro 0 unit 04/19/24 12:00 Insulin Lispro 100 Unit/Ml Insuln.Pen SC Q6 BHUPENDRA Protocol Melatonin 3 mg 04/18/24 00:00 Melatonin 3 Mg Tablet PO QHS PRN PRN INSOMNIA Metoprolol Tartrate 5 mg 04/19/24 07:14 04/19/24 08:06 Metoprolol Tartrate 5 Mg/5 Ml Vial IV 5 mg Q6H PRN Administration TO CONTROL HEART RATE Protocol Ondansetron HCl 4 mg 04/18/24 00:00 04/18/24 17:39 Ondansetron 4 Mg/2 Ml Vial IV 4 mg Q8H PRN PRN Administration NAUSEA/VOMITING Oxycodone HCl 5 mg 04/18/24 00:29 Oxycodone 5 Mg Tablet PO Q4H PRN PRN Pain Score 4-10 Sodium Chloride 10 - 40 ml 04/18/24 00:07 04/19/24 08:44 0.9% Saline Lock 10 Ml Syringe IV 30 ml UD PRN Administration SALINE FLUSH Tamsulosin HCl 0.8 mg 04/18/24 08:30 04/19/24 09:55 Tamsulosin Hcl 0.4 Mg Capsule PO Not Given DAILY@0830 [facility] Medical Records Data Medical Nutrition Assessment Dietitian: Malnutrition Criteria Met Start: 04/18/24 10:38 Freq: Status: Active Protocol: Document 04/18/24 10:38 SLA (Rec: 04/18/24 10:38 SLA [id number]) Nutrition Malnutrition Evidence of Malnutrition Exists Yes Malnutrition (moderate): Acute Illness/Injury Evidenced By Suboptimal Energy Intake ( Moderate),Weight Loss (Severe) Clinical Problem Altered Nutrient-Related Laboratory Values Etiology related to diabetes Signs/Symptoms as evidenced by gluc 202 Status Active Problem Acute Disease or Injury Related Malnutrition Etiology related to inadequate energy intake Signs/Symptoms as evidenced by po intake meeting <75% of est nutritional needs and 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 Recommendation Dietitian Recommendations/Changes As medically able, rec KIMBERLEE to 1999 darío Cardiac diet As medically able, rec 4 oz glucerna shake tid w/ medpass for increased nutrition if consumed Will interview pt at time of follow up re: diet/wt hx, etc and make additional rec and provide diet education as indicated Lab / Micro Data 04/19/24 03:33 04/19/24 03:33 Labs: Laboratory Results - last 24 hr 04/17/24 20:20: Diff Path Review Reviewed 04/18/24 05:50: Diff Path Review Reviewed 04/18/24 10:43: POC Glucose 213 H 04/18/24 13:18: POC Glucose 216 H 04/18/24 16:24: POC Glucose 218 H 04/18/24 21:06: POC Glucose 178 H 04/19/24 03:33: WBC 34.8 H*, RBC 3.74 L, Hgb 10.2 L, Hct 32.5 L, MCV 86.9, MCH 27.3, MCHC 31.4 L, RDW Std Deviation 50.3 H, RDW Coeff of Jori 15.8 H, Plt Count 362, MPV 9.8, Immature Gran % (Auto) 1.400 H, Neut % (Auto) 92.4 H, Lymph % (Auto) 2.9 L, [place] % (Auto) 3.1, Eos % (Auto) 0.0, Baso % (Auto) 0.2, Absolute Neuts (auto) 32.1 H, Absolute Lymphs (auto) 1.01, Nucleated RBC % 0, Differential Comment SCANNED, Diff Path Review May foll, Toxic Granulation 3+, Platelet Estimate ADEQUATE, Sodium 144, Potassium 5.0, Chloride 110 H, Carbon Dioxide 18.0 L, Anion Gap 16 H, BUN 52 H, Creatinine 1.41 H, Estim Creat Clear Calc 55.09, Est GFR (MDRD) Af Amer 64, Est GFR (MDRD) Non-Af 53 L, B UN/Creatinine Ratio 36.9 H, Glucose 224 H, Calcium 8.9, Total Bilirubin 0.70, AST 36, ALT 87 H, Alkaline Phosphatase 93, Troponin I High Sens 5, Total Protein 6.8, Albumin 2.4 L, Globulin 4.4 H, Albumin/Globulin Ratio 0.5 L 04/19/24 07:39: POC Glucose 240 H Imaging Radiology Impression Chest X-Ray 04/18/24 11:55 IMPRESSION: 1. NG tube tip is in the left proximal gastric cavity. NG tube sidehole is at the EG junction. Distal repositioning will be helpful. 2. Radiopaque drain catheter on the lower surface of the right hepatic lobe and right double-J stent in place. 3. Subsegmental atelectasis in left lung base. Electronically Signed: Eleazar Robertson MD at 12:32 EST , Assessment and Plan . Assessment and plan: 1. Sepsis: 2/2 UTI + possible intra-abd infection. WBC still high. BP stable. Not requiring vasopressors. Suspect clinically dry. Will follow but if BP drops- >will need addtional IVFs. 2. Abd pain/s/p ex -lap: POD #2. Ex lap with no clear findings. KURTIS outpt minimal. Repeat CT this am. 3. GI bleed: likely 2/2 NG trauma as positioned in esophagus. Serial H/H. PPI. Hold SQ heparin 4. Sinus Tachycardia: ? related to intra-vasc volume depletion. On BB. Judicious. Will stop if affecting BP dramatically. 5. RICARDA: Continued improvement in Cr. Has NAGMA from NS. 6. UTI: recent hx of serratia. On zosyn 7. CHF: hx of. EF 35%. Suspect clinically dry at current. Will follow 8. FEN: NPO. NG in place. 9. PX: SCDs. [employer] px today. Elias Rose MD cc time 50 minutes Critical Care 50 minutes The entirety of this encounter was done via Telemedicine Physical Exam Narrative awake, NAD, NG in place CV: tachy, regular HEENT: o/p:dry pupils:= Chest: decreased in bases Abd: distended, reportedly better, +bs, NT Ext: no c/e/c Skin: no rashes Subjective Subjective chart reviewed. Overnight some blood from NG. Repositioned. H/h stable. Awaiting repeat CT scan
--- NOTE | 2024-04-19 10:46 | PN_ITS ---
Subjective Subjective Patient seen and examined. He said he felt better today. He had no active complaints. He is tachycardic today. He has not been receiving his p.o. metoprolol because he is NPO. Review of systems otherwise negative. Objective Data Objective Data Vital Signs: Vital Signs Temp Pulse Resp BP Pulse Ox O2 Del Method O2 Flow Rate 97.8 F 126 H 19 H 127/76 H 92 Room Air 2 04/19/24 08:00 04/19/24 10:00 04/19/24 10:00 04/19/24 10:00 04/19/24 10:00 04/19/24 10:00 04/19/24 07:00 Oxygen Flow Rate (L/min) 2 Oxygen Delivery Method Room Air Weight: 184 lb 15.485 oz Body Mass Index (BMI) 24.5 Intake & Output: Intake and Output for Last 24 Hours 04/17/24 04/18/24 04/19/24 23:59 23:59 23:59 Intake Total 3395.00 / 3395.00 240 / 240 Output Total 5920 / 5920 950 / 950 Balance -2525.00 / -2525.00 -710 / -710 Medical Nutrition Assessment Dietitian: Malnutrition Criteria Met Start: 04/18/24 10:38 Freq: Status: Active Protocol: Document 04/18/24 10:38 GAURAV (Rec: 04/18/24 10:38 GAURAV [id number]) Nutrition Malnutrition Evidence of Malnutrition Exists Yes Malnutrition (moderate): Acute Illness/Injury Evidenced By Suboptimal Energy Intake ( Moderate),Weight Loss (Severe) Clinical Problem Altered Nutrient-Related Laboratory Values Etiology related to diabetes Signs/Symptoms as evidenced by gluc 202 Status Active Problem Acute Disease or Injury Related Malnutrition Etiology related to inadequate energy intake Signs/Symptoms as evidenced by po intake meeting <75% of est nutritional needs and 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 Problem Recommendation Dietitian Recommendations/Changes As medically able, rec KIMBERLEE to 2000 darío Cardiac diet As medically able, rec 4 oz glucerna shake tid w/ medpass for increased nutrition if consumed Will interview pt at time of follow up re: diet/wt hx, etc and make additional rec and provide diet education as indicated Lab / Micro Data 04/19/24 03:33 04/19/24 03:33 Labs: Laboratory Results - last 24 hr 04/17/24 20:20: Diff Path Review Reviewed 04/18/24 05:50: Diff Path Review Reviewed 04/18/24 10:43: POC Glucose 213 H 04/18/24 13:18: POC Glucose 216 H 04/18/24 16:24: POC Glucose 218 H 04/18/24 21:06: POC Glucose 178 H 04/19/24 03:33: WBC 34.8 H*, RBC 3.74 L, Hgb 10.2 L, Hct 32.5 L, MCV 86.9, MCH 27.3, MCHC 31.4 L, RDW Std Deviation 50.3 H, RDW Coeff of Jori 15.8 H, Plt Count 362, MPV 9.8, Immature Gran % (Auto) 1.400 H, Neut % (Auto) 92.4 H, Lymph % (Auto) 2.9 L, [place] % (Auto) 3.1, Eos % (Auto) 0.0, Baso % (Auto) 0.2, Absolute Neuts (auto) 32.1 H, Absolute Lymphs (auto) 1.01, Nucleated RBC % 0, Differential Comment SCANNED, Diff Path Review May foll, Toxic Granulation 3+, Platelet Estimate ADEQUATE, Sodium 144, Potassium 5.0, Chloride 110 H, Carbon Dioxide 18.0 L, Anion Gap 16 H, BUN 52 H, Creatinine 1.41 H, Estim Creat Clear Calc 55.09, Est GFR (MDRD) Af Amer 64, Est GFR (MDRD) Non-Af 53 L, B UN/Creatinine Ratio 36.9 H, Glucose 224 H, Calcium 8.9, Total Bilirubin 0.70, AST 36, ALT 87 H, Alkaline Phosphatase 93, Troponin I High Sens 5, Total Protein 6.8, Albumin 2.4 L, Globulin 4.4 H, Albumin/Globulin Ratio 0.5 L 04/19/24 07:39: POC Glucose 240 H Radiography Diagnostic Testing: Radiology Impression Chest X-Ray 04/18/24 11:55 IMPRESSION: 1. NG tube tip is in the left proximal gastric cavity. NG tube sidehole is at the EG junction. Distal repositioning will be helpful. 2. Radiopaque drain catheter on the lower surface of the right hepatic lobe and right double-J stent in place. 3. Subsegmental atelectasis in left lung base. Electronically Signed: Eleazar Robertson MD at 12:32 EST , KUB X-Ray 04/19/24 09:05 IMPRESSION: Satisfactory endogastric tube placement. Electronically Signed: Neymar Ireland MD at 10:39 EST , Physical Exam Const alert, oriented x3 and average body habitus Constitutional Narrative: very frail and weak. General Appearance: cooperative HEENT normocephalic, head/scalp atraumatic, hearing grossly normal bilaterally, nasal mucous membranes and turbinates normal and moist oral mucous membranes Eyes PERRL, EOMs intact bilaterally and conjunctivae normal Neck full ROM, no lymphadenopathy and supple Lymph Lymphatic: no lymphadenopathy noted and no lymphedema noted Chest inspection of chest normal Resp normal respiratory effort, normal air movement, no use of accessory muscles and clear to auscultation bilaterally Resp Narrative: moderately diminished breath sounds bibasally, no wheezes or crackles. tachypneic Cardio regular rhythm, S1 normal heart sound, S2 normal heart sound, no murmurs and peripheral pulses 2+ throughout Cardio Narrative: sinus tachycardia GI GI Narrative: intact dressing over laparoscopic site; has 2 drains in situ. Back/Spine normal ROM Extremity normal to inspection, full ROM, normal capillary refill, no clubbing, cyanosis or edema, no calf tenderness and no pedal edema General Extremity: no tenderness to palpation of joints or extremities Skin no rashes or lesions noted General Skin Exam: no breakdown and turgor normal Neuro CN's II-XII intact bilaterally, no focal motor deficits, no sensory deficits noted and deep tendon reflexes 2+ bilaterally Motor Exam: strength 5/5 throughout and general weakness Psych mental status grossly normal, thought process normal and cooperative Mood & Affect: flat affect Assessment & Plan Assessment/Plan (1) Sepsis: (2) Postoperative abdominal pain: (3) RICARDA (acute kidney injury): PLAN: Plan #Sepsis * patient had a recent urological procedure on Sunday04/16/2024, namely laparoscopic assisted right pyeloplasty by urology. * he came to the hospital due to worsening abdominal pain. CT abdomen showed extensive free intraperitoneal air with concern for abdominal injury * patient tachycardic and tachypneic. WBC was also markedly elevated at 4 6000 * Had laparoscopy which was converted to exploratory laparotomy today which did not reveal any significant bowel injury. He had drains left in situ. * genereal surgery, urology and critical care on board * on IV zosyn. * being hydrated with iVF * NG tube in situ. * wbc is down to 34.8 today. * he is for abdominal CT per general surgery. * #RICARDA with hyperkalemia * likely pre renal in origin. * cr today is down to 1.41 from 2.2 yesterday. Was 3.9 on admission. * continue gentle hydration with IVF * Hyperkalemia has resolved * #Sinus tachycardia * Patient's heart rate elevated and was in the 140s today. Placed on IV Lopressor. At this is sinus tachycardia. He is on p.o. metoprolol at home and has not been getting this because he is NPO. * I suspect this is contributing to his tachycardia. * Continue IV Lopressor and resume p.o. potassium once he is better and is not NPO. If tachycardia worsens will start Cardizem drip. * #History of right UPJ stricture status post ureteral stent placement and laparoscopic right pyeloplasty * Procedure done on 04/16/2024. Urology on board. Presented on 04/17/2024 with abdominal pain and is being managed as on the sepsis. * * #Lactic acidosis: resolved with hydration #Type 2 diabetes * A1c was 7 on 04/08/2024. On insulin sliding scale. Accu-Cheks every 6 hourly as he is NPO. Oral meds on hold * On metformin and Jardiance as well as sitagliptin at home. * #Hypertension: On metoprolol which is currently on hold. IV hydralazine as needed #CAD s/p stent: On statin, aspirin and Plavix which are on hold. 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
[2024-04-19 12:34] LABS: Bedside Glucose 229 mg/dL (74-106)
[2024-04-19 15:06] LABS: Absolute Lymphocyte Count 1.25 X10^3/uL (0.83-4.51); Basophil# 0.05 X10^3/uL; Basophil% 0.2 % (0-1); Hematocrit 31.6 % (40-54); Hemoglobin 9.9 g/dL (13.0-16.5); Lymphocyte # 1.25 X10^3/ul (0.83-4.51); Lymphocyte % 3.9 % (19-41); Mean Corp Hgb Conc 31.3 g/dL (32-36); Mean Corpuscular Hgb 27.3 pg (27.0-32.0); Mean Corpuscular Volume 87.1 fL (80-94); Mean Platelet Vol. 9.7 fl (6.2-12.0); Monocyte# 0.99 X10^3/uL; Monocyte% 3.1 % (0-10); NRBC Flagged by Analyzer 0 % (0-5); Neutrophil # 29.04 X10^3/uL (2.7-7.7); Neutrophil % 91.6 % (47-70); POSITIVE COUNT YES; POSITIVE DIFFERENTIAL YES; Platelet Count 434 K/mm3 (150-450); RBC Distribution Width CV 15.9 % (11.6-14.6); RBC Distribution Width SD 50.8 fl (35.1-43.9); Red Blood Count 3.63 M/mm3 (4.6-6.2)
[2024-04-19 15:14] LABS: Differential Indicated SCAN CRITERIA MET; White Blood Count 31.7 K/mm3 (4.4-11.0)
[2024-04-19 15:19] LABS: Magnesium 3.2 mg/dL (1.6-2.6); Phosphorus 4.3 mg/dL (2.5-4.9)
[2024-04-19 15:33] LABS: Differential Comment SCANNED
[2024-04-19 18:30] LABS: Bedside Glucose 273 mg/dL (74-106)
[2024-04-19 20:11] LABS: Absolute Neutrophil Count 27.8 X10^3/uL (2.0-7.7); Basophil# 0.05 X10^3/uL; Basophil% 0.2 % (0-1); Hematocrit 29.9 % (40-54); Hemoglobin 9.5 g/dL (13.0-16.5); Lymphocyte % 4.3 % (19-41); Mean Corp Hgb Conc 31.8 g/dL (32-36); Mean Corpuscular Hgb 27.5 pg (27.0-32.0); Mean Corpuscular Volume 86.7 fL (80-94); Mean Platelet Vol. 9.7 fl (6.2-12.0); Monocyte# 1.02 X10^3/uL; Monocyte% 3.3 % (0-10); NRBC Flagged by Analyzer 0 % (0-5); Neutrophil # 27.76 X10^3/uL (2.7-7.7); Neutrophil % 91.1 % (47-70); POSITIVE COUNT YES; POSITIVE DIFFERENTIAL YES; Platelet Count 418 K/mm3 (150-450); RBC Distribution Width SD 50.5 fl (35.1-43.9); Red Blood Count 3.45 M/mm3 (4.6-6.2)
[2024-04-19 20:16] LABS: Differential Indicated SCAN CRITERIA MET; White Blood Count 30.5 K/mm3 (4.4-11.0)
[2024-04-19 21:04] LABS: Differential Comment SCANNED
[2024-04-20] VITALS (21 sets, daily range): BP systolic 120–138; BP diastolic 58–81; PULSE 87–127; RESP 16–27; TEMP 36.4–36.8; O2SAT 89–96; BMI 23.4
[2024-04-20] MEDS: Insulin Lispro 100 UNIT/ML INSULN.PEN SC ×5 (00:13→23:57)
[2024-04-20 00:34] LABS: Bedside Glucose 229 mg/dL (74-106)
[2024-04-20] MEDS: Metoprolol Tartrate 5 MG/5 ML Vial IV (04:10)
[2024-04-20] MEDS: HYDROmorphone 1 MG/ML Syringe 0.5 MG IV ×2 (04:28→07:52)
[2024-04-20 04:31] LABS: Absolute Lymphocyte Count 1.25 X10^3/uL (0.83-4.51); Absolute Neutrophil Count 21.5 X10^3/uL (2.0-7.7); Basophil# 0.04 X10^3/uL; Basophil% 0.2 % (0-1); Hematocrit 30.1 % (40-54); Hemoglobin 9.6 g/dL (13.0-16.5); Lymphocyte # 1.25 X10^3/ul (0.83-4.51); Lymphocyte % 5.2 % (19-41); Mean Corp Hgb Conc 31.9 g/dL (32-36); Mean Corpuscular Hgb 27.7 pg (27.0-32.0); Mean Corpuscular Volume 86.7 fL (80-94); Mean Platelet Vol. 9.5 fl (6.2-12.0); Monocyte# 0.98 X10^3/uL; Monocyte% 4.1 % (0-10); NRBC Flagged by Analyzer 0 % (0-5); Neutrophil # 21.49 X10^3/uL (2.7-7.7); Neutrophil % 89.3 % (47-70); POSITIVE DIFFERENTIAL YES; Platelet Count 415 K/mm3 (150-450); RBC Distribution Width SD 50.5 fl (35.1-43.9); Red Blood Count 3.47 M/mm3 (4.6-6.2); White Blood Count 24.1 K/mm3 (4.4-11.0)
[2024-04-20 04:40] LABS: Differential Indicated SCAN CRITERIA MET
[2024-04-20 05:08] LABS: ALB/GLOB Ratio 0.5 RATIO (0.9-2.4); AST(SGOT) 16 U/L (15-37); Alanine Aminotransfer ALT/SGPT 64 U/L (16-61); Albumin, Serum 2.3 g/dL (3.2-5.0); Alkaline Phosphatase 94 U/L (45-117); Anion Gap 13 (5-15); BUN 69 mg/dL (7-18); BUN/Creat Ratio 42.3 RATIO (10-20); Chloride 113 mmol/L (98-107); Creatinine, Serum 1.63 mg/dL (0.70-1.30); EST Glomerular Filtration Rate 45 mL/min (>60); Est Glom Filt Rate - Afr Amer 54 mL/min (>60); Estimated Creatinine Clearance 47.66 ml/min; Globulin 4.4 g/dL (2.2-4.2); Glucose 231 mg/dL (74-106); Potassium 4.6 mmol/L (3.5-5.1); Protein, Total 6.7 g/dL (6.4-8.2); Sodium Level 149 mmol/L (136-145)
[2024-04-20 05:10] LABS: Anisocytosis 1+; Basophilic Stippling 1+; Differential Comment SCANNED; Macrocytosis 1+; Ovalocyte 1+; Platelet Estimate ADEQUATE (ADEQ)
[2024-04-20] MEDS: Piperacil/Tazobactam 3.375 GM in 0.9% Normal Saline (50mL MB+) 50 ML IV ×3 (06:02→21:21)
[2024-04-20 06:29] LABS: Bedside Glucose 213 mg/dL (74-106)
[2024-04-20] MEDS: 0.9% Saline Lock 10 ML Syringe IV (07:52)
--- NOTE | 2024-04-20 08:16 | PN.SURG_ITS ---
Subjective Subjective Patient reports he is having minimal right upper quadrant pain. He denies nausea or vomiting. He says he is passing flatus. NG output was minimal overnight Objective Data Objective Data Vital Signs: Vital Signs Temp Pulse Resp BP Pulse Ox O2 Del Method O2 Flow Rate 97.9 F 122 H 21 H 128/78 H 92 Room Air 2 04/20/24 06:00 04/20/24 07:00 04/20/24 06:00 04/20/24 06:00 04/20/24 06:00 04/20/24 06:00 04/19/24 07:00 Oxygen Flow Rate (L/min) 2 Oxygen Delivery Method Room Air Weight: 177 lb 7.554 oz Body Mass Index (BMI) 23.4 Intake & Output: Intake and Output for Last 24 Hours 04/18/24 04/19/24 04/20/24 23:59 23:59 23:59 Intake Total 3395.00 / 3395.00 665 / 765 250 / 250 Output Total 5920 / 5920 3668 / 3878 1370 / 1370 Balance -2525.00 / -2525.00 -3003 / -3113 -1120 / -1120 Medical Nutrition Assessment Dietitian: Malnutrition Criteria Met Start: 04/18/24 10:38 Freq: Status: Active Protocol: Document 04/18/24 10:38 GAURAV (Rec: 04/18/24 10:38 GAURAV [id number]) Nutrition Malnutrition Evidence of Malnutrition Exists Yes Malnutrition (moderate): Acute Illness/Injury Evidenced By Suboptimal Energy Intake ( Moderate),Weight Loss (Severe) Clinical Problem Altered Nutrient-Related Laboratory Values Etiology related to diabetes Signs/Symptoms as evidenced by gluc 202 Status Active Problem Acute Disease or Injury Related Malnutrition Etiology related to inadequate energy intake Signs/Symptoms as evidenced by po intake meeting <75% of est nutritional needs and 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 Problem Recommendation Dietitian Recommendations/Changes As medically able, rec KIMBERLEE to 2000 darío Cardiac diet As medically able, rec 4 oz glucerna shake tid w/ medpass for increased nutrition if consumed Will interview pt at time of follow up re: diet/wt hx, etc and make additional rec and provide diet education as indicated Lab / Micro Data 04/20/24 04:15 04/20/24 04:15 Labs: Laboratory Results - last 24 hr 04/19/24 03:33: Troponin I High Sens 5 04/19/24 12:17: POC Glucose 229 H 04/19/24 14:30: WBC 31.7 H*, RBC 3.63 L, Hgb 9.9 L, Hct 31.6 L, MCV 87.1, MCH 27.3, MCHC 31.3 L, RDW Std Deviation 50.8 H, RDW Coeff of Jori 15.9 H, Plt Count 434, MPV 9.7, Immature Gran % (Auto) 1.200 H, Neut % (Auto) 91.6 H, Lymph % (Auto) 3.9 L, [place] % (Auto) 3.1, Eos % (Auto) 0.0, Baso % (Auto) 0.2, Absolute Neuts (auto) 29.0 H, Absolute Lymphs (auto) 1.25, Nucleated RBC % 0, Differential Comment SCANNED, Diff Path Review [facility], Phosphorus 4.3, M agnesium 3.2 H 04/19/24 18:05: POC Glucose 273 H 04/19/24 20:00: WBC 30.5 H*, RBC 3.45 L, Hgb 9.5 L, Hct 29.9 L, MCV 86.7, MCH 27.5, MCHC 31.8 L, RDW Std Deviation 50.5 H, RDW Coeff of Jori 16.0 H, Plt Count 418, MPV 9.7, Immature Gran % (Auto) 1.100 H, Neut % (Auto) 91.1 H, Lymph % (Auto) 4.3 L, [place] % (Auto) 3.3, Eos % (Auto) 0.0, Baso % (Auto) 0.2, Absolute Neuts (auto) 27.8 H, Absolute Lymphs (auto) 1.30, Nucleated RBC % 0, Differential Comment SCANNED, Diff Path Review [facility] 04/20/24 00:12: POC Glucose 229 H 04/20/24 04:15: WBC 24.1 H, RBC 3.47 L, Hgb 9.6 L, Hct 30.1 L, MCV 86.7, MCH 27.7, MCHC 31.9 L, RDW Std Deviation 50.5 H, RDW Coeff of Jori 16.0 H, Plt Count 415, MPV 9.5, Immature Gran % (Auto) 1.200 H, Neut % (Auto) 89.3 H, Lymph % (Auto) 5.2 L, [place] % (Auto) 4.1, Eos % (Auto) 0.0, Baso % (Auto) 0.2, Absolute Neuts (auto) 21.5 H, Absolute Lymphs (auto) 1.25, Nucleated RBC % 0, Differential Comment SCANNED, Platelet Estimate ADEQUATE, Basophilic Stippling 1+, Anisocytosis 1+, Macrocytosis 1+, Ovalocytes 1+, Sodium 149 H, Potassium 4.6, Chloride 113 H, Carbon Dioxide 23.0, Anion Gap 13, BUN 69 H, Creatinine 1.63 H, Estim Creat Clear Calc 47.66, Est GFR (MDRD) Af Amer 54 L, Est GFR (MDRD) Non-Af 45 L, BUN/Creatinine Ratio 42.3 H, Glucose 231 H, Calcium 9.0, Total Bilirubin 0.60, AST 16, ALT 64 H, Alkaline Phosphatase 94, Total Protein 6.7, Albumin 2.3 L, Globulin 4.4 H, Albumin/Globulin Ratio 0.5 L 04/20/24 06:00: POC Glucose 213 H Micro: Microbiology 04/17/24 21:03 Blood Culture (Wb) - Right Forearm Blood Culture - Preliminary No growth in 48 hours. Radiography Diagnostic Testing: Radiology Impression Abdomen/Pelvis CT 04/19/24 08:07 IMPRESSION: 1. Interval placement of surgical drainage catheter is along the subhepatic space and lower abdominal cavity. 2. 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 3. Improving pneumoperitoneum and resolving ascites. Electronically Signed: Neymar Ireland MD at 13:40 EST , KUB X-Ray 04/19/24 09:05 IMPRESSION: Satisfactory endogastric tube placement. Electronically Signed: Neymar Ireland MD at 10:39 EST , Physical Exam Const oriented x3 and no apparent distress Resp normal respiratory effort Cardio regular rhythm Rate: tachycardic GI soft to palpation Inspection: Negative for abdominal distention Assessment & Plan Assessment/Plan (1) Sepsis: PLAN: Patient had repeat CT scan done yesterday with IV and oral contrast. There was no sign of extravasation or inflammation of the colon. The patient's NG output has stopped and he has hypoactive bowel sounds now. He is passing flatus. I will remove the NG and keep on ice chips until he is having more substantial bowel function. Okay to start heparin. Continue to hold Plavix. Continue antibiotics. The CT scan showed possible urinoma and the operative drain is still having some output. Continue KURTIS drain. Poli Abraham MD Pager: [facility] [address] [place] [address], [address] [place] [address] Office:
[2024-04-20] MEDS: Lactated Ringers 500 ML 999 ML IV (08:23)
[2024-04-20] MEDS: LACTATED RINGERS 500 ML 999 ML IV (08:54)
[2024-04-20] MEDS: Dextrose 5%-Water (1000mL Bag) 1,000 ML 75 ML IV (09:19)
[2024-04-20] MEDS: Docusate Sodium 100 MG Capsule PO ×2 (09:24→21:15)
[2024-04-20] MEDS: Tamsulosin HCl 0.4 MG Capsule 0.8 MG PO (09:24)
--- NOTE | 2024-04-20 09:44 | PCM.PN.GU ---
Subjective Subjective Postop day #2 status post exploratory laparotomy, patient is doing better white count is improving creatinine is improving CT scan yesterday was done and demonstrated no evidence of leak from the small or large intestine fluid collection has been resolved with the drains he does have a small fluid collection around the UPJ area where the anastomosis was performed this could just be serosanguineous fluid or small urinoma either way no intervention is necessary will heal on its own okay. Continue with Krueger catheter and stent he will eventually go home with a Krueger catheter await for return of bowel function. But overall appears to be improving today Objective Data Objective Data Vital Signs: Vital Signs Temp Pulse Resp BP Pulse Ox O2 Del Method O2 Flow Rate 98.1 F 115 H 16 123/69 H 91 Room Air 2 04/20/24 08:00 04/20/24 09:00 04/20/24 09:00 04/20/24 09:00 04/20/24 09:00 04/20/24 09:00 04/19/24 07:00 Oxygen Flow Rate (L/min) 2 Oxygen Delivery Method Room Air Weight: 80.5 kg Body Mass Index (BMI) 23.4 Intake & Output: Intake and Output for Last 24 Hours 04/18/24 04/19/24 04/20/24 23:59 23:59 23:59 Intake Total 3395.00 / 3395.00 665 / 765 1280.83 / 1280.83 Output Total 5920 / 5920 3668 / 3878 1370 / 1370 Balance -2525.00 / -2525.00 -3003 / -3113 -89.17 / -89.17 Medical Nutrition Assessment Dietitian: Malnutrition Criteria Met Start: 04/18/24 10:38 Freq: Status: Active Protocol: Document 04/18/24 10:38 GAURAV (Rec: 04/18/24 10:38 GAURAV [id number]) Nutrition Malnutrition Evidence of Malnutrition Exists Yes Malnutrition (moderate): Acute Illness/Injury Evidenced By Suboptimal Energy Intake ( Moderate),Weight Loss (Severe) Clinical Problem Altered Nutrient-Related Laboratory Values Etiology related to diabetes Signs/Symptoms as evidenced by gluc 202 Status Active Problem Acute Disease or Injury Related Malnutrition Etiology related to inadequate energy intake Signs/Symptoms as evidenced by po intake meeting <75% of est nutritional needs and 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 Problem Recommendation Dietitian Recommendations/Changes As medically able, rec KIMBERLEE to 2000 darío Cardiac diet As medically able, rec 4 oz glucerna shake tid w/ medpass for increased nutrition if consumed Will interview pt at time of follow up re: diet/wt hx, etc and make additional rec and provide diet education as indicated Lab / Micro Data 04/20/24 04:15 04/20/24 04:15 Labs: Laboratory Results - last 24 hr 04/19/24 12:17: POC Glucose 229 H 04/19/24 14:30: WBC 31.7 H*, RBC 3.63 L, Hgb 9.9 L, Hct 31.6 L, MCV 87.1, MCH 27.3, MCHC 31.3 L, RDW Std Deviation 50.8 H, RDW Coeff of Jori 15.9 H, Plt Count 434, MPV 9.7, Immature Gran % (Auto) 1.200 H, Neut % (Auto) 91.6 H, Lymph % (Auto) 3.9 L, [place] % (Auto) 3.1, Eos % (Auto) 0.0, Baso % (Auto) 0.2, Absolute Neuts (auto) 29.0 H, Absolute Lymphs (auto) 1.25, Nucleated RBC % 0, Differential Comment SCANNED, Diff Path Review September [facility], Phosphorus 4.3, Magnesium 3.2 H 04/19/24 18:05: POC Glucose 273 H 04/19/24 20:00: WBC 30.5 H*, RBC 3.45 L, Hgb 9.5 L, Hct 29.9 L, MCV 86.7, MCH 27.5, MCHC 31.8 L, RDW Std Deviation 50.5 H, RDW Coeff of Jori 16.0 H, Plt Count 418, MPV 9.7, Immature Gran % (Auto) 1.100 H, Neut % (Auto) 91.1 H, Lymph % (Auto) 4.3 L, [place] % (Auto) 3.3, Eos % (Auto) 0.0, Baso % (Auto) 0.2, Absolute Neuts (auto) 27.8 H, Absolute Lymphs (auto) 1.30, Nucleated RBC % 0, Differential Comment SCANNED, Diff Path Review September [facility] 04/20/24 00:12: POC Glucose 229 H 04/20/24 04:15: WBC 24.1 H, RBC 3.47 L, Hgb 9.6 L, Hct 30.1 L, MCV 86.7, MCH 27.7, MCHC 31.9 L, RDW Std Deviation 50.5 H, RDW Coeff of Jori 16.0 H, Plt Count 415, MPV 9.5, Immature Gran % (Auto) 1.200 H, Neut % (Auto) 89.3 H, Lymph % (Auto) 5.2 L, [place] % (Auto) 4.1, Eos % (Auto) 0.0, Baso % (Auto) 0.2, Absolute Neuts (auto) 21.5 H, Absolute Lymphs (auto) 1.25, Nucleated RBC % 0, Differential Comment SCANNED, Platelet Estimate ADEQUATE, Basophilic Stippling 1+, Anisocytosis 1+, Macrocytosis 1+, Ovalocytes 1+, Sodium 149 H, Potassium 4.6, Chloride 113 H, Carbon Dioxide 23.0, Anion Gap 13, BUN 69 H, Creatinine 1.63 H, Estim Creat Clear Calc 47.66, Est GFR (MDRD) Af Amer 54 L, Est GFR (MDRD) Non-Af 45 L, BUN/Creatinine Ratio 42.3 H, Glucose 231 H, Calcium 9.0, Total Bilirubin 0.60, AST 16, ALT 64 H, Alkaline Phosphatase 94, Total Protein 6.7, Albumin 2.3 L, Globulin 4.4 H, Albumin/Globulin Ratio 0.5 L 04/20/24 06:00: POC Glucose 213 H Micro: Microbiology 04/17/24 20:47 Urine Catheter - Catheter Urine Culture - Final Culture exhibits no growth. 04/17/24 21:03 Blood Culture (Wb) - Right Forearm Blood Culture - Preliminary No growth in 48 hours. Radiography Diagnostic Testing: Radiology Impression Abdomen/Pelvis CT 04/19/24 08:07 IMPRESSION: 1. Interval placement of surgical drainage catheter is along the subhepatic space and lower abdominal cavity. 2. 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 3. Improving pneumoperitoneum and resolving ascites. Electronically Signed: Neymar Ireland MD at 13:40 EST , KUB X-Ray 04/19/24 09:05 IMPRESSION: Satisfactory endogastric tube placement. Electronically Signed: Neymar Ireland MD at 10:39 EST ,
[2024-04-20] MEDS: Pantoprazole Sodium 40 MG in 0.9% Normal Saline (100mL MB+) 100 ML 330 MG IV (11:18)
--- NOTE | 2024-04-20 11:23 | PN.CC_ITS ---
Objective Data Objective Data Vital Signs: Vital Signs Last response 3 Temperature 36.7 C 04/20/24 08:00 Temperature Source Temporal 04/20/24 08:00 Pulse Rate 121 H 04/20/24 11:00 Pulse Strength Normal (2+) 04/20/24 08:33 Respiratory Rate 21 H 04/20/24 11:00 Respiratory Effort Normal 04/20/24 08:00 Respiratory Depth Shallow 04/20/24 08:00 Respiratory Pattern Normal 04/20/24 08:00 Blood Pressure 130/74 H 04/20/24 11:00 Blood Pressure Mean 92 04/20/24 11:00 Blood Pressure Source Monitor 04/20/24 11:00 Blood Pressure Position Sitting 04/20/24 11:00 Blood Pressure Location Right Arm 04/20/24 11:00 Baseline BP 125/78 04/18/24 10:45 Pulse Ox 93 04/20/24 11:00 Oxygen Delivery Method Room Air 04/20/24 11:00 Oxygen Flow Rate (L/min) 2 04/19/24 07:00 I&O: I&O Last 24 Hours 3 04/19/24 04/19/24 04/20/24 11:59 23:59 11:59 Intake Total 240 / 765 425 / 765 1540.00 / 1540.00 Output Total 950 / 3878 2718 / 3878 2030 / 2030 Balance -710 / -3113 -2293 / -3113 -490.00 / -490 I&O: Total Stay 3 04/17/24 19:31 thru 04/20/24 11:04 Intake Total 5600.00 Output Total 21116 Balance -6018.00 Current Meds Ordered / Administered: Current meds ordered / Administered 3 Generic Name Dose Route Start Last Admin Trade Name Freq PRN Reason Stop Dose Admin Acetaminophen 650 mg 04/18/24 00:00 Acetaminophen 325 Mg Tablet PO Q6H PRN PRN Pain 1-10 Or Fever>100.7 Atorvastatin Calcium 10 mg 04/18/24 22:00 04/19/24 21:04 Atorvastatin Calcium 10 Mg Tablet PO Not Given QHS BHUPENDRA Docusate Sodium 100 mg 04/18/24 10:00 04/20/24 09:24 Docusate Sodium 100 Mg Capsule PO 100 mg BID BHUPENDRA Administration Glucagon 1 mg 04/18/24 00:00 Glucagon 1 Mg/Ml Syringe IM X1 PRN Hypoglycemia Protocol Heparin Sodium (Porcine) 5,000 unit 04/18/24 14:00 04/19/24 07:46 Heparin Injection (Vial) 5,000 Unit/Ml Vial SC Not Given Q8 BHUPENDRA Hydromorphone HCl 0.5 mg 04/18/24 00:29 04/20/24 07:52 Hydromorphone 1 Mg/Ml Syringe IV 0.5 mg Q3H PRN PRN Administration Pain Score 6-10 Dextrose 250 mls @ 0 mls/hr 04/18/24 00:00 Dextrose 10%-Water IV .Q0M PRN HYPOGLYCEMIA Protocol As Directed Sodium Chloride 500 mls @ 15 mls/hr 04/18/24 00:07 IV .[id number] PRN Saline Flush Sodium Chloride 500 mls @ 15 mls/hr 04/18/24 00:07 IV .[id number] PRN Additional IVPB Infusion Piperacillin Sod/Tazobactam 50 mls @ 12.5 mls/hr 04/18/24 14:00 04/20/24 11:02 Sod 3.375 gm/ Sodium Chloride IV Infused Q8 BHUPENDRA Infusion Pantoprazole Sodium 40 mg/ 110 mls @ 330 mls/hr 04/19/24 04:30 04/20/24 11:18 Sodium Chloride IV 330 mls/hr Q24 BHUPENDRA Administration Dextrose 1,000 mls @ 75 mls/hr 04/20/24 07:20 04/20/24 09:19 IV 04/20/24 22:49 75 mls/hr .[id number] BHUPENDRA Administration Insulin Human Lispro 0 unit 04/19/24 12:00 04/20/24 11:19 Insulin Lispro 100 Unit/Ml Insuln.Pen SC 3 units Q6 BHUPENDRA Administration Protocol Melatonin 3 mg 04/18/24 00:00 Melatonin 3 Mg Tablet PO QHS PRN PRN INSOMNIA Metoprolol Tartrate 5 mg 04/19/24 07:14 04/20/24 04:10 Metoprolol Tartrate 5 Mg/5 Ml Vial IV 5 mg Q6H PRN Administration TO CONTROL HEART RATE Protocol Ondansetron HCl 4 mg 04/18/24 00:00 04/18/24 17:39 Ondansetron 4 Mg/2 Ml Vial IV 4 mg Q8H PRN PRN Administration NAUSEA/VOMITING Oxycodone HCl 5 mg 04/18/24 00:29 Oxycodone 5 Mg Tablet PO Q4H PRN PRN Pain Score 4-10 Sodium Chloride 10 - 40 ml 04/18/24 00:07 04/20/24 07:52 0.9% Saline Lock 10 Ml Syringe IV 10 ml UD PRN Administration SALINE FLUSH Tamsulosin HCl 0.8 mg 04/18/24 08:30 04/20/24 09:24 Tamsulosin Hcl 0.4 Mg Capsule PO 0.8 mg DAILY@0830 [facility] Administration Medical Records Data Medical Nutrition Assessment Dietitian: Malnutrition Criteria Met Start: 04/18/24 10:38 Freq: Status: Active Protocol: Document 04/18/24 10:38 SLA (Rec: 04/18/24 10:38 SLA [id number]) Nutrition Malnutrition Evidence of Malnutrition Exists Yes Malnutrition (moderate): Acute Illness/Injury Evidenced By Suboptimal Energy Intake ( Moderate),Weight Loss (Severe) Clinical Problem Altered Nutrient-Related Laboratory Values Etiology related to diabetes Signs/Symptoms as evidenced by gluc 202 Status Active Problem Acute Disease or Injury Related Malnutrition Etiology related to inadequate energy intake Signs/Symptoms as evidenced by po intake meeting <75% of est nutritional needs and 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 Problem Recommendation Dietitian Recommendations/Changes As medically able, rec KIMBERLEE to 2000 darío Cardiac diet As medically able, rec 4 oz glucerna shake tid w/ medpass for increased nutrition if consumed Will interview pt at time of follow up re: diet/wt hx, etc and make additional rec and provide diet education as indicated Lab / Micro Data 04/20/24 04:15 04/20/24 04:15 Labs: Laboratory Results - last 24 hr 04/19/24 12:17: POC Glucose 229 H 04/19/24 14:30: WBC 31.7 H*, RBC 3.63 L, Hgb 9.9 L, Hct 31.6 L, MCV 87.1, MCH 27.3, MCHC 31.3 L, RDW Std Deviation 50.8 H, RDW Coeff of Jori 15.9 H, Plt Count 434, MPV 9.7, Immature Gran % (Auto) 1.200 H, Neut % (Auto) 91.6 H, Lymph % (Auto) 3.9 L, [place] % (Auto) 3.1, Eos % (Auto) 0.0, Baso % (Auto) 0.2, Absolute Neuts (auto) 29.0 H, Absolute Lymphs (auto) 1.25, Nucleated RBC % 0, Differential Comment SCANNED, Diff Path Review September [facility], Phosphorus 4.3, M agnesium 3.2 H 04/19/24 18:05: POC Glucose 273 H 04/19/24 20:00: WBC 30.5 H*, RBC 3.45 L, Hgb 9.5 L, Hct 29.9 L, MCV 86.7, MCH 27.5, MCHC 31.8 L, RDW Std Deviation 50.5 H, RDW Coeff of Jori 16.0 H, Plt Count 418, MPV 9.7, Immature Gran % (Auto) 1.100 H, Neut % (Auto) 91.1 H, Lymph % (Auto) 4.3 L, [place] % (Auto) 3.3, Eos % (Auto) 0.0, Baso % (Auto) 0.2, Absolute Neuts (auto) 27.8 H, Absolute Lymphs (auto) 1.30, Nucleated RBC % 0, Differential Comment SCANNED, Diff Path Review September04/20/24 00:12: POC Glucose 229 H 04/20/24 04:15: WBC 24.1 H, RBC 3.47 L, Hgb 9.6 L, Hct 30.1 L, MCV 86.7, MCH 27.7, MCHC 31.9 L, RDW Std Deviation 50.5 H, RDW Coeff of Jori 16.0 H, Plt Count 415, MPV 9.5, Immature Gran % (Auto) 1.200 H, Neut % (Auto) 89.3 H, Lymph % (Auto) 5.2 L, [place] % (Auto) 4.1, Eos % (Auto) 0.0, Baso % (Auto) 0.2, Absolute Neuts (auto) 21.5 H, Absolute Lymphs (auto) 1.25, Nucleated RBC % 0, Differential Comment SCANNED, Platelet Estimate ADEQUATE, Basophilic Stippling 1+, Anisocytosis 1+, Macrocytosis 1+, Ovalocytes 1+, Sodium 149 H, Potassium 4.6, Chloride 113 H, Carbon Dioxide 23.0, Anion Gap 13, BUN 69 H, Creatinine 1.63 H, Estim Creat Clear Calc 47.66, Est GFR (MDRD) Af Amer 54 L, Est GFR (MDRD) Non-Af 45 L, BUN/Creatinine Ratio 42.3 H, Glucose 231 H, Calcium 9.0, Total Bilirubin 0.60, AST 16, ALT 64 H, Alkaline Phosphatase 94, Total Protein 6.7, Albumin 2.3 L, Globulin 4.4 H, Albumin/Globulin Ratio 0.5 L 04/20/24 06:00: POC Glucose 213 H Micro: Microbiology 04/17/24 20:47 Urine Catheter - Catheter Urine Culture - Final Culture exhibits no growth. 04/17/24 21:03 Blood Culture (Wb) - Right Forearm Blood Culture - Preliminary No growth in 48 hours. Imaging Radiology Impression Abdomen/Pelvis CT 04/19/24 08:07 IMPRESSION: 1. Interval placement of surgical drainage catheter is along the subhepatic space and lower abdominal cavity. 2. 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 3. Improving pneumoperitoneum and resolving ascites. Electronically Signed: Neymar Ireland MD at 13:40 EST , Assessment and Plan . Assessment and plan: 1. Sepsis: 2/2 UTI + possible intra-abd infection. WBC still high but better. BP stable. Not requiring vasopressors. Clinically dry:getting additional IVFs today. 2. Abd pain/s/p ex -lap: POD #3. Ex lap with no clear findings. KURTIS outpt minimal. Repeat CT showed urinoma: possible cause of pain. 3. GI bleed: likely 2/2 NG trauma as positioned in esophagus. Serial H/H stable. PPI. Holding SQ heparin 4. Sinus Tachycardia: suspect related to intra-vasc volume depletion. On BB. Getting IVFs today 5. RICARDA: Improved during admit but worse overnight. Getting IVFs 6. Hypernatremia: D5 ordered. 7. UTI: recent hx of serratia. On zosyn 8. CHF: hx of. EF 35%. Suspect clinically dry at current. Getting IVFs 8. FEN: NG out. Sips of water/ICE. 9. PX: SCDs. [employer] px today. Elias Rose MD cc time 50 minutes The entirety of this encounter was done via Telemedicine Physical Exam Narrative awake, NAD, sitting in chair pupils = o/p:dry CV: tachy, regular Chest: CTA Abd: soft, distended(better), +bs Ext: no c/e/c Subjective Subjective doing better. Getting IVFs. Abd pain better
[2024-04-20 11:34] LABS: Bedside Glucose 240 mg/dL (74-106)
--- NOTE | 2024-04-20 13:19 | PN_ITS ---
Subjective Subjective Patient seen and examined. He said he felt much better today. He had no active complaints. NG tuve had been removed per GI. He denied any abdominal pain. Review of systems is otherwise negative. Objective Data Objective Data Vital Signs: Vital Signs Temp Pulse Resp BP Pulse Ox O2 Del Method O2 Flow Rate 98.1 F 118 H 21 H 130/74 H 93 Room Air 2 04/20/24 08:00 04/20/24 12:00 04/20/24 11:00 04/20/24 11:00 04/20/24 11:00 04/20/24 11:39 04/19/24 07:00 Oxygen Flow Rate (L/min) 2 Oxygen Delivery Method Room Air Weight: 177 lb 7.554 oz Body Mass Index (BMI) 23.4 Intake & Output: Intake and Output for Last 24 Hours 04/18/24 04/19/24 04/20/24 23:59 23:59 23:59 Intake Total 3395.00 / 3395.00 665 / 765 1650.00 / 1650.00 Output Total 5920 / 5920 3668 / 3878 2029 / 2030 Balance -2525.00 / -2525.00 -3003 / -3113 -380.00 / -380 Medical Nutrition Assessment Dietitian: Malnutrition Criteria Met Start: 04/18/24 10:38 Freq: Status: Active Protocol: Document 04/18/24 10:38 GAURAV (Rec: 04/18/24 10:38 GAURAV [id number]) Nutrition Malnutrition Evidence of Malnutrition Exists Yes Malnutrition (moderate): Acute Illness/Injury Evidenced By Suboptimal Energy Intake ( Moderate),Weight Loss (Severe) Clinical Problem Altered Nutrient-Related Laboratory Values Etiology related to diabetes Signs/Symptoms as evidenced by gluc 202 Status Active Problem Acute Disease or Injury Related Malnutrition Etiology related to inadequate energy intake Signs/Symptoms as evidenced by po intake meeting <75% of est nutritional needs and 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 Problem Recommendation Dietitian Recommendations/Changes As medically able, rec KIMBERLEE to 2000 darío Cardiac diet As medically able, rec 4 oz glucerna shake tid w/ medpass for increased nutrition if consumed Will interview pt at time of follow up re: diet/wt hx, etc and make additional rec and provide diet education as indicated Lab / Micro Data 04/20/24 04:15 04/20/24 04:15 Labs: Laboratory Results - last 24 hr 04/19/24 14:30: WBC 31.7 H*, RBC 3.63 L, Hgb 9.9 L, Hct 31.6 L, MCV 87.1, MCH 27.3, MCHC 31.3 L, RDW Std Deviation 50.8 H, RDW Coeff of Jori 15.9 H, Plt Count 434, MPV 9.7, Immature Gran % (Auto) 1.200 H, Neut % (Auto) 91.6 H, Lymph % (Auto) 3.9 L, [place] % (Auto) 3.1, Eos % (Auto) 0.0, Baso % (Auto) 0.2, Absolute Neuts (auto) 29.0 H, Absolute Lymphs (auto) 1.25, Nucleated RBC % 0, Differential Comment SCANNED, Diff Path Review September [facility], Phosphorus 4.3, M agnesium 3.2 H 04/19/24 18:05: POC Glucose 273 H 04/19/24 20:00: WBC 30.5 H*, RBC 3.45 L, Hgb 9.5 L, Hct 29.9 L, MCV 86.7, MCH 27.5, MCHC 31.8 L, RDW Std Deviation 50.5 H, RDW Coeff of Jori 16.0 H, Plt Count 418, MPV 9.7, Immature Gran % (Auto) 1.100 H, Neut % (Auto) 91.1 H, Lymph % (Auto) 4.3 L, [place] % (Auto) 3.3, Eos % (Auto) 0.0, Baso % (Auto) 0.2, Absolute Neuts (auto) 27.8 H, Absolute Lymphs (auto) 1.30, Nucleated RBC % 0, Differential Comment SCANNED, Diff Path Review September [facility] 04/20/24 00:12: POC Glucose 229 H 04/20/24 04:15: WBC 24.1 H, RBC 3.47 L, Hgb 9.6 L, Hct 30.1 L, MCV 86.7, MCH 27.7, MCHC 31.9 L, RDW Std Deviation 50.5 H, RDW Coeff of Jori 16.0 H, Plt Count 415, MPV 9.5, Immature Gran % (Auto) 1.200 H, Neut % (Auto) 89.3 H, Lymph % (Auto) 5.2 L, [place] % (Auto) 4.1, Eos % (Auto) 0.0, Baso % (Auto) 0.2, Absolute Neuts (auto) 21.5 H, Absolute Lymphs (auto) 1.25, Nucleated RBC % 0, Differential Comment SCANNED, Platelet Estimate ADEQUATE, Basophilic Stippling 1+, Anisocytosis 1+, Macrocytosis 1+, Ovalocytes 1+, Sodium 149 H, Potassium 4.6, Chloride 113 H, Carbon Dioxide 23.0, Anion Gap 13, BUN 69 H, Creatinine 1.63 H, Estim Creat Clear Calc 47.66, Est GFR (MDRD) Af Amer 54 L, Est GFR (MDRD) Non-Af 45 L, BUN/Creatinine Ratio 42.3 H, Glucose 231 H, Calcium 9.0, Total Bilirubin 0.60, AST 16, ALT 64 H, Alkaline Phosphatase 94, Total Protein 6.7, Albumin 2.3 L, Globulin 4.4 H, Albumin/Globulin Ratio 0.5 L 04/20/24 06:00: POC Glucose 213 H 04/20/24 11:16: POC Glucose 240 H Micro: Microbiology 04/17/24 20:47 Urine Catheter - Catheter Urine Culture - Final Culture exhibits no growth. 04/17/24 21:03 Blood Culture (Wb) - Right Forearm Blood Culture - Preliminary No growth in 48 hours. Radiography Diagnostic Testing: Radiology Impression Abdomen/Pelvis CT 04/19/24 08:07 IMPRESSION: 1. Interval placement of surgical drainage catheter is along the subhepatic space and lower abdominal cavity. 2. 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 3. Improving pneumoperitoneum and resolving ascites. Electronically Signed: Neymar Ireland MD at 13:40 EST , Physical Exam Const alert, oriented x3, no apparent distress and average body habitus Constitutional Narrative: looks much better today. General Appearance: cooperative HEENT normocephalic, head/scalp atraumatic, hearing grossly normal bilaterally, nasal mucous membranes and turbinates normal and moist oral mucous membranes Eyes PERRL, EOMs intact bilaterally and conjunctivae normal Neck full ROM, no lymphadenopathy and supple Lymph Lymphatic: no lymphadenopathy noted and no lymphedema noted Chest inspection of chest normal Resp Resp Narrative: moderately diminished breath sounds bibasally, no wheezes or crackles. Cardio regular rhythm, S1 normal heart sound, S2 normal heart sound, no murmurs and peripheral pulses 2+ throughout Cardio Narrative: sinus tachycardia GI GI Narrative: intact dressing over laparoscopic site; has 2 drains in situ. NG tube removed Back/Spine normal ROM Extremity normal to inspection, full ROM, normal capillary refill, no clubbing, cyanosis or edema, no calf tenderness and no pedal edema General Extremity: no tenderness to palpation of joints or extremities Skin no rashes or lesions noted General Skin Exam: no breakdown and turgor normal Neuro CN's II-XII intact bilaterally, no focal motor deficits, no sensory deficits noted and deep tendon reflexes 2+ bilaterally Motor Exam: strength 5/5 throughout and general weakness Psych mental status grossly normal, thought process normal and cooperative Appearance: appropriate Assessment & Plan Assessment/Plan (1) Sepsis: (2) Postoperative abdominal pain: (3) RICARDA (acute kidney injury): PLAN: Plan #Sepsis * patient had a recent urological procedure on Sunday04/16/2024, namely laparoscopic assisted right pyeloplasty by urology. * he came to the hospital due to worsening abdominal pain. CT abdomen showed extensive free intraperitoneal air with concern for abdominal injury * patient tachycardic and tachypneic. WBC was also markedly elevated at 4 6000 * Had laparoscopy which was converted to exploratory laparotomy today which did not reveal any significant bowel injury. He had drains left in situ. * [facility], urology and critical care on board * on IV zosyn. * being hydrated with iVF * NG tube removed today. He feels much better * wbc is further down to 24 today. * on sips and clears per general surgery. Diet to be advanced as per general surgery * #RICARDA with hyperkalemia * likely pre renal in origin. * Creatinine is 1.63 today. Baseline is around 1.13. Was 3.9 on admission. * cr today is down to 1.41 from 2.2 yesterday. Was 3.9 on admission. * continue gentle hydration with IVF * Hyperkalemia has resolved * #Sinus tachycardia * Patient remains tachypneic today. Concern is that he is dehydrated. * Patient given a bolus of Ringer's lactate today. Patient's metoprolol also resumed. This should help with his tachycardia. * IV lopressor prn * * #History of right UPJ stricture status post ureteral stent placement and laparoscopic right pyeloplasty * Procedure done on 04/16/2024. * Urology on board. * management as per urology * * #Lactic acidosis: resolved with hydration #Type 2 diabetes * A1c was 7 on 04/08/2024. On insulin sliding scale. Accu-Cheks every 6 hourly oral meds on hold * On metformin and Jardiance as well as sitagliptin at home. * #Hypertension: On metoprolol which is being resumed today. IV hydralazine as needed #CAD s/p stent: On statin, aspirin and Plavix which are on hold. 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
[2024-04-20] MEDS: Metoprolol Tartrate 25 MG Tablet 12.5 MG PO ×2 (13:45→21:15)
[2024-04-20] MEDS: oxyCODONE 5 MG Tablet PO ×3 (13:46→23:57)
--- NOTE | 2024-04-20 16:04 | NURSING ---
Transferred to [place] [id number] via w/c. and daughter present
[2024-04-20] MEDS: Acetaminophen 325 MG Tablet 650 MG PO (16:34)
[2024-04-20 17:08] LABS: Bedside Glucose 218 mg/dL (74-106)
[2024-04-20] MEDS: Heparin Injection (Vial) 5,000 UNIT/ML VIAL 5000 UNIT SC (21:21)
[2024-04-20] MEDS: Atorvastatin Calcium 10 MG Tablet PO (21:31)
[2024-04-21] VITALS (9 sets, daily range): BP systolic 99–134; BP diastolic 59–75; PULSE 84–107; RESP 16–18; TEMP 36.1–36.6; O2SAT 92–95; BMI 23.3
[2024-04-21 03:05] LABS: Bedside Glucose 205 mg/dL (74-106)
[2024-04-21] MEDS: Piperacil/Tazobactam 3.375 GM in 0.9% Normal Saline (50mL MB+) 50 ML IV ×3 (06:11→21:54)
[2024-04-21] MEDS: oxyCODONE 5 MG Tablet PO ×3 (06:13→21:42)
[2024-04-21] MEDS: Heparin Injection (Vial) 5,000 UNIT/ML VIAL 5000 UNIT SC ×3 (06:14→21:39)
[2024-04-21] MEDS: Insulin Lispro 100 UNIT/ML INSULN.PEN SC ×3 (06:21→17:09)
[2024-04-21 06:41] LABS: Absolute Lymphocyte Count 1.46 X10^3/uL (0.83-4.51); Absolute Neutrophil Count 9.6 X10^3/uL (2.0-7.7); Basophil# 0.01 X10^3/uL; Basophil% 0.1 % (0-1); Eosinophil# 0.03 X10^3/uL; Eosinophils% 0.3 % (0-5); Hematocrit 28.2 % (40-54); Hemoglobin 8.8 g/dL (13.0-16.5); Lymphocyte # 1.46 X10^3/ul (0.83-4.51); Lymphocyte % 12.3 % (19-41); Mean Corp Hgb Conc 31.2 g/dL (32-36); Mean Corpuscular Hgb 27.2 pg (27.0-32.0); Mean Corpuscular Volume 87.3 fL (80-94); Mean Platelet Vol. 9.6 fl (6.2-12.0); Monocyte# 0.72 X10^3/uL; Monocyte% 6.1 % (0-10); NRBC Flagged by Analyzer 0 % (0-5); Neutrophil # 9.57 X10^3/uL (2.7-7.7); Neutrophil % 80.6 % (47-70); Platelet Count 315 K/mm3 (150-450); RBC Distribution Width CV 15.7 % (11.6-14.6); RBC Distribution Width SD 50.2 fl (35.1-43.9); Red Blood Count 3.23 M/mm3 (4.6-6.2); White Blood Count 11.9 K/mm3 (4.4-11.0)
[2024-04-21 06:53] LABS: Bedside Glucose 162 mg/dL (74-106)
[2024-04-21 07:08] LABS: ALB/GLOB Ratio 0.5 RATIO (0.9-2.4); AST(SGOT) 10 U/L (15-37); Alanine Aminotransfer ALT/SGPT 44 U/L (16-61); Albumin, Serum 2.1 g/dL (3.2-5.0); Alkaline Phosphatase 69 U/L (45-117); Anion Gap 11 (5-15); BUN 56 mg/dL (7-18); BUN/Creat Ratio 47.1 RATIO (10-20); Calcium,Total 8.4 mg/dL (8.5-10.1); Chloride 108 mmol/L (98-107); Creatinine, Serum 1.19 mg/dL (0.70-1.30); EST Glomerular Filtration Rate 64 mL/min (>60); Est Glom Filt Rate - Afr Amer 78 mL/min (>60); Estimated Creatinine Clearance 65.28 ml/min; Globulin 4.1 g/dL (2.2-4.2); Glucose 171 mg/dL (74-106); Potassium 4.1 mmol/L (3.5-5.1); Protein, Total 6.2 g/dL (6.4-8.2); Sodium Level 143 mmol/L (136-145)
--- NOTE | 2024-04-21 07:47 | PCM.PN.BLA ---
Progress Note Clinically he is looking much better is white blood count and labs are resolving creatinine is normalized, we probably can advance diet to regular as tolerated per general surgery.
--- NOTE | 2024-04-21 08:10 | PN.SURG_ITS ---
Subjective Subjective Patient evaluated resting comfortably in bed. He denies any nausea, vomiting. He has been drinking sprite all night long without any issues. He denies any flatus or bowel movement. He notes abdominal/incisional pain/discomfort. KURTIS drains putting out a moderate amount of serous fluid. Objective Data Objective Data Vital Signs: Vital Signs Temp Pulse Resp BP Pulse Ox O2 Del Method O2 Flow Rate 97.8 F 104 H 18 134/75 H 94 Room Air 2 04/21/24 06:00 04/21/24 06:00 04/21/24 06:00 04/21/24 06:00 04/21/24 06:00 04/21/24 06:00 04/19/24 07:00 Oxygen Flow Rate (L/min) 2 Oxygen Delivery Method Room Air Weight: 177 lb 4.026 oz Body Mass Index (BMI) 23.3 Intake & Output: Intake and Output for Last 24 Hours 04/19/24 04/20/24 04/21/24 23:59 23:59 23:59 Intake Total 665 / 765 2800.00 / 3700.00 1250 / 1250 Output Total 3668 / 3878 2530 / 3275 1506 / 1506 Balance -3003 / -3113 270.00 / 425.00 -256 / -256 Medical Nutrition Assessment Dietitian: Malnutrition Criteria Met Start: 04/18/24 10:38 Freq: Status: Active Protocol: Document 04/18/24 10:38 GAURAV (Rec: 04/18/24 10:38 SLA [id number]) Nutrition Malnutrition Evidence of Malnutrition Exists Yes Malnutrition (moderate): Acute Illness/Injury Evidenced By Suboptimal Energy Intake ( Moderate),Weight Loss (Severe) Clinical Problem Altered Nutrient-Related Laboratory Values Etiology related to diabetes Signs/Symptoms as evidenced by gluc 202 Status Active Problem Acute Disease or Injury Related Malnutrition Etiology related to inadequate energy intake Signs/Symptoms as evidenced by po intake meeting <75% of est nutritional needs and 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 Problem Recommendation Dietitian Recommendations/Changes As medically able, rec KIMBERLEE to 2000 darío Cardiac diet As medically able, rec 4 oz glucerna shake tid w/ medpass for increased nutrition if consumed Will interview pt at time of follow up re: diet/wt hx, etc and make additional rec and provide diet education as indicated Lab / Micro Data 04/21/24 06:03 04/21/24 06:03 Labs: Laboratory Results - last 24 hr 04/20/24 11:16: POC Glucose 240 H 04/20/24 16:27: POC Glucose 218 H 04/20/24 23:55: POC Glucose 205 H 04/21/24 06:03: WBC 11.9 H, RBC 3.23 L, Hgb 8.8 L, Hct 28.2 L, MCV 87.3, MCH 27.2, MCHC 31.2 L, RDW Std Deviation 50.2 H, RDW Coeff of Jori 15.7 H, Plt Count 315, MPV 9.6, Immature Gran % (Auto) 0.600, Neut % (Auto) 80.6 H, Lymph % (Auto) 12.3 L, [place] % (Auto) 6.1, Eos % (Auto) 0.3, Baso % (Auto) 0.1, Absolute Neuts (auto) 9.6 H, Absolute Lymphs (auto) 1.46, Nucleated RBC % 0, Sodium 143, Potassium 4.1, Chloride 108 H, Carbon Dioxide 23.0, Anion Gap 11, BUN 56 H, Creatinine 1.19, Estim Creat Clear Calc 65.28, Est GFR (MDRD) Af Amer 78, Est GFR (MDRD) Non-Af 64, BUN/Creatinine Ratio 47.1 H, Glucose 171 H, Calcium 8.4 L, Total Bilirubin 0.60, AST 10 L, ALT 44, Alkaline Phosphatase 69, Total Protein 6.2 L, Albumin 2.1 L, Globulin 4.1, Albumin/Globulin Ratio 0.5 L 04/21/24 06:20: POC Glucose 162 H Micro: Microbiology 04/17/24 20:47 Urine Catheter - Catheter Urine Culture - Final Culture exhibits no growth. 04/17/24 21:03 Blood Culture (Wb) - Right Forearm Blood Culture - Preliminary No growth in 48 hours. Physical Exam GI GI Narrative: Abdomen- soft, tenderness around the incision. Non-distended. Bowel sounds hypoactive. Assessment & Plan Assessment/Plan (1) Postoperative abdominal pain: PLAN: I am following this patient in conjunction with Dr. Abraham. He has independently evaluated this patient. Patient seems improved this morning. Labs reviewed. WBC improved 11.9. Continue Zosyn until WBC is normal Encourage I.S and ambulation Recommend sitting in the chair for meals Urology increased patient's diet to regular. Limit carbonation. We will continue to monitor this patient Charges/Coding Visit Charges Inpatient E&M: 43384 Subs Hosp L1 (post-op; no charge)
[2024-04-21] MEDS: Docusate Sodium 100 MG Capsule PO ×2 (08:56→21:40)
[2024-04-21] MEDS: Metoprolol Tartrate 25 MG Tablet 12.5 MG PO ×2 (08:56→21:40)
[2024-04-21] MEDS: Tamsulosin HCl 0.4 MG Capsule 0.8 MG PO (10:02)
--- NOTE | 2024-04-21 10:04 | PCM.PN.HOSP ---
Reason for Visit Reason for Visit: Diagnoses Sepsis, unspecified organism (04/17/24) Other acute postprocedural pain (04/17/24) Acute kidney failure, unspecified (04/17/24) Unspecified abdominal pain (04/17/24) Retention of urine, unspecified (04/17/24) Objective Data Objective Data Vital Signs: Vital Signs Temp Pulse Resp BP Pulse Ox O2 Del Method O2 Flow Rate 97.9 F 92 18 129/69 H 94 Room Air 2 04/21/24 08:49 04/21/24 08:56 04/21/24 08:49 04/21/24 08:49 04/21/24 08:49 04/21/24 09:22 04/19/24 07:00 Oxygen Flow Rate (L/min) 2 Oxygen Delivery Method Room Air Weight: 177 lb 4.026 oz Body Mass Index (BMI) 23.3 Intake & Output: Intake and Output for Last 24 Hours 04/19/24 04/20/24 04/21/24 23:59 23:59 23:59 Intake Total 665 / 765 2800.00 / 3700.00 1250 / 1250 Output Total 3668 / 3878 2530 / 3275 1506 / 1506 Balance -3003 / -3113 270.00 / 425.00 -256 / -256 Medical Nutrition Assessment Dietitian: Malnutrition Criteria Met Start: 04/18/24 10:38 Freq: Status: Active Protocol: Document 04/18/24 10:38 GAURAV (Rec: 04/18/24 10:38 GAURAV [id number]) Nutrition Malnutrition Evidence of Malnutrition Exists Yes Malnutrition (moderate): Acute Illness/Injury Evidenced By Suboptimal Energy Intake ( Moderate),Weight Loss (Severe) Clinical Problem Altered Nutrient-Related Laboratory Values Etiology related to diabetes Signs/Symptoms as evidenced by gluc 202 Status Active Problem Acute Disease or Injury Related Malnutrition Etiology related to inadequate energy intake Signs/Symptoms as evidenced by po intake meeting <75% of est nutritional needs and 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 Problem Recommendation Dietitian Recommendations/Changes As medically able, rec KIMBERLEE to 2000 darío Cardiac diet As medically able, rec 4 oz glucerna shake tid w/ medpass for increased nutrition if consumed Will interview pt at time of follow up re: diet/wt hx, etc and make additional rec and provide diet education as indicated Lab / Micro Data 04/21/24 06:03 04/21/24 06:03 Labs: Laboratory Results - last 24 hr 04/20/24 11:16: POC Glucose 240 H 04/20/24 16:27: POC Glucose 218 H 04/20/24 23:55: POC Glucose 205 H 04/21/24 06:03: WBC 11.9 H, RBC 3.23 L, Hgb 8.8 L, Hct 28.2 L, MCV 87.3, MCH 27.2, MCHC 31.2 L, RDW Std Deviation 50.2 H, RDW Coeff of Jori 15.7 H, Plt Count 315, MPV 9.6, Immature Gran % (Auto) 0.600, Neut % (Auto) 80.6 H, Lymph % (Auto) 12.3 L, [place] % (Auto) 6.1, Eos % (Auto) 0.3, Baso % (Auto) 0.1, Absolute Neuts (auto) 9.6 H, Absolute Lymphs (auto) 1.46, Nucleated RBC % 0, Sodium 143, Potassium 4.1, Chloride 108 H, Carbon Dioxide 23.0, Anion Gap 11, BUN 56 H, Creatinine 1.19, Estim Creat Clear Calc 65.28, Est GFR (MDRD) Af Amer 78, Est GFR (MDRD) Non-Af 64, BUN/Creatinine Ratio 47.1 H, Glucose 171 H, Calcium 8.4 L, Total Bilirubin 0.60, AST 10 L, ALT 44, Alkaline Phosphatase 69, Total Protein 6.2 L, Albumin 2.1 L, Globulin 4.1, Albumin/Globulin Ratio 0.5 L 04/21/24 06:20: POC Glucose 162 H Micro: Microbiology 04/17/24 20:47 Urine Catheter - Catheter Urine Culture - Final Culture exhibits no growth. 04/17/24 21:03 Blood Culture (Wb) - Right Forearm Blood Culture - Preliminary No growth in 48 hours. Physical Exam Narrative Seen and examined He had a good bowel movement today. Pain is intermittent more on right side and at operative region 4-5/10 intensity. No fever. Physical exam General: Alert, Oriented x3, Cooperative HEENT: Atraumatic, PERRLA, EOMI, Normocephalic Oral: No Gingival or Mucosal Lesions/ Ulcerations Neck: Supple, No JVD, Negative Carotid Bruits Chest wall/Lungs: Air entry diminished in bilateral lung bases. No crepitation/rhonchi Cardiovascular: Regular rate, Regular Rhythm, Normal S1, Normal S2, No M/G/R Abdomen: Bowel Sounds sluggish, Soft, mild tenderness right side of abdomen. No distention : No dysuria. No renal angle tenderness. No suprapubic tenderness. Extremities: No edema, Capillary Refill Less than 3 Seconds Skin: Midline upper abdomen melani. Right KURTIS drain with moderate serous fluid. Musculoskeletal: No Tenderness to Palpation of Joints or Extremities Neurological: Cranial nerves II-XII grossly intact, DTR 2+/4. No acute focal neurological deficit. Psych/Mental Status: Normal Affect, Appropriate. Assessment & Plan Assessment/Plan (1) Sepsis: (2) Postoperative abdominal pain: (3) RICARDA (acute kidney injury): PLAN: Plan #Sepsis patient had a recent urological procedure on Sunday04/16/2024, namely laparoscopic assisted right pyeloplasty by urology. he came to the hospital due to worsening abdominal pain. CT abdomen showed extensive free intraperitoneal air with concern for abdominal injury patient tachycardic and tachypneic. WBC was also markedly elevated at 4 6000 Had laparoscopy which was converted to exploratory laparotomy today which did not reveal any significant bowel injury. He had drains left in situ. [facility] and critical care on board on IV zosyn. Had IV fluid as per sepsis protocol and dehydration NG tube removed today. He feels much better 04/21: WBC count improved to 11.9 thousand. H&H 8.8/28%. Platelet count 02/25/2015 K. Tachycardia also improved. BP 129/69. Regular diet started by urologist #RICARDA with hyperkalemia likely pre renal in origin. Creatinine is 1.63 today. Baseline is around 1.13. Was 3.9 on admission. Hyperkalemia has resolved 04/21: BUN/creatinine improving. 56/1.19. #Sinus tachycardia IV lopressor prn 04/21: Heart rate is better. On low-dose metoprolol. #History of right UPJ stricture status post ureteral stent placement and laparoscopic right pyeloplasty Procedure done on 04/16/2024. Urology on board. management as per urology #Lactic acidosis: resolved with hydration #Type 2 diabetes A1c was 7 on 04/08/2024. On insulin sliding scale. Accu-Cheks every 6 hourly oral meds on hold On metformin and Jardiance as well as sitagliptin at home. #Hypertension: On metoprolol which is being resumed today. IV hydralazine as needed #CAD s/p stent: On statin, aspirin and Plavix which are on hold. 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
[2024-04-21] MEDS: Pantoprazole Sodium 40 MG in 0.9% Normal Saline (100mL MB+) 100 ML 330 MG IV (10:36)
[2024-04-21 12:17] LABS: Bedside Glucose 223 mg/dL (74-106)
[2024-04-21 13:50] LABS: Pathologist Review Reviewed
[2024-04-21] MEDS: 0.9% Saline Lock 10 ML Syringe IV (13:51)
[2024-04-21 13:52] LABS: Pathologist Review Reviewed
[2024-04-21 13:52] LABS: Pathologist Review Reviewed
[2024-04-21 17:46] LABS: Bedside Glucose 292 mg/dL (74-106)
[2024-04-21] MEDS: Atorvastatin Calcium 10 MG Tablet PO (21:40)
[2024-04-21] MEDS: Acetaminophen 325 MG Tablet 650 MG PO (21:42)
[2024-04-22] VITALS (7 sets, daily range): BP systolic 103–121; BP diastolic 52–68; PULSE 83–97; RESP 16–18; TEMP 36.3–37.1; O2SAT 94–97; BMI 24.5
[2024-04-22] MEDS: Insulin Lispro 100 UNIT/ML INSULN.PEN SC ×5 (00:12→21:36)
[2024-04-22 00:54] LABS: Bedside Glucose 247 mg/dL (74-106)
[2024-04-22] MEDS: oxyCODONE 5 MG Tablet PO ×4 (01:58→21:38)
[2024-04-22] MEDS: Heparin Injection (Vial) 5,000 UNIT/ML VIAL 5000 UNIT SC ×3 (06:04→21:35)
[2024-04-22] MEDS: Piperacil/Tazobactam 3.375 GM in 0.9% Normal Saline (50mL MB+) 50 ML IV (06:07)
[2024-04-22 06:39] LABS: Absolute Lymphocyte Count 1.58 X10^3/uL (0.83-4.51); Absolute Neutrophil Count 7.2 X10^3/uL (2.0-7.7); Basophil# 0.01 X10^3/uL; Basophil% 0.1 % (0-1); Eosinophil# 0.21 X10^3/uL; Eosinophils% 2.2 % (0-5); Hematocrit 28.7 % (40-54); Hemoglobin 8.9 g/dL (13.0-16.5); Lymphocyte # 1.58 X10^3/ul (0.83-4.51); Lymphocyte % 16.3 % (19-41); Mean Corpuscular Hgb 26.4 pg (27.0-32.0); Mean Corpuscular Volume 85.2 fL (80-94); Mean Platelet Vol. 9.5 fl (6.2-12.0); Monocyte# 0.62 X10^3/uL; Monocyte% 6.4 % (0-10); NRBC Flagged by Analyzer 0 % (0-5); Neutrophil # 7.19 X10^3/uL (2.7-7.7); Neutrophil % 74.2 % (47-70); Platelet Count 251 K/mm3 (150-450); RBC Distribution Width SD 46.6 fl (35.1-43.9); Red Blood Count 3.37 M/mm3 (4.6-6.2); White Blood Count 9.7 K/mm3 (4.4-11.0)
[2024-04-22 07:18] LABS: Bedside Glucose 181 mg/dL (74-106)
--- NOTE | 2024-04-22 07:48 | PN.URO_ITS ---
Subjective Subjective Patient making slow progress white blood count is normal creatinine is come back down he is stable today hemodynamically. Will see how he does with tolerating food and diet. And prior to discharge we will consider removing the drains were discussed with general surgery and he will need to go home with a Krueger catheter on discharge. Objective Data Objective Data Vital Signs: Vital Signs Temp Pulse Resp BP Pulse Ox O2 Del Method O2 Flow Rate 98.2 F 86 16 121/66 H 95 Room Air 2 04/22/24 06:00 04/22/24 06:00 04/22/24 06:00 04/22/24 06:00 04/22/24 06:00 04/22/24 06:00 04/19/24 07:00 Oxygen Flow Rate (L/min) 2 Oxygen Delivery Method Room Air Weight: 84.3 kg Body Mass Index (BMI) 24.5 Intake & Output: Intake and Output for Last 24 Hours 04/20/24 04/21/24 04/22/24 23:59 23:59 23:59 Intake Total 2800.00 / 3700.00 2160 / 2760 1130 / 1130 Output Total 2530 / 3275 3581 / 4811 2009 Balance 270.00 / 425.00 -1421 / -2051 -880 / -880 Medical Nutrition Assessment Dietitian: Malnutrition Criteria Met Start: 04/18/24 10:38 Freq: Status: Active Protocol: Document 04/18/24 10:38 GAURAV (Rec: 04/18/24 10:38 GAURAV [id number]) Nutrition Malnutrition Evidence of Malnutrition Exists Yes Malnutrition (moderate): Acute Illness/Injury Evidenced By Suboptimal Energy Intake ( Moderate),Weight Loss (Severe) Clinical Problem Altered Nutrient-Related Laboratory Values Etiology related to diabetes Signs/Symptoms as evidenced by gluc 202 Status Active Problem Acute Disease or Injury Related Malnutrition Etiology related to inadequate energy intake Signs/Symptoms as evidenced by po intake meeting <75% of est nutritional needs and 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 Problem Recommendation Dietitian Recommendations/Changes As medically able, rec KIMBERLEE to 2000 darío Cardiac diet As medically able, rec 4 oz glucerna shake tid w/ medpass for increased nutrition if consumed Will interview pt at time of follow up re: diet/wt hx, etc and make additional rec and provide diet education as indicated Lab / Micro Data 04/22/24 06:08 04/21/24 06:03 Labs: Laboratory Results - last 24 hr 04/19/24 03:33: Diff Path Review Reviewed 04/19/24 14:30: Diff Path Review Reviewed 04/19/24 20:00: Diff Path Review Reviewed 04/21/24 11:53: POC Glucose 223 H 04/21/24 17:08: POC Glucose 292 H 04/22/24 00:11: POC Glucose 247 H 04/22/24 05:59: POC Glucose 181 H 04/22/24 06:08: WBC 9.7, RBC 3.37 L, Hgb 8.9 L, Hct 28.7 L, MCV 85.2, MCH 26.4 L , MCHC 31.0 L, RDW Std Deviation 46.6 H, RDW Coeff of Jori 15.0 H, Plt Count 251, MPV 9.5, Immature Gran % (Auto) 0.800, Neut % (Auto) 74.2 H, Lymph % (Auto) 16.3 L, [place] % (Auto) 6.4, Eos % (Auto) 2.2, Baso % (Auto) 0.1, Absolute Neuts (auto) 7.2, Absolute Lymphs (auto) 1.58, Nucleated RBC % 0 Micro: Microbiology 04/17/24 20:47 Urine Catheter - Catheter Urine Culture - Final Culture exhibits no growth. 04/17/24 21:03 Blood Culture (Wb) - Right Forearm Blood Culture - Preliminary No growth in 48 hours.
--- NOTE | 2024-04-22 07:52 | PN.SURG_ITS ---
Subjective Subjective Patient evaluated resting comfortably in bed. He denies nausea, vomiting, fever. He notes tolerating a regular diet well. He notes very little abdominal discomfort. He notes passing flatus and having a bowel movement. KURTIS drain output is serosanguineous. Objective Data Objective Data Vital Signs: Vital Signs Temp Pulse Resp BP Pulse Ox O2 Del Method O2 Flow Rate 98.2 F 86 16 121/66 H 95 Room Air 2 04/22/24 06:00 04/22/24 06:00 04/22/24 06:00 04/22/24 06:00 04/22/24 06:00 04/22/24 06:00 04/19/24 07:00 Oxygen Flow Rate (L/min) 2 Oxygen Delivery Method Room Air Weight: 185 lb 13.595 oz Body Mass Index (BMI) 24.5 Intake & Output: Intake and Output for Last 24 Hours 04/20/24 04/21/24 04/22/24 23:59 23:59 23:59 Intake Total 2800.00 / 3700.00 2160 / 2760 1130 / 1130 Output Total 2530 / 3275 3581 / 4811 2009 Balance 270.00 / 425.00 -1421 / -2051 -880 / -880 Medical Nutrition Assessment Dietitian: Malnutrition Criteria Met Start: 04/18/24 10:38 Freq: Status: Active Protocol: Document 04/18/24 10:38 SLA (Rec: 04/18/24 10:38 SLA [id number]) Nutrition Malnutrition Evidence of Malnutrition Exists Yes Malnutrition (moderate): Acute Illness/Injury Evidenced By Suboptimal Energy Intake ( Moderate),Weight Loss (Severe) Clinical Problem Altered Nutrient-Related Laboratory Values Etiology related to diabetes Signs/Symptoms as evidenced by gluc 202 Status Active Problem Acute Disease or Injury Related Malnutrition Etiology related to inadequate energy intake Signs/Symptoms as evidenced by po intake meeting <75% of est nutritional needs and 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 Problem Recommendation Dietitian Recommendations/Changes As medically able, rec KIMBERLEE to 2000 darío Cardiac diet As medically able, rec 4 oz glucerna shake tid w/ medpass for increased nutrition if consumed Will interview pt at time of follow up re: diet/wt hx, etc and make additional rec and provide diet education as indicated Lab / Micro Data 04/22/24 06:08 04/22/24 06:08 Labs: Laboratory Results - last 24 hr 04/19/24 03:33: Diff Path Review Reviewed 04/19/24 14:30: Diff Path Review Reviewed 04/19/24 20:00: Diff Path Review Reviewed 04/21/24 11:53: POC Glucose 223 H 04/21/24 17:08: POC Glucose 292 H 04/22/24 00:11: POC Glucose 247 H 04/22/24 05:59: POC Glucose 181 H 04/22/24 06:08: WBC 9.7, RBC 3.37 L, Hgb 8.9 L, Hct 28.7 L, MCV 85.2, MCH 26.4 L , MCHC 31.0 L, RDW Std Deviation 46.6 H, RDW Coeff of Jori 15.0 H, Plt Count 251, MPV 9.5, Immature Gran % (Auto) 0.800, Neut % (Auto) 74.2 H, Lymph % (Auto) 16.3 L, [place] % (Auto) 6.4, Eos % (Auto) 2.2, Baso % (Auto) 0.1, Absolute Neuts (auto) 7.2, Absolute Lymphs (auto) 1.58, Nucleated RBC % 0 Micro: Microbiology 04/17/24 20:47 Urine Catheter - Catheter Urine Culture - Final Culture exhibits no growth. 04/17/24 21:03 Blood Culture (Wb) - Right Forearm Blood Culture - Preliminary No growth in 48 hours. Physical Exam GI GI Narrative: Abdomen- soft, nontender. Incisions c/d/i. KURTIS drains intact with serosanguineous fluid noted. Assessment & Plan Assessment/Plan (1) Postoperative abdominal pain: PLAN: I am following this patient in conjunction with Dr. Kelley. She has independently evaluated this patient. Labs reviewed. WBC is normal Will discontinue the antibiotics Patient tolerating regular diet Continue to keep KURTIS drains and monitor output Probable discharge tomorrow Charges/Coding Visit Charges Inpatient E&M: 26914 Subs Hosp L1 (post-op)
[2024-04-22 07:57] LABS: ALB/GLOB Ratio 0.6 RATIO (0.9-2.4); AST(SGOT) 9 U/L (15-37); Alanine Aminotransfer ALT/SGPT 31 U/L (16-61); Albumin, Serum 2.2 g/dL (3.2-5.0); Alkaline Phosphatase 66 U/L (45-117); Anion Gap 4 (5-15); BUN 33 mg/dL (7-18); BUN/Creat Ratio 36.8 RATIO (10-20); Calcium,Total 8.7 mg/dL (8.5-10.1); Chloride 107 mmol/L (98-107); EST Glomerular Filtration Rate 89 mL/min (>60); Est Glom Filt Rate - Afr Amer 108 mL/min (>60); Estimated Creatinine Clearance 86.31 ml/min; Globulin 3.8 g/dL (2.2-4.2); Glucose 186 mg/dL (74-106); Potassium 4.1 mmol/L (3.5-5.1); Sodium Level 140 mmol/L (136-145)
[2024-04-22] MEDS: Docusate Sodium 100 MG Capsule PO (09:20)
[2024-04-22] MEDS: Metoprolol Tartrate 25 MG Tablet 12.5 MG PO ×2 (09:20→21:36)
[2024-04-22] MEDS: Tamsulosin HCl 0.4 MG Capsule 0.8 MG PO (09:20)
[2024-04-22] MEDS: Pantoprazole Sodium 40 MG in 0.9% Normal Saline (100mL MB+) 100 ML 330 MG IV (10:31)
[2024-04-22] MEDS: Acetaminophen 325 MG Tablet 650 MG PO (11:57)
[2024-04-22 12:18] LABS: Bedside Glucose 305 mg/dL (74-106)
--- NOTE | 2024-04-22 14:39 | PN.HOSP_ITS ---
Reason for Visit Reason for Visit: Diagnoses Sepsis, unspecified organism (04/17/24) Other acute postprocedural pain (04/17/24) Acute kidney failure, unspecified (04/17/24) Unspecified abdominal pain (04/17/24) Retention of urine, unspecified (04/17/24) Objective Data Objective Data Vital Signs: Vital Signs Temp Pulse Resp BP Pulse Ox O2 Del Method O2 Flow Rate 97.8 F 83 18 103/61 95 Room Air 2 04/22/24 14:31 04/22/24 14:31 04/22/24 14:31 04/22/24 14:31 04/22/24 14:31 04/22/24 14:33 04/19/24 07:00 Oxygen Flow Rate (L/min) 2 Oxygen Delivery Method Room Air Weight: 185 lb 13.595 oz Body Mass Index (BMI) 24.5 Intake & Output: Intake and Output for Last 24 Hours 04/20/24 04/21/24 04/22/24 23:59 23:59 23:59 Intake Total 2800.00 / 3700.00 2160 / 2760 1690 / 1690 Output Total 2530 / 3275 3581 / 4811 3280 / 3280 Balance 270.00 / 425.00 -1421 / -2051 -1590 / -1590 Medical Nutrition Assessment Dietitian: Malnutrition Criteria Met Start: 04/18/24 10:38 Freq: Status: Active Protocol: Document 04/18/24 10:38 GAURAV (Rec: 04/18/24 10:38 GAURAV [id number]) Nutrition Malnutrition Evidence of Malnutrition Exists Yes Malnutrition (moderate): Acute Illness/Injury Evidenced By Suboptimal Energy Intake ( Moderate),Weight Loss (Severe) Clinical Problem Altered Nutrient-Related Laboratory Values Etiology related to diabetes Signs/Symptoms as evidenced by gluc 202 Status Active Problem Acute Disease or Injury Related Malnutrition Etiology related to inadequate energy intake Signs/Symptoms as evidenced by po intake meeting <75% of est nutritional needs and 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 Problem Recommendation Dietitian Recommendations/Changes As medically able, rec KIMBERLEE to 2000 darío Cardiac diet As medically able, rec 4 oz glucerna shake tid w/ medpass for increased nutrition if consumed Will interview pt at time of follow up re: diet/wt hx, etc and make additional rec and provide diet education as indicated Lab / Micro Data 04/22/24 06:08 04/22/24 06:08 Labs: Laboratory Results - last 24 hr 04/21/24 17:08: POC Glucose 292 H 04/22/24 00:11: POC Glucose 247 H 04/22/24 05:59: POC Glucose 181 H 04/22/24 06:08: WBC 9.7, RBC 3.37 L, Hgb 8.9 L, Hct 28.7 L, MCV 85.2, MCH 26.4 L , MCHC 31.0 L, RDW Std Deviation 46.6 H, RDW Coeff of Jori 15.0 H, Plt Count 251, MPV 9.5, Immature Gran % (Auto) 0.800, Neut % (Auto) 74.2 H, Lymph % (Auto) 16.3 L, [place] % (Auto) 6.4, Eos % (Auto) 2.2, Baso % (Auto) 0.1, Absolute Neuts (auto) 7.2, Absolute Lymphs (auto) 1.58, Nucleated RBC % 0, Sodium 140, Potassium 4.1, Chloride 107, Carbon Dioxide 29.0, Anion Gap 4 L, BUN 33 H, Creatinine 0.90, Estim Creat Clear Calc 86.31, Est GFR (MDRD) Af Amer 108, Est GFR (MDRD) Non-Af 89, BUN/Creatinine Ratio 36.8 H, Glucose 186 H, Calcium 8.7, Total Bilirubin 0.60, AST 9 L, ALT 31, Alkaline Phosphatase 66, Total Protein 6.0 L, Albumin 2.2 L, Globulin 3.8, Albumin/Globulin Ratio 0.6 L 04/22/24 11:52: POC Glucose 305 H Micro: Microbiology 04/17/24 20:47 Urine Catheter - Catheter Urine Culture - Final Culture exhibits no growth. 04/17/24 21:03 Blood Culture (Wb) - Right Forearm Blood Culture - Preliminary No growth in 48 hours. Physical Exam Narrative Seen and examined Patient moving his bowel. Also had good urine output, 600 mL in the bag. Pain is better Mild pain is intermittent more on right side and at operative region 3-4/10 intensity. No fever. Physical exam General: Alert, Oriented x3, Cooperative HEENT: Atraumatic, PERRLA, EOMI, Normocephalic Oral: No Gingival or Mucosal Lesions/ Ulcerations Neck: Supple, No JVD, Negative Carotid Bruits Chest wall/Lungs: Air entry diminished in bilateral lung bases. No crepitation/rhonchi Cardiovascular: Regular rate, Regular Rhythm, Normal S1, Normal S2, No M/G/R Abdomen: Bowel Sounds good, soft, mild tenderness right side of abdomen. No distention : Krueger catheter. No renal angle tenderness. No suprapubic tenderness. Extremities: No edema, Capillary Refill Less than 3 Seconds Skin: Midline upper abdomen melani. Right KURTIS drain with moderate serous fluid. Musculoskeletal: No Tenderness to Palpation of Joints or Extremities Neurological: Cranial nerves II-XII grossly intact, DTR 2+/4. No acute focal neurological deficit. Psych/Mental Status: Normal Affect, Appropriate. Assessment & Plan Assessment/Plan (1) Sepsis: (2) Postoperative abdominal pain: (3) RICARDA (acute kidney injury): PLAN: Plan #Sepsis * patient had a recent urological procedure on Sunday04/16/2024, namely laparoscopic assisted right pyeloplasty by urology. * he came to the hospital due to worsening abdominal pain. CT abdomen showed extensive free intraperitoneal air with concern for abdominal injury * patient tachycardic and tachypneic. WBC was also markedly elevated at 4 6000 * Had laparoscopy which was converted to exploratory laparotomy today which did not reveal any significant bowel injury. He had drains left in situ. * [facility] * on IV zosyn. Had IV fluid as per sepsis protocol and dehydration * NG tube removed today. He feels much better 04/21: WBC count improved to 11.9 thousand. H&H 8.8/28%. Platelet count 02/25/2015 K. Tachycardia also improved. BP 129/69. * Regular diet started by urologist 04/22: Patient tolerating diet well. Possible plan for discharge tomorrow with Krueger catheter and/or as recommended by surgery #RICARDA with hyperkalemia * likely pre renal in origin. * Creatinine is 1.63 today. Baseline is around 1.13. Was 3.9 on admission. * Hyperkalemia has resolved 04/21: BUN/creatinine improving. 56/1.19. 04/22: Creatinine 0.9 BUN 33. #Sinus tachycardia * IV lopressor prn 04/21: Heart rate is better. On low-dose metoprolol. /: Sinus tachycardia resolved. #History of right UPJ stricture status post ureteral stent placement and laparoscopic right pyeloplasty * Procedure done on 04/16/2024. * Urology on board. * management as per urology #Lactic acidosis: resolved with hydration #Type 2 diabetes * A1c was 7 on 04/08/2024. On insulin sliding scale. Accu-Cheks every 6 hourly oral meds on hold * On metformin and Jardiance as well as sitagliptin at home. * #Hypertension: On metoprolol which is being resumed today. IV hydralazine as needed #CAD s/p stent: On statin, aspirin and Plavix which are on hold. 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
[2024-04-22] MEDS: Glucerna Shake 120 ML LIQUID PO (16:32)
[2024-04-22 17:17] LABS: Bedside Glucose 266 mg/dL (74-106)
[2024-04-22] MEDS: Atorvastatin Calcium 10 MG Tablet PO (21:37)
[2024-04-22] MEDS: 0.9% Saline Lock 10 ML Syringe IV (21:38)
[2024-04-23] VITALS (7 sets, daily range): BP systolic 106–121; BP diastolic 64–78; PULSE 83–97; RESP 16; TEMP 37–37.2; O2SAT 94–99
[2024-04-23 01:03] LABS: Bedside Glucose 282 mg/dL (74-106)
[2024-04-23] MEDS: Heparin Injection (Vial) 5,000 UNIT/ML VIAL 5000 UNIT SC (06:30)
[2024-04-23] MEDS: oxyCODONE 5 MG Tablet PO (06:30)
[2024-04-23 07:12] LABS: Bedside Glucose 190 mg/dL (74-106)
--- NOTE | 2024-04-23 07:27 | PCM.PN.GU ---
Subjective Subjective Doing well, okay to DC drains, okay to go home with Krueger catheter, he will follow-up in my office for Krueger catheter removal. He can resume all his medications Objective Data Objective Data Vital Signs: Vital Signs Temp Pulse Resp BP Pulse Ox O2 Del Method O2 Flow Rate 98.7 F 97 16 119/68 98 Room Air 2 04/23/24 00:00 04/23/24 00:00 04/23/24 00:00 04/23/24 00:00 04/23/24 00:00 04/23/24 00:00 04/19/24 07:00 Oxygen Flow Rate (L/min) 2 Oxygen Delivery Method Room Air Weight: 84.3 kg Body Mass Index (BMI) 24.5 Intake & Output: Intake and Output for Last 24 Hours 04/21/24 04/22/24 04/23/24 23:59 23:59 23:59 Intake Total 2160 / 2760 2590 / 3190 600 / 600 Output Total 3581 / 4811 4315 / 5530 1215 / 1215 Balance -1421 / -2051 -1725 / -2340 -615 / -615 Medical Nutrition Assessment Dietitian: Malnutrition Criteria Met Start: 04/18/24 10:38 Freq: Status: Active Protocol: Document 04/18/24 10:38 GAURAV (Rec: 04/18/24 10:38 GAURAV [id number]) Nutrition Malnutrition Evidence of Malnutrition Exists Yes Malnutrition (moderate): Acute Illness/Injury Evidenced By Suboptimal Energy Intake ( Moderate),Weight Loss (Severe) Clinical Problem Altered Nutrient-Related Laboratory Values Etiology related to diabetes Signs/Symptoms as evidenced by gluc 202 Status Active Problem Acute Disease or Injury Related Malnutrition Etiology related to inadequate energy intake Signs/Symptoms as evidenced by po intake meeting <75% of est nutritional needs and 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 Problem Recommendation Dietitian Recommendations/Changes As medically able, rec KIMBERLEE to 1999 darío Cardiac diet As medically able, rec 4 oz glucerna shake tid w/ medpass for increased nutrition if consumed Will interview pt at time of follow up re: diet/wt hx, etc and make additional rec and provide diet education as indicated Lab / Micro Data 04/22/24 06:08 04/22/24 06:08 Labs: Laboratory Results - last 24 hr 04/22/24 06:08: Sodium 140, Potassium 4.1, Chloride 107, Carbon Dioxide 29.0, Anion Gap 4 L, BUN 33 H, Creatinine 0.90, Estim Creat Clear Calc 86.31, Est GFR (MDRD) Af Amer 108, Est GFR (MDRD) Non-Af 89, BUN/Creatinine Ratio 36.8 H, Glucose 186 H, Calcium 8.7, Total Bilirubin 0.60, AST 9 L, ALT 31, Alkaline Phosphatase 66, Total Protein 6.0 L, Albumin 2.2 L, Globulin 3.8, Albumin/Globulin Ratio 0.6 L 04/22/24 11:52: POC Glucose 305 H 04/22/24 16:30: POC Glucose 266 H 04/22/24 21:34: POC Glucose 282 H 04/23/24 06:24: POC Glucose 190 H Micro: Microbiology 04/17/24 20:47 Urine Catheter - Catheter Urine Culture - Final Culture exhibits no growth. 04/17/24 21:03 Blood Culture (Wb) - Right Forearm Blood Culture - Preliminary No growth in 48 hours.
[2024-04-23 07:34] LABS: Absolute Lymphocyte Count 1.52 X10^3/uL (0.83-4.51); Absolute Neutrophil Count 9.5 X10^3/uL (2.0-7.7); Basophil# 0.02 X10^3/uL; Basophil% 0.2 % (0-1); Eosinophil# 0.21 X10^3/uL; Eosinophils% 1.7 % (0-5); Hematocrit 29.3 % (40-54); Hemoglobin 9.1 g/dL (13.0-16.5); Lymphocyte # 1.52 X10^3/ul (0.83-4.51); Lymphocyte % 12.6 % (19-41); Mean Corp Hgb Conc 31.1 g/dL (32-36); Mean Corpuscular Hgb 26.5 pg (27.0-32.0); Mean Corpuscular Volume 85.2 fL (80-94); Mean Platelet Vol. 9.9 fl (6.2-12.0); Monocyte# 0.68 X10^3/uL; Monocyte% 5.7 % (0-10); NRBC Flagged by Analyzer 0 % (0-5); Neutrophil # 9.45 X10^3/uL (2.7-7.7); Neutrophil % 78.6 % (47-70); Platelet Count 234 K/mm3 (150-450); RBC Distribution Width CV 14.6 % (11.6-14.6); RBC Distribution Width SD 45.1 fl (35.1-43.9); Red Blood Count 3.44 M/mm3 (4.6-6.2)
[2024-04-23] MEDS: Insulin Lispro 100 UNIT/ML INSULN.PEN SC (07:37)
[2024-04-23 07:53] LABS: ALB/GLOB Ratio 0.6 RATIO (0.9-2.4); AST(SGOT) 10 U/L (15-37); Alanine Aminotransfer ALT/SGPT 27 U/L (16-61); Albumin, Serum 2.2 g/dL (3.2-5.0); Alkaline Phosphatase 61 U/L (45-117); Anion Gap 6 (5-15); BUN 25 mg/dL (7-18); BUN/Creat Ratio 35.5 RATIO (10-20); Calcium,Total 8.5 mg/dL (8.5-10.1); Chloride 104 mmol/L (98-107); EST Glomerular Filtration Rate 118 mL/min (>60); Est Glom Filt Rate - Afr Amer 142 mL/min (>60); Globulin 3.9 g/dL (2.2-4.2); Glucose 202 mg/dL (74-106); Potassium 4.2 mmol/L (3.5-5.1); Protein, Total 6.1 g/dL (6.4-8.2); Sodium Level 135 mmol/L (136-145)
[2024-04-23] MEDS: Tamsulosin HCl 0.4 MG Capsule 0.8 MG PO (08:33)
--- NOTE | 2024-04-23 08:33 | PCM.PN.SRG ---
Subjective Subjective Patient is evaluated resting comfortably in bed. He denies any nausea, vomiting, fever. He notes very minimal amount of incisional discomfort. He notes passing flatus and having bowel movements. He is tolerating a regular diet. Objective Data Objective Data Vital Signs: Vital Signs Temp Pulse Resp BP Pulse Ox O2 Del Method O2 Flow Rate 98.9 F 83 16 106/64 96 Room Air 2 04/23/24 03:00 04/23/24 03:00 04/23/24 03:00 04/23/24 03:00 04/23/24 03:00 04/23/24 03:00 04/19/24 07:00 Oxygen Flow Rate (L/min) 2 Oxygen Delivery Method Room Air Weight: 185 lb 13.595 oz Body Mass Index (BMI) 24.5 Intake & Output: Intake and Output for Last 24 Hours 04/21/24 04/22/24 04/23/24 23:59 23:59 23:59 Intake Total 2160 / 2760 2590 / 3190 1000 / 1000 Output Total 3581 / 4811 4315 / 5530 8 / 2078 Balance -1421 / -2051 -1725 / -2340 -1078 / -1078 Medical Nutrition Assessment Dietitian: Malnutrition Criteria Met Start: 04/18/24 10:38 Freq: Status: Active Protocol: Document 04/18/24 10:38 GAURAV (Rec: 04/18/24 10:38 GAURAV [id number]) Nutrition Malnutrition Evidence of Malnutrition Exists Yes Malnutrition (moderate): Acute Illness/Injury Evidenced By Suboptimal Energy Intake ( Moderate),Weight Loss (Severe) Clinical Problem Altered Nutrient-Related Laboratory Values Etiology related to diabetes Signs/Symptoms as evidenced by gluc 202 Status Active Problem Acute Disease or Injury Related Malnutrition Etiology related to inadequate energy intake Signs/Symptoms as evidenced by po intake meeting <75% of est nutritional needs and 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 Problem Recommendation Dietitian Recommendations/Changes As medically able, rec KIMBERLEE to 2000 darío Cardiac diet As medically able, rec 4 oz glucerna shake tid w/ medpass for increased nutrition if consumed Will interview pt at time of follow up re: diet/wt hx, etc and make additional rec and provide diet education as indicated Lab / Micro Data 04/23/24 03:35 04/23/24 03:35 Labs: Laboratory Results - last 24 hr 12/03/24 11:52: POC Glucose 305 H 04/22/24 16:30: POC Glucose 266 H 04/22/24 21:34: POC Glucose 282 H 04/23/24 03:35: WBC 12.0 H, RBC 3.44 L, Hgb 9.1 L, Hct 29.3 L, MCV 85.2, MCH 26.5 L, MCHC 31.1 L, RDW Std Deviation 45.1 H, RDW Coeff of Jori 14.6, Plt Count 234, MPV 9.9, Immature Gran % (Auto) 1.200 H, Neut % (Auto) 78.6 H, Lymph % (Auto) 12.6 L, [place] % (Auto) 5.7, Eos % (Auto) 1.7, Baso % (Auto) 0.2, Absolute Neuts (auto) 9.5 H, Absolute Lymphs (auto) 1.52, Nucleated RBC % 0, Sodium 135 L, Potassium 4.2, Chloride 104, Carbon Dioxide 25.0, Anion Gap 6, BUN 25 H, Creatinine 0.70, Estim Creat Clear Calc 97.10, Est GFR (MDRD) Af Amer 142, Est GFR (MDRD) Non-Af 118, BUN/Creatinine Ratio 35.5 H, Glucose 202 H, Calcium 8.5, Total Bilirubin 0.50, AST 10 L, ALT 27, Alkaline Phosphatase 61, Total Protein 6.1 L, Albumin 2.2 L, Globulin 3.9, Albumin/Globulin Ratio 0.6 L 04/23/24 06:24: POC Glucose 190 H Micro: Microbiology 04/17/24 20:47 Urine Catheter - Catheter Urine Culture - Final Culture exhibits no growth. 04/17/24 21:03 Blood Culture (Wb) - Right Forearm Blood Culture - Preliminary No growth in 48 hours. Physical Exam GI GI Narrative: Abdomen- soft, minimal incisional tenderness, Incisions c/d/i. No erythema or infection noted. Two UKRTIS drains were prepped with Betadine, suture was trimmed and KURTIS drains were completely removed. Gauze dressing was applied over top of the open wounds. Patient tolerated the removal well. Assessment & Plan Assessment/Plan (1) Postoperative abdominal pain: PLAN: I am following this patient in conjunction with Dr. Abraham. He has independently evaluated this patient. Labs reviewed. WBC increased to 12.0. Plan to repeat lab work as an outpatient. Patient has been ambulating well He is progressing well KURTIS drains completely removed Plan to restrict lifting restrictions to 20 pounds for 6 weeks Follow-up with Dr. Abraham in 2 weeks Patient ready for discharge from surgical standpoint Charges/Coding Visit Charges Inpatient E&M: 80978 Subs Hosp L1 (post-op)
[2024-04-23] MEDS: Metoprolol Tartrate 25 MG Tablet 12.5 MG PO (08:34)
[2024-04-23] MEDS: Glucerna Shake 120 ML LIQUID PO (08:38)
[2024-04-23] MEDS: Pantoprazole Sodium 40 MG in 0.9% Normal Saline (100mL MB+) 100 ML 330 MG IV (08:41)
--- NOTE | 2024-04-23 09:07 | DCINST_ITS ---
Discharge Instructions Diet Discharge Diet: Light diet - advance as tolerated DC O2, CPAP, BIPAP needs Additional Home O2 Discharge instructions: No Dressing / Incision Discharge Activity: May Not Drive (3-5 days or while taking narcotic pain medication) Lifting Restrictions: No lifting greater than 20 pounds for 6 weeks Dressing / Incision Call your doctor if your incision/area has: Continuous Slow Oozing, Sudden Increased Bleeding, Increased Pain/ Swelling, Increased Redness, Foul Smelling Discharge and Swelling at the incision site Call your doctor if you observe: Fever of 101 or Higher Suture Line Care: Avoid Pulling/Pushing and Avoid Pinching/Bending Remove Dressing in: 2 days Cleanse incision/area with: Soap & Water Follow Up Care Please Follow Up With: Poli Abraham MD When: Please call [phone], option #2 to schedule an appointment for 2 weeks Test Results: Test results from this visit will be discussed in further detail at your follow- up appointment, if applicable. Discharge Plan Admission Admit Date/Time: 04/17/24 22:52 Attending Provider: Ricardo Abdi Primary Care Provider: [facility] Consulting Providers: Jacinto Haji; Polo Osullivan; Blanche Garcia Instructions Additional Instructions / Restrictions: Diet ? Start light with soups and soft bland foods. You may advance diet as tolerated. Activity ? You may drive in 3-5 days but not while taking narcotic pain medication. ? I encourage walking. You may go up steps, one at a time. ? Do not swim or use hot tubs for 2 weeks. ? For comfort, you may use warm compresses or ice as needed for 15-20 minutes at a time. Lifting ? You may lift up to 20 pounds for 6 weeks. Dressings/Incision ? You may shower OVER your plastic dressings ? Do NOT tub bathe for 1 week ? Leave plastic dressings on for 2 days. ? When plastic dressings are removed, you will find steri strips. It is okay to continue showering with them in place, pat them dry. ? You may remove steri-strips after 1 week. We recommend getting them soaking wet for easier removal. Medications ? Anesthesia used during surgery and pain medications may cause constipation. I recommend initiating on the day of surgery a fiber supplement like, Metamucil, Citrucel, FiberCon, Benefiber, or a generic form of these medications. 1 heaping tablespoon in water daily. You may continue to utilize any bowel regimen or oral laxatives that you routinely take. ? As long as you are not intolerant to Tylenol, acetaminophen, ibuprofen, Motrin, Advil, Aleve, or similar medications, I would recommend transitioning to these [id number] medicines as soon as possible instead of continued use of narcotic pain medication. Follow up ? You should call [facility] soon after surgery, at [phone] option 2 to make a follow up appointment for 14 days after your surgery. Please obtain lab work, CBC and BMP, prior to your appointment with Dr. Abraham. Discharge Orders/Prescriptions Prescriptions: No Action metformin 1,000 MG tablet 1,000 mg PO BID metoprolol tartrate 25 MG tablet 12.5 mg PO BID aspirin 81 MG tablet,delayed release (DR/EC) 81 mg PO DAILY Qty: 60 0RF sitagliptin 100 mg tablet 100 mg PO DAILY empagliflozin 25 mg tablet 25 mg PO DAILY clopidogrel 75 mg Tablet 75 mg PO DAILY Qty: 30 1RF tamsulosin 0.4 mg Capsule 0.8 mg PO DAILY@0830 Qty: 60 0RF finasteride 5 MG tablet 5 mg PO QHS Qty: 30 0RF Rx Instructions: Restart per urology rosuvastatin [Crestor] 5 mg tablet 5 mg PO QHS phenazopyridine [Pyridium] 100 mg tablet 100 mg PO Q8H ciprofloxacin HCl [Cipro] 500 mg tablet 500 mg PO BID Qty: 14 0RF docusate sodium [Colace] 100 mg capsule 100 mg PO BID Qty: 20 0RF oxycodone 5 mg tablet 5 mg PO Q6H PRN (Reason: pain) 3 Days Qty: 14 0RF Other Ambulatory Orders: Basic Metabolic Profile (BMP) (Routine) Timeframe: 2 Weeks Facility: [facility] - Location: Laboratory Ordered By: Mary GAMING CBC W/Diff, Automated (Routine) Timeframe: 2 Weeks Facility: [facility] - Location: Laboratory Ordered By: Mary GAMING Referrals / Follow Up: Poli Abraham MD [Med Staff - Active Staff] - (Please contact our office to schedule a 2 week follow-up) [facility],[place] [Primary Care Provider] -
--- NOTE | 2024-04-23 10:27 | DCINST_ITS ---
Discharge Instructions Diet Discharge Diet: Light diet - advance as tolerated (Avoid CORBAONATION/ high- protein, high-calorie diet. ) DC O2, CPAP, BIPAP needs Additional Home O2 Discharge instructions: No Dressing / Incision Call your doctor if your incision/area has: Continuous Slow Oozing, Sudden Increased Bleeding, Increased Pain/ Swelling, Increased Redness, Foul Smelling Discharge and Swelling at the incision site Call your doctor if you observe: Fever of 101 or Higher Suture Line Care: Avoid Pulling/Pushing and Avoid Pinching/Bending Cleanse incision/area with: Soap & Water Follow Up Care Please Follow Up With: Poli Abraham MD Test Results: Test results from this visit will be discussed in further detail at your follow- up appointment, if applicable. Discharge Plan Admission Admit Date/Time: 04/17/24 22:52 Primary Reason for Your Visit: Sepsis after urologic procedure, lap assisted right pyeloplasty Attending Provider: Ricardo Abdi Primary Care Provider: [facility],[place] Consulting Providers: Jacinto Haji; Polo Osullivan; Blanche Garcia Instructions Additional Instructions / Restrictions: Diet ? Start light with soups and soft bland foods. You may advance diet as tolerated. Activity ? You may drive in 3-5 days but not while taking narcotic pain medication. ? I encourage walking. You may go up steps, one at a time. ? Do not swim or use hot tubs for 2 weeks. ? For comfort, you may use warm compresses or ice as needed for 15-20 minutes at a time. Lifting ? You may lift up to 20 pounds for 6 weeks. Dressings/Incision ? You may shower OVER your plastic dressings ? Do NOT tub bathe for 1 week ? Leave plastic dressings on for 2 days. ? When plastic dressings are removed, you will find steri strips. It is okay to continue showering with them in place, pat them dry. ? You may remove steri-strips after 1 week. We recommend getting them soaking wet for easier removal. Medications ? Anesthesia used during surgery and pain medications may cause constipation. I recommend initiating on the day of surgery a fiber supplement like, Metamucil, Citrucel, FiberCon, Benefiber, or a generic form of these medications. 1 heaping tablespoon in water daily. You may continue to utilize any bowel regimen or oral laxatives that you routinely take. ? As long as you are not intolerant to Tylenol, acetaminophen, ibuprofen, Motrin, Advil, Aleve, or similar medications, I would recommend transitioning to these [id number]-aaf-hdgqpmc medicines as soon as possible instead of continued use of narcotic pain medication. Follow up ? You should call [facility] soon after surgery, at [phone] option 2 to make a follow up appointment for 14 days after your surgery. Please obtain lab work, CBC and BMP, prior to your appointment with Dr. Abraham. Discharge Orders/Prescriptions Prescriptions: Continued metformin 1,000 MG tablet 1,000 mg PO BID metoprolol tartrate 25 MG tablet 12.5 mg PO BID sitagliptin 100 mg tablet 100 mg PO DAILY empagliflozin 25 mg tablet 25 mg PO DAILY clopidogrel 75 mg Tablet 75 mg PO DAILY Qty: 30 1RF tamsulosin 0.4 mg Capsule 0.8 mg PO DAILY@0830 Qty: 60 0RF finasteride 5 MG tablet 5 mg PO QHS Qty: 30 0RF Rx Instructions: Restart per urology rosuvastatin [Crestor] 5 mg tablet 5 mg PO QHS phenazopyridine [Pyridium] 100 mg tablet 100 mg PO Q8H docusate sodium [Colace] 100 mg capsule 100 mg PO BID Qty: 20 0RF oxycodone 5 mg tablet 5 mg PO Q6H PRN (Reason: pain) 3 Days Qty: 14 0RF Held aspirin 81 MG tablet,delayed release (DR/EC) 81 mg PO DAILY Qty: 60 0RF Hold Instructions: Resume on 04/30/2024 Discontinued ciprofloxacin HCl [Cipro] 500 mg tablet 500 mg PO BID Qty: 14 0RF Other Ambulatory Orders: Basic Metabolic Profile (BMP) (Routine) Timeframe: 2 Weeks Facility: [facility] - Location: Laboratory Ordered By: Mary GAMING CBC W/Diff, Automated (Routine) Timeframe: 2 Weeks Facility: [facility] - Location: Laboratory Ordered By: Mary GAMING Referrals / Follow Up: Poli Abraham MD [Med Staff - Active Staff] - 05/06/24 2:00 pm () [facility] [Primary Care Provider] - Within 1 Week Polo Osullivan MD [Med Staff - Active Staff] - In 1 Week (05/01/2024. Discharged with Krueger catheter) Disposition Disposition (needs filled in before D/C Order can be placed): Home, Self Care
--- NOTE | 2024-04-23 11:21 | PCM.DC.SUM ---
Providers Date of Admission: 04/17/24 Date of Discharge: 04/23/24 Primary Care Physician: [place] [facility] Consultations 04/18/24 00:00 Consult: Urology Routine Consulting Provider: Polo Osullivan Reason for Consult: post ureteral stent complication EMERGENT Consult: No Notified: Yes Date Notified: 04/18/24 Time Notified: 06:45 Method of Notification: PAGED 04/19/24 08:17 Consult: Recorder Of Deeds / Pulmonary Medicine Routine Consulting Provider: [facility]/Pulmonary Med Reason for Consult: ICU EMERGENT Consult: No Notified: Yes Date Notified: 04/19/24 Time Notified: 08:17 Method of Notification: Text Reason For Visit: URETERAL STENT PLACEMENT POST-OP COMPLICATIONS Diagnosis Discharge Diagnosis (1) Postoperative abdominal pain: Status: Acute Code(s): R10.9 - Unspecified abdominal pain; G89.18 - Other acute postprocedural pain Plan #Sepsis patient had a recent urological procedure on Sunday04/16/2024, namely laparoscopic assisted right pyeloplasty by urology. he came to the hospital due to worsening abdominal pain. CT abdomen showed extensive free intraperitoneal air with concern for abdominal injury patient tachycardic and tachypneic. WBC was also markedly elevated at 4 6000 Had laparoscopy which was converted to exploratory laparotomy today which did not reveal any significant bowel injury. He had drains left in situ. [facility] surgery, urology and critical care on board on IV zosyn. Had IV fluid as per sepsis protocol and dehydration NG tube removed today. He feels much better 04/21: WBC count improved to 11.9 thousand. H&H 8.8/28%. Platelet count 02/25/2015 K. Tachycardia also improved. BP 129/69. Regular diet started by urologist 04/22: Patient tolerating diet well. Possible plan for discharge tomorrow with Krueger catheter and/or as recommended by surgery. 04/23: Patient moving his bowels regular and tolerated to solid diet. KURTIS drains were removed by the surgeon. Patient is discharged with follow-up surgical discharge instructions and office follow-up on 05/06/2024 #RICARDA with hyperkalemia likely pre renal in origin. Creatinine is 1.63 today. Baseline is around 1.13. Was 3.9 on admission. Hyperkalemia has resolved 12/2: BUN/creatinine improving. 56/1.19. 04/22: Creatinine 0.9 BUN 33. 04/23: BUNs/creatinine normal. #Sinus tachycardia IV lopressor prn 04/21: Heart rate is better. On low-dose metoprolol. 04/22: Sinus tachycardia resolved. #History of right UPJ stricture status post ureteral stent placement and laparoscopic right pyeloplasty Procedure done on 04/16/2024. Urology on board. management as per urology 04/23: Discharged with a Krueger catheter. Patient had follow-up with urologist Dr. Osullivan 05/01/24. #Lactic acidosis: resolved with hydration #Type 2 diabetes A1c was 7 on 04/08/2024. On insulin sliding scale. Accu-Cheks every 6 hourly oral meds on hold On metformin and Jardiance as well as sitagliptin at home. Glucose is elevated . Follow with PCP. Home medications resumed. #Hypertension: On metoprolol which is being resumed today. IV hydralazine as needed #CAD s/p stent: On statin, aspirin and Plavix which are on hold. 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 DVT prophylaxis: heparin Discharge medication reconciliation done. Discharge follow-up instructions completed. Discharge process discussed with the patient and all questions were answered to patient's satisfaction. Follow with PCP in 1 to 2 weeks Total time spent, exact 35 minutes on discharge meds reconciliation, examination, coordination of care with nurses and ancillary staff, review of imaging and blood test and discussion with the patient on follow-up instructions. Medications at Discharge Home Medications metformin 1,000 mg tablet 1,000 mg PO BID diabetes 12/19/19 metoprolol tartrate 25 mg tablet 12.5 mg PO BID heart 12/19/19 aspirin 81 mg tablet,delayed release 81 mg PO DAILY heart ##60 12/30/19 empagliflozin 25 mg tablet 25 mg PO DAILY diabetes 02/13/24 sitagliptin 100 mg tablet 100 mg PO DAILY diabetes 02/13/24 clopidogrel 75 mg tablet 75 mg PO DAILY #30 tabs 03/12/24 finasteride 5 mg tablet 5 mg PO QHS bph #30 tabs 03/12/24 tamsulosin 0.4 mg capsule 0.8 mg (2 x 0.4 mg) PO DAILY@0830 prostate #60 caps 03/12/24 phenazopyridine 100 mg tablet (Pyridium) 100 mg PO Q8H urine 04/03/24 rosuvastatin 5 mg tablet (Crestor) 5 mg PO QHS cholesterol 04/03/24 docusate sodium 100 mg capsule (Colace) 100 mg PO BID stool softner #20 caps 04/16/24 oxycodone 5 mg tablet 5 mg PO Q6H PRN pain 3 days #14 tabs 04/16/24 Physical Exam Narrative Seen and examined Patient moving his bowel. Good urine output. Pain much improved or almost resolved. Only mild tenderness. No fever. Ready for going home Physical exam General: Alert, Oriented x3, Cooperative HEENT: Atraumatic, PERRLA, EOMI, Normocephalic Oral: No Gingival or Mucosal Lesions/ Ulcerations Neck: Supple, No JVD, Negative Carotid Bruits Chest wall/Lungs: Air entry diminished in bilateral lung bases. No crepitation/rhonchi Cardiovascular: Regular rate, Regular Rhythm, Normal S1, Normal S2, No M/G/R Abdomen: Bowel Sounds good, soft, mild tenderness right side of abdomen. No distention : Krueger catheter. Clear urine no renal angle tenderness. No suprapubic tenderness. Extremities: No edema, Capillary Refill Less than 3 Seconds Skin: Midline upper abdomen melani. KURITS drain removed. No soakage of the dressing Musculoskeletal: No Tenderness to Palpation of Joints or Extremities Neurological: Cranial nerves II-XII grossly intact, DTR 2+/4. No acute focal neurological deficit. Psych/Mental Status: Normal Affect, Appropriate. Medical Records Data Medical Nutrition Assessment Dietitian: Malnutrition Criteria Met Start: 04/18/24 10:38 Freq: Status: Active Protocol: Document 04/18/24 10:38 GAURAV (Rec: 04/18/24 10:38 [facility] [id number]) Nutrition Malnutrition Evidence of Malnutrition Exists Yes Malnutrition (moderate): Acute Illness/Injury Evidenced By Suboptimal Energy Intake ( Moderate),Weight Loss (Severe) Clinical Problem Altered Nutrient-Related Laboratory Values Etiology related to diabetes Signs/Symptoms as evidenced by gluc 202 Status Active Problem Acute Disease or Injury Related Malnutrition Etiology related to inadequate energy intake Signs/Symptoms as evidenced by po intake meeting <75% of est nutritional needs and 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 Problem Recommendation Dietitian Recommendations/Changes As medically able, rec KIMBERLEE to 2000 darío Cardiac diet As medically able, rec 4 oz glucerna shake tid w/ medpass for increased nutrition if consumed Will interview pt at time of follow up re: diet/wt hx, etc and make additional rec and provide diet education as indicated Weight / BMI Weight Weight: 185 lb 13.595 oz Body Mass Index (BMI) 24.5 ABG / Lab / Microbiology Data 04/23/24 03:35 04/23/24 03:35 Laboratory: Laboratory Results - last 24 hr 04/22/24 16:30: POC Glucose 266 H 04/22/24 21:34: POC Glucose 282 H 04/23/24 03:35: WBC 12.0 H, RBC 3.44 L, Hgb 9.1 L, Hct 29.3 L, MCV 85.2, MCH 26.5 L, MCHC 31.1 L, RDW Std Deviation 45.1 H, RDW Coeff of Jori 14.6, Plt Count 234, MPV 9.9, Immature Gran % (Auto) 1.200 H, Neut % (Auto) 78.6 H, Lymph % (Auto) 12.6 L, [place] % (Auto) 5.7, Eos % (Auto) 1.7, Baso % (Auto) 0.2, Absolute Neuts (auto) 9.5 H, Absolute Lymphs (auto) 1.52, Nucleated RBC % 0, Sodium 135 L, Potassium 4.2, Chloride 104, Carbon Dioxide 25.0, Anion Gap 6, BUN 25 H, Creatinine 0.70, Estim Creat Clear Calc 97.10, Est GFR (MDRD) Af Amer 142, Est GFR (MDRD) Non-Af 118, BUN/Creatinine Ratio 35.5 H, Glucose 202 H, Calcium 8.5, Total Bilirubin 0.50, AST 10 L, ALT 27, Alkaline Phosphatase 61, Total Protein 6.1 L, Albumin 2.2 L, Globulin 3.9, Albumin/Globulin Ratio 0.6 L 04/23/24 06:24: POC Glucose 190 H Microbiology: Microbiology 04/17/24 21:03 Blood Culture (Wb) - Right Forearm Blood Culture - Final No growth in 5 days. 04/17/24 20:47 Urine Catheter - Catheter Urine Culture - Final Culture exhibits no growth. D/C Instructions Discharge Diet: Light diet - advance as tolerated (Avoid CORBAONATION/ high-protein, high-calorie diet. ) Call your doctor if your incision/area has: Continuous Slow Oozing, Sudden Increased Bleeding, Increased Pain/ Swelling, Increased Redness, Foul Smelling Discharge and Swelling at the incision site Call your doctor if you observe: Fever of 101 or Higher Suture Line Care: Avoid Pulling/Pushing and Avoid Pinching/Bending Cleanse incision/area with: Soap & Water DC O2, CPAP, BIPAP Needs Additional Home O2 Discharge instructions: No DC home with Oxygen: No Please Follow Up With: Poli Abraham MD When: Please call [phone], option #2 to schedule an appointment for 2 weeks Meaningful Use Info Meaningful Use Meaningful Use Diagnoses (Choose all that apply): None applicable Ischemic Stroke Statin Dosing Therapy Reference: STATIN DOSE THERAPY REFERENCE: * Patients > 75 years receive moderate or high dose statin therapy. * Patients 75 years or YOUNGER should receive HIGH intensity statin dose unless contraindicated. You will be required to document reason for non-treatment if statin daily dose does not meet guidelines. HIGH DOSE STATIN THERAPY DAILY Atorvastatin > than or = to 40 mg Rosuvastatin > than or = to 20 mg Amlodipine + Atorvastatin > than or = to 2.5/40 mg Ezetimibe + Simvastatin 10/80 mg Simvastatin 80mg Discharge Plan Admission Admit Date/Time: 04/17/24 22:52 Primary Reason for Your Visit: Sepsis after urologic procedure, lap assisted right pyeloplasty Attending Provider: Ricardo Abdi Primary Care Provider: [facility],[place] Consulting Providers: Jacinto Haji; Polo Osullivan; Blanche Garcia Instructions Additional Instructions / Restrictions: Diet ? Start light with soups and soft bland foods. You may advance diet as tolerated. Activity ? You may drive in 3-5 days but not while taking narcotic pain medication. ? I encourage walking. You may go up steps, one at a time. ? Do not swim or use hot tubs for 2 weeks. ? For comfort, you may use warm compresses or ice as needed for 15-20 minutes at a time. Lifting ? You may lift up to 20 pounds for 6 weeks. Dressings/Incision ? You may shower OVER your plastic dressings ? Do NOT tub bathe for 1 week ? Leave plastic dressings on for 2 days. ? When plastic dressings are removed, you will find steri strips. It is okay to continue showering with them in place, pat them dry. ? You may remove steri-strips after 1 week. We recommend getting them soaking wet for easier removal. Medications ? Anesthesia used during surgery and pain medications may cause constipation. I recommend initiating on the day of surgery a fiber supplement like, Metamucil, Citrucel, FiberCon, Benefiber, or a generic form of these medications. 1 heaping tablespoon in water daily. You may continue to utilize any bowel regimen or oral laxatives that you routinely take. ? As long as you are not intolerant to Tylenol, acetaminophen, ibuprofen, Motrin, Advil, Aleve, or similar medications, I would recommend transitioning to these brzv-voy-dfhzmfg medicines as soon as possible instead of continued use of narcotic pain medication. Follow up ? You should call [facility] soon after surgery, at [phone] option 2 to make a follow up appointment for 14 days after your surgery. Please obtain lab work, CBC and BMP, prior to your appointment with Dr. Abraham. Discharge Orders/Prescriptions Prescriptions: Continued metformin 1,000 MG tablet 1,000 mg PO BID metoprolol tartrate 25 MG tablet 12.5 mg PO BID sitagliptin 100 mg tablet 100 mg PO DAILY empagliflozin 25 mg tablet 25 mg PO DAILY clopidogrel 75 mg Tablet 75 mg PO DAILY Qty: 30 1RF tamsulosin 0.4 mg Capsule 0.8 mg PO DAILY@0830 Qty: 60 0RF finasteride 5 MG tablet 5 mg PO QHS Qty: 30 0RF Rx Instructions: Restart per urology rosuvastatin [Crestor] 5 mg tablet 5 mg PO QHS phenazopyridine [Pyridium] 100 mg tablet 100 mg PO Q8H docusate sodium [Colace] 100 mg capsule 100 mg PO BID Qty: 20 0RF oxycodone 5 mg tablet 5 mg PO Q6H PRN (Reason: pain) 3 Days Qty: 14 0RF Held aspirin 81 MG tablet,delayed release (DR/EC) 81 mg PO DAILY Qty: 60 0RF Hold Instructions: Resume on 04/30/2024 Discontinued ciprofloxacin HCl [Cipro] 500 mg tablet 500 mg PO BID Qty: 14 0RF Other Ambulatory Orders: Basic Metabolic Profile (BMP) (Routine) Timeframe: 2 Weeks Facility: [facility] - Location: Laboratory Ordered By: Mary GAMING CBC W/Diff, Automated (Routine) Timeframe: 2 Weeks Facility: [facility] - Location: Laboratory Ordered By: Mary GAMING Referrals / Follow Up: Poli Abraham MD [Med Staff - Active Staff] - 05/06/24 2:00 pm () Polo Osullivan MD [Med Staff - Active Staff] - In 1 Week (05/01/2024. Discharged with Krueger catheter) [facility],[place] [Primary Care Provider] - Within 1 Week Disposition Disposition (needs filled in before D/C Order can be placed): Home, Self Care Charges/Coding Visit Charges Inpatient E&M: 75746 Disch Hosp >30min
--- NOTE | 2024-04-23 11:42 | CASEMGMT ---
Patient has order for discharge. RN CM in to discuss needs at discharge, at bedside. Patient independent in room. Patient and deny needs or help at discharge. Patient had no further questions or concerns.
== END 2024-04-23 12:15 | disposition home or self-care (01) | DRG 659 ==
LOC: ED 20:24 → PCU 23:16 → ICU 04-18 15:28 → PCU 04-20 16:10
PROVIDERS: Internal Medicine Critical Care Medicine; Student in an Organized Health Care Education/Training Program; Surgery; Admitting Provider Hospitalist; Emergency Provider Surgery; Referring Provider Surgery; Visit Provider Internal Medicine
PROC: 0DJD0ZZ Inspection of Lower Intestinal Tract, Open Approach (ICD-10-PCS; CPT 44202; principal; 2024-04-18 07:10)
DX: T83.592A Infection and inflammatory reaction due to indwelling ureteral stent, initial encounter (principal); A41.9 Sepsis, unspecified organism; E44.0 Moderate protein-calorie malnutrition; E87.20 Acidosis, unspecified; K92.2 Gastrointestinal hemorrhage, unspecified; E87.1 Hypo-osmolality and hyponatremia; R18.8 Other ascites; I50.20 Unspecified systolic (congestive) heart failure; I42.9 Cardiomyopathy, unspecified; N17.9 Acute kidney failure, unspecified; N13.6 Pyonephrosis; N13.8 Other obstructive and reflux uropathy; N39.0 Urinary tract infection, site not specified; E11.65 Type 2 diabetes mellitus with hyperglycemia; I11.0 Hypertensive heart disease with heart failure; E78.00 Pure hypercholesterolemia, unspecified; I25.10 Atherosclerotic heart disease of native coronary artery without angina pectoris; I25.2 Old myocardial infarction; E87.5 Hyperkalemia; Z95.5 Presence of coronary angioplasty implant and graft; R33.9 Retention of urine, unspecified; Z79.84 Long term (current) use of oral hypoglycemic drugs; Z79.02 Long term (current) use of antithrombotics/antiplatelets; N40.1 Benign prostatic hyperplasia with lower urinary tract symptoms; G89.18 Other acute postprocedural pain; Z68.21 Body mass index [BMI] 21.0-21.9, adult; N13.5 Crossing vessel and stricture of ureter without hydronephrosis; N28.1 Cyst of kidney, acquired; N42.9 Disorder of prostate, unspecified; Z79.82 Long term (current) use of aspirin; Z79.899 Other long term (current) drug therapy; Z86.718 Personal history of other venous thrombosis and embolism
CPT/HCPCS: 36415; 51702; 71045; 74018; 74176; 74177; 80048; 80053; 81001; 82570; 82962; 83605; 83690; 83735; 84100; 84300; 84484; 85025; 85027; 87040; 87086; 93005; 94668; 97803; 99285; J2185; Q9967; A4216; J2405

== ENCOUNTER → 2024-05-01 | Outpatient (CLI) | payer MEDICARE, OTHER, SELFPAY ==
[2024-05-01 09:43] LABS: Absolute Lymphocyte Count 2.14 X10^3/uL (0.83-4.51); Absolute Neutrophil Count 9.4 X10^3/uL (2.0-7.7); Basophil# 0.12 X10^3/uL; Basophil% 0.9 % (0-1); Eosinophil# 0.17 X10^3/uL; Eosinophils% 1.3 % (0-5); Hematocrit 35.1 % (40-54); Hemoglobin 10.9 g/dL (13.0-16.5); Lymphocyte # 2.14 X10^3/ul (0.83-4.51); Lymphocyte % 16.3 % (19-41); Mean Corp Hgb Conc 31.1 g/dL (32-36); Mean Corpuscular Hgb 26.7 pg (27.0-32.0); Monocyte# 1.04 X10^3/uL; Monocyte% 7.9 % (0-10); NRBC Flagged by Analyzer 0 % (0-5); Neutrophil # 9.37 X10^3/uL (2.7-7.7); Neutrophil % 71.7 % (47-70); Platelet Count 443 K/mm3 (150-450); RBC Distribution Width CV 16.3 % (11.6-14.6); RBC Distribution Width SD 50.2 fl (35.1-43.9); Red Blood Count 4.08 M/mm3 (4.6-6.2); White Blood Count 13.1 K/mm3 (4.4-11.0)
[2024-05-01 10:12] LABS: Anion Gap 7 (5-15); BUN 17 mg/dL (7-18); BUN/Creat Ratio 18.4 RATIO (10-20); Calcium,Total 9.5 mg/dL (8.5-10.1); Chloride 101 mmol/L (98-107); Creatinine, Serum 0.93 mg/dL (0.70-1.30); EST Glomerular Filtration Rate 86 mL/min (>60); Est Glom Filt Rate - Afr Amer 104 mL/min (>60); Glucose 192 mg/dL (74-106); Potassium 4.4 mmol/L (3.5-5.1); Sodium Level 135 mmol/L (136-145)
== END | disposition home or self-care (01) ==
LOC: LABSPEC 09:07
PROVIDERS: Referring Provider Physician Assistant; Visit Provider Physician Assistant
DX: A41.9 Sepsis, unspecified organism (principal); R10.9 Unspecified abdominal pain; G89.18 Other acute postprocedural pain
CPT/HCPCS: 36415; 80048; 85025